=== PATIENT | female | born 1935 | race Caucasian/White ===

== ENCOUNTER 2019-05-03 01:02 | Emergency (ER) | payer OTHER ==
--- OUTSIDE RECORDS SUMMARY | 2019-05-03 01:10 | XMS REPORT | Continuity of Care Document ---
:1935 Author Organization Interface Problems Problem Status Onset Classification Date Comments Source Date Reported ACUTE UTI, Active 09/13/20 [place] CLINICAL SEPSIS [address] RESPIRATORY Active 06/19/20 [place] FAILURE, SEIZURE [address] [place] [address] [place] Active 06/19/20 [facility] BILLING [address] [place] [address] CVA Active 06/19/[address] Diabetes Resolved Problem 09/20/2017 [place] mellitus [facility] [facility] Hyperlipemia Resolved Problem 09/20/2017 [place] [facility] HTN (<span Resolved Problem 09/20/2017 [place] ID="[id number] [facility] ">Confirmed</spa [place] n>) [facility] Uterine cancer Resolved Problem 09/20/2017 [place] Ovarian cancer Resolved Problem 09/20/2017 [place] in remission [facility] [facility] Obesity Resolved Problem 09/20/2017 [place] [facility] RESPIRATORY Active [place] FAILURE, UNSP, Medical UNSP W HYPOXI Center UNSPECIFIED Active [facility] CONVULSIONS [facility] Medications Medication Details Route Status Patient Ordering Order Source Instructions Provider Date Famotidine 20 MG 20 mg, 1 tab, Inactive [place] Oral Tablet Route: PO, 2016 [facility] [Pepcid] Drug form: TAB, BID, Dosing Weight 140, kg, Start date: 09/17/17 17:00:00 CDT, Duration: 30 day, Stop date: 10/17/17 9:00:00 CSTNotes: (Same as: Pepcid) Hydralazine 10 mg, Route: Inactive 09/16[facility] [place] IVP, ONCE, 2016 [facility] Dosing Weight 140, kg, Priority: NOW, Start date: 09/16/17 13:07:00 CDT, Stop date: 09/16/17 13:07:00 CDT Ceftriaxone 2 gm, Route: No Longer 09/16[facility] [place] IVPB, [id number], Active 2016 [facility] Dosing Weight 140, kg, Start date: 09/16/17 12:00:00 CDT, Duration: 14 day, Stop date: 09/29/17 12:00:00 CDT, ABX Indication: BacteremiaNote s: (Same As: Rocephin). Use with 100 mL NS and infuse over 30 min MEDICATION WASTE Product Size: 2000 mg Product Wasted: ___ mg Pravastatin 20 mg, 1 tab, No Longer [place] Route: PO, Active 2016 [facility] Drug form: TAB, Bedtime, Dosing Weight 113.636, kg, Start date: 09/14/17 21:00:00 CDT, Duration: 30 day, Stop date: 10/13/17 21:00:00 CSTNotes: (Same as: Pravachol) cefepime 1 gm, Route: No Longer [place] IVPB, [id number], Active 2016 Dosing Weight 140, kg, (CrCl 30 - 49 ml/min), Start date: 09/14/17 13:00:00 CDT, Duration: 7 day, Stop date: 09/21/17 1:00:00 CDT, ABX Indication: ED - Suspected SepsisNotes: (Same As: Maxipime) MEDICATION WASTE Product Size: 1000 mg Product Wasted: ___ mg 24 HR Metoprolol 50 mg, 1 tab, No Longer [place] Tartrate 50 MG Route: PO, Active 2016 [facility] Extended Release Drug form: Tablet [Toprol] ERTAB, Q12H, Start date: 09/14/17 9:00:00 CDT, Duration: 30 day, Stop date: 10/13/17 21:00:00 CSTNotes: (Same as: Toprol XL) May split tab, but do not crush. Lisinopril 40 mg, 2 tab, No Longer [place] Route: PO, Active 2016 [facility] Drug form: TAB, Daily, Dosing Weight 113.636, kg, Start date: 09/14/17 9:00:00 CDT, Duration: 30 day, Stop date: 10/13/17 9:00:00 CSTNotes: (Same as: Prinivil, Zestril) lacosamide 100 mg, 2 tab, No Longer [place] Route: PO, Active 2016 [facility] Drug form: TAB, BID, Dosing Weight 113.636, kg, Start date: 09/14/17 9:00:00 CDT, Duration: 30 day, Stop date: 10/13/17 17:00:00 CSTNotes: Same as: Vimpat Aspirin 81 mg, 1 tab, No Longer [place] Route: PO, Active 2016 [facility] Drug form: CHEWTAB, Daily, Dosing Weight 113.636, kg, Start date: 09/14/17 9:00:00 CDT, Duration: 30 day, Stop date: 10/13/17 9:00:00 CSTNotes: Take with food. Humalog Mix 75/25 20 unit, 0.2 No Longer [place] mL, Route: Active 2016 [facility] SUB-Q, Drug form: INJ, QAM & PM (Insulin), Start date: 09/14/17 7:30:00 CDT, Duration: 30 day, Stop date: 10/13/17 16:30:00 CSTNotes: (Same as: Humalog Mix 75/25) "single patient use only" WASTE: F/P - Black; E - [employer]stru[employer] Trash Bin Roll in palms of hand gently; Do not shake. influenza virus 0.5 mL, Route: Inactive [place] vaccine, IM, ONCALL, 2016 [facility] inactivated Start date: 09/13/17 23:46:43 CDT, Stop date: 10/13/17 23:41:43 [employer] Ciprofloxacin 500 mg, 2 tab, No Longer [place] Route: PO, Active 2016 [facility] Drug form: TAB, [id number], Dosing Weight 113.636, kg, (For CrCl > /=30 ml/min), Start date: 09/13/17 23:00:00 CDT, Duration: 7 day, Stop date: 09/20/17 11:00:00 CDT, ABX Indication: Urinary Tract InfectionNotes : May interfere w/enteral feedings - Take 1 hr before or 2 hrs after antacids, dairy pdt & minerals. On empty stomach. NovoLIN 70/30 25 unit, Inactive [place] Route: SUB-Q, 2016 [facility] [id number], Dosing Weight 113.636, kg, Start date: 09/13/17 23:00:00 CDT, Duration: 30 day, Stop date: 10/13/17 11:00:00 [employer] Famotidine 20 mg, 2 mL, No Longer [place] Route: IVP, Active 2016 [facility] Drug form: INJ, BID, Dosing Weight 113.636, kg, Priority: STAT, Start date: 09/13/17 22:26:00 CDT, Duration: 30 day, Stop date: 10/13/17 17:00:00 CSTNotes: (Same as: Pepcid) Can be dilute in 5-10cc NS IVP: Slow IV push over at least 2 minutes. Insulin Lispro 10 unit, 0.1 No Longer [place] mL, Route: Active 2016 [facility] SUB-Q, Drug form: SOLN, TID-Before Meals, Dosing Weight 113.636, kg, PRN Blood Glucose Results, Start date: 09/13/17 22:15:00 CDT, Duration: 30 day, Stop date: 10/13/17 22:14:00 CSTNotes: Roll in palms of hands gently; Do not shake `vigorously. (Same as: Humalog ) "Single Patient Use Only " WASTE: F/P - Black; E - Municipal Trash Bin Stable for 28 days at room temperature. Expires in days from Date Dextrose 50% 12.5 gm, 25 No Longer [place] Syringe mL, Route: Active 2016 [facility] IVP, Drug Form: INJ, Dosing Weight 113.636, kg, PRN, PRN Blood Glucose Results, Start date: 09/13/17 22:15:00 CDT, Duration: 30 day, Stop date: 10/13/17 21:14:00 [employer] Glucagon 1 mg, Route: No Longer [place] IM, Drug form: Active [address] [place] PDR/INJ, PRN, Dosing Weight 113.636, kg, PRN Blood Glucose Results, Start date: 09/13/17 22:15:00 CDT, Duration: 30 day, Stop date: 10/13/17 21:14:00 [employer] Saline Flush 0.9% 10 ml, Route: No Longer [place] IVP, Drug Active [place] Form: INJ, Dosing Weight 113.636, kg, PRN, PRN Line Flush, Start date: 09/13/17 22:14:00 CDT, Duration: 30 day, Stop date: 10/13/17 21:13:00 CSTNotes: (Same as: BD Posiflush) sodium chloride 1,000 mL, No Longer 09/14/ [place] 0.9% 1000 ml INJ Rate: 75 Active [place] 1,000 mL ml/hr, Infuse over: 13.3 hr, Route: IV, Dosing Weight 113.636 kg, Total Volume: 1,000, Start date: 09/13/17 22:14:00 CDT, Duration: 30 day, Stop date: 10/13/17 22:13:00 [employer] Levaquin 750 mg, 150 Inactive 09/14/ [place] mL, Route: [place] IVPB, Drug form: SOLN, ONCE, Dosing Weight 113.636, kg, Start date: 09/13/17 19:39:00 CDT, Duration: 1 doses or times, Stop date: 09/13/17 19:39:00 CDT, ABX Indication: ED - Suspected SepsisNotes: (Same as:Levaquin) Sodium Chloride 1,000 mL, Inactive [place] 0.9% IV (NS 1,000 ml/hr, [address] [place] (Bolus) IV) Infuse Over: 1 hr, Route: IV, 1,000, Drug form: INJ, ONCE, Priority: STAT, Dosing Weight 148.8 kg, Start date: 09/13/17 19:23:00 CDT, Duration: 1 doses or times, Stop date: 09/13/17 19:23:00 CDT Saline Flush 0.9% 10 mL, Route: No Longer 09/14/ [place] IVP, Drug Active [address] [place] Form: INJ, Dosing Weight 148.8, kg, PRN, PRN Line Flush, Start date: 09/13/17 19:23:00 CDT, Duration: 30 day, Stop date: 10/13/17 18:22:00 CSTNotes: (Same as: BD Posiflush) metoprolol 50 mg, 1 tab, Inactive [place] tartrate Route: PO, 2017 Medical Drug form: Center TAB, Q12H, Dosing Weight 148.8, kg, Start date: 06/24/17 21:00:00 CDT, Duration: 30 day, Stop date: 07/24/17 9:00:00 CDT lacosamide 100 mg 100 mg=1 tab, Active [place] oral tablet PO, BID, # 60 2017 Medical tab, 3 Center Refill(s) metoprolol 50 mg=1 tab, Active [facility] tartrate 50 mg PO, Q12H, 0 2017 Medical oral tablet Refill(s) Center lisinopril 40 mg 40 mg=1 tab, Active [facility] oral tablet PO, Daily, # 2017 Medical 30 tab, 3 Center Refill(s) lacosamide 100 mg 100 mg=1 tab, Inactive [facility] oral tablet PO, BID, 0 2017 Medical Refill(s) Center metoprolol 25 mg, 1 tab, Inactive [facility] tartrate Route: PO, 2016 Medical Drug form: [place] TAB, Q12H, Dosing Weight 148.8, kg, Start date: 06/24/17 9:00:00 CDT, Duration: 30 day, Stop date: 07/23/17 21:00:00 CDTNotes: (Same as: Lopressor) Magnesium Sulfate 1 gm, 100 mL, Inactive 06/24[facility] Route: IVPB, 2016 Medical Drug form: [place] INJ, ONCE, Dosing Weight 148.8, kg, Start date: 06/24/17 8:18:00 CDT, Stop date: 06/24/17 8:18:00 CDTNotes: WASTE: F/P - Sink; E - Municipal Trash Bin Motrin 600 mg, 1 tab, Inactive 06/24[facility] Route: PO, 2016 Medical Drug form: [place] TAB, ONCE, Dosing Weight 148.8, kg, Start date: 06/24/17 4:26:00 CDT, Stop date: 06/24/17 4:26:00 CDTNotes: (Same as: Motrin) "Do Not Crush" Take with food. metoprolol 12.5 mg, 0.5 Inactive [facility] tartrate tab, Route: 2017 Medical PO, Drug form: [place] TAB, ONCE, Dosing Weight 148.8, kg, Start date: 06/24/17 4:25:00 CDT, Stop date: 06/24/17 4:25:00 CDTNotes: (Same as: Lopressor) 12.5 mg=1/2 X 25 mg TAB Tylenol 650 mg, 2 tab, Inactive [facility] Route: PO, 2016 Medical Drug form: [place] TAB, ONCE, Dosing Weight 148.8, kg, PRN Pain Score 1-3, Start date: 06/24/17 2:14:00 CDTNotes: Do not exceed 4 gm/day. (Same as: Tylenol) Tylenol 650 mg, 2 tab, Inactive [facility] Route: PO, 2016 Medical Drug form: [place] TAB, Q6H, Dosing Weight 148.8, kg, PRN Pain Score 1-3, Start date: 06/24/17 2:09:00 CDT, Duration: 30 day, Stop date: 07/24/17 2:08:00 CDTNotes: Do not exceed 4 gm/day. (Same as: Tylenol) Labetalol 10 mg, 2 mL, Inactive [facility] Route: IVP, 2016 Medical Drug form: [place] INJ, ONCE, Dosing Weight 148.8, kg, Start date: 06/23/17 23:08:00 CDT, Stop date: 06/23/17 23:08:00 CDT divalproex sodium 250 mg, 1 tab, No Longer [facility] 250 mg oral Route: PO, Active 2016 Medical enteric coated Drug form: [place] tablet (Depakote) ECTAB, BID, Dosing Weight 148.8, kg, Start date: 06/23/17 17:00:00 CDT, Duration: 30 day, Stop date: 07/23/17 9:00:00 CDT, Delayed Release tablet multivitamin with 5 ml, Route: No Longer [facility] minerals PO, Drug Form: Active 2016 Medical LIQ, Dosing Center Weight 148.8, kg, Daily, Start date: 06/23/17 9:00:00 CDT, Duration: 30 day, Stop date: 07/22/17 9:00:00 CDT lisinopril 30 mg 30 mg=1 tab, No Longer [facility] oral tablet PO, Daily, # Active 2017 Medical 30 tab, 0 Center Refill(s) Aspirin 81 mg, PO, Active [facility] Daily, adult 2017 Medical low dose Center aspirin 81 mg, 0 Refill(s) NovoLIN 70/30 See Active [facility] Instructions, 2017 Medical one shot in Center the morning and one shot in the evening which varies in dose depending upon blood sugar reading. usually 40-70 of 1 ml., 0 Refill(s) metoprolol See No Longer [facility] tartrate 100 mg Instructions, Active 2017 Medical oral tablet 1 tab each Center morning and half tablet each evening., 0 Refill(s) Omeprazole 20 mg, PO, Active [facility] Daily, [address] Center 20 mg, 0 Refill(s) metoprolol 12.5 mg, 0.5 No Longer [facility] tartrate tab, Route: Active 2017 Medical PO, Drug form: Center TAB, Q12H, Dosing Weight 148.8, kg, Start date: 06/22/17 21:00:00 CDT, Duration: 30 day, Stop date: 07/22/17 9:00:00 CDTNotes: (Same as: Lopressor) 12.5 mg=1/2 X 25 mg TAB 24 HR Divalproex 500 mg, 1 tab, No Longer [facility] Sodium 500 MG Route: PO, Active 2017 Medical Extended Release Drug form: [place] Tablet [Depakote] ECTAB, BID, Dosing Weight 148.8, kg, Start date: 06/22/17 17:00:00 CDT, Duration: 30 day, Stop date: 07/22/17 9:00:00 CDTNotes: (Same as: Depakote Delayed Release) Do not confuse with the extended-relea se tablet. Delayed absorption enteric coated tablet. Do not crush sodium chloride 1,000 mL, No Longer [place] 0.9% 1000 ml INJ Rate: 50 Active 2017 Medical 1,000 mL ml/hr, Infuse [place] over: 20 hr, Route: IV, Dosing Weight 148.8 kg, Total Volume: 1,000, Start date: 06/22/17 14:24:00 CDT, Duration: 30 day, Stop date: 07/22/17 14:23:00 CDT multivitamin with 1 tab, Route: No Longer [place] minerals PO, Drug Form: Active 2017 Medical TAB, Daily, Center Start date: 06/22/17 12:00:00 CDT, Duration: 30 day, Stop date: 07/22/17 9:00:00 CDTNotes: (Same as:Thera-M, Theragran-M) WASTE: F/P - Black; E - Municipal Trash Bin Give with food. Vimpat 100 mg, 1 tab, No Longer [place] Route: PO, Active 2016 Medical Drug form: [place] TAB, BID, Dosing Weight 148.8, kg, Start date: 06/22/17 10:25:00 CDT, Duration: 30 day, Stop date: 07/22/17 9:00:00 CDTNotes: Same as: Vimpat Aspirin 81 mg, 1 tab, No Longer [place] Route: PO, Active 2016 Medical Drug form: [place] ECTAB, Daily, Dosing Weight 148.8, kg, Start date: 06/22/17 9:00:00 CDT, Duration: 30 day, Stop date: 07/21/17 9:00:00 CDTNotes: Do not crush or chew. (Same As: Ecotrin) Potassium 20 mEq, 100 Inactive [place] Chloride mL, Route: 2017 Medical IVPB, Drug Center form: INJ, PRN, Dosing Weight 148.8, kg, PRN Abnormal Lab Result, Via central line, Start date: 06/22/17 2:06:00 CDT, Duration: 30 day, Stop date: 07/22/17 2:05:00 CDT, FOR ICU USE ONLYNotes: (Same as: KCL) Infuse no faster than 10 mEq/hr if given peripherally. Calcium Carbonate 500 mg, 1 tab, Inactive [place] 500 MG Chewable Route: PO, 2016 Medical Tablet Drug form: [place] CHEWTAB, PRN, Dosing Weight 148.8, kg, PRN Abnormal Lab Result, FOR ICU USE ONLY, Start date: 06/22/17 2:06:00 CDT, Duration: 30 day, Stop date: 07/22/17 2:05:00 CDTNotes: (Same As: Tums) Calcium Carbonate 500 vb=109 mg elemental calcium Dose= mg calcium carbonate ( mg elemental calcium) potassium 2 pkt, Route: Inactive [place] phosphate-sodium PO, Drug Form: 2017 Medical phosphate 250 PDR/REC, Center mg-280 mg-160 mg Dosing Weight oral powder for 148.8, kg, reconstitution PRN, PRN Abnormal Lab Result, FOR ICU USE ONLY, Start date: 06/22/17 2:06:00 CDT, Duration: 30 day, Stop date: 07/22/17 2:05:00 CDTNotes: (Same as: Phos-NaK) Each 1.5 gm pkt has 250mg phosphorous. Mix w/2.5oz water and stir. potassium 45 mmol, 15 Inactive [place] phosphate mL, Route: 2016 Medical IVPB, PRN, Center Dosing Weight 148.8, kg, PRN Abnormal Lab Result, Start date: 06/22/17 2:06:00 CDT, Duration: 30 day, Stop date: 07/22/17 2:05:00 CDT, FOR ICU USE ONLYNotes: (Same as: K Phosphate.) 1 mMol phoshate has 1.47 mEq potassium Infuse over 4 hours Calcium Gluconate 1 gm, 10 mL, Inactive [place] Route: IVPB, 2016 Medical PRN, Dosing Center Weight 148.8, kg, PRN Abnormal Lab Result, Start date: 06/22/17 2:06:00 CDT, Duration: 30 day, Stop date: 07/22/17 2:05:00 CDT, FOR ICU USE ONLYNotes: WASTE: F/P - Sink; E - Municipal Trash Bin Magnesium Oxide 800 mg, 2 tab, Inactive [place] Route: PO, 2016 Medical Drug form: Center TAB, PRN, Dosing Weight 148.8, kg, PRN Abnormal Lab Result, FOR ICU USE ONLY, Start date: 06/22/17 2:06:00 CDT, Duration: 30 day, Stop date: 07/22/17 2:05:00 CDTNotes: (Same as: Mag-Ox 400) Magnesium oxide 400op=544ye elemental magnesium Dose=____mg magnesium oxide (___mg elemental magnesium) Magnesium Sulfate 2 gm, 50 mL, Inactive [facility] Route: IVPB, 2016 Medical Drug form: [place] INJ, PRN, Dosing Weight 148.8, kg, PRN Abnormal Lab Result, Start date: 06/22/17 2:06:00 CDT, Duration: 30 day, Stop date: 07/22/17 2:05:00 CDT, FOR ICU USE ONLYNotes: WASTE: F/P - Sink; E - Municipal Trash Bin sodium phosphate 30 mmol, 10 Inactive [place] mL, Route: 2017 Medical IVPB, PRN, [place] Dosing Weight 148.8, kg, PRN Abnormal Lab Result, Start date: 06/22/17 2:06:00 CDT, Duration: 30 day, Stop date: 07/22/17 2:05:00 CDT, FOR ICU USE ONLY Seroquel 50 mg, 2 tab, No Longer [place] Route: PO, Active 2016 Medical Drug form: [place] TAB, Bedtime, Dosing Weight 148.8, kg, PRN Agitation, Start date: 06/21/17 9:36:00 CDT, Stop date: 07/21/17 9:35:00 CDTNotes: (Same as: SEROquel) Valproic Acid 50 750 mg, 15 mL, No Longer [place] MG/ML Oral Route: PO, Active 2016 Medical Solution Drug form: [place] SYRP, Q8H, Dosing Weight 148.8, kg, Start date: 06/21/17 9:00:00 CDT, Duration: 30 day, Stop date: 07/21/17 8:00:00 CDTNotes: (Same As: Depakene) Lisinopril 40 mg, 2 tab, No Longer [place] Route: PO, Active 2016 Medical Drug form: [place] TAB, Daily, Dosing Weight 148.8, kg, Start date: 06/21/17 9:00:00 CDT, Stop date: 07/20/17 9:00:00 CDTNotes: (Same as: Prinivil, Zestril) Seroquel 75 mg, Route: Inactive [place] PO, ONCE, 2016 Medical Dosing Weight [place] 148.8, kg, Start date: 06/21/17 3:57:00 CDT, Stop date: 06/21/17 3:57:00 CDT Labetalol 20 mg, 4 mL, Inactive [place] Route: IVP, 2016 Medical Drug form: [place] INJ, Q15Min, Dosing Weight 148.8, kg, PRN Hypertension, Start date: 06/21/17 3:05:00 CDT, Duration: 3 doses or times, Stop date: Limited # of times Hydralazine 10 mg, 0.5 mL, No Longer [place] Route: IV, Active 2016 Medical Drug form: [place] INJ, Q4H, Dosing Weight 148.8, kg, PRN Hypertension, Start date: 06/21/17 3:05:00 CDT, Duration: 30 day, Stop date: 07/21/17 3:04:00 CDTNotes: (Same as: Apresoline) Push over 5 minutes Keppra 1,500 mg, No Longer [place] Route: PO, Active 2016 Medical Drug form: [place] TAB, Q12H, Dosing Weight 148.8, kg, Start date: 06/21/17 2:00:00 CDT, Duration: 30 day, Stop date: 07/20/17 21:00:00 CDT Seroquel 75 mg, 3 tab, No Longer [place] Route: GT, Active 2016 Medical Drug form: Center TAB, Bedtime, Dosing Weight 148.8, kg, Start date: 06/20/17 21:00:00 CDT, Duration: 30 day, Stop date: 07/19/17 21:00:00 CDTNotes: (Same as: SEROquel) Pravastatin 20 mg, 1 tab, No Longer [place] Route: PO, Active 2016 Medical Drug form: Center TAB, Bedtime, Dosing Weight 148.8, kg, Start date: 06/20/17 21:00:00 CDT, Duration: 30 day, Stop date: 07/19/17 21:00:00 CDTNotes: (Same as: Pravachol) Valproic Acid 100 2,000 mg, 20 No Longer [place] MG/ML Injectable mL, Route: Active 2016 Medical Solution IVPB, ONCE, Center Dosing Weight 148.8, kg, Start date: 06/20/17 20:20:00 CDT, Stop date: 06/20/17 20:20:00 CDTNotes: Dilute in at least 50ml D5W or NS. Infusion rate=20 mg/min (Same As: Depacon) NS (Bolus) IV 500 mL, 500 Inactive [facility] ml/hr, Infuse 2017 Medical Over: 1 hr, [place] Route: IV, ONCE, Priority: STAT, Dosing Weight 148.8 kg, Start date: 06/20/17 20:15:00 CDT, Duration: 1 doses or times, Stop date: 06/20/17 20:15:00 CDT Hydralazine 10 mg, 0.5 mL, Inactive 06/20[facility] Route: IVP, 2016 Medical Drug form: [place] INJ, ONCE, Dosing Weight 148.8, kg, Priority: STAT, Start date: 06/20/17 18:37:00 CDT, Stop date: 06/20/17 18:37:00 CDTNotes: (Same as: Apresoline) Push over 5 minutes Labetalol 10 mg, 2 mL, Inactive [facility] Route: IVP, 2016 Medical Drug form: [place] INJ, ONCE, Dosing Weight 148.8, kg, Priority: STAT, Start date: 06/20/17 18:37:00 CDT, Stop date: 06/20/17 18:37:00 CDT Fentanyl 25 microgram, Inactive [facility] 0.5 mL, Route: 2017 Medical IV, Drug form: [place] INJ, ONCE, Dosing Weight 148.8, kg, Start date: 06/20/17 17:52:00 CDT, Stop date: 06/20/17 17:52:00 CDT, Pediatric Dosing; For procedure; > 50 kgNotes: (Same as: Sublimaze) Preservative free. Dexmedetomidine 400 microgram, No Longer [facility] 4 mL, Rate: Active 2016 Medical Titrate, Start [place] Dose: 0.2 microgram/kg/h r, Titration: 0.1 microgram/kg/h r every 30 min, Goal(s): 0 to -1 RASS, Max Dose: 1.5 microgram/kg/h r, Route: IV, Dosing Weight 148.8 kg, Total Volume: 100, Start date: 06/20/17 17:22:00...Not es: Not for use > 24 hours Haldol 5 mg, 1 mL, Inactive [place] Route: IM, 2017 Medical Drug form: Center INJ, ONCE, Dosing Weight 148.8, kg, PRN Agitation, Start date: 06/20/17 16:14:00 CDTNotes: (Same as: Haldol) Albuterol 0.833 3 ml, Route: No Longer [place] MG/ML / NEB, Drug Active 2016 Medical Ipratropium Form: SOLN, Center [place] 0.167 Dosing Weight MG/ML Inhalant 148.8, kg, Solution [DuoNeb] RQ6H, PRN as needed for shortness of breath or wheezing, Start date: 06/20/17 14:00:00 CDT, Stop date: 06/27/17 8:00:00 CDTNotes: (Same as: Duoneb) Dextrose 50% 12.5 gm, 25 No Longer [place] Syringe mL, Route: Active 2016 Medical IVP, Drug Center Form: INJ, Dosing Weight 148.8, kg, PRN, PRN Abnormal Lab Result, Start date: 06/20/17 12:54:00 CDT, Duration: 30 day, Stop date: 07/20/17 12:53:00 CDT Regular Insulin, 3 unit, 0.03 No Longer [place] Human 100 UNT/ML mL, Route: Active 2016 Medical Injectable SUB-Q, Drug Center Solution form: SOLN, PRN, Dosing Weight 148.8, kg, PRN Abnormal Lab Result, Start date: 06/20/17 12:54:00 CDT, Duration: 30 day, Stop date: 07/20/17 12:53:00 CDTNotes: (Same as: Humulin R) Roll in palms of hands gently; Do not shake vigorously. "single patient use only" (Restricted to patients requiring a dose > 60 units) WASTE: F/P - Black; E - Municipal Trash Bin Stable for 28 days at room temperature Expires in days from Date Keppra 1,500 mg, Inactive [place] Route: IVPB, 2017 Medical Q12H, Dosing Center Weight 148.8, kg, Priority: NOW, Start date: 06/20/17 12:41:00 CDT, Duration: 7 day, Stop date: 06/27/17 9:00:00 CDTNotes: Same as Keppra Mix with 100 mL NS, LR or D5W MEDICATION WASTE Product Size: 500 mg Product Wasted: ___ mg sennosides, SHELTER 8.6 mg, 1 tab, No Longer [place] Route: PO, Active 2016 Medical Drug Form: Center TAB, Dosing Weight 148.8, kg, BID, Start date: 06/20/17 9:00:00 CDT, Duration: 30 day, Stop date: 07/19/17 17:00:00 CDTNotes: (Same as: Senokot) Saline Flush 0.9% 10 ml, Route: No Longer [facility] IVP, Drug Active 2016 Medical Form: INJ, Center Dosing Weight 136.364, kg, Q12H, Start date: 06/20/17 9:00:00 CDT, Duration: 30 day, Stop date: 07/19/17 21:00:00 CDTNotes: (Same as: BD Posiflush) pantoprazole 40 mg, Route: Inactive [facility] IVP, Drug 2016 Medical form: INJ, Center Daily, Dosing Weight 136.364, kg, Start date: 06/20/17 9:00:00 CDT, Duration: 30 day, Stop date: 07/19/17 9:00:00 CDTNotes: For IV push reconstitute with 10 ml 0.9% sodium chloride and push over 2 minutes. (Same as: Protonix) Streptococcus 0.5 mL, Route: Inactive [facility] pneumoniae IM, Drug Form: 2017 Medical serotype 1 INJ, Daily, Center capsular antigen Start date: diphtheria [id number] 06/20/17 protein conjugate 9:00:00 CDT, vaccine / Duration: 1 Streptococcus doses or pneumoniae times, Stop serotype 14 date: 06/20/17 capsular antigen 9:00:00 diphtheria [id number] CDTNotes: protein conjugate Shake well vaccine / prior to use Streptococcus (Same as: pneumoniae Prevnar 13) serotype 18C capsular antigen d chlorhexidine 15 mL, Route: Inactive [facility] gluconate 1.2 Swab Mouth, 2017 Medical MG/ML Mouthwash Q12H, Drug Center form: LIQ, Start date: 06/20/17 9:00:00 CDT, Duration: 30 day, Stop date: 07/19/17 21:00:00 CDTNotes: (Same As: Peridex) lansoprazole 30 mg, 10 mL, No Longer [facility] Route: NG, Active 2016 Medical Drug form: [place] SUSP, Daily, Dosing Weight 136.364, kg, Start date: 06/20/17 9:00:00 CDT, Duration: 30 day, Stop date: 07/19/17 9:00:00 CDTNotes: Take 1 hour before or 2 hours after meal; Expires in 14 days. Shake well before use. (Same as:Prevacid) Compounded Product - formulation not commercially available Docusate 100 mg, 10 mL, No Longer [facility] Route: PO, Active 2016 Medical Drug form: [place] LIQ, Daily, Dosing Weight 148.8, kg, Start date: 06/20/17 9:00:00 CDT, Duration: 30 day, Stop date: 07/19/17 9:00:00 CDTNotes: (Same as: Colace) ocular lubricant 1 appl, Route: No Longer [facility] BOTH EYES, Active 2016 Medical Q6H, Drug Center form: OINT, Start date: 06/20/17 6:00:00 CDT, Duration: 30 day, Stop date: 07/20/17 0:00:00 CDTNotes: (Same as: Lacri-Lube, Duratears Naturale, Artificial Tears, and Tears Again ) Aspirin 300 MG 300 mg, 1 Inactive [place] Rectal supp, Route: 2017 Medical Suppository CO, Drug form: [place] SUPP, Daily, Dosing Weight 148.8, kg, Start date: 06/20/17 3:29:00 CDT, Duration: 30 day, Stop date: 07/19/17 9:00:00 CDTNotes: Refrigerate. 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 Infection/Epid ural AbcessNotes: TIME CRITICAL MEDICATION (Same As: Vancocin) Infusion rate 2001 mg: infuse over 2.5 hours MEDICATION WASTE Product Size: 1000 mg Product Wasted: 0 mg cefepime 2 gm, Route: Inactive [place] IVPB, [id number], 2017 Medical Dosing Weight Center 148.8, kg, (CrCl >/=50 ml/min, SPORTS REPORTER infection or neutropenic fever), Start date: 06/20/17 3:14:00 CDT, Duration: 10 day, Stop date: 06/29/17 16:00:00 CDT, ABX Indication: SPORTS REPORTER Infection/Epid ural AbcessNotes: (Same as: Maxipime) MEDICATION WASTE Product Size: 2000 mg Product Wasted: 0 mg sodium phosphate 15 mmol, 5 mL, No Longer [place] Route: IVPB, Active 2016 Medical PRN, Dosing Center Weight 148.8, kg, PRN Abnormal Lab Result, Start date: 06/20/17 3:13:00 CDT, Duration: 30 day, Stop date: 07/20/17 3:12:00 CDT, FOR ICU USE ONLY Calcium Carbonate 500 mg, 1 tab, No Longer [place] 500 MG Chewable Route: PO, Active 2016 Medical Tablet Drug form: Center CHEWTAB, PRN, Dosing Weight 148.8, kg, PRN Abnormal Lab Result, FOR ICU USE ONLY, Start date: 06/20/17 3:13:00 CDT, Duration: 30 day, Stop date: 07/20/17 3:12:00 CDTNotes: (Same As: Tums) Calcium Carbonate 500 jx=077 mg elemental calcium Dose= mg calcium carbonate ( mg elemental calcium) potassium 2 pkt, Route: No Longer [place] phosphate-sodium PO, Drug Form: Active 2016 Medical phosphate 250 PDR/REC, Center mg-280 mg-160 mg Dosing Weight oral powder for 148.8, kg, reconstitution PRN, PRN Abnormal Lab Result, FOR ICU USE ONLY, Start date: 06/20/17 3:13:00 CDT, Duration: 30 day, Stop date: 07/20/17 3:12:00 CDTNotes: (Same as: Phos-NaK) Each 1.5 gm pkt has 250mg phosphorous. Mix w/2.5oz water and stir. Magnesium Sulfate 2 gm, 50 mL, No Longer [place] Route: IVPB, Active 2016 Medical Drug form: Center INJ, PRN, Dosing Weight 148.8, kg, PRN Abnormal Lab Result, Start date: 06/20/17 3:13:00 CDT, Duration: 30 day, Stop date: 07/20/17 3:12:00 CDT, FOR ICU USE ONLYNotes: WASTE: F/P - Sink; E - Municipal Trash Bin Magnesium Oxide 800 mg, 2 tab, No Longer [place] Route: PO, Active 2016 Medical Drug form: Center TAB, PRN, Dosing Weight 148.8, kg, PRN Abnormal Lab Result, FOR ICU USE ONLY, Start date: 06/20/17 3:13:00 CDT, Duration: 30 day, Stop date: 07/20/17 3:12:00 CDTNotes: (Same as: Mag-Ox 400) Magnesium oxide 821mg=440ay elemental magnesium Dose=____mg magnesium oxide (___mg elemental magnesium) Calcium Gluconate 1 gm, 10 mL, No Longer [place] Route: IVPB, Active 2016 Medical PRN, Dosing Center Weight 148.8, kg, PRN Abnormal Lab Result, Start date: 06/20/17 3:13:00 CDT, Duration: 30 day, Stop date: 07/20/17 3:12:00 CDT, FOR ICU USE ONLYNotes: WASTE: F/P - Sink; E - Municipal Trash Bin Potassium 20 mEq, 15 mL, No Longer [place] Chloride Route: [place], Active 2016 Medical Drug form: Center LIQ, PRN, Dosing Weight 148.8, kg, PRN Abnormal Lab Result, Start date: 06/20/17 3:13:00 CDT, Duration: 30 day, Stop date: 07/20/17 3:12:00 CDT, FOR ICU USE ONLYNotes: (Same as: Potassium Chloride) Keppra 2,000 mg, Inactive [facility] Route: IV, 2017 Medical ONCE, Dosing Center Weight 136.364, kg, Priority: STAT, Start date: 06/20/17 1:13:00 CDT, Stop date: 06/20/17 1:13:00 CDTNotes: Same as Keppra Mix with 100 mL NS, LR or D5W MEDICATION WASTE Product Size: 500 mg Product Wasted: 0 mg Insulin regular 1 unit, 0.01 No Longer [facility] mL, Route: Active 2016 Medical SUB-Q, Drug Center form: SOLN, Sliding Scale, Dosing Weight 136.364, kg, PRN Blood Glucose Results, Start date: 06/20/17 1:01:00 CDT, Duration: 30 day, Stop date: 07/20/17 1:00:00 CDTNotes: (Same as: Humulin R) Roll in palms of hands gently; Do not shake vigorously. "single patient use only" (Restricted to patients requiring a dose > 60 units) WASTE: F/P - Black; E - Municipal Trash Bin Stable for 28 days at room temperature Expires in days from Date Dextrose 50% 12.5 gm, 25 No Longer [facility] Syringe mL, Route: Active 2016 Medical IVP, Drug Center Form: INJ, Dosing Weight 136.364, kg, PRN, PRN Blood Glucose Results, Start date: 06/20/17 1:01:00 CDT, Duration: 30 day, Stop date: 07/20/17 1:00:00 CDT Glucagon 1 mg, Route: No Longer [facility] IM, Drug form: Active 2017 Medical PDR/INJ, PRN, Center Dosing Weight 136.364, kg, PRN Blood Glucose Results, Start date: 06/20/17 1:01:00 CDT, Duration: 30 day, Stop date: 07/20/17 1:00:00 CDT chlorhexidine 15 mL, Route: No Longer [place] gluconate 1.2 Swab Mouth, Active 2017 Medical MG/ML Mouthwash PRN, Drug Center form: LIQ, PRN Other -See Comment, Start date: 06/20/17 0:54:00 CDT, Duration: 30 day, Stop date: 07/20/17 0:53:00 CDTNotes: (Same As: Peridex) sodium chloride 1,000 mL, No Longer [place] 0.9% 1000 ml INJ Rate: 75 Active 2017 [facility] 1,000 mL ml/hr, Infuse Center over: 13.3 hr, Route: IV, Dosing Weight 136.364 kg, Total Volume: 1,000, Start date: 06/20/17 0:52:00 CDT, Duration: 30 day, Stop date: 07/20/17 0:51:00 CDT NS (Bolus) IV 1,000 mL, Inactive [place] 1,000 ml/hr, 2017 Medical Infuse Over: 1 Center hr, Route: IV, 1,000, Drug form: INJ, ONCE, Priority: STAT, Dosing Weight 136.364 kg, Start date: 06/20/17 0:52:00 CDT, Duration: 1 doses or times, Stop date: 06/20/17 0:52:00 CDT pravastatin 20 mg 20 mg=1 tab, Active [place] oral tablet PO, Bedtime, # 2017 Medical 30 tab, 0 Center Refill(s) Aspirin Enteric 81 mg=1 tab, Inactive [place] Coated 81 mg oral PO, Daily, 0 2016 [facility] delayed release Refill(s) [place] tablet metoprolol BID, 0 No Longer [place] tartrate Refill(s) Active 2017 [facility] Lisinopril 30, PO, Daily, No Longer [place] 0 Refill(s) Active 2017 [facility] heparin 5,000 unit, 1 No Longer [place] mL, Route: Active 2017 Medical SUB-Q, Drug Center form: INJ, Q8H, Dosing Weight 136.364, kg, (For patients weighing Notes: porcine heparin atorvastatin 80 mg, 2 tab, No Longer [place] Route: PO, Active 2016 Medical Drug form: [place] TAB, Bedtime, Dosing Weight 136.364, kg, Start date: 06/19/17 23:04:00 CDT, Duration: 30 day, Stop date: 07/19/17 21:00:00 CDTNotes: (Same as: Lipitor) Aspirin 325 MG 325 mg, 1 tab, No Longer [place] Enteric Coated Route: PO, Active 2016 Medical Tablet Drug form: [place] TAB, Daily, Dosing Weight 136.364, kg, Start date: 06/19/17 23:04:00 CDT, Duration: 30 day, Stop date: 07/19/17 9:00:00 CDTNotes: Take with food. Saline Flush 0.9% 10 ml, Route: No Longer [place] IVP, Drug Active 2016 Medical Form: INJ, Center Dosing Weight 136.364, kg, PRN, PRN Line Flush, Start date: 06/19/17 22:54:00 CDT, Duration: 30 day, Stop date: 07/19/17 22:53:00 CDTNotes: (Same as: BD Posiflush) iodixanol 100 mL, Route: Inactive [place] IVP, Drug 2016 Medical Form: SOLN, [place] Dosing Weight 136.364, kg, ONCALL, STAT, Start date: 06/19/17 21:24:00 CDT, Duration: 1 doses or times, Dose=2.2ml/kg, Max [id number] -- "To be infused by Radiology Staff ONLY" iodixanol 100 mL, Route: No Longer [facility] IVP, Drug Active 2017 Medical Form: SOLN, Center Dosing Weight 136.364, kg, ONCALL, STAT, Start date: 06/19/17 21:18:00 CDT, Duration: 1 doses or times, Dose=2.2ml/kg, Max ueud=[id number] -- "To be infused by Radiology Staff ONLY"Notes: (Same as: Visipaque). WASTE: F/P - Black; E - Municipal Trash Bin propofol INJ 1,000 mg, 100 No Longer 06/20[facility] 1,000 mg mL, Rate: Active 2017 Medical Titrate, Start Center Dose: 5 microgram/kg/m in, Titration: 5 microgram/kg/m in every 15 min, Goal(s): RASS 0, Max Dose: 50 microgram/kg/m in, Route: IV, Dosing Weight 148.8 kg, Total Volume: 100, Start date: 06/19/17 21:15:00 CDT, Stop...Notes: If Diprivan - change bottle & tubing every 12 hr Per state nursing law propofol can only be given by a nurse if patient is intubated or being intubated (unless the nurse is a [employer]ER). Same as: Diprivan Saline Flush 0.9% 10 mL, Route: No Longer 06/20[facility] IVP, Drug Active 2016 Medical Form: INJ, kg, Center PRN, PRN Line Flush, Start date: 06/19/17 21:08:00 CDT, Duration: 30 day, Stop date: 07/19/17 21:07:00 CDTNotes: (Same as: BD Posiflush) Allergies, Adverse Reactions, Alerts Substance Category Reaction Severity Reaction Status Date Comments Source type Reported penicillins Assertion Drug Active allergy [place] Immunizations Immunization Date Site Status Last Updated Comments Source Given influenza virus Left completed Jarett [place] vaccine, 7 [place] inactivated pneumococcal Left completed Jaison [place] 13-valent vaccine 7 deltoid [place],[facility] Results Order Name Results Value Reference Date Interpretation Comments Source Range PICC insert PICC insert PICC line insertion under ultrasound and fluoroscopy guidance: 09/16 - [place] with or with or - [place] without without port port VR VR CLINICAL INFORMATION: Vascular access for long-term antibiotics. Read by: Ilan Carr MD Dictated Date/time: 09/17/17 09:48 Electronically Signed by: Ilan Carr MD 09/17/17 09:48 FINAL REPORT CONSENT: The procedure, risks, benefits, and alternatives were discussed and written, informed consent was obtained. DAP: 4712 mgy-cm time: 0.8min PROCEDURE: Sterile barrier technique was followed including: Cap and mask, sterile gown, sterile gloves, and large sterile sheet. Hand hygiene, and 2% chlorhexidine for cutaneous antisepsis (or acceptable alternative antiseptics, per current guideline). The patient was placed supine on the fluoroscopy table and the right arm was prepped and draped in the usual sterile fashion. An ultrasound was performed to localize a suitable vein in the right upper extremity and images of ultrasound were archived. After administering local anesthesia, a micropuncture needle was used to access the basilic vein in the right upper extremity.The right basilic is patent and compressible. Images were sent to PACS for archiving. A guidewire was advanced centrally. A peel-away sheath was placed over the guidewire and guidewire was removed. A 5 [place] double lumen PICC line was placed through a peel-away sheath with the tip pos itioned at the level of the caval atrial junction. The peel-away sheath was removed and the PICC line was secured to the skin with two simple interrupted sutures. The catheter tip is located at the superior caval-atrial junction. The patient tolerated the procedure well and there were no immediate complications. IMPRESSION: Placement of right upper extremity PICC line under ultrasound and fluoroscopy guidance. ED ED ED Abdomen/Pelvis IV contrast only CT 09/16/2017 11:18 AM CDT 09/16 - [facility] Abdomen/Pel Abdomen/Pel /2016 - [facility] vis IV s IV contrast contrast only CT only CT Comparison: 06/20/2017 radiograph Read by: Mike Knight MD Dictated Date/time: 09/16/17 12:52 Electronically Signed by: Mike Knight MD 09/16/17 13:05 FINAL REPORT Dose: DLP 2810 mGy-cm TECHNIQUE: Helical acquisition of the abdomen and pelvis was obtained from the lung bases to the pubic symphysis with intravenous contrast. Axial, sagittal and coronal images MPR were interpreted. This exam was performed according to our department dose optimization protocol , which includes automated exposure control, adjustment of the mA and/or kV according to patient size and/or use of iterative reconstruction technique. FINDINGS: Lung bases: Clear. No pneumoperitoneum. Liver: Within normal limits. Spleen: Borderline increase gland volume measuring 13 cm AP dimension. Adrenal glands: Left adrenal gland nodule measures 2.5 x 1.8 cm. Unremarkable right adrenal gland. Gallbladder/biliary: Cholecystectomy. No evidence of intrahepatic biliary dilatation. Pancreas: Pancreatic neck partly calcified hypodense mass is present measuring 3.5 x 2.5 cm axial dimensions, 3.1 cm craniocaudal. Adjacent superior peripancreatic adenopathy is present measuring up to 1.9 cm. Portal caval adenopathy is also present measuring 3.2 x 1.3 cm. The remainder of the pancreas is mildly atrophic. No pancreatic duct dilatation. Kidneys: Within normal limits. Vascular: Normal enhancement of the portal vein and splenic vein. 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 Mild celiac artery ostial stenosis also present. Moderate abdominal aortic atherosclerotic calcifications without aneurysm. GI tract:The stomach appears unremarkable. No small bowel dilatation is present. Left periumbilical anterior abdominal wall hernia is seen containing mesenteric fat and a small bowel loop without eviden ce of incarceration or strangulation. The hernia sac measures 8.4 cm transverse. Colon appears normal. The appendix appears normal. Lymph nodes: Peripancreatic and portal caval adenopathy as above. Mild aortocaval adenopathy immediately below the left renal vein is also present measuring 1.2 cm. Urinary bladder: Appears normal. Reproductive structures: Within normal limits. Regional skeleton: Osteoporosis. Mid to lower lumbar spine fusion changes are present. Peritoneal: No abdominal free fluid identified. Miscellaneous: None. IMPRESSION: 1. Pancreatic neck hypodense mass suspicious for neoplasm with adenopathy in the peripancreatic, portacaval, and aortocaval regions. No hepatic neoplasm identified. 2. Left periumbilical abdominal wall hernia containing small bowel. No small bowel obstruction. 3. 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 Follow-up to show stability is recommended. 4. Atherosclerosis. CHEM PANEL Glucose Lvl 229 mg/dL 70 - 99 09/14 [facility] [place] CHEM PANEL Sodium Lvl 133 meq/L 135 - 145 09/14 [place] CHEM PANEL BUN 16 mg/dL 7 - 22 09/14 [place] CHEM PANEL Creatinine 1.19 mg/dL 0.50 - 09/14 [facility] [place] Lvl 1.40 /2016 [place] CHEM PANEL AGAP 11.9 meq/L 10.0 - 09/14 [facility] [place] 20.0 /2017 [place] CHEM PANEL Chloride Lvl 96 meq/L 95 - 109 09/14 [place] CHEM PANEL CO2 30 meq/L 24 - 32 09/14 [place] CHEM PANEL Calcium Lvl 8.2 mg/dL 8.5 - 10.5 09/14 [facility] CHEM PANEL Potassium Lvl 4.9 meq/L 3.5 - 5.1 09/14 [facility] CHEM PANEL eGFR 43 09/14 Result Comment: The eGFR is calculated using the CKD-EPI formula. In most young, healthy individuals the eGFR will be >90 mL/ min/1.73m2. The eGFR declines with age. An eGFR of 60-89 may be normal in mL/min/1.7 /2016 some populations, particularly the elderly, for whom the CKD-EPI formula has not been extensively validated. Use of the eGFR is not recommended in the following populations: [facility] 3m2 Individuals with unstable creatinine concentrations, including patients and those with serious co-morbid conditions. Patients with extremes in muscle mass or diet. The data above are obtained from the National Kidney Disease Education Program (NKDEP) which additionally recommends that when the eGFR is used in patients with extremes of body mass index for purposes of drug dosing, the eGFR should be multiplied by the estimated BMI. CHEM PANEL Lactic Acid 2.0 mMol/L 0.5 - 2.2 09/14 [place] [facility] CHEM PANEL Lactic Acid 2.8 mMol/L 0.5 - 2.2 09/14 [place] URINE AND UA <=1.0 0.1 - 1.0 09/14 [place] STOOL Urobilinogen mg/dL [place] URINE AND UA Mucus Few /LPF None Seen 09/14 [place] STOOL /LPF [place] URINE AND UA Bacteria Occasional None Seen 09/14 [place] STOOL /HPF /HPF /2016 [place] URINE AND UA RBC 46 /HPF 0 - 2 09/14 [place] URINE AND UA Blood Large Negative 09/14 [place] *ABN* (09/13/17 7:52 PM) URINE AND UA Bili Negative Negative 09/14 [place] ST[place] *NA* (09/13/17 7:52 PM) URINE AND UA WBC 21 /HPF 0 - 5 09/14 [place] URINE AND UA Sq Epi Occasional Few /LPF 09/14 [place] STOOL /LPF /2016 [place] URINE AND UA Leuk Est Negative Negative 09/14 [place] STOOL [place] (09/13/17 7:52 PM) URINE AND UA Nitrite Negative Negative 09/14 [place] STOOL [facility] (09/13/17 7:52 PM) URINE AND UA Ketones Negative Negative 09/14 [place] STO[place] mg/dL mg/dL [facility] URINE AND UA Glucose 50 mg/dL Negative 09/14 [place] mg/dL [facility] URINE AND UA Protein 30 mg/dL Negative 09/14 [place] mg/dL [facility] URINE AND UA pH 5.0 5.0 - 8.0 09/14 [place] STOOL [facility] URINE AND UA Spec Grav 1.016 <=1.030 09/14 [place] STOOL [place] URINE AND UA Color Light Yellow Yellow 09/14 [place] STOOL [place] *NA* (09/13/17 7:52 PM) URINE AND UA Turbidity Slight Clear 09/14 [place] STOOL [facility] *ABN* (09/13/17 7:52 PM) CARDIAC CK MB Index null 0.0 - 2.5 09/14 [place] ENZYMES [facility] CARDIAC Total CK 75 unit/L 12 - 191 09/14 [place] ENZYMES [facility] CARDIAC CK MB null 0.5 - 3.6 09/14 [place] ENZYMES [facility] CARDIAC Troponin-I 0.03 ng/mL 0.00 - 09/14 [place] ENZYMES 0.40 [facility] CHEM PANEL eGFR 48 09/14 Result Comment: The eGFR is calculated using the CKD-EPI formula. In most young, healthy individuals the eGFR will be >90 mL/ min/1.73m2. The eGFR declines with age. An eGFR of 60-89 may be normal in mL/min/1.7 /2016 some populations, particularly the elderly, for whom the CKD-EPI formula has not been extensively validated. Use of the eGFR is not recommended in the following populations: [facility] 3m2 Individuals with unstable creatinine concentrations, including patients and those with serious co-morbid conditions. Patients with extremes in muscle mass or diet. The data above are obtained from the National Kidney Disease Education Program (NKDEP) which additionally recommends that when the eGFR is used in patients with extremes of body mass index for purposes of drug dosing, the eGFR should be multiplied by the estimated BMI. CHEM PANEL Bili Total 0.4 mg/dL 0.2 - 1.3 09/14 [place] CHEM PANEL CO2 27 meq/L 24 - 32 09/14 [place] CHEM PANEL Chloride Lvl 94 meq/L 95 - 109 09/14 [place] CHEM PANEL Total Protein 7.4 g/dL 6.4 - 8.4 09/14 [place] CHEM PANEL ALT 19 unit/L 0 - 65 09/14 [place] CHEM PANEL Albumin Lvl 3.0 g/dL 3.5 - 5.0 09/14 [place] CHEM PANEL Alk Phos 107 unit/L 39 - 136 09/14 [place] CHEM PANEL AST 31 unit/L 0 - 37 09/14 [place] CHEM PANEL Creatinine 1.07 mg/dL 0.50 - 09/14 [place] Lvl 1.40 [place] CHEM PANEL Potassium Lvl 4.9 meq/L 3.5 - 5.1 09/14 [place] CHEM PANEL Sodium Lvl 130 meq/L 135 - 145 09/14 [place] CHEM PANEL Calcium Lvl 8.5 mg/dL 8.5 - 10.5 09/14 [place] CHEM PANEL BUN 13 mg/dL 7 - 22 09/14 [place] CHEM PANEL Glucose Lvl 255 mg/dL 70 - 99 09/14 [place] CHEM PANEL A/G Ratio 0.7 0.7 - 1.6 09/14 [place] CHEM PANEL AGAP 13.9 meq/L 10.0 - 09/14 [place] 20.0 [place] CHEM PANEL Globulin 4.4 g/dL 2.7 - 4.2 09/14 [place] CHEM PANEL B/C Ratio 12 6 - 25 09/14 [place] CHEM PANEL Lactic Acid 3.2 mMol/L 0.5 - 2.2 09/14 [place] L[place] CHEM PANEL Procalcitonin 0.41 ng/mL 0.00 - 09/14 [place] Lvl 0. [place] HEMATOLOGY Lymphocytes # 1.0 K/CMM 1.0 - 5.5 09/14 [place] HEMATOLOGY Monocytes # 0.1 K/CMM 0.0 - 0.8 09/14 [place] HEMATOLOGY Basophils # 0.0 K/CMM 0.0 - 0.2 09/14 [place] HEMATOLOGY Eosinophils # 0.0 K/CMM 0.0 - 0.5 09/14 [place] HEMATOLOGY Eosinophils 0.1 % 0.0 - 4.0 09/14 [place] HEMATOLOGY Segs-Bands # 9.3 K/CMM 1.5 - 8.1 09/14 [place] HEMATOLOGY Basophils 0.0 % 0.0 - 1.0 09/14 [place] HEMATOLOGY Lymphocytes 9.5 % 20.0 - 09/14 [facility] [place] 40.0 /2016 [place] HEMATOLOGY Segs 89.9 % 45.0 - 09/14 [facility] [place] 75.0 /2016 [place] HEMATOLOGY Monocytes 0.5 % 2.0 - 12.0 09/14 [place] HEMATOLOGY MCHC 32.9 g/dL 32.0 - 09/14 [place] 36.0 [place] HEMATOLOGY RDW 14.1 % 11.5 - 09/14 [place] 14.5 [place] HEMATOLOGY MCH 28.2 pg 27.0 - 09/14 [place] 31.0 [place] HEMATOLOGY Platelet 221 K/CMM 133 - 450 09/14 [place] HEMATOLOGY MCV 85.7 fL 80.0 - 09/14 [place] 98.0 /2016 [place] HEMATOLOGY Hgb 13.8 g/dL 12.0 - 09/14 [place] 16.0 [place] HEMATOLOGY Hct 41.9 % 36.0 - 09/14 [place] 48.0 /2016 [place] HEMATOLOGY WBC 10.4 K/CMM 3.7 - 10.4 09/14 [place] HEMATOLOGY RBC 4.88 M/CMM 4.20 - 09/14 [place] 5.40 /2016 [place] HEMATOLOGY MPV 8.4 fL 7.4 - 10.4 09/14 [place] HEMATOLOGY PT 13.3 s 12.0 - 09/14 [facility] [place] 14.7 [place] HEMATOLOGY INR 0.99 0.85 - 09/14 [facility] [place] 1.17 [place] HEMATOLOGY PTT 21.3 s 22.9 - 09/14 [facility] [place] 35.8 /2016 [place] MOLECULAR OXA Not Detected Not 09/14 [facility] [place] DIAGNOSTIC (carbapenemas Detected /2016 [place] e) (09/13/17 7:47 PM) MOLECULAR VIM Not Detected Not 09/14 [facility] [place] DIAGNOSTIC (carbapenemas Detected /2016 [place] e) (09/13/17 7:47 PM) MOLECULAR KPC Not Detected Not 09/14 [facility] [place] DIAGNOSTIC (carbapenemas Detected /2016 [place] e) (09/13/17 7:47 PM) MOLECULAR NDM Not Detected Not 09/14 [facility] [place] DIAGNOSTIC (carbapenemas Detected /2016 [place] e) (09/13/17 7:47 PM) MOLECULAR K. pneumoniae Not Detected Not 09/14 [facility] [place] DIAGNOSTIC Detected [place] (09/13/17 7:47 PM) MOLECULAR Enterobacter Not Detected Not 09/14 [facility] [place] DIAGNOSTIC spp. Detected /2016 [place] (09/13/17 7:47 PM) MOLECULAR P. aeruginosa Not Detected Not 09/14 [facility] [place] DIAGNOSTIC Detected [place] (09/13/17 7:47 PM) MOLECULAR IMP Not Detected Not 09/14 [facility] [place] DIAGNOSTIC (carbapenemas Detected /2016 [place] e) (09/13/17 7:47 PM) MOLECULAR Proteus spp. Not Detected Not 09/14 [facility] [place] DIAGNOSTIC Detected [place] (09/13/17 7:47 PM) MOLECULAR CTX-M (ESBL) Not Detected Not 09/14 [facility] [place] DIAGNOSTIC Detected [place] (09/13/17 7:47 PM) MOLECULAR Citrobacter Not Detected Not 09/14 [facility] [place] DIAGNOSTIC spp. Detected [place] (09/13/17 7:47 PM) MOLECULAR Acinetobacter Not Detected Not 09/14 [facility] [place] DIAGNOSTIC spp. Detected /2016 [place] (09/13/17 7:47 PM) MOLECULAR E. coli Detected Not 09/14 [facility] [place] DIAGNOSTIC Detected [place] *ABN* (09/13/17 7:47 PM) MOLECULAR K. oxytoca Not Detected Not 09/14 [facility] [place] DIAGNOSTIC Detected [place] (09/13/17 7:47 PM) Chest 1view Chest 1view Clinical History : , - Undifferentiated Sepsis 09/13 - [facility] [place] DX DX - [place] Exam : Portable AP view of the chest 09/13/2017 7:23 PM CDT Read by: Tc Caldera MD Dictated Date/time: 09/13/17 20:17 Electronically Signed by: Tc Caldera MD 09/13/17 20:18 FINAL REPORT Comparisons : Portable AP view of the chest 06/22/2017 Findings : The patient is in lordotic position which accentuates the lung apices and slightly limits evaluation of the lung bases. The lungs are clear without focal consolidation or pleural effusion. The heart is normal in size. The mediastinal contours are normal in appearance. There are vascular calcifications along the aortic arch. The thoracic spine is age appropriate. The shoulders are unremarkable. Limited evaluation of the upper abdomen demonstrates no gross abnormalities. Impression: No acute cardiopulmonary disease (stable appearing chest). CHEM PANEL Magnesium Lvl 1.9 mg/dL 1.8 - 2.4 06/[address] CHEM PANEL Phosphorus 2.7 mg/dL 2.5 - 4.5 06/[address] ELECTROLYTE AGAP 13.1 meq/L 10.0 - 06/24 [facility] 20.0 [facility] ELECTROLYTE eGFR 61 06/24 Result Comment: The eGFR is calculated using the CKD-EPI formula. In most young, healthy individuals the eGFR will be >90 mL/ min/1.73m2. The eGFR declines with age. An eGFR of 60-89 may be normal in [facility] mL/min/1.7 some populations, particularly the elderly, for whom the CKD-EPI formula has not been extensively validated. Use of the eGFR is not recommended in the following populations: [address] Individuals with unstable creatinine concentrations, including patients and those with serious co-morbid conditions. Patients with extremes in muscle mass or diet. The data above are obtained from the National Kidney Disease Education Program (NKDEP) which additionally recommends that when the eGFR is used in patients with extremes of body mass index for purposes of drug dosing, the eGFR should be multiplied by the estimated BMI. ELECTROLYTE Chloride Lvl 96 meq/L 95 - 109 06/24 [facility] [address] ELECTROLYTE CO2 27 meq/L 24 - 32 06/[address] ELECTROLYTE Calcium Lvl 9.1 mg/dL 8.5 - 10.5 06/[address] ELECTROLYTE Potassium Lvl 4.1 meq/L 3.5 - 5.1 06/[address] ELECTROLYTE Glucose Lvl 169 mg/dL 70 - 99 06/[address] ELECTROLYTE Creatinine 0.89 mg/dL 0.50 - 06/24 [facility] Lvl 1.40 [facility] ELECTROLYTE BUN 13 mg/dL 7 - 06/[address] ELECTROLYTE Sodium Lvl 132 meq/L 135 - 145 06/24 [facility]2017 [facility] HEMATOLOGY Segs-Bands # 2.9 K/CMM 1.5 - 8.1 06/24 [facility] HEMATOLOGY Basophils 0.9 % 0.0 - 1.0 06/24 [facility] HEMATOLOGY Eosinophils 2.4 % 0.0 - 4.0 06/24 [facility] HEMATOLOGY Basophils # 0.1 K/CMM 0.0 - 0.2 06/24 [facility] HEMATOLOGY Lymphocytes # 2.9 K/CMM 1.0 - 5.5 06/24 [facility] HEMATOLOGY Monocytes # 0.5 K/CMM 0.0 - 0.8 06/24 [facility] HEMATOLOGY Lymphocytes 44.1 % 20.0 - 06/24 40.0 [facility] HEMATOLOGY Monocytes 7.9 % 2.0 - 12.0 06/24 [facility] HEMATOLOGY Eosinophils # 0.2 K/CMM 0.0 - 0.5 06/24 [facility] HEMATOLOGY Segs 44.7 % 45.0 - 06/24 [facility] 75.0 [facility] HEMATOLOGY MCHC 33.4 g/dL 32.0 - 06/24 [facility] 36.0 [facility] HEMATOLOGY MCV 87.1 fL 80.0 - 06/24 [facility] 98.0 [facility] HEMATOLOGY Hgb 12.9 g/dL 12.0 - 06/24 16.0 [facility] HEMATOLOGY MCH 29.1 pg 27.0 - 06/24 31.0 [facility] HEMATOLOGY RBC 4.43 M/CMM 4.20 - 06/24 [place] 5.40 [facility] HEMATOLOGY WBC 6.6 K/CMM 3.7 - 10.4 06/24 [facility] HEMATOLOGY Platelet 173 K/CMM 133 - 450 06/24 [facility] HEMATOLOGY RDW 13.8 % 11.5 - 06/24 [facility] 14.5 [facility] HEMATOLOGY Hct 38.6 % 36.0 - 06/24 [facility] 48.0 [facility] HEMATOLOGY MPV 8.4 fL 7.4 - 10.4 06/24 [facility] PARATHYROID Ca Norm WB 1.14 1.05 - 06/24 [facility] PROFILE mMol/L 1. [facility] PARATHYROID Ca Ion WB 1.15 1.05 - 06/24 [facility] PROFILE mMol/L 1. [facility] CHEM PANEL Phosphorus 3.4 mg/dL 2.5 - 4.5 06/[address] CHEM PANEL Magnesium Lvl 2.0 mg/dL 1.8 - 2.4 06/[address] ELECTROLYTE AGAP 11.6 meq/L 10.0 - 06/23 [facility] 20.0 [facility] ELECTROLYTE Potassium Lvl 3.6 meq/L 3.5 - 5.1 06/[address] ELECTROLYTE Sodium Lvl 139 meq/L 135 - 145 06/[address] ELECTROLYTE CO2 31 meq/L 24 - 32 06/[address] ELECTROLYTE Chloride Lvl 100 meq/L 95 - 109 06/[address] ELECTROLYTE Calcium Lvl 8.9 mg/dL 8.5 - 10.5 06/[address] ELECTROLYTE BUN 11 mg/dL 7 - 22 06/[address] ELECTROLYTE Glucose Lvl 136 mg/dL 70 - 99 06/[address] ELECTROLYTE eGFR 70 06/23 Result Comment: The eGFR is calculated using the CKD-EPI formula. In most young, healthy individuals the eGFR will be >90 mL/ min/1.73m2. The eGFR declines with age. An eGFR of 60-89 may be normal in [facility] mL/min/1. some populations, particularly the elderly, for whom the CKD-EPI formula has not been extensively validated. Use of the eGFR is not recommended in the following populations: [address] Individuals with unstable creatinine concentrations, including patients and those with serious co-morbid conditions. Patients with extremes in muscle mass or diet. The data above are obtained from the National Kidney Disease Education Program (NKDEP) which additionally recommends that when the eGFR is used in patients with extremes of body mass index for purposes of drug dosing, the eGFR should be multiplied by the estimated BMI. ELECTROLYTE Creatinine 0.79 mg/dL 0.50 - 06/23 [facility] S Lvl 1. [facility] HEMATOLOGY Eosinophils # 0.2 K/CMM 0.0 - 0.5 06/[address] HEMATOLOGY Basophils # 0.1 K/CMM 0.0 - 0.2 06/23 [facility] HEMATOLOGY Segs 45.3 % 45.0 - 06/23 75.0 [facility] HEMATOLOGY Eosinophils 2.8 % 0.0 - 4.0 06/23 [facility] HEMATOLOGY Lymphocytes 44.1 % 20.0 - 06/23 40.0 [facility] HEMATOLOGY Monocytes 6.9 % 2.0 - 12.0 06/23 [facility] HEMATOLOGY Segs-Bands # 2.9 K/CMM 1.5 - 8.1 06/23 [facility] HEMATOLOGY Basophils 0.9 % 0.0 - 1.0 06/23 [facility] HEMATOLOGY Lymphocytes # 2.9 K/CMM 1.0 - 5.5 06/23 [facility] HEMATOLOGY Monocytes # 0.4 K/CMM 0.0 - 0.8 06/23 [facility] HEMATOLOGY RDW 14.2 % 11.5 - 06/23 14.5 [facility] HEMATOLOGY Platelet 159 K/CMM 133 - 450 06/23 [facility] HEMATOLOGY MPV 7.9 fL 7.4 - 10.4 06/23 [facility] HEMATOLOGY MCHC 33.9 g/dL 32.0 - 06/23 36.0 [facility] HEMATOLOGY MCH 29.1 pg 27.0 - 06/23 31.0 [facility] HEMATOLOGY MCV 85.6 fL 80.0 - 06/23 [place] 98.0 [facility] HEMATOLOGY RBC 4.06 M/CMM 4.20 - 06/23 [place] 5.40 [facility] HEMATOLOGY Hgb 11.8 g/dL 12.0 - 06/23 16.0 [facility] HEMATOLOGY Hct 34.7 % 36.0 - 06/23 48.0 [facility] HEMATOLOGY WBC 6.5 K/CMM 3.7 - 10.4 06/23 [facility] PARATHYROID Ca Norm WB 1.16 1. - 06/23 [facility] PROFILE mMol/L . [facility] PARATHYROID Ca Ion WB 1.17 1.05 - 06/23 [facility] PROFILE mMol/L 1. [facility] IMMUNOLOGY HIV. Negative Negative 06/22 [facility] *NA* Center (06/22/17 5:09 PM) TOXICOLOGY Valproic Acid 88 ug/ml 50 - 100 06/22 [facility] Lvl [facility] ANEMIA Vitamin B12 422 pg/mL 254 - 1320 06/22 [facility] STUDY Lvl [facility] ANEMIA Folate Lvl 18.2 ng/mL >=3.0 06/22 [facility] STUDY ng/mL [facility] CHEM PANEL VITAMIN B1 116.1 66.5 - 06/22 Result Comment: Performed At: [facility] (THIAMINE) nMol/L 200.0 [address] [place], [place] [id number] [facility] WHOLE BLOOD Addi Watts MD Ph:[phone] [place] CHEM PANEL Ammonia 32.0 <=45.0 06/22 [facility] umol/L uMol/L [facility] IMMUNOLOGY RPR Non Reactive Non 06/22 [facility] Reactive [facility] (06/22/17 10:21 AM) [facility] Chest 1view Chest 1view EXAM: XR CHEST 1 VIEW 06/22 - [facility] DX DX - [facility] DATE: 06/22/2017 10:08 AM CDT Read by: Lara Willoughby MD Dictated Date/time: 06/22/17 10:41 Electronically Signed by: Lara Willoughby MD 06/22/17 10:42 FINAL REPORT INDICATION: - tachycardia, oxygen requirements. FINDINGS: Comparison is made to yesterday. The cardiomediastinal silhouette is stable. There is platelike atelectasis in the lower lobes. No pleural effusions are identified. A right jugular central venous catheter remains in place. The Dobbhoff feeding tube has been removed. IMPRESSION: Bilateral lower lobe platelike atelectasis. CHEM PANEL Phosphorus 2.4 mg/dL 2.5 - 4.5 06/22 [facility] CHEM PANEL Magnesium Lvl 1.8 mg/dL 1.8 - 2.4 06/[address] ELECTROLYTE AGAP 14.9 meq/L 10.0 - 06/22 [facility] S 20.0 [facility] ELECTROLYTE eGFR 50 06/22 Result Comment: The eGFR is calculated using the CKD-EPI formula. In most young, healthy individuals the eGFR will be >90 mL/ min/1.73m2. The eGFR declines with age. An eGFR of 60-89 may be normal in [facility] mL/min/1. some populations, particularly the elderly, for whom the CKD-EPI formula has not been extensively validated. Use of the eGFR is not recommended in the following populations: Medical [address] [place] [address] Individuals with unstable creatinine concentrations, including patients and those with serious co-morbid conditions. Patients with extremes in muscle mass or diet. The data above are obtained from the National Kidney Disease Education Program (NKDEP) which additionally recommends that when the eGFR is used in patients with extremes of body mass index for purposes of drug dosing, the eGFR should be multiplied by the estimated BMI. ELECTROLYTE Chloride Lvl 102 meq/L 95 - 109 06/22 [facility] [address] [place] [address] ELECTROLYTE Sodium Lvl 140 meq/L 135 - 145 06/[address] ELECTROLYTE CO2 27 meq/L 24 - 32 06/[address] ELECTROLYTE Potassium Lvl 3.9 meq/L 3.5 - 5.1 06/[address] ELECTROLYTE Calcium Lvl 9.0 mg/dL 8.5 - 10.5 06/[address] ELECTROLYTE BUN 9 mg/dL 7 - 22 06/[address] ELECTROLYTE Creatinine 1.05 mg/dL 0.50 - 06/22 [facility] Lvl 1.40 /2016 [facility] ELECTROLYTE Glucose Lvl 193 mg/dL 70 - 99 06/22 [facility] [address] HEMATOLOGY MPV 8.1 fL 7.4 - 10.4 06/[address] HEMATOLOGY Platelet 168 K/CMM 133 - 450 06/[address] HEMATOLOGY RDW 14.3 % 11.5 - 06/22 [facility] 14. [facility] HEMATOLOGY MCHC 34.0 g/dL 32.0 - 06/22 [facility] 36.0 [facility] HEMATOLOGY MCH 29.2 pg 27.0 - 06/22 [facility] 31.0 [facility] HEMATOLOGY WBC 8.0 K/CMM 3.7 - 10.4 06/[address] HEMATOLOGY Hct 35.6 % 36.0 - 06/22 [facility] 48.0 [facility] HEMATOLOGY MCV 85.9 fL 80.0 - 06/22 [facility] 98.0 /2016 [facility] HEMATOLOGY Hgb 12.1 g/dL 12.0 - 06/22 16.0 [facility] HEMATOLOGY RBC 4.14 M/CMM 4.20 - 06/22 [facility] 5.40 /2016 [facility] HEMATOLOGY Basophils # 0.1 K/CMM 0.0 - 0.2 06/[address] HEMATOLOGY Lymphocytes # 2.1 K/CMM 1.0 - 5.5 06/[address] HEMATOLOGY Segs-Bands # 5.3 K/CMM 1.5 - 8.1 06/[address] HEMATOLOGY Eosinophils # 0.1 K/CMM 0.0 - 0.5 06/[address] HEMATOLOGY Monocytes # 0.5 K/CMM 0.0 - 0.8 06/[address] HEMATOLOGY Basophils 0.8 % 0.0 - 1.0 06/22 [facility] HEMATOLOGY Eosinophils 0.9 % 0.0 - 4.0 06/[address] [place] [address] HEMATOLOGY Segs 65.6 % 45.0 - 06/22 [facility] 75.0 [facility] HEMATOLOGY Monocytes 6.2 % 2.0 - 12.0 06/22 [facility] HEMATOLOGY Lymphocytes 26.5 % 20.0 - 06/22 [facility] 40.0 [facility] PARATHYROID Ca Ion WB 1.13 1. - 06/22 [facility] PROFILE mMol/L . [facility] PARATHYROID Ca Norm WB 1.15 1.05 - 06/22 [facility] PROFILE mMol/L . [facility] CHEM PANEL Globulin 3.2 g/dL 2.7 - 4.2 06/21 2016 [facility] CHEM PANEL A/G Ratio 0.7 0.7 - 1.6 06/21 2016 [facility] CHEM PANEL Bili Indirect 0.3 mg/dL 0.0 - 1.0 06/[address] CHEM PANEL ALT 17 unit/L 0 - 65 06/[address] CHEM PANEL Total Protein 5.5 g/dL 6.4 - 8.4 06/21 [facility] CHEM PANEL AST 29 unit/L 0 - 37 06/[address] CHEM PANEL Albumin Lvl 2.3 g/dL 3.5 - 5.0 06/[address] CHEM PANEL Alk Phos 61 unit/L 39 - 136 06/[address] CHEM PANEL Bili Total 0.4 mg/dL 0.2 - 1.3 06/[address] CHEM PANEL Bili Direct 0.1 mg/dL 0.0 - 0.3 06/[address] CHEM PANEL AST 31 unit/L 0 - 37 06/[address] CHEM PANEL ALT 19 unit/L 0 - 65 06/[address] CHEM PANEL Bili Total 0.5 mg/dL 0.2 - 1.3 06/[address] CHEM PANEL Alk Phos 64 unit/L 39 - 136 06/[address] CHEM PANEL Albumin Lvl 2.7 g/dL 3.5 - 5.0 06/[address] CHEM PANEL Bili Direct 0.1 mg/dL 0.0 - 0.3 06/[address] CHEM PANEL Total Protein 6.2 g/dL 6.4 - 8.4 06/[address] CHEM PANEL A/G Ratio 0.8 0.7 - 1.6 06/[address] CHEM PANEL Globulin 3.5 g/dL 2.7 - 4.2 06/[address] CHEM PANEL Bili Indirect 0.4 mg/dL 0.0 - 1.0 06/[address] CHEM PANEL Procalcitonin null 0.00 - 06/21 [facility] Lvl 0.10 [facility] HEMATOLOGY INR 1.09 0.85 - 06/21 [facility] 1.17 [facility] HEMATOLOGY PTT 26.3 s 22.9 - 06/21 [facility] 35.8 [facility] HEMATOLOGY PT 14.3 s 12.0 - 06/21 [facility] 14.7 [facility] Chest 1view Chest 1view EXAM: XR CHEST 1 VIEW 06/21 - [facility] DX DX /2016 - [facility] DATE: 06/21/2017 3:00 AM CDT Read by: Papi Yeung MD Dictated Date/time: 06/21/17 06:16 Electronically Signed by: Papi Yeung MD 06/21/17 06:16 FINAL REPORT INDICATION: rule out infiltrate - rule out infiltrate TECHNIQUE: AP chest IMPRESSION: Life-support lines stable. Lungs clear. No pleural effusion or pneumothorax. LIPIDS CHD Risk 2.65 3.90 - 06/20 [facility] 5.80 [facility] LIPIDS VLDL 20 06/20 [facility] LIPIDS LDL 41 mg/dL <=99 mg/dL 06/20 [facility] (Calculated) [facility] LIPIDS HDL 37 mg/dL >=61 mg/dL 06/20 [facility] LIPIDS Trig 98 mg/dL <=149 06/20 [facility] mg/dL [facility] LIPIDS Chol 98 mg/dL <=199 06/20 [facility] mg/dL [facility] Brain w/wo Brain w/wo EXAM: MRI BRAIN WITH AND WITHOUT CONTRAST 06/20 [facility] contrast contrast MRI /2016 - [facility] DATE: 06/20/2017 Read by: Laura Sharma MD Dictated Date/time: 06/20/17 19:37 Electronically Signed by: Laura Sharma MD 06/20/17 19:45 FINAL REPORT INDICATION: - s/p new onset seizure, L sided weakness COMPARISON: CT brain 09/19/2017 TECHNIQUE: Multiplanar, multisequence non-contrast MRI images of the brain. Multiplanar imaging is subsequently obtained following intravenous gadolinium contrast. IV contrast: 20 cc MultiHance FINDINGS: Hyperintensity lesions in the supratentorial white matter consistent with small vessel disease. Prominence of the cerebral sulci due to volume loss. No mesial temporal sclerosis. No hydrocephalus, midli ne shift or mass effect. No acute hemorrhage or restricted diffusion. Calcified enhancing mass along the right side of the falx cerebellar measuring 14 x 16 mm, presumably a meningioma. No other enhanci ng brain lesions. Pineal region, pituitary gland, cranial cervical junction , orbits and internal auditory canals are unremarkable. No bony lesions. Paranasal sinuses are clear. Major intracranial flow voids are well-maintained. IMPRESSION: No acute intracranial abnormality. No mesial temporal sclerosis. Small vessel disease and volume loss. 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 CHEM PANEL Osmolality 286 280 - 300 06/20 [facility] mOsm/ [facility] SPECIAL Hgb A1C 7.9 % <=5.6 % 06/20 [facility] CHEMISTRY [facility] BACTERIAL - MRSA by PCR Negative 06/20 [facility] (06/20/17 2:17 AM) [facility] CHEM PANEL Bili Indirect 0.4 mg/dL 0.0 - 1.0 06/[address] CHEM PANEL Bili Total 0.5 mg/dL 0.2 - 1.3 06/[address] CHEM PANEL Bili Direct 0.1 mg/dL 0.0 - 0.3 06/[address] CHEM PANEL Albumin Lvl 2.9 g/dL 3.5 - 5.0 06/[address] CHEM PANEL A/G Ratio 0.8 0.7 - 1.6 06/[address] CHEM PANEL ALT 24 unit/L 0 - 65 06/[address] CHEM PANEL Alk Phos 78 unit/L 39 - 136 06/[address] CHEM PANEL AST 24 unit/L 0 - 37 06/[address] CHEM PANEL Globulin 3.8 g/dL 2.7 - 4.2 06/[address] CHEM PANEL Total Protein 6.7 g/dL 6.4 - 8.4 06/[address] DRUG SCREEN U Phencyc Scr Negative Negative 06/20 [facility] *NA* [facility] (06/20/17 2:17 AM) DRUG SCREEN U Opiate Scr Negative Negative 06/20 [facility] *NA* [place] (06/20/17 2:17 AM) DRUG SCREEN U Cannab Scr Negative Negative 06/20 [facility] *NA* [place] (06/20/17 2:17 AM) DRUG SCREEN UDS Note See Note 06/20 [facility] (06/20/17 2:17 AM) [facility]CRE[facility] [place] [facility]06/20/17 2:17 AM) DRUG SCREEN U Nancy [facility]r Negative Negative [facility] [place] (06/20/17 2:17 AM) DRUG SCREEN U Cocaine [facility]r Negative Negative [facility] [place] (06/20/17 2:17 AM) DRUG SCREEN U Benzodia Positive Negative 06/20 [facility] Scr [facility] *ABN* Center (06/20/17 2:17 AM) URINE AND UA <=1.0 0.1 - 1.0 06/20 [facility] Urobilinogen mg/dL /2016 [facility] URINE AND UA Sq Epi None Seen 06/[address] URINE AND UA Mucus Few /LPF None Seen 06/20 [facility] STOOL /LPF /2016 [facility] URINE AND UA RBC 22 /HPF 0 - 2 06/20 [facility]2016 [facility] URINE AND UA Spec Grav >=1.050 <=1.030 06/20 [facility] *ABN* [place] (06/20/17 2:17 AM) URINE AND UA WBC 1 /HPF 0 - 5 06/20 [facility]2016 [facility] URINE AND UA Color Yellow Yellow 06/20 [facility] *NA* [place] (06/20/17 2:17 AM) URINE AND UA Turbidity Clear Clear 06/20 [facility] (06/20/17 2:17 AM) [place] URINE AND UA pH 6.5 5.0 - 8.0 06/[address] URINE AND UA Protein 100 mg/dL Negative 06/20 [facility] mg/dL [facility] URINE AND UA Blood Small Negative 06/20 [facility] *ABN* [place] (06/20/17 2:17 AM) URINE AND UA Bili Negative Negative 06/20 [facility] *NA* [place] (06/20/17 2:17 AM) URINE AND UA Nitrite Negative Negative 06/20 [facility] (06/20/17 2:17 AM) [place] URINE AND UA Ketones Negative Negative 06/20 [facility] mg/dL mg/dL /2016 [facility] URINE AND UA Glucose Negative Negative 06/20 [facility] mg/dL mg/dL [facility] URINE AND UA Leuk Est Negative Negative 06/20 [facility] (06/20/17 2:17 AM) [place] URINE CHEM U Sodium 72 meq/L 06/[address] Chest 1view Chest 1view EXAM: XR CHEST 1 VIEW 06/20 - [facility] DX DX /2016 - [facility] DATE: 06/20/2017 5:49 AM CDT Read by: Papi Yeung MD Dictated Date/time: 06/20/17 10:40 Electronically Signed by: Papi Yeung MD 06/20/17 10:40 FINAL REPORT INDICATION: central line placement - central line placement TECHNIQUE: AP chest IMPRESSION: New right IJ approach central venous catheter in place projecting near the brachiocephalic confluence. A feeding tube extends below the inferior border of the exam. Other lines are stable. Lungs and pleura remain clear. Abdomen AP Abdomen AP DX EXAM: XR ABDOMEN 1 VIEW 06/20 - [facility] DX /2016 [facility] DATE: 06/20/2017 4:09 AM CDT Read by: Tacos Padron MD Dictated Date/time: 06/20/17 09:15 Electronically Signed by: Tacos Padron MD 06/20/17 09:16 FINAL REPORT INDICATION: tube placement - tube placement TECHNIQUE: AP view of the abdomen. FINDINGS: A feeding tube is present. The tube tip is in the right upper quadrant near the pylorus but not postpyloric. The gastric air bubble is minimally prominent. The visualized large and small bowel loops are unremarkable. Fusion hardware is present in the spine from the L3-S1 levels with spaces at L3-L4 and L4-L5. Right quadrant surgical clips suggest prior cholecystectomy. IMPRESSION: 1. The feeding tube tip is near the pylorus but not clearly postpyloric; recommend advancing it into the duodenum. CARDIAC Total CK 100 unit/L 12 - 191 06/20 [place] ENZYMES /2016 [facility] CARDIAC CK MB 0.7 ng/mL 0.5 - 3.6 06/20 [facility] ENZYMES /2016 [facility] CARDIAC Troponin-I null 0.00 - 06/20 [facility] ENZYMES 0.40 /2017 [facility] CARDIAC CK MB Index 0.7 0.0 - 2.5 06/20 [place] ENZYMES /2016 [facility] HEMATOLOGY PT 12.8 s 12.0 - 06/20 [place] 14.7 /2016 [facility] HEMATOLOGY INR 0.94 0.85 - 06/20 [place] 1.17 /2016 [facility] HEMATOLOGY PTT 24.3 s 22.9 - 06/20 [place] 35.8 /2016 [facility] Brain/Neck Brain/Neck EXAM: CT ANGIOGRAM OF THE BRAIN 06/19 - [facility] Stroke Stroke /2016 - Medical perfusion perfusion CTA EXAM: CT ANGIOGRAM OF THE NECK This report was dictated by a [employer] M[employer]/Fellow. I have personally reviewed the images as Center CTA well as the Resident's interpretation and agree with the findings. EXAM: CT PERFUSION Read by: Tacos Frias MD Resident: Tacos Frias MD Dictated Date/time: 06/19/17 21:59 Electronically Signed by: Nilo Calvert MD 06/19/17 23:06 FINAL REPORT DATE: 06/19/2017 9:09 PM CDT INDICATION: Left-sided weakness, seizures COMPARISON: CT brain from the same time TECHNIQUE: -Rapid acquisition spiral images of the brain and neck were obtained between the aortic arch and the cranial vertex during intravenous infusion of iodinated contrast for the purposes of CT angiography. 3-D CT angiographic images are created using maximum intensity projection technique at the acquisition workstation. The source images are also presented for interpretation. CT perfusion performed following contrast administration. IV contrast: 100 mL of Visipaque 320 DLP: 3534mGy-cm FINDINGS: NECK CTA: Technical degradation limits evaluation of luminal contour in portions of the vertebral arteries, however there is no hemodynamically significant stenosis to the vertebrobasilar junction. Calcifications in the aortic arch and at the origin of the right vertebral and supraaortic arteries. No hemodynamically significant stenosis in the common or internal carotid arteries bilaterally. Atherosclerotic calcifications at the carotid bifurcations bilaterally without hemodynamically significant stenosis. Diffuse degenerative changes in the spine. BRAIN CTA: Atherosclerotic calcifications in the internal carotid arteries without hemodynamically significant stenosis. No stenosis in the basilar artery. No proximal branch occlusion or hemodynamically significa nt stenosis. Focal stenosis in the distal left A2 segment. Attenuated signal distally and a left frontal anterior MCA division branch. Stenoses in the P2 segments of the posterior cerebral arteries bila terally. Distal branch atherosclerotic changes. No aneurysm or AV malformation is evident. Major dural venous sinuses are patent. Calcified mass along the right side of the falx cerebelli, most likely a meningioma. CT PERFUSION: Small area of questionable matched cerebral blood flow and volume defect are noted in the left frontal lobe. RAPID analysis: CBF (less than 30 % volume): 0 mL. Perfusion (Tmax greater than 6 seconds) volume: 6 mL. Mismatch volume: 6 mL. Mismatch ratio: Infinite. IMPRESSION: No hemodynamically significant stenosis in the neck. No proximal branch intracranial occlusion or flow-limiting stenosis. Attenuation of signal distally in a left frontal anterior division MCA branch. Focal distal left A2 segment stenosis and bilateral P2 segment stenoses. (All qualitative and quantitative assessments of carotid bifurcation and proximal internal carotid artery stenosis are made referencing the distal internal carotid artery {NASCET criteria}.) THIS IS A PRELIMINARY REPORT BY THE ON-CALL RESIDENT. CHANGES TO THIS PRELIMINARY REPORT MAY OCCUR IN AN ADDITIONAL PRELIMINARY OR FINALIZED VERSION.* * Preliminary report: No major branch occlusion, dissection, or vascular injury. No major perfusion defect identified. Scattered mild intracranial atherosclerotic disease. Atherosclerotic calcifications at the carotid bifurcations and carotid siphons. At this callus occasions of the aortic arch and at the origins of the great vessels. 1. A 1.6 cm calcification is seen at the posterior aspect of the right cerebellum, and may represent a calcified meningioma. [place] SECTION: Neuro Brain Brain Stroke EXAM: CT BRAIN WITHOUT CONTRAST 06/19 [facility] Stroke wo wo contrast /2016 - Medical contrast [facility] Center DATE: 06/19/2017 9:09 PM CDT Read by: Erick Sherman MD Dictated Date/time: 06/19/17 21:50 Electronically Signed by: Nilo Calvert MD 06/19/17 22:31 FINAL REPORT INDICATION: Left-sided weakness, seizures COMPARISON: None TECHNIQUE: Routine axial images of the brain were obtained. Coronal and sagittal reformatted images were generated. DLP: 1108 mGy-cm FINDINGS: No acute intracranial hemorrhage or extra-axial collection. Shah-white matter interface is maintained. Mild microangiopathic changes. Prominence of the extra-axial spaces along the cerebral convexities. No hydrocephalus, midline shift, or herniation. Calcified 1.6 x 1.1 x 1.4 cm mass along the right side of the falx cerebelli. Minimal paranasal sinus mucosal thickening. The tympanomastoid cavities are clear. Calvarium and skull base are intact. ASPECTS: 10 Laterality: none Caudate: normal Internal capsule: normal Lenticular: normal Insula: normal M1: normal M2: normal M3: normal M4: normal M5: normal M6: normal IMPRESSION: No hemorrhage or acute ischemic changes. Mild microangiopathic changes. Calcified mass along the right side of falx cerebelli, likely a meningioma. Volume loss and prominence of the extra-axial spaces. Chest 1view Chest 1view EXAM: XR CHEST 1 VIEW 06/19 - [facility] DX DX /2016 - Medical This report was dictated by a Smoking Pipe Mounter/Fellow. I have personally reviewed the images as Center well as the Resident's interpretation and agree with the findings. DATE: 06/19/2017 9:09 PM CDT Read by: Erick Sherman MD Resident: Erick Sherman MD Dictated Date/time: 06/19/17 22:43 Electronically Signed by: Flaquito Lynn MD 06/19/17 23:22 FINAL REPORT INDICATION: - CVA COMPARISON: None. TECHNIQUE: AP chest FINDINGS: Lines, tubes and hardware: Endotracheal tube tip terminates 5 cm superior to sameera. Lungs and pleura: No pulmonary or pleural based abnormality is identified. Pulmonary vascularity is normal. Heart and mediastinum: The heart size is normal for technique. The aorta is tortuous Bones: No acute bony abnormality is identified. IMPRESSION: 1. No acute cardiopulmonary abnormality. 2. Endotracheal tube tip terminates 5 cm superior to sameera. [place] SECTION: ER Vital Signs Vital Sign Value Date Comments Source Respitory Rate 18 09/17/2017 [place] Heart Rate 69 09/17/2017 [place] Temperature Oral (F) 97.9 F 09/17/2017 [place] Systolic (mm Hg) 136 09/17/2017 [place] Diastolic (mm Hg) 64 09/17/2017 [place] Temperature Oral (F) 97.5 F 09/17/2017 [place] Systolic (mm Hg) 149 09/17/2017 [place] Diastolic (mm Hg) 82 09/17/2017 [place] Heart Rate 66 09/17/2017 [place] Respitory Rate 20 09/17/2017 [place] Heart Rate 65 09/17/2017 [place] Temperature Oral (F) 97.9 F 09/17/2017 [place] Systolic (mm Hg) 156 09/17/2017 [place] Diastolic (mm Hg) 81 09/17/2017 [place] Respitory Rate 20 09/17/2017 [place] Height 165.1 cm 09/14/2017 [place] Weight 140 09/14/2017 [place] BMI Calculated 51.36 09/14/2017 [place] Weight 113.636 09/14/2017 [place] Respitory Rate 18 06/25/2017 [facility] Temperature Oral (F) 97 F 06/24/2017 [facility] Respitory Rate 18 06/24/2017 [facility] Heart Rate 78 06/24/2017 [facility] Systolic (mm Hg) 173 06/24/2017 [facility] Diastolic (mm Hg) 73 06/24/2017 [facility] Respitory Rate 18 06/24/2017 [facility] Heart Rate 76 06/24/2017 [facility] Temperature Oral (F) 97.5 F 06/24/2017 [facility] Systolic (mm Hg) 150 06/24/2017 [facility] Diastolic (mm Hg) 74 06/24/2017 [facility] Systolic (mm Hg) 141 06/24/2017 [facility] Diastolic (mm Hg) 70 06/24/2017 [facility] Temperature Oral (F) 99.2 F 06/24/2017 [facility] Heart Rate 81 06/24/2017 [facility] Height 172.72 cm 06/20/2017 [facility] Height 172.72 cm 06/20/2017 [facility] Height 172.72 cm 06/20/2017 [facility] BMI Calculated 49.88 06/20/2017 [facility] Weight 148.8 06/20/2017 [facility] BMI Calculated 58.71 06/20/2017 [facility] Weight 136.364 06/20/2017 [facility] Encounters Location Location Encounter Encounter Reason Attending ADM DC Status Source Details Type Number For Provider Date Date Visit [facility] [id number] Aki 06/20 06/25 [facility] Maribel /2016 [facility] [id number] Felipe 09/14 09/17 [facility] Jimi /2016 [facility] [place] Procedures Procedure Code Date Perfomer Comments Source Abdominal [id number] [place] hysterectomy Lumbar spinal [id number] [place] fusion Abdominal [id number] [facility] Lumbar spinal [id number] [facility]
--- OUTSIDE RECORDS SUMMARY | 2019-05-03 01:13 | XMS REPORT ---
:1935 [facility] Address [address] [place] [address] Care Team Providers Name Role Phone UNKNOWN, REFFERING Primary Care Provider Unavailable RASHARD CARBAJAL Unavailable Unavailable Problems This patient has no known problems. Allergies, Adverse Reactions, Alerts This patient has no known allergies or adverse reactions. Medications This patient has no known medications. Encounters Start End Encounter Admission Attending Care Care Encounter Date/Time Date/Time Type Type Clinicians Facility Department ID 2017-12-15 2017-12-15 Outpatient [facility] [id number] 07:51:00 07:51:00 RASHARD Results Test Description Test Time Test Comments Text Results Atomic Results Result Comments CT GUIDED NEEDLE 2017-12-15 13:29:33 CT GUIDED CORE NEEDLE BIOPSY OF A A PLACEMENT SI PANCREATIC NECK MASSCLINICAL INDICATION: D37.8: NEOPLASM OF UNCERTAIN BEHAVIOR OF OTHDIGESTIVE ORGANSOPERATORS: Rodriguez Eduardo MDSEDATION: Under physician supervision, intravenous Versed and fentanylwere administered for moderate sedation. Pulse oximetry, heart rate, andblood pressure were continuously monitored by a dedicated IR trainednurse. The physician spent 60 minutes of continuous rpks-gu-dfibfvecvjae time with the patient.TECHNIQUE: The risks, benefits, and alternatives to the procedure and sedation wereexplained. Informed written consent was obtained. The patient wasplaced in the supine position on the CT scanner, and the area was markedappropriately over the anterior abdominal wall. The patient was preppedand draped using usual sterile technique. Local anesthesia was achievedwith approximately 10 cc 1% lidocaine. A 19-gauge guide needle was carefully advanced under CT guidance intothe mass within the pancreatic neck. Then fine-needle aspiration andmultiple 20 gauge core needle biopsies were made. All samples weregiven to the production control scheduler/pathologist who were present for theprocedure. The needle was removed and pressure held over the puncturesite. A sterile dressing was applied.The patient tolerated the procedure well. The patient was transferred tothe holding area in stable condition with appropriate orders on thechart.COMPLICATIONS: None immediateIMPRESSION: Technically successful CT-guided core needle biopsy of a pancreaticmass.Location: R16 Basic Metabolic Panel 2017-12-15 09:15:00 Test Item Value Reference Range Comments Sodium (test code=NA) 132 mmol/L 135-145 Potassium (test code=K) 4.7 mmol/L 3.5-5.1 Chloride (test code=CL) 92 mmol/L 98-105 Carbon Dioxide (test 31 mmol/L 22-29 code=CO2) Glucose (test code=GLU) 171 mg/dL 70-115 Blood Urea Nitrogen (test 10 mg/dL 8-23 code=BUN) Creatinine (test code=CREAT) 0.9 mg/dL 0.5-0.9 Calcium (test code=CA) 9.5 mg/dL 8.3-10.5 BUN/Creatinine Ratio (test 11.1 code=BCRATIO) Anion Gap (test code=AGAP) 9 mmol/L 7-16 Estimated GFR (test >60 mL/min/1.73m2 eGFR (estimated Glomerular code=GFR) Filtration Rate) is an estimated value,calculated from the patient's serum creatinine using the MDRD equation.It is NOT the patient's actual GFR. The eGFR provides a more clinicallyuseful measure of kidney disease than serum creatinine alone.This calculation takes sex and race into account, if the informationis provided. If the race is not provided, and the patient isAfrican-Slovak, multiply by 1.212. If sex is not provided, and thepatient is female, multiply by 0.742. Results for patients <18 years ofage have not been validated by the MDRD study and should be interpretedwith caution.eGFR Result Interpretation:eGFR > or=60 is in the Normal RangeeGFR < 60 may mean kidney diseaseeGFR < 15 may mean kidney failureRanges recommended by the National Kidney Foundation,http://nkdep.nih.go v Prothrombin [id number] 09:09:00 Test Item Value Reference Range Comments PT (test code=PT) 11.80 seconds 9.78-13.35 INR (test code=INR) 1.04 Ratio 0.6-1.2 CBC with [id number] 09:09:00 Test Item Value Reference Range Comments WBC (test code=WBC) 8.5 K/cumm 4.4-10.5 RBC (test code=RBC) 5.08 M/cumm 3.75-5.20 Hemoglobin (test code=HGB) 14.2 gm/dL 12.2-14.8 Hematocrit (test code=HCT) 40.9 % 36.5-44.4 MCV (test code=MCV) 80.6 fL 80-100 MCH (test code=MCH) 28.0 pg 27.0-32.5 MCHC (test code=MCHC) 34.8 g/dL 32.0-37.5 RDW (test code=RDW) 13.8 % 11.5-14.5 Platelet Count (test code=PLTCT) 255 K/cumm 140-440 MPV (test code=MPV) 9.2 fL Diff Method (test code=DIFFM) Auto Neutrophil (test code=NEUT) 56.8 % 36-70 Lymphocyte (test code=LYMPH) 36.9 % 12-44 Monocyte (test code=MONO) 4.2 % 0-11 Eosinophil (test code=EOS) 1.6 % 0-7 Basophil (test code=BASO) 0.4 % 0-2 Neutro Abs (test code=ANEUT) 4.8 K/cumm 1.6-7.4 Lymph Abs (test code=ALYMPH) 3.1 K/cumm 0.5-4.6 Fergus Abs (test code=AMONO) 0.4 K/cumm 0.0-1.2 Eos Abs (test code=AEOS) 0.14 K/cumm 0.00-0.74 Baso Abs (test code=ABASO) 0.0 K/cumm 0.00-0.21
[2019-05-03] MEDS ORDERED: HYDROCODONE/APAP 7.5/325 MG TAB ONE (02:11)
[2019-05-03] MEDS ORDERED: MEPERIDINE HCL 50 MG/ML AMP ONE (03:15)
[2019-05-03] MEDS ORDERED: MEPERIDINE HCL 25 MG/0.5 ML ONE (03:15)
[2019-05-03] MEDS ORDERED: ONDANSETRON 4 MG (ODT) TAB ONE (03:16)
--- NOTE | 2019-05-03 03:26 | ER ---
Nurse's Notes [facility] Name: Renetta Parmar Age: 83 yrs Sex: Female : 1935 Arrival Date: 05/03/2019 Time: 01:06 Bed 20 Private MD: Diagnosis: Multiple left rib fractures ( 6 through 11 ) Presentation: 05/03 01:00 Presenting complaint: EMS states: Pt fell while at home and hit her left ribs on the jb4 corner of a dresser, reports pain with movement and inspiration. Care prior to arrival: IV initiated. 20 GA, in the right forearm, Glucose check: 201. Mechanism of Injury: Fall from standing into a dresser. Trauma event details: Injury occurred: at home. 01:00 Acuity: MEMO 2 jb4 01:00 Method Of Arrival: EMS: [facility] jb4 01:00 Transition of care: patient was not received from another setting of care. Onset of jb4 symptoms was May 03, 2019. Risk Assessment: Do you want to hurt yourself or someone else? Patient reports no desire to harm self or others. Initial Sepsis Screen: Does the patient meet any 2 criteria? No. Patient's initial sepsis screen is negative. Does the patient have a suspected source of infection? No. Patient's initial sepsis screen is negative. Trauma Activation: Alert Physician: ED Physician; Name: Ervin; Notified At: 00:59; Arrived At: 01:00 Physician: General Surgeon; Name: ; Notified At: 00:59; Arrived At: Physician: Radiology; Name: Janina; Notified At: 00:59; Arrived At: 01:00 Physician: Respiratory; Name: ; Notified At: 00:59; Arrived At: Physician: Lab; Name: ; Notified At: 00:59; Arrived At: Historical: - Allergies: : PENICILLINS; jb4 - Home Meds: : insulin [Active]; omeprazole 20 mg Oral TbEC [Active]; pravastatin 10 mg oral tab 1 tab jb4 once daily [Active]; metoprolol tartrate 50 mg Oral tab 1 tab 2 times per day [Active]; lisinopril 40 mg Oral tab 1 tab once daily [Active]; - PMHx: 01:26 Diabetes - IDDM; Arthritis; Hypertension; TIA; ovarian cancer; jb4 - PSHx: 01:26 Knee surgery; back; jb4 - Immunization history:: Adult Immunizations up to date, Last tetanus immunization: unknown. - Social history:: Smoking status: Patient/guardian denies using tobacco, Patient/guardian denies using alcohol. - Ebola Screening: : No symptoms or risks identified at this time. Screenin:00 Abuse screen: Denies threats or abuse. Nutritional screening: No deficits noted. jb4 Tuberculosis screening: No symptoms or risk factors identified. Fall risk At risk due to prior history of falls, IV access. 01:00 Fall Risk Fall in past 12 months (25 points). IV access (20 points). Total Puentes Fall jb4 Scale indicates High Risk Score (45 or more points). Fall prevention measures have been instituted. Side Rails Up X 2 Placed Close to Nursing Station Frequent Obs/Assessments Occuring Family Present and informed to notify staff if the need to leave the bedside As available patient and family educated on Fall Prevention Program and Strategies. Primary Survey: 01:05 NO uncontrolled hemorrhage observed. A: The patient is alert. Airway: patent. cc3 Breathing/Chest: Respiratory pattern: regular, Respiratory effort: spontaneous, unlabored, Chest inspection: symmetrical rise and fall of the chest. Circulation: Heart tones present. Skin color: pink, Skin temperature: warm, dry. Disability Alert. Exposure/Environment: All clothing and personal items were removed. Forensic evidence collection is not deemed to be indicated at this time. Items placed in patient belonging bag. There is no evidence of uncontrolled external bleeding. Obvious injury(ies) are noted at this time: abrasion and bruise on the left lateral side of her back and midaxillary line area A warming method has been applied: A warm blanket has been provided to the patient. 02:00 Reassessment Breathing/Chest Respiratory pattern Regular Respiratory effort Spontaneous jb4 Unlabored Breath sounds Clear Chest inspection Symmetrical. Secondary Survey: 01:05 HEENT: Head No injury/deformity Face No injury/deformity Eyes: No injury or deformity cc3 noted. to bilateral eyes. Ears: clear bilaterally. Nose: clear to bilateral nares. Throat: No injury or deformity noted. is clear with gag reflex present. Gastrointestinal: Abdomen is soft, obese, Bowel sounds present in all quadrants. : No signs and/or symptoms were reported regarding the genitourinary system. Musculoskeletal: Range of motion: intact in all extremities. Injury Description: Abrasion sustained to left lateral side of her back and left midaxillary line area is red Bruise sustained to left lateral side of her back and left midaxillary line area. Assessment: 01:00 General: Appears in no apparent distress. uncomfortable, Behavior is calm, cooperative, jb4 appropriate for age, PT reportedly fell and hit her left side on the corner of a dresser, denies LOC or taking blood thinners. Bruising and a small dime sized abrasion is noted to the left side, reports increased pain with inhalation, and movement. A\T\o x4, denies shortness or breath or difficulty breathing.. Pain: Complains of pain in anterior aspect of left lateral abdomen Pain does not radiate. Pain currently is 8 out of 10 on a pain scale. Quality of pain is described as aching, Pain began 1 hour ago. Is intermittent, Alleviated by rest, Aggravated by movement, Inhalation. Neuro: Level of Consciousness is awake, alert, obeys commands, Oriented to person, place, time, situation. Cardiovascular: Patient's skin is warm and dry. Respiratory: Airway is patent Respiratory effort is even, unlabored, Respiratory pattern is regular, symmetrical, Breath sounds are clear bilaterally. GI: No signs and/or symptoms were reported involving the gastrointestinal system. : No signs and/or symptoms were reported regarding the genitourinary system. EENT: No signs and/or symptoms were reported regarding the EENT system. Derm: Skin is intact, Skin is pink, warm \T\ dry. Musculoskeletal: Circulation, motion, and sensation intact. Range of motion: intact in all extremities. Injury Description: Abrasion sustained to anterior aspect of left lateral abdomen Bruise sustained to anterior aspect of left lateral abdomen. 02:00 Reassessment: Patient appears in no apparent distress at this time. Patient and/or jb4 family updated on plan of care and expected duration. Pain level reassessed. Patient is alert, oriented x 3, equal unlabored respirations, skin warm/dry/pink. 02:54 Reassessment: Pt back from CT, pt reports that the [place] did not help her pain, jb4 provider notified, see [facility] for orders. 03:00 Reassessment: Patient appears in no apparent distress at this time. Patient and/or jb4 family updated on plan of care and expected duration. Pain level reassessed. Patient is alert, oriented x 3, equal unlabored respirations, skin warm/dry/pink. 03:12 Reassessment: Provider notified of b/p of 198/73. no new orders at this time. jb4 03:41 Reassessment: Patient appears in no apparent distress at this time. Patient and/or jb4 family updated on plan of care and expected duration. Pain level reassessed. Patient is alert, oriented x 3, equal unlabored respirations, skin warm/dry/pink. PT is up for discharge, holding to continue monitory blood pressure prior to discharge. 03:45 Reassessment: Patient appears in no apparent distress at this time. Patient and/or jb4 family updated on plan of care and expected duration. Pain level reassessed. Patient is alert, oriented x 3, equal unlabored respirations, skin warm/dry/pink. B/p and pain decreased, son notified of pt's discharge status. Waiting for son to arrive prior to discharge. Patient states feeling better. Vital Signs: 01:00 BP 183 / 45; Pulse 60; Resp 16; Temp 98.7(O); Pulse Ox 97% on R/A; Weight 119.29 kg jb4 (R); Height 5 ft. 11 in. (180.34 cm) (R); Pain 8/10; 02:00 BP 171 / 60; Pulse 60; Resp 16; Pulse Ox 97% on R/A; jb4 03:00 BP 198 / 73; Pulse 62; Resp 17; Pulse Ox 97% on R/A; jb4 03:45 BP 168 / 78; Pulse 59; Resp 15; Pulse Ox 96% on R/A; jb4 01:00 Body Mass Index 36.68 (119.29 kg, 180.34 cm) jb4 [place] Coma Score: 01:00 Eye Response: spontaneous(4). Verbal Response: oriented(5). Motor Response: obeys jb4 commands(6). Total: 15. 02:00 Eye Response: spontaneous(4). Verbal Response: oriented(5). Motor Response: obeys jb4 commands(6). Total: 15. 03:00 Eye Response: spontaneous(4). Verbal Response: oriented(5). Motor Response: obeys jb4 commands(6). Total: 15. 03:45 Eye Response: spontaneous(4). Verbal Response: oriented(5). Motor Response: obeys jb4 commands(6). Total: 15. Trauma Score (Adult): 01:00 Eye Response: spontaneous(1); Verbal Response: oriented(1); Motor Response: obeys jb4 commands(2); Systolic BP: > 89 mm Hg(4); Respiratory Rate: 10 to 29 per min(4); Pedro Score: 15; Trauma Score: 12 02:00 Eye Response: spontaneous(1); Verbal Response: oriented(1); Motor Response: obeys jb4 commands(2); Systolic BP: > 89 mm Hg(4); Respiratory Rate: 10 to 29 per min(4); Pedro Score: 15; Trauma Score: 12 03:00 Eye Response: spontaneous(1); Verbal Response: oriented(1); Motor Response: obeys jb4 commands(2); Systolic BP: > 89 mm Hg(4); Respiratory Rate: 10 to 29 per min(4); Pedro Score: 15; Trauma Score: 12 03:45 Eye Response: spontaneous(1); Verbal Response: oriented(1); Motor Response: obeys jb4 commands(2); Systolic BP: > 89 mm Hg(4); Respiratory Rate: 10 to 29 per min(4); Pedro Score: 15; Trauma Score: 12 ED Course: 01:00 Patient has correct armband on for positive identification. Placed in gown. Bed in low jb4 position. Call light in reach. Side rails up X2. Patient maintains SpO2 saturation greater than 95% on room air. awake overnight monitor on. Pulse ox on. NIBP on. 01:00 Arm band placed on right wrist. jb4 01:00 Patient maintains SpO2 saturation greater than 95% on room air. jb4 01:00 Thermoregulation: warm blanket given to patient. jb4 01:06 Patient arrived in ED. am2 01:11 Kar Marie, RN is Primary Nurse. jb4 01:15 Triage completed. jb4 01:33 Jesse Mueller MD is Attending Physician. pkl 04:08 No provider procedures requiring assistance completed. IV discontinued, intact, jb4 bleeding controlled, No redness/swelling at site. Administered Medications: 01:55 Drug: [place] (7.5 mg-325 mg) 1 tabs Route: PO; cc3 02:55 Follow up: Response: No adverse reaction; Pain is unchanged, physician notified ea 03:10 Drug: Demerol 75 mg Route: IM; Site: left gluteus; jb4 03:40 Follow up: Response: No adverse reaction; Pain is decreased jb4 03:10 Drug: Zofran 4 mg Route: PO; jb4 03:40 Follow up: Response: No adverse reaction jb4 Intake: 04:10 PO: 0ml; Total: 0ml. jb4 Output: 04:10 Urine: 0ml; Total: 0ml. jb4 Outcome: 03:26 Discharge ordered by MD. pkl 03:28 Discharge ordered by MD. pkl 04:08 Discharged to home via wheelchair, with family. jb4 04:08 Condition: stable 04:08 Discharge instructions given to patient, family, Instructed on discharge instructions, follow up and referral plans. medication usage, How to use the incitive sperometer Demonstrated understanding of instructions, follow-up care, medications, incitive spirometer use Prescriptions given X 1. 04:10 Patient's length of stay in the Emergency Department was greater than 2 hours. Pt jb4 d/c'ed held for further monitoring.Patient's length of stay extended due to 04:12 Patient left the ED. jb4 Signatures: Jesse Mueller MD MD pkl Bryson, James RN RN jb4 Marycruz Cabrera Elena, RN RN Dara Hylton cc3 Corrections: (The following items were deleted from the chart) 01:20 01:00 Care prior to arrival: None. jb4 jb4 01:43 01:05 Exposure/Environment: All clothing and personal items were removed. Forensic cc3 evidence collection is not deemed to be indicated at this time. Items placed in patient belonging bag. There is no evidence of uncontrolled external bleeding. Obvious injury(ies) are noted at this time: abrasion and bruise on the left lateral side of her back A warming method has been applied: A warm blanket has been provided to the patient. cc3 03:13 02:54 Reassessment: Pt back from CT ea jb4
--- NOTE | 2019-05-03 03:27 | EDPHYS ---
Physician Documentation [facility] Name: Renetta Parmar Age: 83 yrs Sex: Female : 1935 Arrival Date: 05/03/2019 Time: 01:06 Bed 20 Private MD: ED Physician Jesse Mueller HPI: 05/03 01:46 This 83 yrs old Female presents to ER via EMS with complaints of Fall Injury. pkl 01:46 Details of fall: The patient fell from an upright position, while standing. Onset: The pkl symptoms/episode began/occurred just prior to arrival. Associated injuries: The patient sustained left rib-cage. Historical: - Allergies: 01:26 PENICILLINS; jb4 - Home Meds: 01:26 insulin [Active]; omeprazole 20 mg Oral TbEC [Active]; pravastatin 10 mg oral tab 1 tab jb4 once daily [Active]; metoprolol tartrate 50 mg Oral tab 1 tab 2 times per day [Active]; lisinopril 40 mg Oral tab 1 tab once daily [Active]; - PMHx: 01:26 Diabetes - IDDM; Arthritis; Hypertension; TIA; ovarian cancer; jb4 - PSHx: 01:26 Knee surgery; back; jb4 - Immunization history:: Adult Immunizations up to date, Last tetanus immunization: unknown. - Social history:: Smoking status: Patient/guardian denies using tobacco, Patient/guardian denies using alcohol. - Ebola Screening: : No symptoms or risks identified at this time. ROS: 01:46 Eyes: Negative for injury, pain, redness, and discharge, ENT: Negative for injury, pkl pain, and discharge, Neck: Negative for injury, pain, and swelling, Cardiovascular: Negative for chest pain, palpitations, and edema. 01:46 Respiratory: Negative for cough, shortness of breath. 01:46 Abdomen/GI: Negative for abdominal pain, nausea, vomiting, and diarrhea. 01:46 Back: Negative for acute changes. 01:46 : Negative for urinary symptoms. 01:46 MS/extremity: Negative for acute changes. 01:46 Skin: Negative for rash. 01:46 Neuro: Negative for altered mental status. Exam: 01:46 Head/Face: Normocephalic, atraumatic. Eyes: Pupils equal round and reactive to light, pkl extra-ocular motions intact. Lids and lashes normal. Conjunctiva and sclera are non-icteric and not injected. Cornea within normal limits. Periorbital areas with no swelling, redness, or edema. ENT: Nares patent. No nasal discharge, no septal abnormalities noted. Tympanic membranes are normal and external auditory canals are clear. Oropharynx with no redness, swelling, or masses, exudates, or evidence of obstruction, uvula midline. Mucous membranes moist. Neck: Trachea midline, no thyromegaly or masses palpated, and no cervical lymphadenopathy. Supple, full range of motion without nuchal rigidity, or vertebral point tenderness. No Meningismus. 01:46 Chest/axilla: Palpation: tenderness, that is moderate, of the left rib-cage. 01:46 Cardiovascular: Rate: normal, Rhythm: regular. 01:46 Respiratory: the patient does not display signs of respiratory distress, Respirations: normal, Breath sounds: are clear throughout. 01:46 Abdomen/GI: Bowel sounds: normal, Palpation: abdomen is soft and non-tender, in all quadrants. 01:46 Back: Exam negative for acute changes. 01:46 : Exam negative for acute changes. 01:46 Musculoskeletal/extremity: Exam is negative for acute changes. 01:46 Skin: Exam negative for rash. 01:46 Neuro: Orientation: is normal, Mentation: is normal, Cranial nerves: grossly normal, Motor: is normal. Vital Signs: 01:00 BP 183 / 45; Pulse 60; Resp 16; Temp 98.7(O); Pulse Ox 97% on R/A; Weight 119.29 kg jb4 (R); Height 5 ft. 11 in. (180.34 cm) (R); Pain 8/10; 02:00 BP 171 / 60; Pulse 60; Resp 16; Pulse Ox 97% on R/A; jb4 03:00 BP 198 / 73; Pulse 62; Resp 17; Pulse Ox 97% on R/A; jb4 03:45 BP 168 / 78; Pulse 59; Resp 15; Pulse Ox 96% on R/A; jb4 01:00 Body Mass Index 36.68 (119.29 kg, 180.34 cm) jb4 Bethany Coma Score: 01:00 Eye Response: spontaneous(4). Verbal Response: oriented(5). Motor Response: obeys jb4 commands(6). Total: 15. 02:00 Eye Response: spontaneous(4). Verbal Response: oriented(5). Motor Response: obeys jb4 commands(6). Total: 15. 03:00 Eye Response: spontaneous(4). Verbal Response: oriented(5). Motor Response: obeys jb4 commands(6). Total: 15. 03:45 Eye Response: spontaneous(4). Verbal Response: oriented(5). Motor Response: obeys jb4 commands(6). Total: 15. Trauma Score (Adult): 01:00 Eye Response: spontaneous(1); Verbal Response: oriented(1); Motor Response: obeys jb4 commands(2); Systolic BP: > 89 mm Hg(4); Respiratory Rate: 10 to 29 per min(4); Pedro Score: 15; Trauma Score: 12 02:00 Eye Response: spontaneous(1); Verbal Response: oriented(1); Motor Response: obeys jb4 commands(2); Systolic BP: > 89 mm Hg(4); Respiratory Rate: 10 to 29 per min(4); Pedro Score: 15; Trauma Score: 12 03:00 Eye Response: spontaneous(1); Verbal Response: oriented(1); Motor Response: obeys jb4 commands(2); Systolic BP: > 89 mm Hg(4); Respiratory Rate: 10 to 29 per min(4); Pedro Score: 15; Trauma Score: 12 03:45 Eye Response: spontaneous(1); Verbal Response: oriented(1); Motor Response: obeys jb4 commands(2); Systolic BP: > 89 mm Hg(4); Respiratory Rate: 10 to 29 per min(4); Pedro Score: 15; Trauma Score: 12 MDM: 01:33 Patient medically screened. pkl 03:23 Data reviewed: vital signs, nurses notes, radiologic studies, CT scan. pkl 03:31 ED course: Discussed CT Scan result patient. To follow up with PCP this week. Return if pkl pain is worse or difficulty respiration. Patient understood instructions. Administered Medications: 01:55 Drug: [place] (7.5 mg-325 mg) 1 tabs Route: PO; cc3 02:55 Follow up: Response: No adverse reaction; Pain is unchanged, physician notified ea 03:10 Drug: Demerol 75 mg Route: IM; Site: left gluteus; jb4 03:40 Follow up: Response: No adverse reaction; Pain is decreased jb4 03:10 Drug: Zofran 4 mg Route: PO; jb4 03:40 Follow up: Response: No adverse reaction jb4 Disposition: 05/03/19 03:28 Discharged to Home. Impression: Multiple left rib fractures ( 6 through 11 ). - Condition is Stable. - Prescriptions for Tylenol- Codeine #3 300-30 mg Oral Tablet - take 1 tablet by ORAL route every 8 hours As needed; 30 tablet. - Medication Reconciliation Form, Thank You Letter, Antibiotic Education, Prescription Opioid Use form. - Follow up: Private Physician; When: 2 - 3 days; Reason: Re-evaluation by your physician. - Problem is new. - Symptoms are unchanged. Signatures: Dispatcher [employer] EDMS Jesse Mueller MD MD pkl Kar Marie RN RN jb4 Jessy Tsang RN RN ea Cordel, Charlene cc3 Corrections: (The following items were deleted from the chart) 03:27 03:26 05/03/2019 03:26 Discharged to Home. Impression: Multipleleft rib fractures ( 6 pkl through 11 ). Condition is Stable. Forms are Medication Reconciliation Form, Thank You Letter, Antibiotic Education, Prescription Opioid Use. Follow up: Private Physician; When: 2 - 3 days; Reason: Re-evaluation by your physician. Problem is new. Symptoms are unchanged. pkl 04:12 03:28 05/03/2019 03:28 Discharged to Home. Impression: Multiple left rib fractures ( 6 jb4 through 11 ). Condition is Stable. Forms are Medication Reconciliation Form, Thank You Letter, Antibiotic Education, Prescription Opioid Use. Follow up: Private Physician; When: 2 - 3 days; Reason: Re-evaluation by your physician. Problem is new. Symptoms are unchanged. pkl
[2019-05-03 04:50] VITALS: BP 168/78; O2SAT 96
--- NOTE | 2019-05-03 11:37 | EKG ---
Test Date: 2019-05-03 Test Time: 01:16:59 Administrative Accountant: RASHAUN MEASUREMENT RESULTS: Intervals: Rate: 59 NJ: 166 QRSD: 80 QT: 424 QTc: 419 Byron: P: 44 NJ: 166 QRS: 6 T: 104 INTERPRETIVE STATEMENTS: Sinus bradycardia Anterior infarct, age undetermined Abnormal ECG Compared to ECG 11/13/2015 06:52:26 Sinus rhythm no longer present Myocardial infarct finding still present Electronically Signed On 05-03-19 11:35:48 CDT by Estuardo Morgan
--- NOTE | 2019-05-04 12:33 | RAD REPORT ---
EXAM DESCRIPTION: CT - Thorax López Ortega - 05/03/2019 4:09 am CLINICAL HISTORY: The patient is 83 years old and is Female; fall TECHNIQUE: Axial computed tomography images of the chest without intravenous contrast. Sagittal an d coronal reformatted images were created and reviewed. This CT exam was performed using one or mor e of the following dose reduction techniques: automated exposure control, adjustment of the mA and/ or kV according to patient size, and/or use of iterative reconstruction technique. COMPARISON: No relevant prior studies available. FINDINGS: LUNGS: A 3 mm left upper lobe pulmonary nodule is present. The lungs are otherwise clear . The tracheobronchial tree is widely patent. PLEURAL SPACE: A trace left pleural effusion is noted. No pneumothorax. HEART: No cardiomegaly. No pericardial effusion. BONES/JOINTS: Fractures of the left sixth through 11th rib fractures are present. Multilevel deg enerative change of the spine is present. Anterior osteophyte formation with intervertebral disc spac e narrowing is noted throughout. No other fracture is seen of the visualized axial and appendicular skeleton. SOFT TISSUES: The soft tissues are normal. VASCULATURE: Unremarkable. No thoracic aortic aneurysm. LYMPH NODES: Unremarkable. No enlarged lymph nodes. ADRENALS: A 1.6 cm left adrenal gland, 9 Hounsfield units, fat-containing lipid rich adenoma is present. No follow-up imaging is recommended. IMPRESSION: 1. Multiple left-sided rib fractures, 6 through 11. No evidence of pneumothorax. Trace left pleural effusion. 2. Left upper lobe pulmonary nodule. If patient is low risk for malignancy, no routine follow-up im aging is recommended; if patient is high risk for malignancy, a non-contrast Chest CT at 12 months is optional. If performed and the nodule is stable at 12 months, no further follow-up is recommended. These guidelines do not apply to patients younger than 35 years, immunocompromised patients, and tonya ents with cancer. Follow up in patients with significant comorbidities as clinically warranted. For l jerome cancer screening, adhere to Lung-RADS guidelines. Reference: Radiology. 2017; 284(1):228-43. Electronically signed by: Machelle Draper MD 05/03/2019 3:11 AM CDT Due to temporary technical issues with the PACS/Fluency reporting system, reports are being signed by the in house radiologist as a courtesy to ensure prompt reporting. The interpreting radiologist is f ully responsible for the content of the report.
== END 2019-05-03 04:12 | disposition home or self-care (01) ==
LOC: ER 01:02
DX: S22.42XA Multiple fractures of ribs, left side, initial encounter for closed fracture (principal); W19.XXXA Unspecified fall, initial encounter; Y93.9 Activity, unspecified; Y92.9 Unspecified place or not applicable; Z79.4 Long term (current) use of insulin; Z88.0 Allergy status to penicillin; Z85.43 Personal history of malignant neoplasm of ovary; I10 Essential (primary) hypertension; E11.9 Type 2 diabetes mellitus without complications
CPT/HCPCS: 93005; 71250; 96372; 99285; J2175 ×2

== ENCOUNTER 2020-10-17 12:00 | Inpatient (IN) | payer OTHER ==
--- OUTSIDE RECORDS SUMMARY | 2020-10-17 12:18 | XMS REPORT | Continuity of Care Document ---
:1935 Author Organization [employer] Care Team Providers Name Role Phone [employer] Unavailable Un available Problems Problem Status Onset Classification Date Comments Sourc e Date Reported ACUTE UTI, Active 09/13/20 [place] CLINICAL SEPSIS 17 [place] CVA Active 06/19/[address] RESPIRATORY Active 06/19/20 [facility] FAILURE, SEIZURE 17 Med ical Center [place] BILL[place] Active 06/19/[address] Diabetes mellitus Resolved Problem 09/20/2017 [facility] (disorder) [facility], [place] Hyperlipidemia Resolved Problem 09/20/[place] (disorder) [facility], [place] Hypertensive Resolved Problem 09/20/2017 [place] disorder, Medical systemic arterial Ce nter, (disorder) [place] 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[place] neoplasm of [place]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 (disorder) 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 Medical (disorder) Center, [place] Obesity Resolved Problem 09/20/2017 [facility] (disorder) [facility], [place] RESPIRATORY Active [facility] FAILURE, UNSP, Medic al UNSP W HYPOXI Center UNSPECIFIED Active [facility] CONVULSIONS [facility] Medications Medication Details Route Status Patient Ordering Order Source Instructions Provider Date Famotidine 20 MG Notes: (Same Inactive M [facility] [place] Oral Tablet as: Pepcid) 2016 [facility] [Pepcid] Hydralazine 10 mg, Route: Inactive 09/16/ [place] IVP, ONCE, 2017 [place] Dosing Weight 140, kg, Priority: NOW, Start date: 09/16/17 13:07:00 CDT, Stop date: 09/16/17 13:07:00 CDT Ceftriaxone Notes: (Same No Longer [place] As: Rocephin). Active 2016 [place] Use with 100 mL NS and infuse over 30 min MEDICATION WASTE Product Size: 2000 mg Product Wasted: ___ mg Pravastatin Notes: (Same No Longer 09/15/ [place] as: Pravachol) Active 2016 [place] cefepime Notes: (Same No Longer [place] As: Maxipime) Active 2016 [place] MEDICATION WASTE Product Size: 1000 mg Product Wasted: ___ mg 24 HR Metoprolol Notes: (Same No Longer [place] Tartrate 50 MG as: Toprol XL) Active [address] [place] [address] Extended Release May split Tablet [Toprol] tab, but do not crush. Lisinopril Notes: (Same No Longer [place] as: Prinivil, Active 2016 [place] Zestril) lacosamide Notes: Same No Longer [place] as: Vimpat Active 2016 [place] Aspirin Notes: Take No Longer [place] with food. Active 2016 [place] Humalog Mix 75/25 Notes: (Same No Longer [place] as: Humalog Active 2016 [place] Mix 75/25) "single patient use only" WASTE: F/P - Black; E - Municipal Trash Bin Roll in palms of hand gently; Do not shake. 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 On empty stomach. 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 Insulin Lispro Notes: Roll in No Longer [place] palms of hands Active 2016 [place] gently; Do not shake `vigorously. (Same as: Humalog ) "Single Patient Use Only " WASTE: F/P - Black; E - [place] Trash Bin Stable for 28 days at room temperature. 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 Saline Flush 0.9% Notes: (Same No Longer [place] as: BD Active 2016 [place] Posiflush) sodium chloride 1,000 mL, No Longer [place] 0.9% 1000 ml INJ Rate: 75 Active 2016 [place] 1,000 mL ml/hr, Infuse over: 13.3 hr, Route: IV, Dosing Weight 113.636 kg, Total Volume: 1,000, Start date: 09/13/17 22:14:00 CDT, Duration: 30 day, Stop date: 10/13/17 22:13:00 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 Levaquin Notes: (Same Inactive [place] as:Levaquin) 2016 [facility] Sodium Chloride 1,000 mL, Inactive [place] 0.9% IV (NS 1,000 ml/hr, 2016 [place] (Bolus) IV) Infuse Over: 1 hr, Route: IV, 1,000, Drug form: INJ, ONCE, Priority: STAT, Dosing Weight 148.8 kg, Start date: 09/13/17 19:23:00 CDT, Duration: 1 doses or times, Stop date: 09/13/17 19:23:00 CDT Saline Flush 0.9% Notes: (Same No Longer [place] as: BD Active 2016 [place] Posiflush) metoprolol 50 mg, 1 tab, Inactive [place] tartrate Route: PO, 2017 Medical Drug form: Center TAB, Q12H, Dosing Weight 148.8, kg, Start date: 06/24/17 21:00:00 CDT, Duration: 30 day, Stop date: 07/24/17 9:00:00 CDT lacosamide 100 mg 100 mg = 1 Active 06/25[facility] oral tablet tab, PO, BID, 2016 Medica l # 60 tab, 3 Center Refill(s) metoprolol 50 mg = 1 tab, Active 06/24[facility] Jim as tartrate 50 mg PO, Q12H, 0 2016 Medic al oral tablet Refill(s) Center lisinopril 40 mg 40 mg = 1 tab, Active 06/24[facility] oral tablet PO, Daily, # 2017 Medical 30 tab, 3 Center Refill(s) lacosamide 100 mg 100 mg = 1 Inactive 06/24[facility] oral tablet tab, PO, BID, 2017 Medica l 0 Refill(s) Center metoprolol Notes: ([facility] 2017 [facility] Magnesium Sulfate Notes: WASTE: Inactive 06/24[facility] F/P - Sink; E 2017 Medical - [facility] Center Traabdirahman Jean-Baptisterin Notes: (Same Inactive 06/24[facility] as: Motrin) 2017 Medical "Do Not Crush" Center Take with food. metoprolol Notes: (Same [facility] tartrate as: Lopressor) 2017 [facility] 12.5 mg=1/2 X Center 25 mg TAB Tylenol Notes: Do not Inactive 06/24[facility] exceed 4 2017 Medical gm/day. (Same Center as: Tylenol) Tylenol Notes: Do not Inactive [facility] exceed 4 2017 Medical gm/day. (Same Center as: Tylenol) Labetalol 10 mg, 2 mL, Inactive 06/24[facility] Route: IVP, 2016 Medical Drug form: Center INJ, ONCE, Dosing Weight 148.8, kg, Start date: 06/23/17 23:08:00 CDT, Stop date: 06/23/17 23:08:00 CDT divalproex sodium 250 mg, 1 tab, No Longer 06/23 [place] 250 mg oral Route: PO, Active 2017 Medical enteric coated Drug form: Center tablet (Depakote) ECTAB, BID, Dosing Weight 148.8, kg, Start date: 06/23/17 17:00:00 CDT, Duration: 30 day, Stop date: 07/23/17 9:00:00 CDT, Delayed Release tablet multivitamin with 5 ml, Route: No Longer [place] minerals PO, Drug Form: Active 2016 Medical LIQ, Dosing Center Weight 148.8, kg, Daily, Start date: 06/23/17 9:00:00 CDT, Duration: 30 day, Stop date: 07/22/17 9:00:00 CDT lisinopril 30 mg 30 mg = 1 tab, No Longer [facility] oral tablet PO, Daily, # Active 2016 Medical 30 tab, 0 Center Refill(s) Aspirin 81 mg, PO, Active [place] Daily, adult 2017 Medical low dose Center aspirin 81 mg, 0 Refill(s) NovoLIN 70/30 See Active [facility] Instructions, 2017 Medical one shot in Center the morning and one shot in the evening which varies in dose depending upon blood sugar reading. usually 40-70 of 1 ml., 0 Refill(s) metoprolol See No Longer [facility] tartrate 100 mg Instructions, Active [place] dical oral tablet 1 tab each Center morning and half tablet each evening., 0 Refill(s) Omeprazole 20 mg, PO, Active [facility] Daily, [address] Center 20 mg, 0 Refill(s) metoprolol Notes: (Same No Longer [facility] as tartrate as: Lopressor) Active 2016 Medical 12.5 mg=1/2 X Center 25 mg TAB 24 HR Divalproex Notes: (Same No Longer [place] Sodium 500 MG as: Depakote Active 2016 Medic al Extended Release Delayed Center Tablet [Depakote] Release) Do not confuse with the extended-relea se tablet. Delayed absorption enteric coated tablet. Do not crush sodium chloride 1,000 mL, No Longer [place] 0.9% 1000 ml INJ Rate: 50 Active 2016 Medica l 1,000 mL ml/hr, Infuse Center over: 20 hr, Route: IV, Dosing Weight 148.8 kg, Total Volume: 1,000, Start date: 06/22/17 14:24:00 CDT, Duration: 30 day, Stop date: 07/22/17 14:23:00 CDT multivitamin with Notes: (Same No Longer [facility] minerals as:Thera-M, Active 2017 [facility] Theragran-M) Center WASTE: F/P - Black; E - Municipal Trash Bin Give with food. Vimpat Notes: Same No Longer [facility] as: Vimpat Active 2017 Medical [place] Aspirin Notes: Do not No Longer [facility] crush or chew. Active 2017 Medical (Same As: [place] Ecotrin) Potassium Notes: (Same Inactive [facility] Chloride as: KCL) 2017 Medical Infuse no Center faster than 10 mEq/hr if given peripherally. Calcium Carbonate Notes: (Same Inactive 06/22[facility] 500 MG Chewable As: Tums) 2017 Medica l Tablet Calcium Center Carbonate 500 mg = 200 mg elemental calcium Dose = mg calcium carbonate ( mg elemental calcium) potassium Notes: (Same Inactive [facility] phosphate-sodium as: Phos-NaK) 2017 M edical phosphate 250 Each 1.5 gm Center mg-280 mg-160 mg pkt has 250mg oral powder for phosphorous. reconstitution Mix w/2.5oz water and stir. potassium Notes: (Same Inactive 06/22[facility] phosphate as: K 2017 Medical Phosphate.) 1 Center mMol phoshate has 1.47 mEq potassium Infuse over 4 hours Calcium Gluconate Notes: WASTE: Inactive [facility] F/P - Sink; E 2017 [facility] Trash Bin Magnesium Oxide Notes: (Same Inactive 06/22[facility] as: Mag-Ox 2017 Medical 400) Magnesium Center oxide [id number] elemental magnesium Dose=____mg magnesium oxide (___mg elemental magnesium) Magnesium Sulfate Notes: WASTE: Inactive [facility] F/P - Sink; E 2017 [facility] Trash Bin sodium phosphate 30 mmol, 10 Inactive 06/22[facility] mL, Route: 2017 Medical IVPB, PRN, Center Dosing Weight 148.8, kg, PRN Abnormal Lab Result, Start date: 06/22/17 2:06:00 CDT, Duration: 30 day, Stop date: 07/22/17 2:05:00 CDT, FOR ICU USE ONLY Seroquel Notes: (Same No Longer [place] as: SEROquel) Active 2017 Medical Center Valproic Acid 50 Notes: (Same No Longer [place] MG/ML Oral As: Depakene) Active 2016 Medical Solution Center Lisinopril Notes: (Same No Longer [place] as as: Prinivil, Active 2016 Medical Zestril) [place] Seroquel 75 mg, Route: Inactive [place] PO, ONCE, 2017 Medical Dosing Weight Center 148.8, kg, Start date: 06/21/17 3:57:00 CDT, Stop date: 06/21/17 3:57:00 CDT Labetalol 20 mg, 4 mL, Inactive [place] Route: IVP, 2016 Medical Drug form: [place] INJ, Q15Min, Dosing Weight 148.8, kg, PRN Hypertension, Start date: 06/21/17 3:05:00 CDT, Duration: 3 doses or times, Stop date: Limited # of times Hydralazine Notes: (Same No Longer [place] as: Active 2016 Medical Apresoline) [place] Push over 5 minutes Keppra 1,500 mg, No Longer [place] Route: PO, Active 2016 Medical Drug form: [place] TAB, Q12H, Dosing Weight 148.8, kg, Start date: 06/21/17 2:00:00 CDT, Duration: 30 day, Stop date: 07/20/17 21:00:00 CDT Seroquel Notes: (Same No Longer [place] as: SEROquel) Active 2017 Medical Center Pravastatin Notes: (Same [place] Longer [place] as: Pravachol) Active 2017 Medical Center Valproic Acid 100 Notes: Dilute No Longer [place] MG/ML Injectable in at least Active 2016 Med ical Solution 50ml D5W or Center NS. Infusion rate = 20 mg/min (Same As: Depacon) NS (Bolus) IV 500 mL, 500 Inactive [place] ml/hr, Infuse 2017 Medical Over: 1 hr, Center Route: IV, ONCE, Priority: STAT, Dosing Weight 148.8 kg, Start date: 06/20/17 20:15:00 CDT, Duration: 1 doses or times, Stop date: 06/20/17 20:15:00 CDT Hydralazine Notes: (Same Inactive [place] as: 2017 Medical Apresoline) Center Push over 5 minutes Labetalol 10 mg, 2 mL, Inactive [facility] Route: IVP, 2017 Medical Drug form: Center INJ, ONCE, Dosing Weight 148.8, kg, Priority: STAT, Start date: 06/20/17 18:37:00 CDT, Stop date: 06/20/17 18:37:00 CDT Fentanyl Notes: (Same Inactive [facility] as: Sublimaze) 2017 Medical Preservative Center free. Dexmedetomidine 24 hours No Longer [place] Active 2017 [facility] Center Haldol Notes: (Same Inactive [facility] as: Haldol) 2017 [facility] Center Albuterol 0.833 Notes: (Same No Longer [place] MG/ML / as: Duoneb) Active 2017 [facility] Ipratropium Center [place] 0.167 MG/ML Inhalant Solution [DuoNeb] Dextrose 50% 12.5 gm, 25 [place] Longer [place] Syringe mL, Route: Active 2017 Medical IVP, Drug Center Form: INJ, Dosing Weight 148.8, kg, PRN, PRN Abnormal Lab Result, Start date: 06/20/17 12:54:00 CDT, Duration: 30 day, Stop date: 07/20/17 12:53:00 CDT Regular Insulin, 60 units) No Longer 06/20/ [facility] Human 100 UNT/ML WASTE: F/P - Active 2017 Me dical Injectable Black; E - Center Solution Municipal Trash Bin Stable for 28 days at room temperature Expires in days from Date Alexandr Notes: Same as Inactive [place] Keppra Mix 2017 Medical with 100 mL Center NS, LR or D5W MEDICATION WASTE Product Size: 500 mg Product Wasted: ___ mg sennosides, SENIOR CARE Notes: (Same No Longer H [place] as: Senokot) Active 2017 Medical Center Saline Flush 0.9% Notes: (Same No Longer [place] as: BD Active 2016 Medical Posiflush) Center pantoprazole Notes: For IV Inactive [place] push 2017 [facility] reconstitute Center with 10 ml 0.9% sodium chloride and push over 2 minutes. (Same as: Protonix) Streptococcus Notes: Shake Inactive [place] pneumoniae well prior to 2017 Medical serotype 1 use (Same as: Center capsular antigen Prevnar 13) diphtheria [id number] protein conjugate vaccine / Streptococcus pneumoniae serotype 14 capsular antigen diphtheria [id number] protein conjugate vaccine / Streptococcus pneumoniae serotype 18C capsular antigen d chlorhexidine Notes: (Same Inactive [place] gluconate 1.2 As: Peridex) 2017 Medic al MG/ML Mouthwash Center lansoprazole Notes: Take 1 No Longer [place] hour before or Active 2016 Medical 2 hours after Center meal; Expires in 14 days. Shake well before use. (Same as:Prevacid) Compounded Product - formulation not commercially available Docusate Notes: (Same No Longer [place] as: Colace) Active 2017 [facility] ocular lubricant Notes: (Same No Longer [place] as: Active 2017 Medical Lacri-Lube, Center Duratears Naturale, Artificial Tears, and Tears Again ) Aspirin 300 MG Notes: Inactive [place] Rectal Refrigerate. 2017 Medical Suppository Center Acyclovir Notes: Same Inactive [place] as: Zovirax 2017 Medical MEDICATION Center WASTE Product Size: 500 mg Product Wasted: 0 mg Vancomycin 2001 mg: Inactive [place] infuse over 2017 Medical 2.5 hours Center MEDICATION WASTE Product Size: 1000 mg Product Wasted: 0 mg cefepime Notes: (Same Inactive [place] as: Maxipime) 2017 Medical Center MEDICATION WASTE Product Size: 2000 mg Product Wasted: 0 mg sodium phosphate 15 mmol, 5 mL, No Longer [place] Route: IVPB, Active 2017 Medical PRN, Dosing Center Weight 148.8, kg, PRN Abnormal Lab Result, Start date: 06/20/17 3:13:00 CDT, Duration: 30 day, Stop date: 07/20/17 3:12:00 CDT, FOR ICU USE ONLY Calcium Carbonate Notes: (Same No Longer [place] 500 MG Chewable As: Tums) Active 2016 Medica l Tablet Calcium Center Carbonate 500 mg = 200 mg elemental calcium Dose = mg calcium carbonate ( mg elemental calcium) potassium Notes: (Same No Longer [facility] phosphate-sodium as: Phos-NaK) Active 2016 edical phosphate 250 Each 1.5 gm Center mg-280 mg-160 mg pkt has 250mg oral powder for phosphorous. reconstitution Mix w/2.5oz water and stir. Magnesium Sulfate Notes: WASTE: No Longer [place] F/P - Sink; E Active 2016 [facility] Trash Bin Magnesium Oxide Notes: (Same No Longer [facility] as: Mag-Ox Active 2016 [facility] 400) Magnesium Center oxide [id number] elemental magnesium Dose=____mg magnesium oxide (___mg elemental magnesium) Calcium Gluconate Notes: WASTE: No Longer [place] F/P - Sink; E Active 2016 [facility] Center Trash Bin Potassium Notes: (Same No Longer [facility] Chloride as: Potassium Active 2016 [facility] Chloride) Center Keppra Notes: Same as Inactive [place] Keppra Mix 2017 Medical with 100 mL Center NS, LR or D5W MEDICATION WASTE Product Size: 500 mg Product Wasted: 0 mg Insulin regular 60 units) No Longer [facility] WASTE: F/P - Active 2017 [facility] Black; E - Center Municipal Trash Bin Stable for 28 days at room temperature Expires in days from Date Dextrose 50% 12.5 gm, 25 [place] Longer [place] Syringe mL, Route: Active 2017 Medical IVP, Drug Center Form: INJ, Dosing [...] day, Stop date: 07/20/17 1:00:00 CDT chlorhexidine Notes: (Same No Longer [place] gluconate 1.2 As: Peridex) Active 2017 Medic al MG/ML Mouthwash Center sodium chloride 1,000 mL, No Longer [place] 0.9% 1000 ml INJ Rate: 75 Active 2016 Medica l 1,000 mL ml/hr, Infuse Center over: 13.3 hr, Route: IV, Dosing Weight 136.364 kg, Total Volume: 1,000, Start date: 06/20/17 0:52:00 CDT, Duration: 30 day, Stop date: 07/20/17 0:51:00 CDT NS (Bolus) IV 1,000 mL, Inactive [place] 1,000 ml/hr, 2017 Medical Infuse Over: 1 Center hr, Route: IV, 1,000, Drug form: INJ, ONCE, Priority: STAT, Dosing Weight 136.364 kg, Start date: 06/20/17 0:52:00 CDT, Duration: 1 doses or times, Stop date: 06/20/17 0:52:00 CDT pravastatin 20 mg 20 mg = 1 tab, Active [place]air oral tablet PO, Bedtime, # 2017 Medic al 30 tab, 0 Center Refill(s) Aspirin Enteric 81 mg = 1 tab, Inactive [place] Coated 81 mg oral PO, Daily, 0 2016 M edical delayed release Refill(s) [place] tablet metoprolol BID, 0 No Longer [facility] tartrate Refill(s) Active [address] [place] [address] Lisinopril 30, PO, Daily, No Longer [place] 0 Refill(s) Active 2017 [facility] heparin Notes: porcine No Longer [place] heparin Active [address] [place] [address] atorvastatin Notes: (Same No Longer [place] as: Lipitor) Active 2017 Medical Center Aspirin 325 MG Notes: Take No Longer [place] Enteric Coated with food. Active 2016 Medica l Tablet Center Saline Flush 0.9% Notes: (Same No Longer [place] as: BD Active 2016 Medical Posiflush) Center iodixanol 100 mL, Route: Inactive [place] as IVP, Drug 2016 Medical Form: SOLN, [place] Dosing Weight 136.364, kg, ONCALL, STAT, Start date: 06/19/17 21:24:00 CDT, Duration: 1 doses or times, Dose = 2.2ml/kg, Max dose = 100ml -- "To be infused by Radiology Staff ONLY" iodixanol Notes: (Same No Longer [place] as: Active 2016 Medical Visipaque). Center WASTE: F/P - Black; E - Municipal Trash Bin propofol INJ Notes: If No Longer [facility] s 1,000 mg Diprivan - Active 2016 Medical change bottle Center & tubing every 12 hr Per state nursing law propofol can only be given by a nurse if patient is intubated or being intubated (unless the nurse is a SENIOR LEAD PROJECT MANAGER). Same as: Diprivan Saline Flush 0.9% Notes: (Same No Longer [place] as: BD Active 2016 Medical Posiflush) Center Allergies, Adverse Reactions, Alerts Substance Category Reaction Severity Reaction Status Date Comments S ource type Reported penicillins Assertion Drug Active allergy [place] Immunizations Immunization Date Site Status Last Updated Comments Sour ce Given influenza virus Left completed Jarett S ugar vaccine, 7 Deltoid [place] inactivated pneumococcal Left completed [facility] s 13-valent vaccine 7 deltoid Tx dical [facility] [place] Results Order Name Results Value Reference Date Interpretation Comments Millie rce Range CHEM PANEL Glucose Lvl 229 70 - 99 09/14 [place] CHEM PANEL Sodium Lvl 133 135 - 145 09/14 [place] CHEM PANEL BUN 16 7 - 22 09/14 [place] CHEM PANEL Creatinine 1.19 0.50 - 09/14 [place] Lvl 1.40 /2016 Land CHEM PANEL AGAP 11.9 10.0 - 09/14 [place] 20.0 [place] CHEM PANEL Chloride Lvl 96 95 - 109 09/14 [place] CHEM PANEL CO2 30 24 - 32 09/14 [place] CHEM PANEL Calcium Lvl 8.2 8.5 - 10.5 09/14 [place] CHEM PANEL Potassium Lvl 4.9 3.5 - 5.1 09/14 [place] CHEM PANEL eGFR 43 09/14 [facility] [place] Comment: The Land eGFR is calculated using the CKD-EPI formula. In most young, healthy individuals the eGFR will be >90 mL/min/1.73m2 . The eGFR declines with age. An eGFR of 60-89 may be normal in some populations, particularly the elderly, for whom the CKD-EPI formula has not been extensively validated. Use of the eGFR is not recommended in the following populations:< br/>
Toma viduals with unstable creatinine concentration s, including patients and those with serious co-morbid conditions.<b r/>
Patie nts with extremes in muscle mass or diet.

The data above are obtained from the National Kidney Disease Education Program (NKDEP) which additionally recommends that when the eGFR is used in patients with extremes of body mass index for purposes of drug dosing, the eGFR should be multiplied by the estimated BMI. CHEM PANEL Lactic Acid 2.0 0.5 - 2.2 09/14 [place] Lv [place] CHEM PANEL Lactic Acid 2.8 0.5 - 2.2 09/14 [place] Lvl [place] URINE AND UA <=1.0 0.1 - 1.0 09/14 [place] STOOL Urobilinogen mg/dL /2016 [place] URINE AND UA Mucus Few /LPF None Seen 09/14 [place] STOOL /LPF /2016 [place] URINE AND UA Bacteria Occasional None Seen 09/14 [place] STOOL /HPF /HPF /2016 [place] URINE AND UA RBC 46 0 - 2 09/14 [place] STOOL [place] URINE AND UA Blood Large Negative 09/14 [place] STOOL *ABN* /2016 [place] (09/13/17 7:52 PM) URINE AND UA Bili Negative Negative 09/14 [place] STOOL *NA* /2016 [place] (09/13/17 7:52 PM) URINE AND UA WBC 21 0 - 5 09/14 [place] STOOL Land URINE AND UA Sq Epi Occasional Few /LPF 09/14 [place] STOOL /LPF /2016 [place] URINE AND UA Leuk Est Negative Negative 09/14 [place] STOOL (09/13/17 7:52 PM) Land URINE AND UA Nitrite Negative Negative 09/14 [place] STOOL (09/13/17 7:52 PM) Land URINE AND UA Ketones Negative Negative 09/14 [place] STOOL mg/dL mg/dL Land URINE AND UA Glucose 50 mg/dL Negative 09/14 [place] STOOL mg/dL Land URINE AND UA Protein 30 mg/dL Negative 09/14 [place] STOOL mg/dL [place] URINE AND UA pH 5.0 5.0 - 8.0 09/14 [place] STOOL [place] URINE AND UA Spec Grav 1.016 <=1.030 09/14 [place] STOOL [place] URINE AND UA Color Light Yellow Yellow 09/14 [place] STOOL *NA* /2016 [facility] (09/13/17 7:52 PM) URINE AND UA Turbidity Slight Clear 09/14 [place] STOOL *ABN* /2016 [place] (09/13/17 7:52 PM) CARDIAC CK MB Index <0.7 0.0 - 2.5 09/14 [place] ENZYMES [facility] CARDIAC Total CK 75 12 - 191 09/14 [place] ENZYMES [facility] CARDIAC CK MB <0.5 0.5 - 3.6 09/14 [place] ENZYMES [facility] CARDIAC Troponin-I 0.03 0.00 - 09/14 [place] ENZYMES 0.40 [facility] CHEM PANEL eGFR 48 09/14 Comment: The [facility] eGFR is calculated using the CKD-EPI formula. In most young, healthy individuals the eGFR will be >90 mL/min/1.73m2 . The eGFR declines with age. An eGFR of 60-89 may be normal in some populations, particularly the elderly, for whom the CKD-EPI formula has not been extensively validated. Use of the eGFR is not recommended in the following populations:< br/>
Toma viduals with unstable creatinine concentration s, including patients and those with serious co-morbid conditions.<b r/>
Patie nts with extremes in muscle mass or diet.

The data above are obtained from the National Kidney Disease Education Program (NKDEP) which additionally recommends that when the eGFR is used in patients with extremes of body mass index for purposes of drug dosing, the eGFR should be multiplied by the estimated BMI. CHEM PANEL Bili Total 0.4 0.2 - 1.3 09/14 [place] CHEM PANEL CO2 27 24 - 32 09/14 [place] CHEM PANEL Chloride Lvl 94 95 - 109 09/14 [place] CHEM PANEL Total Protein 7.4 6.4 - 8.4 09/14 [place] CHEM PANEL ALT 19 0 - 65 09/14 [place] CHEM PANEL Albumin Lvl 3.0 3.5 - 5.0 09/14 [place] CHEM PANEL Alk Phos 107 39 - 136 09/14 [place] CHEM PANEL AST 31 0 - 37 09/14 [place] CHEM PANEL Creatinine 1.07 0.50 - 09/14 [place] 1.40 [place] CHEM PANEL Potassium Lvl 4.9 3.5 - 5.1 09/14 [place] CHEM PANEL Sodium Lvl 130 135 - 145 09/14 [place] CHEM PANEL Calcium Lvl 8.5 8.5 - 10.5 09/14 [place] CHEM PANEL BUN 13 7 - 22 09/14 [place] CHEM PANEL Glucose Lvl 255 70 - 99 09/14 [place] CHEM PANEL A/G Ratio 0.7 0.7 - 1.6 09/14 [place] CHEM PANEL AGAP 13.9 10.0 - 09/14 [facility] [place] 20.0 [place] CHEM PANEL Globulin 4.4 2.7 - 4.2 09/14 [place] CHEM PANEL B/C Ratio 12 6 - 25 09/14 [place] CHEM PANEL Lactic Acid 3.2 0.5 - 2.2 09/14 [place] CHEM PANEL Procalcitonin 0.41 0.00 - 09/14 [facility] [place] HEMATOLOGY Lymphocytes # 1.0 1.0 - 5.5 09/14 [place] HEMATOLOGY Monocytes # 0.1 0.0 - 0.8 10/16 [place] HEMATOLOGY Basophils # 0.0 0.0 - 0.2 10 [place] HEMATOLOGY Eosinophils # 0.0 0.0 - 0.5 10 [place] HEMATOLOGY Eosinophils 0.1 0.0 - 4.0 09/14 [place] HEMATOLOGY Segs-Bands # 9.3 1.5 - 8.1 09/14 [place] HEMATOLOGY Basophils 0.0 0.0 - 1.0 09/14 [place] /2016 [place] HEMATOLOGY Lymphocytes 9.5 20.0 - 09/14 [place] 40.0 [place] HEMATOLOGY Segs 89.9 45.0 - 09/14 [facility] [place] 75.0 /2016 [place] HEMATOLOGY Monocytes 0.5 2.0 - 12.0 09/14 [place] HEMATOLOGY MCHC 32.9 32.0 - 09/14 [facility] [place] 36.0 [place] HEMATOLOGY RDW 14.1 11.5 - 09/14 [facility] [place] 14.5 [place] HEMATOLOGY MCH 28.2 27.0 - 09/14 [facility] [place] 31.0 [place] HEMATOLOGY Platelet 221 133 - 450 09/14 [place] /2016 [place] HEMATOLOGY MCV 85.7 80.0 - 09/14 [facility] [place] 98.0 /2016 [place] HEMATOLOGY Hgb 13.8 12.0 - 09/14 [facility] [place] 16.0 [place] HEMATOLOGY Hct 41.9 36.0 - 09/14 [facility] [place] 48.0 /2016 [place] HEMATOLOGY WBC 10.4 3.7 - 10.4 09/14 [place] /2016 [place] HEMATOLOGY RBC 4.88 4.20 - 09/14 [facility] [place] 5.40 /2016 [place] HEMATOLOGY MPV 8.4 7.4 - 10.4 09/14 [facility] [place] /2016 [place] HEMATOLOGY PT 13.3 12.0 - 09/14 [facility] [place] 14.7 /2016 [place] HEMATOLOGY INR 0.99 0.85 - 09/14 [facility] [place] 1.17 /2016 [place] HEMATOLOGY PTT 21.3 22.9 - 09/14 [facility] [place] 35.8 /2016 [place] MOLECULAR OXA Not Detected Not 09/14 [facility] [place] DIAGNOSTIC (carbapenemas (09/13/17 7:47 PM) Detected /2016 [place] e) MOLECULAR VIM Not Detected Not 09/14 [facility] [place] DIAGNOSTIC (carbapenemas (09/13/17 7:47 PM) Detected /2016 [place] e) MOLECULAR KPC Not Detected Not 09/14 [place] DIAGNOSTIC (carbapenemas (09/13/17 7:47 PM) Detected [place] e) MOLECULAR NDM Not Detected Not 09/14 [place] DIAGNOSTIC (carbapenemas (09/13/17 7:47 PM) Detected [place] e) MOLECULAR K. pneumoniae Not Detected Not 09/14 [place] DIAGNOSTIC (09/13/17 7:47 PM) Detected L and MOLECULAR Enterobacter Not Detected Not 09/14 [place] DIAGNOSTIC spp. (09/13/17 7:47 PM) Detected L and MOLECULAR P. aeruginosa Not Detected Not 09/14 [place] DIAGNOSTIC (09/13/17 7:47 PM) Detected L and MOLECULAR IMP Not Detected Not 09/14 [place] DIAGNOSTIC (carbapenemas (09/13/17 7:47 PM) Detected [place] e) MOLECULAR Proteus spp. Not Detected Not 09/14 [place] DIAGNOSTIC (09/13/17 7:47 PM) Detected L and MOLECULAR CTX-M (ESBL) Not Detected Not 09/14 [place] DIAGNO[place] (09/13/17 7:47 PM) Detected L and MOLECULAR Citrobacter Not Detected Not 09/14 [place] DIAGNOSTIC spp. (09/13/17 7:47 PM) Detected L and MOLECULAR Acinetobacter Not Detected Not 09/14 [place] DIAGNOSTIC spp. (09/13/17 7:47 PM) Detected L and MOLECULAR E. coli Detected Not 09/14 [place] DIAGNOSTIC *ABN* Detected [place] (09/13/17 7:47 PM) MOLECULAR K. oxytoca Not Detected Not 09/14 [place] DIAGNOSTIC (09/13/17 7:47 PM) L and CHEM PANEL Magnesium Lvl 1.9 1.8 - 2.4 06/24 [place] [facility] CHEM PANEL Phosphorus 2.7 2.5 - 4.5 06/24 [facility] ELECTROLYTE AGAP 13.1 10.0 - 06/24 [place] S 20.0 [facility] ELECTROLYTE eGFR 61 06/24 Result S Comment: The Medical eGFR is Center calculated using the CKD-EPI formula. In most young, healthy individuals the eGFR will be >90 mL/min/1.73m2 . The eGFR declines with age. An eGFR of 60-89 may be normal in some populations, particularly the elderly, for whom the CKD-EPI formula has not been extensively validated. Use of the eGFR is not recommended in the following populations:< br/>
Toma viduals with unstable creatinine concentration s, including patients and those with serious co-morbid conditions.<b r/>
Patie nts with extremes in muscle mass or diet.

The data above are obtained from the National Kidney Disease Education Program (NKDEP) which additionally recommends that when the eGFR is used in patients with extremes of body mass index for purposes of drug dosing, the eGFR should be multiplied by the estimated BMI. ELECTROLYTE Chloride Lvl 96 95 - 109 06/24 [facility] ELECTROLYTE CO2 27 24 - 32 06/[address] ELECTROLYTE Calcium Lvl 9.1 8.5 - 10.5 06/24 [facility]2016 [facility] ELECTROLYTE Potassium Lvl 4.1 3.5 - 5.1 06/24 [place] 2016 [facility] ELECTROLYTE Glucose Lvl 169 70 - 99 06/[address] ELECTROLYTE Creatinine 0.89 0.50 - 06/24 [facility] Lvl 1.40 [facility] ELECTROLYTE BUN 13 7 - 22 06/[address] ELECTROLYTE Sodium Lvl 132 135 - 145 06/24 [facility] [place] [facility] HEMATOLOGY Segs-Bands # 2.9 1.5 - 8.1 06/24 [facility]2016 [facility] HEMATOLOGY Basophils 0.9 0.0 - 1.0 06/[address] HEMATOLOGY Eosinophils 2.4 0.0 - 4.0 06/[address] HEMATOLOGY Basophils # 0.1 0.0 - 0.2 06/[address] HEMATOLOGY Lymphocytes # 2.9 1.0 - 5.5 06/[address] HEMATOLOGY Monocytes # 0.5 0.0 - 0.8 06/[address] HEMATOLOGY Lymphocytes 44.1 20.0 - 06/24 [facility] 40.0 [facility] HEMATOLOGY Monocytes 7.9 2.0 - 12.0 06/[address] HEMATOLOGY Eosinophils # 0.2 0.0 - 0.5 06/24 [facility] HEMATOLOGY Segs 44.7 45.0 - 06/24 [place] 75.0 [facility] HEMATOLOGY MCHC 33.4 32.0 - 06/24 36.0 [facility] HEMATOLOGY MCV 87.1 80.0 - 06/24 [facility] 98.0 [facility] HEMATOLOGY Hgb 12.9 12.0 - 06/24 16.0 [facility] HEMATOLOGY MCH 29.1 27.0 - 06/24 31.0 [facility] HEMATOLOGY RBC 4.43 4.20 - 06/24 5.40 [facility] HEMATOLOGY WBC 6.6 3.7 - 10.4 06/24 [facility] HEMATOLOGY Platelet 173 133 - 450 06/24 [facility] HEMATOLOGY RDW 13.8 11.5 - 06/24 14.5 [facility] HEMATOLOGY Hct 38.6 36.0 - 06/24 48.0 [facility] HEMATOLOGY MPV 8.4 7.4 - 10.4 06/24 [facility] PARATHYROID Ca Norm WB 1.14 1.05 - 06/24 [place] PROFILE 1. [facility] PARATHYROID Ca Ion WB 1.15 1. - 06/24 [place] PROFILE 1. [facility] CHEM PANEL Phosphorus 3.4 2.5 - 4.5 06/23 [facility] CHEM PANEL Magnesium Lvl 2.0 1.8 - 2.4 06/23 [facility] ELECTROLYTE AGAP 11.6 10.0 - 06/23 [place] S 20.0 [facility] ELECTROLYTE Potassium Lvl 3.6 3.5 - 5.1 06/23 [place] [facility] ELECTROLYTE Sodium Lvl 139 135 - 145 06/23 [place] [facility] ELECTROLYTE CO2 31 24 - 32 06/23 [facility] ELECTROLYTE Chloride Lvl 100 95 - 109 06/23 [place] [facility] ELECTROLYTE Calcium Lvl 8.9 8.5 - 10.5 06/23 [facility] [place] [facility] ELECTROLYTE BUN 11 7 - 22 06/23 [facility] ELECTROLYTE Glucose Lvl 136 70 - 99 06/23 [facility] ELECTROLYTE eGFR 70 06/23 Result [facility] Comment: The Medical eGFR is Center calculated using the CKD-EPI formula. In most young, healthy individuals the eGFR will be >90 mL/min/1.73m2 . The eGFR declines with age. An eGFR of 60-89 may be normal in some populations, particularly the elderly, for whom the CKD-EPI formula has not been extensively validated. Use of the eGFR is not recommended in the following populations:< br/>
Toma viduals with unstable creatinine concentration s, including patients and those with serious co-morbid conditions.<b r/>
Patie nts with extremes in muscle mass or diet.

The data above are obtained from the National Kidney Disease Education Program (NKDEP) which additionally recommends that when the eGFR is used in patients with extremes of body mass index for purposes of drug dosing, the eGFR should be multiplied by the estimated BMI. ELECTROLYTE Creatinine 0.79 0.50 - 06/23 [facility] Lvl 1.40 [facility] HEMATOLOGY Eosinophils # 0.2 0.0 - 0.5 06/23 [facility] HEMATOLOGY Basophils # 0.1 0.0 - 0.2 06/23 [facility] HEMATOLOGY Segs 45.3 45.0 - 06/23 75.0 [facility] HEMATOLOGY Eosinophils 2.8 0.0 - 4.0 06/23 [facility] HEMATOLOGY Lymphocytes 44.1 20.0 - 06/23 40.0 [facility] HEMATOLOGY Monocytes 6.9 2.0 - 12.0 06/23 [facility] HEMATOLOGY Segs-Bands # 2.9 1.5 - 8.1 06/23 [facility] HEMATOLOGY Basophils 0.9 0.0 - 1.0 06/23 [facility] HEMATOLOGY Lymphocytes # 2.9 1.0 - 5.5 06/23 [facility] HEMATOLOGY Monocytes # 0.4 0.0 - 0.8 06/23 [facility] HEMATOLOGY RDW 14.2 11.5 - 06/23 [facility] 14.5 [facility] HEMATOLOGY Platelet 159 133 - 450 06/23 [facility] HEMATOLOGY MPV 7.9 7.4 - 10.4 06/23 [facility] HEMATOLOGY MCHC 33.9 32.0 - 06/23 [facility] 36.0 [facility] HEMATOLOGY MCH 29.1 27.0 - 06/23 [facility] 31.0 [facility] HEMATOLOGY MCV 85.6 80.0 - 06/23 [facility] 98.0 [facility] HEMATOLOGY RBC 4.06 4.20 - 06/23 [facility] 5.40 /2016 [facility] HEMATOLOGY Hgb 11.8 12.0 - 06/23 [place] 16.0 [facility] HEMATOLOGY Hct 34.7 36.0 - 06/23 [facility] 48.0 [facility] HEMATOLOGY WBC 6.5 3.7 - 10.4 06/23 [facility] PARATHYROID Ca Norm WB 1.16 1.05 - 06/23 [place] PROFILE 1. [facility] PARATHYROID Ca Ion WB 1.17 1. - 06/23 [facility] PROFILE 1. [facility] IMMUNOLOGY HIV. Negative Negative 06/22 [facility] *NA* /2016 [facility] (06/22/17 5:09 PM) [place] TOXICOLOGY Valproic Acid 88 50 - 100 06/22 [place] Lvl /2016 [facility] ANEMIA Vitamin B12 422 254 - 1320 06/22 [facility] STUDY Lvl /2016 [facility] ANEMIA Folate Lvl 18.2 >=3.0 06/22 [facility] STUDY ng/mL /2016 [facility] CHEM PANEL VITAMIN B1 116.1 66.5 - 06/22 Result [facility] (THIAMINE) 200.0 Comment: Medical WHOLE BLOOD Performed At: Center [facility] [place]
[address] [place] [address] [phone]<br/ >Addi Watts MD Ph:[phone] CHEM PANEL Ammonia 32.0 <=45.0 06/22 [facility] uMol/L /2016 [facility] IMMUNOLOGY RPR Non Reactive Non 06/22 [facility] (06/22/17 10:21 AM) Reactive /2016 [facility] CHEM PANEL Phosphorus 2.4 2.5 - 4.5 06/22 [facility] /[address] [place] [address] CHEM PANEL Magnesium Lvl 1.8 1.8 - 2.4 06/22 [place] /2016 [facility] ELECTROLYTE AGAP 14.9 10.0 - 06/22 [facility] S 20.0 [facility] ELECTROLYTE eGFR 50 06/22 Result [facility] Comment: The Medical eGFR is Center calculated using the CKD-EPI formula. In most young, healthy individuals the eGFR will be >90 mL/min/1.73m2 . The eGFR declines with age. An eGFR of 60-89 may be normal in some populations, particularly the elderly, for whom the CKD-EPI formula has not been extensively validated. Use of the eGFR is not recommended in the following populations:< br/>
Toma viduals with unstable creatinine concentration s, including patients and those with serious co-morbid conditions.<b r/>
Patie nts with extremes in muscle mass or diet.

The data above are obtained from the National Kidney Disease Education Program (NKDEP) which additionally recommends that when the eGFR is used in patients with extremes of body mass index for purposes of drug dosing, the eGFR should be multiplied by the estimated BMI. ELECTROLYTE Chloride Lvl 102 95 - 109 06/22 [facility] as [facility] ELECTROLYTE Sodium Lvl 140 135 - 145 06/22 [facility] ELECTROLYTE CO2 27 24 - 32 06/22 [facility] [address] ELECTROLYTE Potassium Lvl 3.9 3.5 - 5.1 06/22 [place] [facility] ELECTROLYTE Calcium Lvl 9.0 8.5 - 10.5 06/22 [place] 2016 [facility] ELECTROLYTE BUN 9 7 - 22 06/22 [facility] 2016 [facility] ELECTROLYTE Creatinine 1.05 0.50 - 06/22 [facility] S Lvl 1.40 [facility] ELECTROLYTE Glucose Lvl 193 70 - 99 06/22 [facility] 2016 [facility] HEMATOLOGY MPV 8.1 7.4 - 10.4 06/[address] HEMATOLOGY Platelet 168 133 - 450 06/22 [facility]2016 [facility] HEMATOLOGY RDW 14.3 11.5 - 06/22 [facility] 14. [facility] HEMATOLOGY MCHC 34.0 32.0 - 06/22 [facility] 36.0 [facility] HEMATOLOGY MCH 29.2 27.0 - 06/22 [facility] 31.0 [facility] HEMATOLOGY WBC 8.0 3.7 - 10.4 06/[address] HEMATOLOGY Hct 35.6 36.0 - 06/22 [place] 48.0 [facility] HEMATOLOGY MCV 85.9 80.0 - 06/22 98.0 [facility] HEMATOLOGY Hgb 12.1 12.0 - 06/22 [facility] 16.0 [facility] HEMATOLOGY RBC 4.14 4.20 - 06/22 [place] 5.40 [facility] HEMATOLOGY Basophils # 0.1 0.0 - 0.2 06/22 [facility] HEMATOLOGY Lymphocytes # 2.1 1.0 - 5.5 06/22 [facility] HEMATOLOGY Segs-Bands # 5.3 1.5 - 8.1 06/22 [facility] HEMATOLOGY Eosinophils # 0.1 0.0 - 0.5 06/22 [facility] HEMATOLOGY Monocytes # 0.5 0.0 - 0.8 06/22 [facility] HEMATOLOGY Basophils 0.8 0.0 - 1.0 06/22 [facility] HEMATOLOGY Eosinophils 0.9 0.0 - 4.0 06/22 [facility] HEMATOLOGY Segs 65.6 45.0 - 06/22 [place] 75.0 [facility] HEMATOLOGY Monocytes 6.2 2.0 - 12.0 06/22 [facility] HEMATOLOGY Lymphocytes 26.5 20.0 - 06/22 [place] 40.0 [facility] PARATHYROID Ca Ion WB 1.13 1.05 - 06/22 [place] PROFILE . [facility] PARATHYROID Ca Norm WB 1.15 1.05 - 06/22 [place] PROFILE . [facility] CHEM PANEL Globulin 3.2 2.7 - 4.2 06/21 [facility] CHEM PANEL A/G Ratio 0.7 0.7 - 1.6 06/21 [facility] CHEM PANEL Bili Indirect 0.3 0.0 - 1.0 06/21 [facility] CHEM PANEL ALT 17 0 - 65 06/21 2016 [facility] CHEM PANEL Total Protein 5.5 6.4 - 8.4 06/21 [facility] CHEM PANEL AST 29 0 - 37 06/21 [facility] CHEM PANEL Albumin Lvl 2.3 3.5 - 5.0 06/21 [facility] CHEM PANEL Alk Phos 61 39 - 136 06/21 [facility] CHEM PANEL Bili Total 0.4 0.2 - 1.3 06/21 [facility] CHEM PANEL Bili Direct 0.1 0.0 - 0.3 06/21 [facility] CHEM PANEL AST 31 0 - 37 06/21 [facility] CHEM PANEL ALT 19 0 - 65 06/21 [facility] CHEM PANEL Bili Total 0.5 0.2 - 1.3 06/21 [facility] CHEM PANEL Alk Phos 64 39 - 136 06/21 [facility] CHEM PANEL Albumin Lvl 2.7 3.5 - 5.0 06/21 [facility] CHEM PANEL Bili Direct 0.1 0.0 - 0.3 06/21 [facility] CHEM PANEL Total Protein 6.2 6.4 - 8.4 06/21 [facility] CHEM PANEL A/G Ratio 0.8 0.7 - 1.6 06/21 [facility] CHEM PANEL Globulin 3.5 2.7 - 4.2 06/21 [facility] CHEM PANEL Bili Indirect 0.4 0.0 - 1.0 06/21 [facility] CHEM PANEL Procalcitonin <0.05 0.00 - 06/21 [facility] s Lvl 0.10 [facility] HEMATOLOGY INR 1.09 0.85 - 06/21 1.17 [facility] HEMATOLOGY PTT 26.3 22.9 - 06/21 [facility] 35.8 [facility] HEMATOLOGY PT 14.3 12.0 - 06/21 [facility] 14.7 [facility] LIPIDS CHD Risk 2.65 3.90 - 06/20 [facility] 5.80 [facility] LIPIDS VLDL 20 06/20 [facility] LIPIDS LDL 41 <=99 mg/dL 06/20 [facility] (Calculated) [facility] LIPIDS HDL 37 >=61 mg/dL 06/20 [facility] LIPIDS Trig 98 <=149 06/20 [facility] mg/dL [facility] LIPIDS Chol 98 <=199 06/20 [facility] mg/dL [facility] CHEM PANEL Osmolality 286 280 - 300 06/20 [facility] SPECIAL Hgb A1C 7.9 <=5.6 % 06/20 [facility] CHEMISTRY [facility] BACTERIAL - MRSA by PCR Negative 06[place] (06/20/17 2:17 AM) [facility] CHEM PANEL Bili Indirect 0.4 0.0 - 1.0 06/20 [facility] CHEM PANEL Bili Total 0.5 0.2 - 1.3 06/20 [facility] CHEM PANEL Bili Direct 0.1 0.0 - 0.3 06/20 s [facility] CHEM PANEL Albumin Lvl 2.9 3.5 - 5.0 06/20 [facility] CHEM PANEL A/G Ratio 0.8 0.7 - 1.6 06/20 [facility] CHEM PANEL ALT 24 0 - 65 06/20 [facility] CHEM PANEL Alk Phos 78 39 - 136 06/20 [facility] CHEM PANEL AST 24 0 - 37 06/20 [facility] CHEM PANEL Globulin 3.8 2.7 - 4.2 06/20 [facility] CHEM PANEL Total Protein 6.7 6.4 - 8.4 06/20 [place] [facility] DRUG SCREEN U Phencyc Scr Negative Negative 06/20 [place] *NA* Medical (06/20/17 2:17 AM) Center DRUG SCREEN U Opiate Scr Negative Negative 06/20 [place] *NA* Medical (06/20/17 2:17 AM) Center DRUG SCREEN U Cannab Scr Negative Negative 06/20 [place] *[place]* Medical (06/20/17 2:17 AM) Center DRUG SCREEN UDS Note See Note 06/20 [facility] (06/20/17 2:17 AM) Medica l Center DRUG SCREEN U Amph [place]r Negative Negative 06/[place] *[place] Medical (06/20/17 2:17 AM) Center DRUG SCREEN U Nancy Scr Negative Negative 06/[place] *[place] Medical (06/20/17 2:17 AM) Center DRUG SCREEN U Cocaine Scr Negative Negative 06/20 [place] *NA* /2016 Medical (06/20/17 2:17 AM) Center DRUG SCREEN U Benzodia Positive Negative 06/20 [place] *ABN* /2016 [facility] (06/20/17 2:17 AM) [place] URINE AND UA <=1.0 0.1 - 1.0 06/20 [facility] Urobilinogen mg/dL /2016 [facility] URINE AND UA Sq Epi None Seen 06/20 [facility] URINE AND UA Mucus Few /LPF None Seen 06/20 [facility] STOOL /LPF /2016 [facility] URINE AND UA RBC 22 0 - 2 06/20 [facility] URINE AND UA Spec Grav >=1.050 <=1.030 06/20 [facility] *ABN* /2016 [facility] (06/20/17 2:17 AM) [place] URINE AND UA WBC 1 0 - 5 06/20 [facility] URINE AND UA Color Yellow Yellow 06/20 [facility] *NA* /2016 [facility] (06/20/17 2:17 AM) [place] URINE AND UA Turbidity Clear Clear 06/20 [facility] (06/20/17 2:17 AM) [facility] URINE AND UA pH 6.5 5.0 - 8.0 06/20 [facility] /2016 [facility] URINE AND UA Protein 100 mg/dL Negative 06/20 [facility] mg/dL [facility] URINE AND UA Blood Small Negative 06/20 [facility] *ABN* /2016 [facility] (06/20/17 2:17 AM) [place] URINE AND UA Bili Negative Negative 06/20 [facility] *NA* /2016 [facility] (06/20/17 2:17 AM) [place] URINE AND UA Nitrite Negative Negative 06/20 [facility] (06/20/17 2:17 AM) [facility] URINE AND UA Ketones Negative Negative 06/20 [facility] mg/dL mg/dL [facility] URINE AND UA Glucose Negative Negative 06/20 [facility] mg/dL mg/dL [facility] URINE AND UA Leuk Est Negative Negative 06/20 [facility] (06/20/17 2:17 AM) Medica l [place] URINE CHEM U Sodium 72 06/20 [facility] CARDIAC Total CK 100 12 - 191 06/20 [place] ENZYMES /2016 [facility] CARDIAC CK MB 0.7 0.5 - 3.6 06/20 [facility] ENZYMES /2016 [facility] CARDIAC Troponin-I <0.02 0.00 - 06/20 [facility] ENZYMES 0.40 /2016 [facility] CARDIAC CK MB Index 0.7 0.0 - 2.5 06/20 [facility] ENZYMES [facility] HEMATOLOGY PT 12.8 12.0 - 06/20 [place] 14.7 /2016 [facility] HEMATOLOGY INR 0.94 0.85 - 06/20 [place] 1.17 /2016 [facility] HEMATOLOGY PTT 24.3 22.9 - 06/20 [place] 35.8 /2017 [facility] Pathology Reports No Data Provided for This Section Diagnostic Reports Report Value Date Source PICC insert with or PICC line insertion under ul trasound and fluoroscopy guidance: 09/16/2017 [place] without port VR CLINICAL INFORMATION: Vascul ar access for long-term antibiotics. CONSENT: The procedure, ris ks, benefits, and alternatives were discussed and written, informed consent was obtained. DAP: 4712 mgy-cm time: 0.8min PROCEDURE: Sterile barrier technique wa s followed including: Cap and mask, sterile gown, sterile gloves, and large sterile sheet. Hand hygiene, and 2% chlorhexidine for cutaneous antisepsis (or acceptable alternative antiseptics, per current guideline). The patient was placed supin e on the fluoroscopy table and the right arm was prepped and draped in the usual sterile fashion. An ultrasound was performed to localize a suitable vein in the right upper extremity and images of ultrasound were archived . After administering local an esthesia, a micropuncture needle was used to access the basilic vein in the right upper extremity.The right basilic is patent and compressible. Images were sent to PACS for archiving. A guidewire was advanced ce ntrally. A peel-away sheath was placed over the guidewire and guidewire was removed. A 5 Swedish double lumen PICC line was placed through a peel-away sheath with the tip pos itioned at the level of the caval atrial junction. The peel-away sheath was removed and the PICC line was secured to the skin with two simple interrupted sutures. The catheter tip is located at the superior caval-atrial junction. The patient tolerated the pr ocedure well and there were no immediate complications. IMPRESSION: Placement of ri ght upper extremity PICC line under ultrasound and fluoroscopy guidance. ED Abdomen/Pelvis IV ED Abdomen/Pelvis IV contras t only CT 09/16/2017 11:18 AM CDT 09/16/2017 [place] contrast only CT Comparison: 06/20/2017 radiograph Dose: DLP 2810 mGy-cm TECHNIQUE: Helical acquisit ion of the abdomen and pelvis was obtained from the lung bases to the pubic symphysis with intravenous contrast. Axial, sagittal and coronal images MPR were interpreted. This exam was performed accordin g to our department dose optimization protocol, which includes automated exposure control, adjustment of the mA and/or kV according to patient size and/or use of iterative reconstruction technique. FINDINGS: Lung bases: Clear. No pneumoperitoneum. Liver: Within normal limits. Spleen: Borderline increase gland volume measur ing 13 cm AP dimension. Adrenal glands: Left adrena l gland nodule measures 2.5 x 1.8 cm. Unremarkable right adrenal gland. Gallbladder/biliary: Cholec ystectomy. No evidence of intrahepatic biliary dilatation. Pancreas: Pancreatic neck pa rtly calcified hypodense mass is present measuring 3.5 x 2.5 cm axial dimensions, 3.1 cm craniocaudal. Adjacent superior peripancreatic adenopathy is present measuring up to 1.9 cm. Portal caval adenopathy is also present measuring 3.2 x 1.3 cm. The remainder of the pancrea s is mildly atrophic. No pancreatic duct dilatation. [...] loop without eviden ce of incarceration or stran gulation. The hernia sac measures 8.4 cm transverse. Colon appears normal. The appendix appears normal. Lymph nodes: Peripancreatic and portal caval adenopathy as above. Mild aortocaval adenopathy immediately below the left renal vein is also present measuring 1.2 cm. Urinary bladder: Appears normal. Reproductive structures: Within normal limits. Regional skeleton: Osteopor osis. Mid to lower lumbar spine fusion changes are present. Peritoneal: No abdominal free fluid identified. Miscellaneous: None. IMPRESSION: 1. Pancreatic neck hypodense mass suspicious for neoplasm with adenopathy in the peripancreatic, portacaval, and aortocaval regions. No hepatic neoplasm identified. 2. Left periumbilical abdomi nal wall hernia containing small bowel. No small bowel obstruction. 3. Left adrenal gland oval m ass, likely adenoma. Follow-up to show stability is recommended. 4. Atherosclerosis. Chest 1view DX Clinical History : , - Undifferentiated Sep sis 09/13/2017 [place] Exam : Portable AP view of the chest 017 7:23 PM CDT Comparisons : Portable AP view of the chest 06/22/2017 Findings : The patient is in lordoti c position which accentuates the lung apices and slightly limits evaluation of the lung bases. The lungs are clear without focal consolidation or pleural effusion. The heart is normal in size. The mediastinal contours are normal in appearance. There are vascular calcifications along the aort ic arch. The thoracic spine is age appropriate. The shou lders are unremarkable. Limited evaluation of the upper abdomen demonstr ates no gross abnormalities. Impression: No acute cardiopulmonary disease (stable appeari ng chest). Chest 1view DX EXAM: XR CHEST 1 VIEW 06/22/2017 [facility] edical DATE: 06/22/2017 10:[address] INDICATION: - tachycardia, oxygen requirements. FINDINGS: Comparison is made to yesterday. The cardiomediastinal silhou ette is stable. There is platelike atelectasis in the lower lobes. No pleural effusions are identified. A right jugular central veno us catheter remains in place. The Dobbhoff feeding tube has been removed. IMPRESSION: Bilateral lower lobe platelike atele ctasis. Chest 1view DX EXAM: XR CHEST 1 VIEW 06/21/2017 [facility] edical DATE: 06/21/2017 3:00 AM CDT Cent er INDICATION: rule out infiltrate - rule out infil trate TECHNIQUE: AP chest IMPRESSION: Life-support lines stable. Lungs clear. No pleural effusion or pneumothorax. Brain w/wo contrast EXAM: MRI BRAIN WITH AND WITHOUT CONTRAST [facility] MRI DATE: 06/20/2017 Center INDICATION: - s/p new onset seizure, L sided we akness COMPARISON: CT brain 09/19/2017 TECHNIQUE: Multiplanar, mult isequence non-contrast MRI images of the brain. Multiplanar imaging is subsequently obtained following intravenous gadolinium contrast. IV contrast: 20 cc MultiHance FINDINGS: Hyperintensity lesions in th e supratentorial white matter consistent with small vessel disease. Prominence of the cerebral sulci due to volume loss. No mesial temporal sclerosis. No hydrocephalus, midli ne shift or mass effect. No acute hemorrhage or restricted diffusion. Calcified enhancing mass along the right side of the falx cerebellar measuring 14 x 16 mm, presumably a meningioma. No other enhanci ng brain lesions. Pineal reg ion, pituitary gland, cranial cervical junction, orbits and internal auditory canals are unremarkable. No bony lesions. Paranasal sinuses are clear. Major intracranial flow voids are well-maintained. IMPRESSION: No acute intracranial abnormality. No mesial temporal sclerosis. Small vessel disease and volume loss. 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 Chest 1view DX EXAM: XR CHEST 1 VIEW 06/20/2017 [facility] edical DATE: 06/20/2017 5:49 AM T [facility] er INDICATION: central line placement - central joan e placement TECHNIQUE: AP chest IMPRESSION: New right IJ approach centra l venous catheter in place projecting near the brachiocephalic confluence. A feeding tube extends below the inferior border of the exam. Other lines are stable. Lungs and pleura remain clear. Abdomen AP DX EXAM: XR ABDOMEN 1 VIEW 06/20/2017 [facility] DATE: 06/20/2017 4:09 AM T [facility] INDICATION: tube placement - tube placement TECHNIQUE: AP view of the abdomen. FINDINGS: A feeding tube is present. The tube tip is in the right upper quadrant near the pylorus but not postpyloric. The gastric air bubble is minimally prominent. The visualized large and small bowel loops are unremarkable. Fusion hardware is present i n the spine from the L3-S1 levels with spaces at L3-L4 and L4-L5. Right quadrant surgical clips suggest prior cholecystectomy. IMPRESSION: 1. The feeding tube tip is n ear the pylorus but not clearly postpyloric; recommend advancing it into the duodenum. Brain Stroke wo EXAM: CT BRAIN WITHOUT CONTRAST 06/19/2017 [facility] contrast CT DATE: 06/19/2017 9:09 PM T [facility] er INDICATION: Left-sided weakness, seizures COMPARISON: None TECHNIQUE: Routine axial jonathan ges of the brain were obtained. Coronal and sagittal reformatted images were generated. DLP: 1108 mGy-cm FINDINGS: No acute intracranial hemorrhage or extra-axial collection. Shah-white matter interface is maintained. Mild microangiopathic changes. Prominence of the extra-axial spaces along the c erebral convexities. No hydrocephalus, midline shift, or herniation. Calcified 1.6 x 1.1 x 1.4 cm mass along the righ t side of the falx cerebelli. Minimal paranasal sinus muco emilee thickening. The tympanomastoid cavities are clear. Calvarium and skull base are intact. ASPECTS: 10 Laterality: none Caudate: normal Internal capsule: normal Lenticular: normal Insula: normal M1: normal M2: normal M3: normal M4: normal M5: normal M6: normal IMPRESSION: No hemorrhage or acute ischemic yovanny nges. Mild microangiopathic changes. Calcified mass along the right side of falx cere radha, likely a meningioma. Volume loss and prominence of the extra-axial sp aces. Brain/Neck Stroke EXAM: CT ANGIOGRAM OF THE BRAIN 06/19/2017 [facility] CTA EXAM: CT ANGIOGRAM OF THE NECK C enter EXAM: CT PERFUSION DATE: 06/19/2017 9:09 PM CDT INDICATION: Left-sided weakness, seizures COMPARISON: CT brain from the same time TECHNIQUE: -Rapid acquisition spiral im ages of the brain and neck were obtained between the aortic arch and the cranial vertex during intravenous infusion of iodinated contrast for the purposes of CT angiography. 3-D CT angiographic images a re created using maximum intensity projection technique at [...] Calcifications in the aortic arch and at t he origin of the right vertebral and supraaortic arteries. No hemodynamically significa nt stenosis in the common or internal carotid arteries bilaterally. Atherosclerotic calcifications at the carotid bifurcations bilaterally without hemodynamically significant stenosis. Diffuse degenerative changes in the spine. BRAIN CTA: Atherosclerotic calcificatio ns in the internal carotid arteries without hemodynamically significant stenosis. No stenosis in the basilar artery. No proximal branch occlusion or hemodynamically significa nt stenosis. Focal stenosis in the distal left A2 segment. Attenuated signal distally and a left frontal anterior MCA division branch. Stenoses in the P2 segments of the posterior cerebral arteries bila terally. Distal branch ather osclerotic changes. No aneurysm or AV malformation is evident. Major dural venous sinuses are patent. Calcified mass along the rig ht side of the falx cerebelli, most likely a meningioma. CT PERFUSION: Small area of questionable m atched cerebral blood flow and volume defect are noted in the left frontal lobe. RAPID analysis: CBF (less than 30 % volume): 0 mL. Perfusion (Tmax greater than 6 seconds) volume: 6 mL. Mismatch volume: 6 mL. Mismatch ratio: Infinite. IMPRESSION: No hemodynamically significant stenosis in the n ronaldo. No proximal branch intracran ial occlusion or flow-limiting stenosis. Attenuation of signal distally in a left frontal anterior division MCA branch. Focal distal left A2 segment stenosis and bilateral P2 segment stenoses. (All qualitative and quantit ative assessments of carotid bifurcation and proximal internal carotid artery stenosis are made referencing the distal internal carotid artery {NASCET criteria}.) THIS IS A PRELIMINARY REPO RT BY THE ON-CALL RESIDENT. CHANGES TO THIS PRELIMINARY REPORT MAY OCCUR IN AN ADDITIONAL PRELIMINARY OR FINALIZED VERSION. Preliminary report: No major branch occlusion, d issection, or vascular injury. No major perfusion defect identified. Scattered mild intracranial atherosclerotic dise ase. Atherosclerotic calcificatio ns at the carotid bifurcations and carotid siphons. At this callus occasions of the aortic arch and at the origins of the great vessels. 1. A 1.6 cm calcification i s seen at the posterior aspect of the right cerebellum, and may represent a calcified meningioma. [place] SECTION: Neuro Chest 1view DX EXAM: XR CHEST 1 VIEW 06/19/2017 [facility] edical DATE: 06/19/2017 9:09 PM CDT [facility] er INDICATION: - CVA COMPARISON: None. TECHNIQUE: AP chest FINDINGS: Lines, tubes and hardware: E ndotracheal tube tip terminates 5 cm superior to sameera. Lungs and pleura: No pulmona ry or pleural based abnormality is identified. Pulmonary vascularity is normal. Heart and mediastinum: The h eart size is normal for technique. The aorta is tortuous Bones: No acute bony abnormality is identified. IMPRESSION: 1. No acute cardiopulmonary abnormality. 2. Endotracheal tube tip terminates 5 cm superi or to sameera. [place] SECTION: ER Consultation Notes No Data Provided for This Section Discharge Summaries No Data Provided for This Section History and Physicals No Data Provided for This Section Vital Signs Vital Sign Value Date Comments Source Respitory Rate 18 09/17/2017 [place] Heart Rate 69 09/17/2017 [place] Temperature Oral (F) 97.9 F 09/17/2017 [place] Systolic (mm Hg) 136 09/17/2017 [place] Diastolic (mm Hg) 64 09/17/2017 [place] Temperature Oral (F) 97.5 F 09/17/2017 [place] Systolic (mm Hg) 149 09/17/2017 [place] Diastolic (mm Hg) 82 09/17/2017 [place] Heart Rate 66 09/17/2017 [place] Respitory Rate 20 09/17/2017 [place] Heart Rate 65 09/17/2017 [place] Temperature Oral (F) 97.9 F 09/17/2017 [place] Systolic (mm Hg) 156 09/17/2017 [place] Diastolic (mm Hg) 81 09/17/2017 [place] Respitory Rate 20 09/17/2017 [place] Height 165.1 cm 09/14/2017 [place] Weight 140 09/14/2017 [place] BMI Calculated 51.36 09/14/2017 [place] Weight 113.636 09/14/2017 [place] Respitory Rate 18 06/25/2017 [facility] Temperature Oral (F) 97 F 06/24/2017 [facility] Respitory Rate 18 06/24/2017 [facility] Heart Rate 78 06/24/2017 [facility] Systolic (mm Hg) 173 06/24/2017 [facility] Diastolic (mm Hg) 73 06/24/2017 [facility] Respitory Rate 18 06/24/2017 [facility] Heart Rate 76 06/24/2017 [facility] Temperature Oral (F) 97.5 F 06/24/2017 [facility] Systolic (mm Hg) 150 06/24/2017 [facility] Diastolic (mm Hg) 74 06/24/2017 [facility] Systolic (mm Hg) 141 06/24/2017 [facility] Diastolic (mm Hg) 70 06/24/2017 [facility] Temperature Oral (F) 99.2 F 06/24/2017 [facility] Heart Rate 81 06/24/2017 [facility] Height 172.72 cm 06/20/2017 [facility] Height 172.72 cm 06/20/2017 [facility] Height 172.72 cm 06/20/2017 [facility] BMI Calculated 49.88 06/20/2017 [facility] Weight 148.8 06/20/2017 [facility] BMI Calculated 58.71 06/20/2017 [facility] Weight 136.364 06/20/2017 [facility] Encounters Location Location Encounter Encounter Reason Attending ADM LA Stat us Source Details Type Number For Provider Date Date Visit [facility] [id number] Anjail 06/20 06/25 [facility] Maribel [facility]2016 [facility] [id number] [facility] 09/14 [facility] Karla Celis Procedures Procedure Code Date Perfomer Comments Source Abdominal [id number] [facility] hysterectomy [facility], [place] Lumbar spinal [id number] [facility] fusion [facility], [place] Assessment and Plan Assessment and Plan Date Source Extracted from:Title: Clinical Document 09/17/2017 Karla Celis Author: Erin Rehman MD Date: 09/17/17 Infectious Diseases Progress Note Assessment 1. Sepsis secondary to E. coli bacterem ia in 2/2 blood cultures from 09/13. Repeat blood cultures obtained 09/16. 2. Diabetes mellitus type 2, insulin-dependent. 3. History of ovarian cancer in remission. 4. Morbid obesity with a BMI of 51. 5. Pancreatic neck mass Recommendations 1. Source of the bacteremia could be fro m the pancreatic mass and gut bacterial translocation. 2. Patien will be having an EUS outpatie nt for further evaluation per the primary team. 3. Patient will be completing ceftriaxon e 2gm IV Q24h for 14 days from 09/16- 09/30 with weekly cbc with diff, cmp. 4. Picc was placed today. Subjective No fevers, chills, nausea, vomiting, diarrhea, cough, or jimmy h. Medications Ceftriaxone 09/16- Cefepime 09/14-09/15 Cipro 09/13-09/14 Physical Exam Vital Signs (last 24 hrs) Last Charted _ Temp Oral 97.5 DegF (SEP 17:) Heart Rate Peripheral 66 bpm (SEP 17 07:03) Resp Rate 20 BRMIN (SEP 17:) SBP H 149mmHg (SEP 17:) DBP 82 mmHg (SEP 17:) SpO2 95 % (SEP 17:) General: awake, alert and oriented to pe rson, place and time, in no apparent distress HEENT: normocephalic, atraumatic, extrao ccular muscles are intact, no scleral icterus, no conjunctival injection, no oral ulcers or thrush Neck: supple Resp: clear to ausculation bilaterally w ith no wheezes, rales, rubs or rhonchi, non-labored breathing CV: Patient has a II/ systolic ejectio n murmur heard throughout the precordium, no gallops or rubs. No heaves, no lifts. GI: abdomen is soft, nondistended with n o rebound, guarding or rigidity, normoactive bowel sounds, no hepatosplenomegaly, no palpable masses or hernias : no kruger Musculoskeletal: no cyanosis, clubbing o r edema, normal range of motion, no joint effusions Neuro: No facial asymmetry. Patient is able to ambulate with a walker and her speech is normal. Skin: Patient has some bruising on her u pper extremities, some redness on the bilateral cheeks, but otherwise no other rashes are noted. Lines: [facility]RA[facility] 09/17/17 Labs, microbiology and imaging reviewed Extracted from:Title: Neurology Progress Note 06/25/2017 [facility] Author: Janette Ribera MD Date: 06/24/17 INPATIENT NEUROLOGY PROGRESS NOTE Subjective: Patient stating she does not feel well overnight and has headache 07/09. Received tylenol with no relief. Required multiple PRNs for BP control HPI: 81 y.o. female with obesity, hypert ension and DM who presents as code stroke with CYTOPATHOLOGIST, LSFD and shaking of L upper extremity. Onset of symptoms was at 1700 and was witnessed by her son, at that yoly e he had noticed that she was not able t o use her L hand well while she was trying to eat. At that time she was complaining of numbness in her L hand. One and a half hours later she started to have left sided focal defecits, for which the son called EMS. By the time EMS arrived she was displaying LEFT gaze preference as well as intermittent shaking of her L arm. She was loaded with 5mg of versed, 2mg of ativan, 2gm of keppra, fentanyl and r ocuronium and was intubated because of concerns that she couldn't protect her airway. When she arrived to the ED she was very sedated and the neurology team was unable to get an exam. Hospital Course: 06/19: Arrived at [facility] as code stroke, to NSICU. CTH and CTA negative for acute changes 06/20: MRI brain negative for stroke, but identified small meningioma in posterior fossa. EEG negative for seizure but supports R hemispheric dysfunction with mild diffuse encephalopathy. Patient transfe rred to inpatient neurology for workup of seizure. 06/21: Patient continued to have fluctuat ing HR, RR and BPs, likely 2/2 agitation. Managed with PRNs. Transfer orderes placed for patient to go to Neurology floor. 06/22: Patient to [facility] early AM. Still with persistent tachypnea and intermittent tachycardia. During rounds, decided to transition patient to Vimpat. Will add Vimpat for now and eventually taper Depak ote. Will do encehpalitis workup for con tinued AMS. Medicine consulted for BPs, tachypnea and tachycardia. Echo showing EF 65-70%, abnormal LV diastolic filling and trace TR. Therapy recommending SNF. Patient started on home metoprolol overnight. 06/23: Patient with headache in evening a nd fluctuating blood pressures. Increased dose of metoprolol and PRN BP medications. 06/24: Pending insurance acceptance at [facility]. Working to get BP under control and stable Medications: Scheduled Meds (12): 06/22/17 9:00 aspirin 81 mg PO Daily [eMAR Schedule: (06/24/17) 09:00] [Future Dose: 06/25/17 09:00] 06/23/17 17:00 divalproex sodium (divalp roex sodium 250 mg oral enteric coated tablet (Depakote)) 250 mg PO BID [eMAR Schedule: (06/24/17) 09:00, 17:00] 06/20/17 9:00 docusate 100 mg PO Daily [eMAR Schedule: (06/24/17) 09:00] [Future Dose: 06/25/17 09:00] 06/20/17 0:00 heparin 5,000 unit SUB-Q Q8H [eMAR Schedule: (06/24/17) 00:00, 08:00, 16:00] 06/22/17 10:25 lacosamide (Vimpat) 100 mg PO BID [Last Rescheduled Dt/Tm: 06/22/17 10:25:00 CDT] [eMAR Schedule: (06/24/17) 09:00, 17:00] 06/21/17 9:00 lisinopril 20 mg PO Daily [eMAR Schedule: (06/24/17) 09:00] [Future Dose: 06/25/17 09:00] 06/24/17 9:00 metoprolol (metoprolol tartrate) 25 mg PO Q12H [eMAR Schedule: (06/24/17) 09:00] [Future Dose: 06/24/17 21:00] 06/22/17 12:00 multivitamin with minerals 1 tab PO Daily [eMAR Schedule: (06/24/17) 09:00] [Future Dose: 06/25/17 09:00] 06/20/17 6:00 ocular lubricant 1 appl BOTH EYES Q6H [eMAR Schedule: (06/24/17) 00:00, 06:00, 12:00, 18:00] 06/20/17 21:00 pravastatin 20 mg PO Bedtime [Future Dose: 06/24/17 21:00] 06/20/17 9:00 senna 8.6 mg PO BID [eMAR Schedule: (06/24/17) 09:00, 17:00] 06/20/17 9:00 sodium chloride (Saline Flush 0.9%) 10 ml IVP Q12H [eMAR Schedule: (06/24/17) 09:00] [Future Dose: 06/24/17 21:00] Unscheduled Meds (1): 06/19/17 21:18 iodixanol (Visipaque 320mg/ml) 100 mL IVP ONC ALL PRN Meds (14): 06/20/17 1:01 Dextrose 50% in Water IV (Dextrose 50% Syringe ) 12.5 gm IVP PRN 06/20/17 1:01 Dextrose 50% in Water IV (Dextrose 50% Syringe ) 25 gm IVP PRN 06/20/17 12:54 Dextrose 50% in Water IV (Dextrose 50% Syring e) 25 gm IVP PRN 06/20/17 12:54 Dextrose 50% in Water IV (Dextrose 50% Syring e) 12.5 gm IVP PRN 06/20/17 12:54 Dextrose 50% in Water IV (Dextrose 50% Syring e) 6.25 gm IVP PRN 06/20/17 12:54 Insulin regular (insulin regular 100 units/mL human recombinant) 3 unit SUB-Q PRN 06/20/17 12:54 Insulin regular (insulin regular 100 units/mL human recombinant) 5 unit SUB-Q PRN 06/20/17 12:54 Insulin regular (insulin regular 100 units/mL human recombinant) 7 unit SUB-Q PRN 06/21/17 9:36 QUEtiapine (SEROquel) 50 mg PO Bedtime 06/20/17 14:00 albuterol-ipratropium (DuoNeb inhalatio n solution) 3 ml NEB RQ6H 06/20/17 0:54 chlorhexidine topical (chl orhexidine topical 0.12% liquid) 15 mL Swab Mouth PRN 06/20/17 1:01 glucagon 1 mg IM PRN 06/21/17 3:05 hydrALAZINE 10 mg IV Q4H 06/19/17 21:08 sodium chloride (Saline Flush 0.9%) 10 mL IVP PRN One Time Meds (3): 06/24/17 4:26 (Completed) ibuprofen (Motrin) 600 mg PO ONCE 06/23/17 23:08 (Completed) labetalol 10 mg IVP ONCE 06/24/17 4:25 (Completed) metoprolol (metoprolol tartrate) 1 2.5 mg PO ONCE Continuous Infusions (1): 06/22/17 14:24 sodium chloride 0.9% 1000 ml INJ 1,000 mL 1,0 00 mL 50 ml/hr Objective: Vitals: Vitals Tmp(F) Tmp(C) Ttype B P MAP Pulse RR SpO2 FIO2 ETCO2 06/24 03:25 97.9 36.61 oral 172/76 --- 86 20 97 --- --- 06/24 00:59 ---- ---- ---- 1 4172 --- 85 -- --- --- --- 06/24 00:36 ---- ---- ---- - ---- --- --- -- 98 --- --- 06/23 23:10 98.0 36.67 oral ----- --- 97 20 98 --- --- 06/23 22:55 ---- ---- ---- 1 7979 --- 90 -- --- --- --- 24 Hr Tmax: 98.3F (36.83c) at 06/23 16:0 4 Vital Signs are the last 5 in the past 48 hours. 24 Hr Tmin: 97.0F (36.11c) at 06/23 08: 14 Weights are the last 5 in 60 days, plus initial. Date Wt(kg) Wt(lb) Ht(cm) Ht(in) Method BM I BSA 06/20 148.80 327.36 172.72 68.00 Measured 49.9 2.67 06/19 (initial) 136.36 300.00 152.40 60.00 Estimated 58.7 2.40 24 Hr Point of Care Glucoses 06/24 0602 Glucose POC 186 H 06/23 2111 Glucose POC 151 H 06/23 1620 Glucose POC 204 H 06/23 1215 Glucose POC 198 H 06/23 0721 Glucose POC 138 H Most Recent Scores: 06/24/17 Pain Intensity NRS (0-10) 0 06/24/17 Mcconnell Coma Score 15 06/24/17 Avina Chand Fall Score 9 06/23/17 Andrew Score 17 Lines, Tubes, and Drains: 06/20/2017 06:00 Central Lines: Internal jugular, right Non-tunneled (most common) Quad 06/20/2017 04:00 Gastric Tubes: Nasojejunal Nostril, right 0 06/20/2017 04:00 Physical Exam: APPEARANCE - Awake, alert, interactive, NAD, morbidly o bese HEAD - Normocephalic and atraumatic PHARYNX - Mouth pink, mucous membranes moist. LUNGS - Clear to auscultation, no rales or rhonchi CV - 3/6 Holosystolic murmur presen t over pulmonic and aortic spaces. Rate rhythm regular, equal pulses bilaterally. ABDOMEN - Soft, non tender, with normal bowel sounds SKIN: bruising notied on bilateral upper extremities NEUROLOGY: Awake, alert and oriented to person, place and time. Speech: Speech fluent, comprehensio n intact, repetition and naming intact. No noted paraphasic errors. director script: PERRLA and 3>2 mm bilaterally, EOM intact without nystagmus, no ptosis, symmetrical smile, facial sensation intact, hearing intact, no fasciculation or atrophy, tongue with mild deviation to right, palate elevation symmetric Motor: - Tone: Normal - Power: 5/5 in all groups of muscles in all four limbs. - Drift: absent Sensory: Intact light touch and pin prick sensation Cerebellar signs: FTN intact, but s low (pt reports because of weakness). Bilateral tremor L>>R noted at rest and with FTN Romberg: Deferred Gait: Deferred, pt states she is too weak to walk Labs: Labs (Last four charted values) WBC 6.6 (JUN 24) 6.5 (JUN 23) 8.0 (JUN 22) 10.1 (JUN 21) Hgb 12.9 (JUN 24) L 11.8 (JUN 23) 12.1 (JUN 22) L 11.0 (JUN 21) Hct 38.6 (JUN 24) L 34.7 (JUN 23) L 35.6 (JUN 22) L 33.2 (JUN 21) Plt 173 (JUN 24) 159 (JUN 23) 168 (JUN 22) 173 (JUN 21) Na L 132 (JUN 24 ) 139 (JUN 23) 140 (JUN 22) 143 (JUN 21) K 4.1 (JUN 24) 3.6 (JUN 23) 3.9 (JUN 22) 3.8 (JUN 21) CO2 27 (JUN 24) 31 (JUN 23) 27 (JUN 22) 28 (JUN 21) Cl 96 (JUN 24) 100 (JUN 23) 102 (JUN 22) 108 (JUN 21) Cr 0.89 (JUN 24) 0.79 (JUN 23) 1.05 (JUN 22) 1.10 (JUN 21) BUN 13 (JUN 24) 11 (JUN 23) 9 (JUN 22) 10 (JUN 21) Glucose Random H 169 (JUN 24 ) H 136 (JUN 23) H 193 (JUN 22) H 171 (JUN 21) Mg 1.9 (JUN 24) 2.0 (JUN 23) 1.8 (JUN 22) L 1.7 (JUN 21) Phos 2.7 (JUN 24) 3.4 (JUN 23) L 2.4 (JUN 22) 3.4 (JUN 21) Ca 9.1 (JUN 24) 8.9 (JUN 23) 9.0 (JUN 22) L 8.1 (JUN 21) PT 14.3 (JUN 21) 12.8 (JUN 19) INR 1.09 (JUN 21) 0.94 (JUN 19) PTT 26.3 (JUN 21) 24.3 (JUN 19) Troponin <0.02 (JUN 19) CK MB 0.7 (JUN 19) Total CK 100 (JUN 19) Diagnostic Work-up: 06/19 CTH: IMPRESSION: No hemorrhage or acute ischemic changes. Mild microangiopathic changes. Calcified mass along the right side of falx cerebelli, likely a meningioma. Volume loss and prominence of the extra-axial spaces. 06/19 CTA: IMPRESSION: No hemodynamically significant stenosis in the neck. No proximal branch intracranial occlusion or flow-limiting stenosis. Attenuation of signal distally in a left frontal anterior division MCA branch. Focal distal left A 2 segment stenosis and bilateral P2 segment stenoses. 06/20 CXR: IMPRESSION: New right IJ appro ach central venous catheter in place projecting near the brachiocephalic confluence. A feeding tube extends below the inferior border of the exam. Other lines are stable. Lungs and pleura remain clear. 06/20 MRI Brain IMPRESSION: No acute intr acranial abnormality. No mesial temporal sclerosis. Small vessel disease and volume loss. 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 06/20 EEG: INTERICTAL 1. Background slow 2. Continuous slow, right hemisphere. IMPRESSION: While quite limited by artifact, this EEG supports the presence of a right hemispheric dysfunction, in addtion t o a mild diffuse encephalopathy. No epileptiform abnormaliti es were noted. 06/21 EEG: INTERICTAL 1. Background slow. IMPRESSION: This EEG suppors the presence of a mild diffuse encephalopathy. No epileptiform abnormalities were noted. EKG: nsr x2 06/22 Echo: 1) Definity contrast was used to enhance endocardial border definition. 2) This study demonstrates normal left ventricular size and overall systolic function, mild concentric left ventricular hypertrophy, grade I left ventricular d iastolic dysfunction, mitral annular calcification, trace tricuspid regurgitation with normal estimated pulmonary artery systolic pressures, and a negative agitat ed saline contrast study compatible with no significant interatrial shunt communication. 3) No prior study was available for comparison. Therapy: OT - post acute IP services PT - post acute inpatient therapy Assessment:81 y.o. female with pmh of ob esity hypertension and DM who presented with sudden onset CYTOPATHOLOGIST that progressed to LSFD and jerking movement of her L upper extremity with L gaze preference. She wa s intubated in the field, no tpa was giv en as she was outside the window for tpa (there were delays in getting her to CT scanner due to availability of respiratory therapist to escort her), no IAT as no mismatch found on CTA, CTH negative for any acute intracranial abnormalities. MRI negative for acute stroke and patient's presentation consistent with seizure. Transfer order placed for patient to move to inpatient neurology for eval/tx of seizure. Plan: # SEIZURE - Likely R hemispheric origion due to cortical atrophy - MRI negative for acute stroke. Positiv e for small posterior fossa meningioma. Likely cortical brain atrophy was the etiology of the seizure - Was on Valproic Acid 500mg BID, tapere d to 250 BID today, and will discontinue today - Vimpat 100 BID - EEG: Presence of a right hemispheric d ysfunction, in addtion to a mild diffuse encephalopathy. No epileptiform abnormalities were noted. Encephalopathy (resolved) - AMS resolved - TSH, folic acid, VitB12, and ammonia l evels all wnl. HIV negative, RPR nr. Depakote level therapeutic. Still pending Thiamine Agitation (resolved) - Alexandr was DCd due to concerns of agitation - Originally had some fluctuating BP - Still with 24hr E-sitter Hypertention - Goal SBP <150 - High BP overnight, raning from 141-172 SBP - On lisinopril 20 and increased dose of metoprolol to 50mg BID - PRN labetalol 10mg and 2x dose hydrala zine 10mg given for BP control overnight - On ASA 81mg - ECHO: LVH with EF 65-70%. Abnormal LV diastolic filling. T race TR Tachypnea / Tachycardia (resolved) RR 20, P 85-97 - 97-98% O2 sat overnight on RA - Medicine signed off Hyperlipidemia - LDL 41, HDL 37, TG 98 - Restarted on home Pravastatin 20mg for now Acute Respiratory Failure (resolved) - Extubated Type 2 diabetes mellitus w/o complications - HgA1c 7.9 - SSI -goal HgbA1c < 7 GI/ - Cr 0.79 - avoid nephrotoxic agents - UA positive for small blood - Kruger catheter present on arrival ID - No current signs of infx - 06/21 CXR: Lungs clear. No pleural effusion or pneumothorax . - 06/22 CXR: Bilateral lower lobe platelike atelectasis Central Line: In place at R IJ since pat ient with poor IV access. Will remove before discharge Nutrition E66.9 Obesity (Malnutrition) - diet consult - Patient intake improved - ST: reg diet, thin liq Prophylaxis DVT: heparin subq, SCD's TEDs GI: famotidine Bowel: docusate Diet: Diabetic Diet. Code Status: Full Code The General Neurology service is primary, phone #[phone]. Janette Ribera MD Neurology PGY-1 Pager# [phone] Attending Faculty Statement: I persona devoray examined this patient and performed a complete history and neurological exam. I discussed my findings with those of Dr. Ribera. I personally reviewed any an d all tests, laboratory and imaging stud ies that were performed . I discussed the diagnoses and relevant treatment plan and management issues with the patient, their accompanying family members or care givers and Dr. Ribera. I agree with a ll elements and components of the exam and treatment plan in their note. 82 yo woman with HTN, obesity, DM presen carmela on 06/19 with left side numbness and weakness, left gaze deviation followed by left arm jerking concerning for seizure. She was intubated for mental status. He ad CT shows no lesion, CTA shows no paxton r branch occlusions but some intracranial atherosclerosis. Patient is extubated and following comma nds without apparent weakness today. No fevers or leukocytosis to suggest meningitis. We will treat with AED for seizure (Keppra changed to VPA due to agitation). MRI reviewed , posterior fossa meningiom a noted, less likely that was the cause of her seizure, it is possible the cortical brain atrophy was the etiology of the seizure, EEG showed R hemispheric dysfunction and slowing Impression: likely R hemispheric origion due to cortical atr ophy? On gen exam cardiac murmur noted, ECHO pending. Speech/PT/OT, d/c restrain, transfered to [facility]. Exam: drowsy, can wake up with voice. N on focal, moves all extremities, oriented to person,place and month. Had episodes of tachypnea and tachycardia overnight, hypertension, restarted home lisinopril , pending TTE, no agitation last night. Not back to baseline mentation. Likely underlying dementia worsened acutely by seizures and intubation. Plan: -Continue vimpat and wean VPA, check VPA levels- d/c VPA tod ay -Check encephalopathy labs - normal -Confusion has resolved -Headache overnight, improving with Mg, will monitor -Elevated BP overnight to SBP 170's, may have been due to use of wrist cuff, increased BP meds, will monitor with appropriate sized arm cuff -Seroquel PRN -Eating well -more awake and alert today, oriented, no agitation -likely d/c to SNF for rehab before going home Nayely Verduzco MD Asst. Professor Neurology [id number] Extracted from:Title: Consult Note Author: Anand Sim MD Date: 06/22/17 Assessment/Plan Fluctuating BP/HR. per documentation, no ticed agitated at times. Most likely etiology is acute delirium, other possibilities include autonomic dysfunction but is less likely given clinical scenario. For now I recommend to continue with lis inopril and start low dose metoprolol. use IV hydralazine to keep SBP < 180. She recieved benzos, was intubated, had ICU stay, certainly at risk for delirium. Manage delirium, treat pain, use re-orientation, out of bed. Continue seroquel at current dose. Her CXR is unremarkable. no evidence of acute pulmonary proc ess. Has systolic murmur, please check echocardiogram. Her medications need to be reconciled. I asked her daughter to bring the list. Encephalopathy work up in progress. Her ammonia is unremarkable. check TSH Will follow. Extracted from:Title: Stroke admission H and P Author: Manjinder Chirinos MD Date: 06/19/17 Stroke History and Physical Patient Name: Renetta Parmar Chief Complaint: CYTOPATHOLOGIST, LSFD, shaking of L upper extremity History of Present Illness: 81 y.o. female with pmh of obesity, hype rtension and DM who presents as code stroke with CYTOPATHOLOGIST, LSFD and shaking of L upper extremity. Onset of symptoms was at 1700 and was witnessed by her son, at that t layne he had noticed that she was not able to use her L hand well while she was trying to eat. At that time she was complaining of numbness in her L hand. One and a half hours later she started to have LS FD, for which the son called EMS. By the time EMS arrived she was displaying LEFT gaze preference as well as intermittent shaking of her L arm. She was loaded with 5mg of versed, 2mg of ativan, 2gm of k eppra, fentanyl and rocuronium and was i ntubated because of concerns that she couldn't protect her airway. When she arrived to the ED she was very sedated and the neurology team was unable to get an exam. Review of Systems: unable to obtain due to mental status Past Medical History: HTN DM Past Surgical History: tooth extraction this past september Family Medical History: DM HTN Social History: son lives with her no alcohol, tobacco or il licit drugs Medications: aspirin 81mg pravastatin 20mg lisinopril metoprolol no anticoagulation Allergies: penicillins Physical Exam: GENERAL: intubated, sedated HEENT: - Normocephalic and atraumatic, dry mm, no LN++, no T hyromegally LUNGS - crackly CV - S1S2 RRR, no m/r/g, equal pulses bilaterally. ABDOMEN - Soft, nontender, nondistended with normoactive BS NEURO: intubated and sedated comatose, no gaze preference, pupils are 3mm and reactive, no occulocephalic reflex corneal reflex is intact, cough and gag are intact Patient withdraws with R sided extremities flicker of movement in the L lower extremity MRS 2-Slight disability-UNABLE to perform al l activities but does not need assistance NIH Stroke Scale (NIHSS) 3 1a. Level of Consciousness; 0-alert 1-drowsy 2-stupor 3-co ma 2 1b. LOC Questions month and age; 0-both 1-one 2-neithe r 2 1c. LOC Commands open/close eyes, fiber optic assembler /release non-paretic hand; 0-both 1-one 2-neither 0 2. Best Gaze; 0-nl 1-partial 2-forced gaze 3 3. Visual Arellano; 0-No visual loss. 1-Partial hemianop ia 2-Complete 3-Bilateral 0 4. Facial Palsy; 0-none 1-minor 2-partial 3-complete 3 5. Motor - R arm; 0-No drift 1-Drift 2 -Some antigravity 3-No antigravity 4- No movement 3 6. Motor - R leg; 0-No drift 1-Drift 2 -Some antigravity 3-No antigravity 4- No movement 4 7. Motor - L arm; 0-No drift 1-Drift 2 -Some antigravity 3-No antigravity 4- No movement 4 8. Motor - L leg; 0-No drift 1-Drift 2 -Some antigravity 3-No antigravity 4- No movement 0 9. Limb Ataxia; 0 absent 1 - 1limb 2 - 2 limbs 0 10. Sensory; 0-nl 1-partial loss 2-dense loss 3 11. Best Language; 0-nl 1-mild/mod 2-severe 3-mute x 12. Dysarthria; 0-nl 1-mild/mod 2-severe x-unt estable 0 13. Extinction and Inattention (forme rly Neglect); 0-none 1-partial 2-complete 27 Total Labs: 24hr Labs 06/19 2223 WBC 9.8 RBC 4.91 Hgb 14.7 Hct 42.7 MCV 86.9 MCH 29.9 MCHC 34.4 RDW 14.1 Platelet 218 MPV 8.1 Segs 63.9 Monocytes 2.4 Lymphocytes 32.5 Eosinophils 0.4 Basophils 0.8 Segs-Bands # 6.3 Lymphocytes # 3.2 Monocytes # 0.2 Basophils # 0.1 EKG: NSR Imaging: CT Head: no acute intracranial abnormalities CTA H&N: no mismatch MRI: pending Echo: pending Assessment: 81 y.o. female with pmh of obesity hyper tension and DM who presents with sudden onset CYTOPATHOLOGIST that progressed to LSFD and jerking movement of her L upper extremity with L gaze preference. She was intubated in the field, no tpa was given as she wa s outside the window for tpa (there were delays in getting her to CT scanner due to availability of respiratory therapist to escort her), no IAT as no mismatch fo und on CTA, CTH negative for any acute i ntracranial abnormalities. Patient's presentation is more consistent with seizure rather than acute stroke however this still needs to be ruled out. Plan: Acute Ischemic Stroke vs. Seizure Cerebral infarction due to embolism of right middle cerebral artery vs. Cerebral infarction due to embolism of right posterior cereb ral artery Acuity: Acute Current Suspected Etiology: still under investigation possibly large vessel, could also be a seizure Continue Evaluation: -Admit to: ICU -Continue Aspirin/ Statin -Blood pressure control, goal of SYS <220 -MRI/ECHO/A1C/Lipid panel. -Hyperglycemia management per SSI to maintain glucose 140-18 0mg/dL. 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 -SSI -Start oral meds -goal HgbA1c < 7 GI/ -Gentle hydration -avoid nephrotoxic agents ID Possible Aspiration PNA -CXR -NPO -Monitor UTI -Kruger catheter present on arrival -CX pending Nutrition E66.9 Obesity (Malnutrition) -diet consult Prophylaxis DVT: heparin subq, SCD's TEDs GI: famotidine Bowel: docusate Diet: NPO until cleared by speech Code Status: Full Code THE FOLLOWING WERE PRESENT ON ADMISSION: CRIMINAL PROFILER - Hemiparesis or Hemiplegia, seizure Respiratory - Ventilator dependent, Probable Aspiration Pneu monia Cardiovascular - HTN Infectious - none GI - none Renal - none Heme- none Cancer - none Trauma - possible seizure ACUTE STROKE BENCHMARKS: TIME PATIENT LAST SEEN NORMAL prior to 1700 CODE STROKE ACTIVATION (CARE4 COMPUTER TIME) 2054 NEUROLOGY RESIDENT ARRIVAL AT THE BEDSIDE (CARE4 COMPUTER T LAYNE) 2100 IV TPA BOLUS (TIME AND DOSE) none given outside of window IV TPA INFUSION (TIME AND DOSE) none given DELAYS IN THE CODE STROKE PROCESS getting a respiratory therapist to escor t patient to CT scanner as she was intubated, add 20minutes Manjinder Chirinos MD PGY3, Neurology STROKE STAFF I have personally evaluated the patient. I have reviewed 's note detailed above. I agree with the resident's findings, assessment and plan as outlined in the note except as detailed below. In addition, I have reviewed the patient's neuroimaging find ings which reveal: Exam Intubated. Opens eyes to voice. PER RL. EOMI. Follows commans in RLE. Localizes pain througout. Impression/ Plan: 82 yo woman with HTN, obesity, DM presents with left side numbness and weakness followed by left arm jerking concerning for seizure. She was intubated for mental status (after prns giv en for seizure?). Head CT shows no lesio n, CTA shows no major branch occlusions but some intracranial atherosclerosis. MRI shows no stroke. Patient is following commands without apparent weakness today. No fevers or leukocytosis to suggest me ningitis. We will treat with AED for seizure, wean vent per ICU. We discussed with general neurology team and will transfer. Aki López MD MPH Stroke Attending c [phone] Plan of Care No Data Provided for This Section Social History Social History Date Source Social History TypeResponse 06/20/2017 [facility] Substance Abuse Use: None. Employment/School Status: Retired. Alcohol Never Smoking Status Never smoker; Previous treatment: None; Ready to change: No; Concerns about tobacco use in household: No; Exposure to Tobacco Smoke None; Cigarette Smoking Last 365 Days No; Reg Smoking Cessation Counseling No Social History TypeResponse 06/20/2017 [facility] Substance Abuse Use: None. Alcohol Never Smoking Status Never smoker; Previous treatment: None; Ready to change: No; Concerns about tobacco use in household: No; Exposure to Tobacco Smoke None; Cigarette Smoking Last 365 Days No; Reg Smoking Cessation Counseling No Family History No Data Provided for This Section Advance Directives No Data Provided for This Section Functional Status No Data Provided for This Section
--- OUTSIDE RECORDS SUMMARY | 2020-10-17 12:20 | XMS REPORT | Continuity of Care Document ---
:1935 Author Organization [facility] t Address [address] [place] [address] Care Team Providers Name Role Phone UNKNOWN Primary Care Physician Unavailable Leyla CARBAJAL Attending Clinician Unavailable Froy Krause Attending Clinician Fabiola Verduzco Attending Clinician Leyla CARBAJAL Admitting Clinician Unavailable Froy Krause Admitting Clinician Alex López Admitting Clinician Problems Condition Condition Condition Status Onset Resolution Last Treating Co mments Source Name Details Category Date Date Treatment Clinician Date ACUTE UTI, Diagnosis Active [id number] Memoria CLINICAL 0- 22:00:00 l SEPSIS ACUTE 00:00: [place] UTI, 00 CLINICAL SEPSIS Active 09/13/2017 [place] CVA Diagnosis Active 2017-06-19 Mem oria 06-19 21:36:00 l CVA 00:00: [place] 00 Active 06/19/2017 [facility] RESPIRATOR Diagnosis Active 2017-06-30 Memoria Y FAILURE, 06-19 22:32:00 l SEIZURE 00:00: [place] RESPIRATOR 00 Y FAILURE, SEIZURE Active 06/19/2017 [facility] [place] Diagnosis Active 2017-06-22 Memoria BILLING 06-19 16:40:00 l 00:00: [place] 00 BILLING Active 06/19/2017 [facility] Diabetes Problem Resolve 2017-09-20 [place] mor[place] mellitus d 01:21:38 l (disorder) Diabetes He rmann mellitus (disorder) Resolved Problem 09/20/2017 [facility] [place] Hyperlipid Problem Resolve 2017-09-20 Memoria emia d 01:21:38 l (disorder) Kapil n Hyperlipid emia (disorder) Resolved Problem 09/20/2017 [facility] [place] Hypertensi Problem Resolve 2017-09-20 Memoria ve d 01:21:38 l disorder, [place] systemic Hypertensi arterial ve (disorder) disorder, systemic arterial (disorder) Resolved Problem 09/20/2017 [facility] [place] Malignant Problem Resolve 2017-09-20 M emoria neoplasm d 01:21:38 l of uterus [place] (disorder) Malignant neoplasm of uterus (disorder) Resolved Problem 09/20/2017 [place] Malignant Problem Resolve 2017-09-20 M emoria tumor of d 01:21:38 l ovary [place] (disorder) Malignant tumor of ovary (disorder) Resolved Problem 09/20/2017 [facility] [place] Obesity Problem Resolve 2017-09-20 Mem oria (disorder) d 01:21:38 l Obesity [place] (disorder) Resolved Problem 09/20/2017 [facility] [place] RESPIRATOR Diagnosis Active 2017-06-30 Memoria Y FAILURE, 22:32:00 l UNSP, UNSP Kapil n W HYPOXI RESPIRATOR Y FAILURE, UNSP, UNSP W HYPOXI Active [facility] UNSPECIFIE Diagnosis Active 2017-06-30 Memoria D 22:32:00 l CONVULSION Kapil n S UNSPECIFIE D CONVULSION S Active [facility] Allergies, Adverse Reactions, Alerts Allergy Allergy Status Severity Reaction(s) Onset Inactive Treating Comm ents Source Name Type Date Date Clinician penicill penicill Active Memori a ins ins l [place] Social History Social Habit Start Date Stop Date Quantity Comments Source Social History 2017-06-20 2017-06-20 [facility] huan 10:28:28 10:28:28 Medications Ordered Filled Start Stop Current Ordering Indication Dosage Frequency Signature Comments Components Source Medication Medication Date Date Medication? Clinician (SIG) Name Name Famotidine 2016-11 No Notes: Memor ia 20 MG Oral 0-19 (Same as: l Tablet 22:00: Pepcid) [place] [Pepcid] 00 Hydralazine 2016-11 No 10 mg, Agusto umang 0-18 Route: l 18:07: IVP, ONCE, [place] 00 Dosing Weight 140, kg, Priority: NOW, Start date: 09/16/17 13:07:00 CDT, Stop date: 09/16/17 13:07:00 CDT Ceftriaxone 2016-11 No Notes: Agusto umang 0-18 (Same As: l 17:00: Rocephin). Use with 100 mL NS and infuse over 30 min MEDICATION WASTE Product Size: 2000 mg Product Wasted: ___ mg Pravastatin 2016-11 No Notes: Agusto umang 0-17 (Same as: l 02:00: Pravachol) cefepime 2016-11 No Notes: Memoria 0-16 (Same As: l 18:00: Maxipime) [place] 00 MEDICATION WASTE Product Size: 1000 mg Product Wasted: ___ mg 24 HR 2016-11 No Notes: Memoria Metoprolol 0-16 (Same as: l Tartrate 50 14:00: Toprol XL) [place] MG Extended March split Release tab, but Tablet do not [Toprol] crush. Lisinopril 2016-11 No Notes: Memor ia 0-16 (Same as: l 14:00: Prinivil, Zestril) lacosamide 2016-11 No Notes: Memor ia 0-16 Same as: l 14:00: [place]im[place] Aspirin 2016-11 No Notes: Memoria 0-16 Take with l 14:00: food. Humalog Mix 2016-11 No Notes: Agusto umang 75/25 0-16 (Same as: l 12:30: Humalog Mix 75/25) "single patient use only" WASTE: F/P - Black; E - Municipal Trash Bin Roll in palms of hand gently; Do not shake. influenza 2016-11 No 0.5 mL, Memor ia virus 0-16 Route: IM, l vaccine, 04:46: ONCALLKapil n inactivated 43 Start date: 09/13/17 23:46:43 CDT, Stop date: 10/13/17 23:41:43 [employer] Ciprofloxac 2016-11 No Notes: May Memoria in 0-16 interfere l 04:00: w/enteral feedings - Take 1 hr before or 2 hrs after antacids, dairy pdt & minerals. On empty stomach. NovoLIN 2016-11 No 25 unit, Memori a 70/30 0-16 Route: l 04:00: SUB-Q, [place] 00 [id number], Dosing Weight 113.636, kg, Start date: 09/13/17 23:00:00 CDT, Duration: 30 day, Stop date: 10/13/17 11:00:00 [employer] Famotidine 2016-11 No Notes: Memor ia 0-16 (Same as: l 03:26: Pepcid) Can be dilute in 5-10cc NS IVP: Slow IV push over at least 2 minutes. Insulin 2016-11 No Notes: Memoria Lispro 0-16 Roll in l 03:15: palms of [place] 00 hands gently; Do not shake `vigorousl y. (Same as: Humalog ) "Single Patient Use Only " WASTE: F/P - Black; E - Municipal Trash Bin Stable for 28 days at room temperatur e. Expires in days from ____Date Dextrose 2016-11 No 12.5 gm, Memor ia 50% Syringe 0-16 25 mL, l 03:15: Route: [place] 00 IVP, Drug Form: INJ, Dosing Weight 113.636, kg, PRN, PRN Blood Glucose Results, Start date: 09/13/17 22:15:00 CDT, Duration: 30 day, Stop date: 10/13/17 21:14:00 [employer] Glucagon 2016-11 No 1 mg, Memoria 0-16 Route: IM, l 03:15: Drug form: PDR/INJ, PRN, Dosing Weight 113.636, kg, PRN Blood Glucose Results, Start date: 09/13/17 22:15:00 CDT, Duration: 30 day, Stop date: 10/13/17 21:14:00 [employer] Saline 2016-11 No Notes: Memoria Flush 0.9% 0-16 (Same as: l 03:14: BD [place] 00 Posiflush) sodium 2016-11 No 1,000 mL, Memori a chloride 0-16 Rate: 75 l 0.9% 1000 03:14: ml/hr, Kapil n ml INJ 00 Infuse 1,000 mL over: 13.3 hr, Route: IV, Dosing Weight 113.636 kg, Total Volume: 1,000, Start date: 09/13/17 22:14:00 CDT, Duration: 30 day, Stop date: 10/13/17 22:13:00 [employer] Levaquin 2016- No Notes: Memoria 0-16 (Same l 00:39: as:Levaqui [place] 00 n) Sodium 2016-11 No 1,000 mL, Memori a Chloride 0-16 1,000 l 0.9% IV (NS 00:23: ml/hr, Herm inessa (Bolus) IV) 00 Infuse Over: 1 hr, Route: IV, 1,000, Drug form: INJ, ONCE, Priority: STAT, Dosing Weight 148.8 kg, Start date: 09/13/17 19:23:00 CDT, Duration: 1 doses or times, Stop date: 09/13/17 19:23:00 CDT Saline 2016-11 No Notes: Memoria Flush 0.9% 0-16 (Same as: l 00:23: BD [place] 00 Posiflush) metoprolol No 50 mg, 1 Mem oria tartrate 7-27 tab, l 02:00: Route: PO, [place] 00 Drug form: TAB, Q12H, Dosing Weight 148.8, kg, Start date: 06/24/17 21:00:00 CDT, Duration: 30 day, Stop date: 07/24/17 9:00:00 CDT lacosamide Yes 100 mg = 1 M emoria 100 mg oral 7-27 tab, PO, l tablet 00:10: BID, # 60 Kapil n 00 tab, 3 Refill(s) metoprolol Yes 50 mg = 1 Me moria tartrate 50 7-26 tab, PO, l mg oral 21:09: Q12H, 0 [place] tablet 00 Refill(s) lisinopril Yes 40 mg = 1 Me moria 40 mg oral 7-26 tab, PO, l tablet 21:09: Daily, # [place] 00 30 tab, 3 Refill(s) lacosamide No 100 mg = 1 M emoria 100 mg oral 7-26 tab, PO, l tablet 21:09: BID, 0 [place] 00 Refill(s) metoprolol No Notes: Memor ia tartrate 06-24 (Same as: l 14:00: Lopressor) Magnesium No Notes: Memori a Sulfate 06-24 WASTE: F/P l 13:18: - Sink; E - Municipal Trash Bin Motrin No Notes: Memoria 06-24 (Same as: l 09:26: Motrin) "Do Not Crush" Take with food. metoprolol No Notes: Memor ia tartrate 06-24 (Same as: l 09:25: Lopressor) 12.5 mg=1/2 X 25 mg TAB Tylenol No Notes: Do Memor ia 06-24 not exceed l 07:14: 4 gm/day. (Same as: Tylenol) Tylenol No Notes: Do Memor ia 06-24 not exceed l 07:09: 4 gm/day. (Same as: Tylenol) Labetalol No 10 mg, 2 Agusto umang 26 mL, Route: l 04:08: IVP, Drug form: INJ, ONCE, Dosing Weight 148.8, kg, Start date: 06/23/17 23:08:00 CDT, Stop date: 06/23/17 23:08:00 CDT divalproex No 250 mg, 1 Me moria sodium 250 7-25 tab, l mg oral 22:00: Route: PO, Herm inessa enteric Drug form: coated ECTAB, tablet BID, (Depakote) Dosing Weight 148.8, kg, Start date: 06/23/17 17:00:00 CDT, Duration: 30 day, Stop date: 07/23/17 9:00:00 CDT, Delayed Release tablet multivitami No 5 ml, Memor ia n with 7-25 Route: PO, l minerals 14:00: Drug Form: Her tucker 00 LIQ, Dosing Weight 148.8, kg, Daily, Start date: 06/23/17 9:00:00 CDT, Duration: 30 day, Stop date: 07/22/17 9:00:00 CDT lisinopril No 30 mg = 1 Me moria 30 mg oral 7-25 tab, PO, l tablet 03:36: Daily, # [place] 00 30 tab, 0 Refill(s) Aspirin Yes 81 mg, PO, Agusto umang 7-25 Daily, l 03:36: adult low [place] 00 dose aspirin 81 mg, 0 Refill(s) NovoLIN Yes See Memoria 70/30 7-25 Instructio l 03:36: ns, one [place] 00 shot in the morning and one shot in the evening which varies in dose depending upon blood sugar reading. usually 40-70 of 1 ml., 0 Refill(s) metoprolol No See Memoria tartrate 7-25 Instructio l 100 mg oral 03:36: ns, 1 tab H ermann tablet 00 each morning and half tablet each evening., 0 Refill(s) Omeprazole Yes 20 mg, PO, M emoria 7-25 Daily, l 03:36: omeprazole [place] 00 DR 20 mg, 0 Refill(s) metoprolol No Notes: Memor ia tartrate -25 (Same as: l 02:00: Lopressor) [place] 00 12.5 mg=1/2 X 25 mg TAB 24 HR No Notes: Memoria Divalproex 7-24 (Same as: l Sodium 500 22:00: Depakote Her tucker MG Extended 00 Delayed Release Release) Tablet Do not [Depakote] confuse with the extended-r elease tablet. Delayed absorption enteric coated tablet. Do not crush sodium No 1,000 mL, Memori a chloride 06-22 Rate: 50 l 0.9% 1000 19:24: ml/hr, Kapil n ml INJ 00 Infuse 1,000 mL over: 20 hr, Route: IV, Dosing Weight 148.8 kg, Total Volume: 1,000, Start date: 06/22/17 14:24:00 CDT, Duration: 30 day, Stop date: 07/22/17 14:23:00 CDT multivitami No Notes: Agusto umang n with 7-24 (Same l minerals 17:00: as:Thera-M Her tucker 00 , Theragran- M) WASTE: F/P - Black; E - Municipal Trash Bin Give with food. Vimpat No Notes: Memoria 7-24 Same as: l 15:25: Vimpat [place] 00 Aspirin No Notes: Do Memor ia -24 not crush l 14:00: or chew. [place] (Same As: Ecotrin) Potassium No Notes: Memori a Chloride -24 (Same as: l 07:06: KCL) Infuse no faster than 10 mEq/hr if given peripheral ly. Calcium No Notes: Memoria Carbonate 06-22 (Same As: l 500 MG 07:06: Tums) [place] Chewable 00 Calcium Tablet Carbonate 500 mg = 200 mg elemental calcium Dose = mg calcium carbonate ( mg elemental calcium) potassium No Notes: Memori a phosphate-s - (Same as: l odium 07:06: Phos-NaK) phosphate 00 Each 1.5 250 mg-280 gm pkt has mg-160 mg 250mg oral powder phosphorou for s. Mix reconstitut w/2.5oz ion water and stir. potassium No Notes: Memori a phosphate -24 (Same as: l 07:06: K [place] 00 Phosphate. ) 1 mMol phoshate has 1.47 mEq potassium Infuse over 4 hours Calcium No Notes: Memoria Gluconate 06-22 WASTE: F/P l 07:06: - Sink; E - Municipal Trash Bin Magnesium No Notes: Memori a Oxide 06-22 (Same as: l 07:06: Mag-Ox [place] 00 400) Magnesium oxide [id number]=[id number] g elemental magnesium Dose=____m g magnesium oxide (___mg elemental magnesium) Magnesium No Notes: Memori a Sulfate 06-22 WASTE: F/P l 07:06: - Sink; E - Municipal Trash Bin sodium No 30 mmol, Memoria phosphate - 10 mL, l 07:06: Route: IVPB, PRN, Dosing Weight 148.8, kg, PRN Abnormal Lab Result, Start date: 06/22/17 2:06:00 CDT, Duration: 30 day, Stop date: 07/22/17 2:05:00 CDT, FOR ICU USE ONLY Seroquel No Notes: Memoria 7-23 (Same as: l 14:36: SEROquel) [place] Valproic No Notes: Memoria Acid 50 7-23 (Same As: l MG/ML Oral 14:00: Depakene) He rmann Solution Lisinopril No Notes: Memor ia 7-23 (Same as: l 14:00: Prinivil, [place] Zestril) Seroquel No 75 mg, Memoria 7-23 Route: PO, l 08:57: ONCE, [place] 00 Dosing Weight 148.8, kg, Start date: 06/21/17 3:57:00 CDT, Stop date: 06/21/17 3:57:00 CDT Labetalol No 20 mg, 4 Agusto umang 7-23 mL, Route: l 08:05: IVP, Drug form: INJ, Q15Min, Dosing Weight 148.8, kg, PRN Hypertensi on, Start date: 06/21/17 3:05:00 CDT, Duration: 3 doses or times, Stop date: Limited # of times Hydralazine No Notes: Agusto umang 7-23 (Same as: l 08:05: Apresoline ) Push over 5 minutes Keppra No 1,500 mg, Memori a - Route: PO, l 07:00: Drug form: TAB, Q12H, Dosing Weight 148.8, kg, Start date: 06/21/17 2:00:00 CDT, Duration: 30 day, Stop date: 07/20/17 21:00:00 CDT Seroquel No Notes: Memoria 7-23 (Same as: l 02:00: SEROquel) [place] Pravastatin No Notes: Agusto umang 7-23 (Same as: l 02:00: Pravachol) Valproic No Notes: Memoria Acid 100 7-23 Dilute in l MG/ML 01:20: at least [place] Injectable 50ml D5W Solution or NS. Infusion rate = 20 mg/min (Same As: Depacon) NS (Bolus) No 500 mL, Agusto umang IV 7- 500 ml/hr, l 01:15: Infuse Over: 1 hr, Route: IV, ONCE, Priority: STAT, Dosing Weight 148.8 kg, Start date: 06/20/17 20:15:00 CDT, Duration: 1 doses or times, Stop date: 06/20/17 20:15:00 CDT Hydralazine No Notes: Agusto umang 06-20 (Same as: l 23:37: Apresoline ) Push over 5 minutes Labetalol No 10 mg, 2 Agusto umang 7-22 mL, Route: l 23:37: IVP, Drug form: INJ, ONCE, Dosing Weight 148.8, kg, Priority: STAT, Start date: 06/20/17 18:37:00 CDT, Stop date: 06/20/17 18:37:00 CDT Fentanyl No Notes: Memoria 06-20 (Same as: l 22:52: Sublimaze) Preservat kt free. Dexmedetomi No 24 hours M emoria dine 06-20 l 22:22: [place] 00 Haldol No Notes: Memoria 06-20 (Same as: l 21:14: Haldol) Albuterol No Notes: Memori a 0.833 MG/ML 06-20 (Same as: l / 19:00: Duoneb) Ipratropium 00 [place] 0.167 MG/ML Inhalant Solution [DuoNeb] Dextrose No 12.5 gm, Memor ia 50% Syringe 06-20 25 mL, l 17:54: Route: IVP, Drug Form: INJ, Dosing Weight 148.8, kg, PRN, PRN Abnormal Lab Result, Start date: 06/20/17 12:54:00 CDT, Duration: 30 day, Stop date: 07/20/17 12:53:00 CDT Regular No 60 Memoria Insulin, 7-22 units) l Human 100 17:54: WASTE: F/P [place] UNT/ML 00 - Black; E Injectable - Solution Municipal Trash Bin Stable for 28 days at room temperatur e Expires in days from ____Date No Notes: Memoria - Same as l 17:41: Keppra Mix with 100 mL NS, LR or D5W MEDICATION WASTE Product Size: 500 mg Product Wasted: ___ mg sennosides, No Notes: Agusto umang CARE HOME 06-20 (Same as: l 14:00: Senokot) [place] Saline No Notes: Memoria Flush 0.9% 06-20 (Same as: l 14:00: BD [place] 00 Posiflush) pantoprazol No Notes: For Memoria e 06-20 IV push l 14:00: reconstitu te with 10 ml 0.9% sodium chloride and push over 2 minutes. (Same as: Protonix) Streptococc No Notes: Agusto umang us 06-20 Shake well l pneumoniae 14:00: prior to Her tucker serotype 1 00 use (Same capsular as: antigen Prevnar diphtheria 13) [id number] protein conjugate vaccine / Streptococc us pneumoniae serotype 14 capsular antigen diphtheria [id number] protein conjugate vaccine / Streptococc us pneumoniae serotype 18C capsular antigen d chlorhexidi No Notes: Agusto umang ne 06-20 (Same As: l gluconate 14:00: Peridex) Herm inessa 1.2 MG/ML 00 Mouthwash lansoprazol No Notes: Agusto umang e 06-20 Take 1 l 14:00: hour [place] 00 before or 2 hours after meal; Expires in 14 days. Shake well before use. (Same as:Prevaci d) Compound ed Product - formulatio n not commercial ly available* * Docusate No Notes: Memoria 06-20 (Same as: l 14:00: Colace) [place] ocular No Notes: Memoria lubricant 06-20 (Same as: l 11:00: Lacri-Lube [place] 00 , Duratears Naturale, Artificial Tears, and Tears Again ) Aspirin 300 No Notes: Agusto umang MG Rectal 06-20 Refrigerat l Suppository 08:29: e. Kapil n 00 Acyclovir No Notes: Memori a 06-20 Same as: l 08:14: Zovirax [place] 00 MEDICATION WASTE Product Size: 500 mg Product Wasted: 0 mg Vancomycin No 2001 mg: Me moria 06-20 infuse l 08:14: over 2.5 [place] 00 hours MEDICATION WASTE Product Size: 1000 mg Product Wasted: 0 mg cefepime No Notes: Memoria 06-20 (Same as: l 08:14: Maxipime) [place] 00 MEDICATION WASTE Product Size: 2000 mg Product Wasted: 0 mg sodium No 15 mmol, 5 Memor ia phosphate 06-20 mL, Route: l 08:13: IVPB, PRN, [place] 00 Dosing Weight 148.8, kg, PRN Abnormal Lab Result, Start date: 06/20/17 3:13:00 CDT, Duration: 30 day, Stop date: 07/20/17 3:12:00 CDT, FOR ICU USE ONLY Calcium No Notes: Memoria Carbonate 06-20 (Same As: l 500 MG 08:13: Tums) [place] Chewable 00 Calcium Tablet Carbonate 500 mg = 200 mg elemental calcium Dose = mg calcium carbonate ( mg elemental calcium) potassium No Notes: Memori a phosphate-s 06-20 (Same as: l odium 08:13: Phos-NaK) [place] phosphate 00 Each 1.5 250 mg-280 gm pkt has mg-160 mg 250mg oral powder phosphorou for s. Mix reconstitut w/2.5oz ion water and stir. Magnesium No Notes: Memori a Sulfate 06-20 WASTE: F/P l 08:13: - Sink; E - Municipal Trash Bin Magnesium No Notes: Memori a Oxide 06-20 (Same as: l 08:13: Mag-Ox [place] 00 400) Magnesium oxide 939ix=230k g elemental magnesium Dose=____m g magnesium oxide (___mg elemental magnesium) Calcium No Notes: Memoria Gluconate 06-20 WASTE: F/P l 08:13: - Sink; E [place] 00 - Municipal Trash Bin Potassium No Notes: Memori a Chloride 06-20 (Same as: l 08:13: Potassium Chloride) Keppra No Notes: Memoria 06-20 Same as l 06:13: Keppra Mix with 100 mL NS, LR or D5W MEDICATION WASTE Product Size: 500 mg Product Wasted: 0 mg Insulin No 60 Memoria regular 06-20 units) l 06:01: WASTE: F/P [place] - Black; E - Municipal Trash Bin Stable for 28 days at room temperatur e Expires in days from ____Date Dextrose No 12.5 gm, Memor ia 50% Syringe 06-20 25 mL, l 06:01: Route: [place] IVP, Drug Form: INJ, Dosing Weight 136.364, kg, PRN, PRN Blood Glucose Results, Start date: 06/20/17 1:01:00 CDT, Duration: 30 day, Stop date: 07/20/17 1:00:00 CDT Glucagon No 1 mg, Memoria 06-20 Route: IM, l 06:01: Drug form: [place] PDR/INJ, PRN, Dosing Weight 136.364, kg, PRN Blood Glucose Results, Start date: 06/20/17 1:01:00 CDT, Duration: 30 day, Stop date: 07/20/17 1:00:00 CDT chlorhexidi No Notes: Agusto umang ne 06-20 (Same As: l gluconate 05:54: Peridex) Herm inessa 1.2 MG/ML 00 Mouthwash sodium No 1,000 mL, Memori a chloride 06-20 Rate: 75 l 0.9% 1000 05:52: ml/hr, Kapil n ml INJ 00 Infuse 1,000 mL over: 13.3 hr, Route: IV, Dosing Weight 136.364 kg, Total Volume: 1,000, Start date: 06/20/17 0:52:00 CDT, Duration: 30 day, Stop date: 07/20/17 0:51:00 CDT NS (Bolus) No 1,000 mL, Me moria IV 22 1,000 l 05:52: ml/hr, [place] 00 Infuse Over: 1 hr, Route: IV, 1,000, Drug form: INJ, ONCE, Priority: STAT, Dosing Weight 136.364 kg, Start date: 06/20/17 0:52:00 CDT, Duration: 1 doses or times, Stop date: 06/20/17 0:52:00 CDT pravastatin Yes 20 mg = 1 M emoria 20 mg oral -22 tab, PO, l tablet 05:39: Bedtime, # [place] nn 00 30 tab, 0 Refill(s) Aspirin No 81 mg = 1 Memor ia Enteric 06-20 tab, PO, l Coated 81 05:39: Daily, 0 Herm inessa mg oral 00 Refill(s) delayed release tablet metoprolol No BID, 0 Memor ia tartrate 06-20 Refill(s) l 05:39: [place] 00 Lisinopril No 30, PO, Agusto umang -22 Daily, 0 l 05:39: Refill(s) [place] 00 heparin No Notes: Memoria 7-22 porcine l 05:00: heparin [place] atorvastati No Notes: Agusto umang n 06-20 (Same as: l 04:04: Lipitor) [place] Aspirin 325 No Notes: Agusto umang MG Enteric 06-20 Take with l Coated 04:04: food. [place] Tablet 00 Saline No Notes: Memoria Flush 0.9% 06-20 (Same as: l 03:54: BD [place] Posiflush) iodixanol No 100 mL, Memor ia 06-20 Route: l 02:24: IVP, Drug Form: SOLN, Dosing Weight 136.364, kg, ONCALL, STAT, Start date: 06/19/17 21:24:00 CDT, Duration: 1 doses or times, Dose = 2.2ml/kg, Max dose = 100ml -- "To be infused by Radiology Staff ONLY" iodixanol No Notes: Memori a 06-20 (Same as: l 02:18: Visipaque) [place] 00 . WASTE: F/P - Black; E - Municipal Trash Bin propofol No Notes: If Agusto umang INJ 1,000 06-20 Diprivan - l mg 02:15: change [place] 00 bottle & tubing every 12 hr Per state nursing law propofol can only be given by a nurse if patient is intubated or being intubated (unless the nurse is a INSTRUMENTATION INSTRUCTOR). Same as: Diprivan Saline No Notes: Memoria Flush 0.9% 06-20 (Same as: l 02:08: BD [place] 00 Posiflush) Vital Signs Vital Name Observation Time Observation Value Comments Source Respitory Rate 2017-09-17 16:05:00 Memori al [place] Heart Rate 2017-09-17 16:05:00 [facility] [place] Temperature Oral (F) 2017-09-17 16:05:00 97.9 F [facility] [place] Systolic (mm Hg) 2017-09-17 16:05:00 Agusto rial [place] Diastolic (mm Hg) 2017-09-17 16:05:00 Mem orial [place] Temperature Oral (F) 2017-09-17 12:03:00 97.5 F [facility] [place] Systolic (mm Hg) 2017-09-17 12:03:00 Agusto rial [place] Diastolic (mm Hg) 2017-09-17 12:03:00 Mem orial [place] Heart Rate 2017-09-17 12:03:00 [facility] [place] Respitory Rate 2017-09-17 12:03:00 Memori al [place] Heart Rate 2017-09-17 08:58:00 [facility] [place] Temperature Oral (F) 2017-09-17 08:58:00 97.9 F [facility] [place] Systolic (mm Hg) 2017-09-17 08:58:00 Agusto rial [place] Diastolic (mm Hg) 2017-09-17 08:58:00 Mem orial [place] Respitory Rate 2017-09-17 08:58:00 Memori al [place] Height 2017-09-14 04:49:00 165.1 cm [facility] [place] Weight 2017-09-14 04:49:00 [facility] [place] BMI Calculated 2017-09-14 04:49:00 Memori al [place] Weight 2017-09-14 00:24:00 [facility] [place] Respitory Rate 2017-06-25 00:47:00 Memori al [place] Temperature Oral (F) 2017-06-24 20:35:00 97 F [facility] [place] Respitory Rate 2017-06-24 20:35:00 Memori al [place] Heart Rate 2017-06-24 20:35:00 [facility] [place] Systolic (mm Hg) 2017-06-24 20:35:00 Agusto rial [place] Diastolic (mm Hg) 2017-06-24 20:35:00 Mem orial [place] Respitory Rate 2017-06-24 16:20:00 Memori al [place] Heart Rate 2017-06-24 16:20:00 [facility] [place] Temperature Oral (F) 2017-06-24 16:20:00 97.5 F [facility] [place] Systolic (mm Hg) 2017-06-24 16:20:00 Agusto rial [place] Diastolic (mm Hg) 2017-06-24 16:20:00 Mem orial [place] Systolic (mm Hg) 2017-06-24 15:38:00 Agusto rial [place] Diastolic (mm Hg) 2017-06-24 15:38:00 Mem orial [place] Temperature Oral (F) 2017-06-24 12:30:00 99.2 F [facility] [place] Heart Rate 2017-06-24 12:30:00 [facility] [place] Height 2017-06-20 16:20:00 172.72 cm [facility] [place] Height 2017-06-20 12:56:00 172.72 cm [facility] [place] Height 2017-06-20 08:35:00 172.72 cm [facility] [place] BMI Calculated 2017-06-20 06:15:00 Memori al [place] Weight 2017-06-20 06:15:00 [facility] [place] BMI Calculated 2017-06-20 02:05:00 Memori al [place] Weight 2017-06-20 02:05:00 [facility] [place] Procedures Procedure Date / Time Performed Performing Clinician Sourc e Abdominal hysterectomy [facility] [place] Lumbar spinal fusion [facility] rmann Encounters Start End Encounter Admission Attending Care Care Encounter Source Date/Time Date/Time Type Type Clinicians Facility Department ID 2017-12-15 2017-12-15 Outpatient Juan Manuel [facility] [id number] 07:51:00 07:51:00 [facility] 2017-09-13 2017-09-17 Outpatient VONDA Krause S [id number] 19:10:00 14:10:00 [place] 2017-06-19 2017-06-24 Outpatient Luba, [facility] [id number] 21:02:00 19:52:00 Nayely Hicks Results Test Description Test Time Test Comments Results Result [facility] dennys Comments CT GUIDED NEEDLE 2017-12-15 CT GUIDED CORE NEEDLE PLACEMENT SI 13:29:33 BIOPSY OF A A PANCREATIC NECK MASSCLINICAL INDICATION: D37.8: NEOPLASM OF UNCERTAIN BEHAVIOR OF OTHDIGESTIVE ORGANSOPERATORS: Rodriguez Eduardo, MDSEDATION: Under physician supervision, intravenous Versed and fentanylwere administered for moderate sedation. Pulse oximetry, heart rate, andblood pressure were continuously monitored by a dedicated IR trainednurse. The physician spent 60 minutes of continuous [id number] time with the patient.TECHNIQUE: The risks, benefits, [...] were made. All samples weregiven to the in store marketing associate/patholo gist who were present for theprocedure. The needle was removed and pressure held over the puncturesite. A sterile dressing was applied.The patient tolerated the procedure well. The patient was transferred tothe holding area in stable condition with appropriate orders on thechart.COMPLICATIONS: None immediateIMPRESSION: Technically successful CT-guided core needle biopsy of a pancreaticmass.Location: R16 Basic Metabolic Panel 2017-12-15 09:15:00 Test Item Value Reference Range Interpretation Comme nts Sodium (test code = NA) 132 mmol/L 135-145 L Potassium (test code = K) 4.7 mmol/L 3.5-5.1 N Chloride (test code = CL) 92 mmol/L 98-105 L Carbon Dioxide (test code = 31 mmol/L 22-29 H CO2) Glucose (test code = GLU) 171 mg/dL 70-115 H Blood Urea Nitrogen (test 10 mg/dL 8-23 N code = BUN) Creatinine (test code = 0.9 mg/dL 0.5-0.9 N CREAT) Calcium (test code = CA) 9.5 mg/dL 8.3-10.5 N BUN/Creatinine Ratio (test 11.1 code = BCRATIO) Anion Gap (test code = 9 mmol/L 7-16 N AGAP) Estimated GFR (test code = >60 mL/min/1.73m2 eGFR (estimated Glomerular GFR) Filtration Rate ) is an estimated value ,calculated from the patien t's serum creatinine usin g the MDRD equation.It is NOT the patient's actua l GFR. The eGFR provides a more clinicallyusefu l measure of kidney disease than serum creatinine hay e.This calculation rayray es sex and race into accou nt, if the informationis p rovided. If the race is not provided, and the patient isAfrican-Ameri can, multiply by 1.212. If se x is not provided, and t hepatient is female, multipl y by 0.742. Results for pat ients <18 years ofage hav e not been validated by e MDRD study and should be i nterpretedwith caution.eGFR Re sult Interpretation: eGFR > or = 60 is in the Anjana l RangeeGFR < 60 may mean kid alberto diseaseeGFR < 1 5 may mean kidney failure* Ranges recommended by the National Kidney Foundation,http ://nkdep.nih.g ov Prothrombin Inxe2280-66-60 09:09:00 Test Item Value Reference Range Interpretation Comments PT (test code = PT) 11.80 seconds 9.78-13.35 N INR (test code = INR) 1.04 Ratio 0.6-1.2 N CBC with Liogjmxwgfxx2901-33-27 09:09:00 Test Item Value Reference Range Interpretation Comments WBC (test code = WBC) 8.5 K/cumm 4.4-10.5 N RBC (test code = RBC) 5.08 M/cumm 3.75-5.20 N Hemoglobin (test code = HGB) 14.2 gm/dL 12.2-14.8 N Hematocrit (test code = HCT) 40.9 % 36.5-44.4 N MCV (test code = MCV) 80.6 fL 80-100 N MCH (test code = MCH) 28.0 pg 27.0-32.5 N MCHC (test code = MCHC) 34.8 g/dL 32.0-37.5 N RDW (test code = RDW) 13.8 % 11.5-14.5 N Platelet Count (test code = 255 K/cumm 140-440 N PLTCT) MPV (test code = MPV) 9.2 fL Diff Method (test code = DIFFM) Auto Neutrophil (test code = NEUT) 56.8 % 36-70 N Lymphocyte (test code = LYMPH) 36.9 % 12-44 N Monocyte (test code = MONO) 4.2 % 0-11 N Eosinophil (test code = EOS) 1.6 % 0-7 N Basophil (test code = BASO) 0.4 % 0-2 N Neutro Abs (test code = ANEUT) 4.8 K/cumm 1.6-7.4 N Lymph Abs (test code = ALYMPH) 3.1 K/cumm 0.5-4.6 N Trinity Abs (test code = AMONO) 0.4 K/cumm 0.0-1.2 N Eos Abs (test code = AEOS) 0.14 K/cumm 0.00-0.74 N Baso Abs (test code = ABASO) 0.0 K/cumm 0.00-0.21 N CHEM SHABR2780-71-04 09:59:26703Ykqnvqdg HermannCHEM CZUTC0064-28-35 09:59:97886 [facility] HermannCHEM XLLIW7976-14-63 09:59:0016[facility] HermannCHEM PANEL 2017-09-14 09:59:001.19[facility] HermannCHEM KXWNR9360-39-28 09:59:0011.9[facility] HermannCHEM TXAMX7496-28-27 09:59:0096[facility] HermannCHEM FKPMA9736-48-99 09:59:0030[facility] HermannCHEM TOSUP4401-36-94 09:59:008.2[facility] HermannCHEM PDEIO8228-48-25 09:59:004.9[facility] HermannCHEM JCKDN9272-42-18 09:59:0043 [facility] HermannCHEM JASEM1939-03-58 06:06:002.0[facility] HermannCHEM PANEL 2017-09-14 03:25:002.8[facility]annURINE AND BOJAU3599-43-75 00:52:0046 [facility] MDGEW3523-65-63 00:52:00Large *ABN*(09/13/17 7:52 PM) [facility] GTSAV4529-58-70 00:52:00Negative *NA*(09/13/17 7:52 PM)[facility] OWTZB4044-82-09 00:52:0021[facility] GNFKM6229-07-26 00:52:00Negative (09/13/17 7:52 PM)[facility] QUHCN1765-83-62 00:52:00Negative (09/13/17 7:52 PM)[facility] IAGED6762-22-08 00:52:005.0[facility] BHCPK4651-39-37 00:52:00 1.016[facility] JTTKJ8511-68-52 00:52:00Light Yellow *NA*(09/13/17 7:52 PM)[facility] RIQFH1378-12-03 00:52:00Slight *ABN*(09/13/17 7:52 PM)[facility] HermannCARDIAC MEZLAPP4808-41-47 00:47:00<0.7 [facility]annCARDIAC BWEGOWE9280-11-66 00:47:0075[facility]annCARDIAC BPRQOKH8519-08-98 00:47:00<0.5[facility]annCARDIAC EBVTIRQ9416-31-43 00:47:000.03[facility] HermannCHEM KJXKH1663-40-96 00:47:0048[facility] HermannCHEM WHISA1303-06-84 00:47:000.4[facility] HermannCHEM QFAQS3818-19-89 00:47:0027 [facility]annCHEM LHKUS7576-88-79 00:47:0094[facility] HermannCHEM PANEL 2017-09-14 00:47:007.4[facility] HermannCHEM ZRUBP5189-57-95 00:47:0019[facility] HermannCHEM TMOJB1758-13-16 00:47:003.0[facility] HermannCHEM SOOND4837-41-54 00:47:13853Npczarfr HermannCHEM TZLLE3077-76-48 00:47:0031[facility] HermannCHEM FVUNJ1754-33-39 00:47:001.07[facility] HermannCHEM YCMNN3435-40-85 00:47:004.9 [facility] HermannCHEM XZSOH4627-85-11 00:47:65091Nwuwaqoo HermannCHEM PANEL 2017-09-14 00:47:008.5[facility] HermannCHEM ZGAEW2789-87-64 00:47:0013[facility] HermannCHEM OZVPC3226-35-17 00:47:62794Tjjjyedz HermannCHEM YNWBQ1417-14-13 00:47:000.7[facility] HermannCHEM YFPKX9562-35-88 00:47:0013.9[facility] HermannCHEM NJKVT9754-78-84 00:47:004.4[facility] HermannCHEM WELAW8098-74-93 00:47:0012 [facility] HermannCHEM VIRWO3729-54-79 00:47:003.2[facility] HermannCHEM PANEL 2017-09-14 00:47:000.41[facility] YjayhaoHLGTFBGRSQ8649-28-90 00:47:001.0[facility] UgspmyrRKQSYVAHPO7585-35-41 00:47:000.1[facility] LfcyfjgVQAQSUMAPO7296-68-95 00:47:000.0[facility] EjgldmeNFJFOJBCNG4259-90-29 00:47:000.0[facility] DLDEVUWTDF0500-25-98 00:47:000.1[facility] RimapfuETFUANVLHB9272-68-84 00:47:009.3 [facility] TjpqxctSJRKVXDEQJ9227-48-32 00:47:000.0[facility] HermannHEMATOLOGY 2017-09-14 00:47:009.5[facility] IfblkcpHJIBLFEYIL5345-23-00 00:47:0089.9[facility] QspsvahHLELMRITIQ2645-56-69 00:47:000.5[facility] RcnpqqoSMTPQIKYWM3970-79-13 00:47:0032.9[facility] MvbapftAZLFJVWCSP4661-62-02 00:47:0014.1[facility] MBGWDYWBAI6315-18-28 00:47:00 Test Item Value Reference Range Interpretation Comments MCH (test code = MCH) 28.2 pg 27.0-31.0 [facility] RznfqgbXMJTWILNGR2218-11-92 00:47:39524Ppflglue HermannHEMATOLOGY 2017-09-14 00:47:0085.7[facility] FjwxqflTZMJGMEIGA2857-68-00 00:47:0013.8[facility] CeqnfimOKSLXFFAFJ1965-89-63 00:47:0041.9[facility] BimbbbxYMMJMWAAYD3763-55-42 00:47:0010.4[facility] TguzmilNONTLHGIMD3191-19-53 00:47:004.88[facility] RIGNBAJKNN1887-30-67 00:47:008.4[facility] UflntauNPBGSTVAGK6516-16-33 00:47:00 Test Item Value Reference Range Interpretation Comments PT (test code = PT) 13.3 s 12.0-14.7 [facility] PzupwsySGLETCAJVT5586-30-85 00:47:000.99[facility] HermannHEMATOLOGY 2017-09-14 00:47:00 Test Item Value Reference Range Interpretation Comments PTT (test code = PTT) 21.3 s 22.9-35.8 [facility] HermannMOLECULAR QDPYTFWOXN5979-79-20 00:47:00Not Detected (09/13/17 7:47 PM)[facility] HermannMOLECULAR ZCZQMNKDQK1973-49-93 00:47:00Not Detected (09/13/17 7:47 PM)[facility] HermannMOLECULAR JZXCCRDAWP1495-43-34 00:47:00Not Detected (09/13/17 7:47 PM)[facility] HermannMOLECULAR RHICMVECCN0945-54-97 00:47:00Not Detected (09/13/17 7:47 PM)[facility] HermannMOLECULAR DIAGNOSTIC 2017-09-14 00:47:00Not Detected (09/13/17 7:47 PM)[facility] HermannMOLECULAR CGSTLHQKEI4131-67-33 00:47:00Not Detected (09/13/17 7:47 PM)[facility] MOLECULAR XZYBFMGEDC3347-37-43 00:47:00Not Detected (09/13/17 7:47 PM)[facility] HermannMOLECULAR FXBSRLRGHK7316-45-14 00:47:00Not Detected (09/13/17 7:47 PM) [facility]annMOLECULAR KWDETAXZPA7595-81-06 00:47:00Not Detected (09/13/17 7:47 PM)[facility] HermannMOLECULAR KZNDCLPSHT2616-18-32 00:47:00Not Detected (09/13/17 7:47 PM)[facility] HermannMOLECULAR SRZRGHOZUU0836-68-71 00:47:00Not Detected (09/13/17 7:47 PM)[facility] HermannMOLECULAR VBCSIFLWIV2496-94-91 00:47:00Not Detected (09/13/17 7:47 PM)[facility] HermannMOLECULAR DIAGNOSTIC 2017-09-14 00:47:00Detected *ABN*(09/13/17 7:47 PM)[facility] HermannMOLECULAR XUSHHSSEQD5175-31-48 00:47:00Not Detected (09/13/17 7:47 PM)[facility] HermannCHEM NQIIL4266-78-43 10:40:001.9[facility] HermannCHEM FYDLQ2128-73-80 10:40:002.7 [facility] OjwcvabNTOQONVJCDNL0071-86-78 10:40:0013.1[facility] HermannELECTROLYTES 2017-06-24 10:40:0061[facility] DginqyoTTCVGYUJFFQU4705-32-00 10:40:0096[facility] PkliveuHIRWCPGFETZL3199-28-14 10:40:0027[facility] QyqdjpgBSPNMPXWYPYS1984-40-08 10:40:009.1[facility] QdaixjcCQPERZCSUKXA6680-41-68 10:40:004.1[facility] RQGULHPWAULK2031-78-67 10:40:01954Kphgxfjo BmowhguVPSDNZZCCTMO2663-17-28 10:40:000.89[facility] JwthjlcKBXOQLNOHXGX8479-20-44 10:40:0013[facility] XBRJVMVDZAGZ2516-79-12 10:40:35691Piaiwvio RrwhymwVJJWZMSRFC6299-12-88 10:40:00 2.9[facility] AudeykmQAKCJMFWWJ5807-18-47 10:40:000.9[facility] HermannHEMATOLOGY 2017-06-24 10:40:002.4[facility] XywigqdGBGUFYILOE5700-69-68 10:40:000.1[facility] EilvbmuRHWKETQBUV3741-07-74 10:40:002.9[facility] GvqyjewWVLSJZOJQO4136-63-84 10:40:000.5[facility] MovpflfNNNKKVEHFQ5597-23-99 10:40:0044.1[facility] NGROJJOIRZ8445-40-51 10:40:007.9[facility] JjhogenAAWNXTPEBQ2918-95-32 10:40:000.2 [facility] XwhnrnwZCLWUQNQYL0300-56-81 10:40:0044.7[facility] HermannHEMATOLOGY 2017-06-24 10:40:0033.4[facility] SvomxcxRSXWYILTCO4395-31-82 10:40:0087.1[facility] SxdhdgnHPETBIBHTJ8186-91-56 10:40:0012.9[facility] GjicforAGTACJMHRU5085-81-27 10:40:00 Test Item Value Reference Range Interpretation Comments MCH (test code = MCH) 29.1 pg 27.0-31.0 [facility] IlvqkisRDJLWRJPQY7911-84-05 10:40:004.43[facility] HermannHEMATOLOGY 2017-06-24 10:40:006.6[facility] DwiteseWONRQCXYGA6915-14-54 10:40:59085Mjqucrbs BhdptoeDGBLUGGUTW6262-29-42 10:40:0013.8[facility] FommomtRRGTAAWGAL7006-03-27 10:40:0038.6[facility] NfdgekpGQWMRDSETJ4239-77-53 10:40:008.4[facility] PARATHYROID HNBQRRM6153-53-56 10:40:001.14[facility] HermannPARATHYROID PROFILE 2017-06-24 10:40:001.15[facility] HermannCHEM SVUGV6413-75-04 10:18:003.4[facility] HermannCHEM HJXKS4990-93-20 10:18:002.0[facility] KuvanevEKEIQQVTWWJG7542-84-56 10:18:0011.6[facility] OkglomeFAPDKZXDLVHB4427-06-73 10:18:003.6[facility] SJAFJCGCIIRC6960-74-06 10:18:74341Yjqurdxe WjdpawrDEHCAFCAVLJC5105-77-48 10:18:0031[facility] PeojvdiUGURCMAPQGHE9568-86-72 10:18:65407Ioxhhb[place] IOWRGZKEGEXR8753-69-46 10:18:008.9[facility] FikojiuRJUQVQTGLILQ6218-53-02 10:18:0011[facility] NicctqiECIVHYKGWHCO4443-66-09 10:18:17859Vbzbsuic [facility] GUWBQJJVPWJE1533-77-11 10:18:0070[facility] LryzkcnSLHUYYECMFEA2941-35-77 10:18:00 0.79[facility] JhdtzpgALTMNWLJUL2238-56-44 10:18:000.2[facility] HermannHEMATOLOGY 2017-06-23 10:18:000.1[facility] JljauzdNYRIGMZQJK3046-17-35 10:18:0045.3[facility] FpunhbcEFVPJHJICP9149-15-67 10:18:002.8[facility] VfipeatEDWOHTTAAW9093-80-17 10:18:0044.1[facility] UwvguzyXBGPXECPXS9712-55-81 10:18:006.9[facility] KOSQSIKVXF0634-24-74 10:18:002.9[facility] KqdnxmbKUVHNZNWLL0852-66-79 10:18:000.9 [facility] GltakmtVTTGNLHGEX3459-71-81 10:18:002.9[facility] HermannHEMATOLOGY 2017-06-23 10:18:000.4[facility] DatperxKLGQDTABAU2312-56-48 10:18:0014.2[facility] NldphejAXVULKFNVU9635-65-05 10:18:02525Meusoakd KgtjifyAJMLJAWYTU9483-59-91 10:18:007.9[facility] IlhubagUJJZVTDMKT4629-63-78 10:18:0033.9[facility] PTYUQMCKWA7165-96-08 10:18:00 Test Item Value Reference Range Interpretation Comments MCH (test code = MCH) 29.1 pg 27.0-31.0 [facility] GohjjdzQNRINKXIBB6483-99-14 10:18:0085.6[facility] HermannHEMATOLOGY 2017-06-23 10:18:004.06[facility] MzuralxZJVBVLHVUH6078-83-78 10:18:0011.8[facility] AtscsxfTVRMHCBPPL2364-02-62 10:18:0034.7[facility] PfkszwhXBQLODMIFO1480-23-04 10:18:006.5[facility] HermannPARATHYROID FDIUCRD3364-43-17 10:18:001.16[facility] HermannPARATHYROID VCMMCGN6540-14-42 10:18:001.17[facility] HermannIMMUNOLOGY 2017-06-22 22:09:00Negative *NA*(06/22/17 5:09 PM)[facility] HermannTOXICOLOGY 2017-06-22 22:09:0088[facility] HermannANEMIA UVHEI8224-14-64 15:21:49636Lkftrqir HermannANEMIA LGLFZ2568-17-30 15:21:0018.2[facility] HermannCHEM NMFIP7160-46-41 15:21:63047.1[facility] HermannCHEM GNVBX4484-36-67 15:21:0032.0[facility] GIFSEBROGM7351-54-01 15:21:00Non Reactive (06/22/17 10:21 AM)[facility] HermannCHEM ERYPO5766-22-66 05:08:002.4[facility] HermannCHEM OMEZP5845-08-36 05:08:001.8 [facility] SwmqtibTSESTUPWSHHO9213-00-51 05:08:0014.9[facility] HermannELECTROLYTES 2017-06-22 05:08:0050[facility] HodztqgYUKUUQXNIJCA8654-17-16 05:08:62384Aakveuwd PvrdzobKQSIYCSRVKGF6403-57-90 05:08:67155Ljcestgr UcwwspfFKVKVXRHAAHR0645-21-87 05:08:0027[facility] YuumjkyXKQWFHPFASEJ0120-09-66 05:08:003.9[facility] EHRYZPJLCDVM6199-12-93 05:08:009.0[facility] RypkfvgTYVHVPQSMFOH4109-07-40 05:08:009[facility] OyycqkaMOUJIQSWKRAL4064-89-72 05:08:001.05[facility] SKCUVQVWHGAL6938-80-67 05:08:91235Wnjanrij TimvbcfDATZMRBXKT7540-71-06 05:08:00 8.1[facility] MrvzkjiEBKCVMYMPH1319-23-15 05:08:67029Iozueddg HermannHEMATOLOGY 2017-06-22 05:08:0014.3[facility] NjdbzsqBRGSKQUPGC0863-39-82 05:08:0034.0[facility] CfosxfgNMFAPTFOHN1067-33-31 05:08:00 Test Item Value Reference Range Interpretation Comments MCH (test code = MCH) 29.2 pg 27.0-31.0 [facility] RhyuthqTMHRSXAQQM2856-34-55 05:08:008.0[facility] HermannHEMATOLOGY 2017-06-22 05:08:0035.6[facility] YovkxbaYTIORPQRPY5529-74-40 05:08:0085.9[facility] XtzmkugCOIKQGSHCZ1063-07-83 05:08:0012.emorial TabyxgtDAMFUKNOSX2264-16-40 05:08:004.14[facility] NcuypktHCMZFPTWTR4575-98-03 05:08:000.1[facility] AYLYKBUSKL5462-51-21 05:08:002.1[facility] CyonucaSPTXSJKARQ0490-15-73 05:08:005.3 [facility] DqtkivoTLOAFERKZP4056-11-00 05:08:000.1[facility] HermannHEMATOLOGY 2017-06-22 05:08:000.5[facility] EktkcloDHDLUMXHKI1826-04-24 05:08:000.8[facility] TpwlbuzNRECWWFOOD4652-20-00 05:08:000.9[facility] SigidbrYRXXSIGNCI0111-12-43 05:08:0065.6[facility] VdtzdnpNPIYPUEHAH2391-76-32 05:08:006.2[facility] KDAAHLXCNW9047-36-68 05:08:0026.5[facility] HermannPARATHYROID QUFNIMF7160-08-23 05:08:001.13[facility] HermannPARATHYROID YGSXJBB5295-53-46 05:08:001.15[facility] HermannCHEM POTTW3536-57-80 15:52:003.2[facility] HermannCHEM CQNVY5559-96-23 15:52:000.7[facility] HermannCHEM MXADL0207-50-95 15:52:000.3[facility] HermannCHEM PQOEE2225-78-73 15:52:0017[facility] HermannCHEM WDHTT7235-14-02 15:52:005.5 [facility] HermannCHEM VUGVR6308-60-65 15:52:0029[facility] HermannCHEM PANEL 2017-06-21 15:52:002.3[facility] HermannCHEM SLZMZ7866-44-47 15:52:0061[facility] HermannCHEM GCZYY2803-73-98 15:52:000.4[facility] HermannCHEM DKBIN9663-13-06 15:52:000.1[facility] HermannCHEM LLCAB0177-78-21 05:13:0031[facility] HermannCHEM MRCQL3440-81-22 05:13:0019[facility] HermannCHEM JCMYH0138-98-82 05:13:000.5 [facility] HermannCHEM ZFSBY9368-72-61 05:13:0064[facility] HermannCHEM PANEL 2017-06-21 05:13:002.7[facility] HermannCHEM ZCMIV0720-45-62 05:13:000.1[facility] HermannCHEM XHQSN1645-67-79 05:13:006.2[facility] HermannCHEM JBQVO8876-47-49 05:13:000.8[facility] HermannCHEM SAEUI0702-43-99 05:13:003.5[facility] HermannCHEM PSDDW9866-98-55 05:13:000.4[facility] HermannCHEM MZPHM6530-59-50 05:13:00<0.05 [facility] JpbaorlWGVXWVAYZE3015-74-92 05:13:001.09[facility] HermannHEMATOLOGY 2017-06-21 05:13:00 Test Item Value Reference Range Interpretation Comments PTT (test code = PTT) 26.3 s 22.9-35.8 [facility] RqlyrepRRHUYFMMPL6444-91-72 05:13:00 Test Item Value Reference Range Interpretation Comments PT (test code = PT) 14.3 s 12.0-14.7 [facility] VyjegteNDVALF3543-68-17 18:13:002.65[facility] LwoqxviKJJILW6462-72-10 18:13:0020[facility] KkelvnfADXQRU3720-71-18 18:13:0041[facility] HermannLIPIDS 2017-06-20 18:13:0037[facility] YvrleodNHAHPA3743-94-52 18:13:0098[facility] MSOBXN7349-91-98 18:13:0098[facility] HermannCHEM XWEYH7216-97-17 08:10:55189 [facility] HermannSPECIAL UVAQRPNES5145-51-99 08:10:007.9[facility] HermannBACTERIAL - JJTCTGSQ0316-95-92 07:17:00Negative (06/20/17 2:17 AM)[facility] HermannCHEM UOCET8581-04-65 07:17:000.4[facility] HermannCHEM RRDKW5971-27-26 07:17:000.5 [facility] HermannCHEM OAIKB0031-55-74 07:17:000.1[facility] HermannCHEM PANEL 2017-06-20 07:17:002.9[facility] HermannCHEM BWNNP2274-36-24 07:17:000.8[facility] HermannCHEM PWXVJ0889-75-97 07:17:0024[facility] HermannCHEM SYTHR2228-83-99 07:17:0078[facility] HermannCHEM YATVZ2423-96-34 07:17:0024[facility] HermannCHEM ERZPK5744-57-68 07:17:003.8[facility] HermannCHEM WVYGF1625-01-22 07:17:006.7 [facility] HermannDRUG JWATZF1531-39-73 07:17:00Negative *NA*(06/20/17 2:17 AM) [facility] HermannDRUG SNAAQP6066-96-84 07:17:00Negative *NA*(06/20/17 2:17 AM) [facility] HermannDRUG AZOZMX5957-96-51 07:17:00Negative *NA*(06/20/17 2:17 AM) [facility] HermannDRUG SISUQQ8523-56-13 07:17:00See Note (06/20/17 2:17 AM)[facility] HermannDRUG MOBSGN2553-92-61 07:17:00Negative *NA*(06/20/17 2:17 AM)[facility] HermannDRUG OQUXVF7694-14-06 07:17:00Negative *NA*(06/20/17 2:17 AM)[facility] HermannDRUG VXXPHI1515-80-39 07:17:00Negative *NA*(06/20/17 2:17 AM)[facility] HermannDRUG AHDZZK6593-55-42 07:17:00Positive *ABN*(06/20/17 2:17 AM)[facility]annURINE AND DHABQ8631-75-07 07:17:0022[facility]annURINE AND STOOL 2017-06-20 07:17:00>=1.050 *ABN*(06/20/17 2:17 AM)[facility]annURINE AND VALNF9558-97-65 07:17:001[facility]annURINE AND GHJIZ2266-21-99 07:17:00 Yellow *NA*(06/20/17 2:17 AM)[facility]annUR[facility] AND GMTIY1487-22-30 07:17:00 Clear (06/20/17 2:17 AM)[facility]annUR[facility] AND YYUEK3302-30-51 07:17:006.5 [facility]annURINE AND AYGUX5380-74-63 07:17:00Small *ABN*(06/20/17 2:17 AM) [facility]UR[facility] AND JKGID6665-02-04 07:17:00Negative *NA*(06/20/17 2:17 AM) [facility]UR[facility] AND DILPK1917-97-70 07:17:00Negative (06/20/17 2:17 AM) [facility] AND CYZSM4783-17-57 07:17:00Negative (06/20/17 2:17 AM) [facility]annURINE SVOV2988-48-39 07:17:0072[facility] HermannCARDIAC ENZYMES 2017-06-20 03:23:23871Mkjehovn HermannCARDIAC QMLEMAQ2871-56-20 03:23:000.7 [facility] HermannCARDIAC ZZRBKBH4871-17-32 03:23:00<0.02[facility] CARDIAC WFGNRFM3677-76-32 03:23:000.7[facility] NwzxbrxFSSRLNOSXC0800-64-33 03:23:00 Test Item Value Reference Range Interpretation Comments PT (test code = PT) 12.8 s 12.0-14.7 [facility] JrabgmxGANHGXYPPJ1189-95-50 03:23:000.94[facility] HermannHEMATOLOGY 2017-06-20 03:23:00 Test Item Value Reference Range Interpretation Comments PTT (test code = PTT) 24.3 s 22.9-35.8 [facility]
[2020-10-17] MEDS ORDERED: NA CHLORIDE 0.9% 2,000 ML ONE (12:24)
[2020-10-17 12:38] LABS: Absolute Lymphocytes (CBC) 16.7 K/uL (0.7-4.9); Basophils % 0.3 % (0-1.3); Hematocrit 31.8 % (36.0-45.0); Lymphocytes % 48.9 % (15.3-44.8); MPV 7.3 fL (7.6-11.3); RBC Red Blood Cell Count 3.68 M/uL (3.86-4.86)
[2020-10-17 12:46] LABS: Albumin 1.5 g/dL (3.4-5.0); Bilirubin Direct 0.5 mg/dL (0-0.2); Bilirubin Total 0.8 mg/dL (0.2-1.0); Protein, Total 6.4 g/dL (6.4-8.2)
[2020-10-17] MEDS ORDERED: NA CHLORIDE 0.9% 1,000 ML ONE ×3 (12:51→17:06)
[2020-10-17] MEDS ORDERED: NOREPINEPHRINE 4mg/D5W 250mL 4 MG/250 ML BAG IV ONE ×2 (13:03→18:11)
[2020-10-17] MEDS ORDERED: PIPER/TAZO/NS 3.375gm 3.375 GM/100 ML BAG ONE (13:04)
[2020-10-17] MEDS ORDERED: VANCOMYCIN/NS 1 gm 1 GM/250 ML BAG IV ONE (13:30)
[2020-10-17 13:41] LABS: Platelet Estimate ADEQ
[2020-10-17 13:42] LABS: Anisocytosis 1+; Blood Morphology Comment NOTED (NOT SEEN); Burr Cells 1+
[2020-10-17 15:08] LABS: Urine Bacteria <20 /HPF (<20); Urine RBC <5 /HPF (NONE SEEN)
[2020-10-17 15:09] LABS: Urine Amorphous Sediment 1+ /HPF (NONE SEEN)
[2020-10-17 16:21] LABS: Urine Blood NEGATIVE (NEG); Urine Glucose NEGATIVE (NEG); Urine Protein NEGATIVE (NEG)
--- NOTE | 2020-10-17 16:35 | RAD REPORT ---
EXAM DESCRIPTION: CT - Head Brain Wo Cont - 10/17/2020 3:51 pm CLINICAL HISTORY: Alteration of awareness/confusion COMPARISON: 2014 TECHNIQUE: Computed axial tomography of the head was obtained. IV contrast was not requested. All CT scans are performed using dose optimization technique as appropriate and may include automated exposure control or mA/KV adjustment according to patient size. FINDINGS: An intracranial bleed is not seen . The ventricles are normal in caliber. No extra-axial fluid collection is noted. 14 millimeter calcified mass abuts the right aspect of the tentorium. It is unchanged compatible with meningioma. No surrounding edema Mild low-density areas within periventricular, deep and subcortical white matter likely represent isc hemic changes secondary to small vessel disease. Fluid within the sinuses/ mastoids is not seen. IMPRESSION: No acute intracranial abnormality is seen. If patient's symptoms persist MRI of the bra in would be recommended.
--- NOTE | 2020-10-17 16:46 | RAD REPORT ---
EXAM DESCRIPTION: CT - Abdomen Pelvis W Contrast - 10/17/2020 3:51 pm CLINICAL HISTORY: Abdominal pain COMPARISON: none. TECHNIQUE: Computed axial tomography of the abdomen pelvis was obtained. 100 cc Isovue-300 was admin istered intravenously. Oral contrast was not requested which limits evaluation of bowel. All CT scans are performed using dose optimization technique as appropriate and may include automated exposure control or mA/KV adjustment according to patient size. FINDINGS: 4.3 centimeter mass is present within the pancreatic neck. It contains small calcification s and a complex cystic areas. 2.2 centimeter soft tissue structure is present posterior to the splenic vein which may represent a l ymph node. 2.8 centimeter left adrenal mass. The liver, right adrenal gland and kidneys unremarkable. Spleen is enlarged measuring 14 centimeters Rectum is mildly distended with stool. No evidence of diverticulitis. A periumbilical hernia contains small bowel. The neck measures 3.6 centimeters. A Lim catheter present within the bladder. Postsurgical changes involve the spine. Sacral decubitus ulcer is present. 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
--- NOTE | 2020-10-17 17:01 | EDPHYS ---
Physician Documentation [facility] Name: Renetta Parmar Age: 85 yrs Sex: Female : 1935 Arrival Date: 10/17/2020 Time: 12:02 Bed 3 Private MD: ED Physician Be Perez HPI: 10/17 15:53 This 85 yrs old Female presents to ER via EMS with complaints of Altered rn Mental Status. 15:53 The patient presents with decreased responsiveness. Onset: The symptoms/episode rn began/occurred at an unknown time. Possible causes: unknown. Associated signs and symptoms: Pertinent positives: confusion, diarrhea, Pertinent negatives: abdominal pain, chest pain, headache, seizure. Current symptoms: In the emergency department the patient's symptoms are unchanged from the initial presentation. It is unknown whether or not the patient has had similar symptoms in the past. The patient has not recently seen a physician. Per EMS, found laying in feces, covered in it, + large sacral wound, unknown onset. Found to be hypotensive and tachycardic. No IV obtained by EMS, no meds given.. Historical: - Allergies: 13:34 PENICILLINS; jl7 - Home Meds: 13:52 metoprolol tartrate 50 mg oral tab 1 tab once daily [Active]; aspirin 81 mg Oral chew 1 jl7 tab once daily [Active]; metoprolol tartrate 100 mg Oral tab 1 tab once daily [Active]; lisinopril 40 mg Oral tab 1 tab once daily [Active]; Novolin 70/30 [place] Sub-Q [Active]; - PMHx: 13:34 Arthritis; Diabetes - IDDM; Hypertension; ovarian cancer; TIA; jl7 - PSHx: 13:34 Knee surgery; back; jl7 - Immunization history:: Adult Immunizations unknown. - Social history:: Smoking status: unknown. - Family history:: not pertinent. - History obtained from: EMS. - Unable to obtain history due to: altered mental status. ROS: 15:53 Unable to obtain ROS due to altered mental status. rn Exam: 15:53 Constitutional: Overweight female, somnolent Head/Face: Normocephalic, atraumatic. cerner analyst: dry MM Cardiovascular: Tachycardic, regular Respiratory: No increased work of breathing, no retractions or nasal flaring. Abdomen/GI: soft, non-tender Back: + large sacral decubitus wound with feces in it, drainage, and foul smell, difficult to appreciate how deep due to outpouring of feces and fluid. Skin: Warm, dry MS/ Extremity: Pulses equal, no cyanosis. + left distal lateral leg with large ulceration, tendons exposed, no drainage, surrounded by mild erythema. Neuro: Awake, somnolent, mumbles, difficult to understand Vital Signs: 12:23 BP 67 / 56; Pulse 140; Resp 30; Temp 98.5(O); Pulse Ox 99% on R/A; Weight 117.93 kg (R);tw2 13:08 BP 72 / 55; Pulse 119; Resp 30; Pulse Ox 99% on R/A; tw2 13:15 BP 70 / 61; Pulse 108; Resp 22; Pulse Ox 96% on R/A; tw2 13:25 BP 63 / 46; Pulse 101; Resp 22; Pulse Ox 96% on R/A; tw2 13:30 BP 81 / 59; ec1 13:33 BP 93 / 79; Pulse 139; Resp 14; ec1 13:40 BP 99 / 53; Pulse 95; Resp 22; Pulse Ox 98% on R/A; tw2 13:50 BP 93 / 78; Pulse 133; Resp 23; Pulse Ox 97% on R/A; tw2 14:00 BP 64 / 53; Pulse 115; Resp 20; Temp 96.1; Pulse Ox 98% on R/A; tw2 14:10 BP 75 / 29; Pulse 115; Resp 20; Pulse Ox 100% on R/A; tw2 14:20 BP 79 / 68; Pulse 139; Resp 18; Temp 98(C); Pulse Ox 98% on R/A; tw2 14:25 BP 84 / 53; Pulse 129; Resp 22; Pulse Ox 95% on R/A; tw2 14:30 BP 67 / 54; Pulse 131; Resp 20; Pulse Ox 97% on R/A; tw2 14:35 BP 113 / 66; Pulse 136; Resp 19; Temp 97.9(C); Pulse Ox 97% on R/A; tw2 14:40 BP 89 / 50; Pulse 136; Resp 22; Pulse Ox 97% ; tw2 15:12 BP 60 / 55; ec1 15:15 BP 91 / 67; Pulse 135; Resp 24; Temp 97.2(C); Pulse Ox 99% on R/A; ec1 15:20 BP 92 / 62; Pulse 132; Resp 22; Temp 97.2(C); Pulse Ox 100% on R/A; ec1 15:20 BP 101 / 39 LA Sitting (auto/reg); Pulse 102; Resp 24 S; Temp 97.2; Pulse Ox 100% on ec1 R/A; 15:30 BP 108 / 82; Pulse 123; Resp 17; Temp 97.2(C); Pulse Ox 100% on R/A; ec1 15:50 BP 64 / 43; Pulse 120; Resp 22; ec1 15:55 BP 93 / 57; Pulse 125; Resp 22; Temp 97.1; Pulse Ox 97% on R/A; ec1 16:15 BP 98 / 78; Pulse 126; Resp 20 S; ec1 16:25 BP 90 / 42; Pulse 130; ec1 16:55 BP 94 / 48; Pulse 121; Resp 28 S; Temp 97.1(C); Pulse Ox 100% ; ec1 17:05 BP 86 / 55; Pulse 133; Resp 28 S; Temp 97.1(C); Pulse Ox 96% on R/A; ec1 17:15 BP 102 / 45; Pulse 134; Resp 28 S; Temp 97.2(C); ec1 17:25 BP 97 / 52; Pulse 133; Resp 26 S; Temp 97.1(C); Pulse Ox 98% on R/A; ec1 17:54 BP 95 / 77; Pulse 151; Resp 28; Temp 97(C); Pulse Ox 100% on R/A; ec1 18:11 BP 118 / 52; Pulse 151; Resp 28 S; Temp 97(C); Pulse Ox 100% on R/A; ec1 18:30 BP 113 / 97; Pulse 150; Resp 20; Temp 96(C); Pulse Ox 100% on R/A; ec1 18:45 BP 118 / 53; Pulse 156; Resp 28 S; Temp 96.5(C); Pulse Ox 100% on R/A; ec1 19:13 BP 102 / 44; Pulse 149; Resp 27; Temp 97(C); Pulse Ox 100% ; rr5 20:42 BP 98 / 73; Pulse 130; Resp 20; Temp 96.7; Pulse Ox 100% ; ea 10/18 00:00 BP 86 / 57; Pulse 97; Resp 20; Pulse Ox 100% ; rr5 00:00 BP 86 / 57; rr5 00:17 BP 91 / 72; Pulse 89; Resp 19; Pulse Ox 100% ; rr5 00:00 increased norepinephrine to 12 mcg/min rr5 Procedures: 10/17 13:10 Central Line: the site was prepped with Betadine, in sterile fashion, a triple lumen rn catheter was inserted, in the right femoral vein, in 2 attempts. placement was verified, the site was dressed with Tegaderm, using sterile technique, the patient tolerated the procedure, well. MDM: 12:02 Patient medically screened. rn 16:57 Differential Diagnosis: CVA, electrolyte abnormality, sepsis, TIA, UTI, volume rn depletion, infected sacral wound, fistula, cancer, dehydration. Data reviewed: vital signs, nurses notes, lab test result(s), EKG, radiologic studies, CT scan, plain films, and as a result, I will admit patient. Counseling: I had a detailed discussion with the patient and/or guardian regarding: the historical points, exam findings, and any diagnostic results supporting the discharge/admit diagnosis, lab results, radiology results, the need for further work-up and treatment in the hospital. Response to treatment: the patient's symptoms have mildly improved after treatment, and as a result, I will admit patient. Admission orders: after a detailed discussion of the patient's condition and case, the admit orders are written by me. ED course: Admitted to Dr. Urias for sepsis, with hypotension, most likely 2/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 Have had to titrate up the levophed drip due to persistent hypotension. Vanc/zosyn given. fluids x 3L given, now on maintenance. . 10/17 12:05 Order name: Basic Metabolic Panel; Complete Time: 14:56 rn 10/17 12:05 Order name: CBC with Diff rn 10/17 12:05 Order name: Hepatic Function; Complete Time: 14:56 rn 10/17 12:05 Order name: Lipase; Complete Time: 14:56 rn 10/17 12:05 Order name: Urine Culture rn 10/17 12:05 Order name: Urine Microscopic Only; Complete Time: 16:49 rn 10/17 12:05 Order name: Blood Culture Adult (2) rn 10/17 12:05 Order name: Procalcitonin; Complete Time: 14:56 rn 10/17 12:05 Order name: Lactate; Complete Time: 14:56 rn 10/17 12:05 Order name: Stool Culture rn 10/17 12:05 Order name: CDIFF rn 10/17 12:05 Order name: Flu; Complete Time: 14:56 rn 10/17 12:33 Order name: Glucose, Ancillary Testing; Complete Time: 14:56 EDGA 10/17 12:05 Order name: CT Abd/Pelvis - IV Contrast Only; Complete Time: 16:49 rn 10/17 12:05 Order name: CT Head Brain wo Cont; Complete Time: 16:49 rn 10/17 13:11 Order name: CREATININE WHOLE BLOOD; Complete Time: 14:56 EDGA 10/17 13:41 Order name: Manual Differential EDGA 10/17 14:24 Order name: Urine Dipstick--Ancillary (enter results); Complete Time: 16:49 bd 10/17 16:22 Order name: Lactate Sepsis 2 HR Follow-up; Complete Time: 16:49 EDGA 10/17 16:50 Order name: SARS-COV-2 RT PCR; Complete Time: 16:55 EDGA 10/17 18:33 Order name: Glucose, Ancillary Testing; Complete Time: 20:05 EDGA 10/18 01:37 Order name: Glucose, Ancillary Testing EDGA 10/18 01:54 Order name: Lactate EDGA 10/18 05:09 Order name: CBC with Automated Diff EDGA 10/18 05:15 Order name: Lactate EDGA 10/18 05:16 Order name: Basic Metabolic Panel EDGA 10/18 05:16 Order name: Vancomycin Level Trough EDGA 10/18 11:18 Order name: Glucose, Ancillary Testing EDGA 10/18 14:52 Order name: Glucose, Ancillary Testing EDGA 10/17 12:05 Order name: IV Saline Lock; Complete Time: 12:19 rn 10/17 12:05 Order name: Labs collected and sent; Complete Time: 12:19 rn 10/17 12:05 Order name: XRAY Chest (1 view); Complete Time: 17:07 rn 10/17 12:05 Order name: Urine Dipstick-Ancillary (obtain specimen); Complete Time: 15:23 rn 10/17 20:16 Order name: CONS Physician Consult EDMS Administered Medications: 12:10 Drug: NS 0.9% 1000 ml Route: IV; Rate: 1000 ml; Site: left wrist; tw2 13:10 Follow up: Response: No adverse reaction; IV Status: Completed infusion; IV Intake: ec1 1000ml 12:30 Drug: NS 0.9% 1000 ml Route: IV; Rate: 1000 ml; Site: left wrist; ec1 13:30 Follow up: Response: No adverse reaction; IV Status: Completed infusion; IV Intake: ec1 1000ml 13:12 Drug: Norepinephrine (4 mg/250 mL D5W) 5 mcg/min Route: IV; Rate: calculated rate; tw2 Site: right femoral; 14:26 Follow up: Rate change 10 mcg/min ec1 15:17 Follow up: Rate change 15 mcg/min ec1 16:30 Follow up: Rate change 20 mcg/min ec1 18:05 Follow up: Rate change 15 mcg/min ec1 18:47 Follow up: Rate change 10 mcg/min ec1 20:43 Follow up: Response: No adverse reaction; IV Status: Infusion continued upon admission ea 10/18 00:00 Follow up: BP 86 / 57; Pulse 97 bpm; Resp 20 bpm; Pulse Ox 100% ; Rate change 12 mcg/minrr5 10/17 13:23 Drug: Zosyn 3.375 grams Route: IVPB; Infused Over: 60 mins; Site: right femoral; ec1 17:30 Follow up: IV Status: Completed infusion; IV Intake: 100ml ec1 14:24 Drug: NS 0.9% 1000 ml Route: IV; Rate: 1 bolus; Site: right femoral; ec1 15:24 Follow up: Response: No adverse reaction; IV Status: Completed infusion; IV Intake: ec1 1000ml 17:00 Follow up: IV Status: Completed infusion ec1 14:32 Drug: vancoMYCIN 1 grams Route: IVPB; Infused Over: 2 hrs; Site: right femoral; ec1 17:02 Drug: NS 0.9% 1000 ml Route: IV; Rate: 125 ml/hr; Site: right femoral; tw2 17:22 Follow up: IV Status: Order to discontinue infusion tw2 17:23 Drug: D5 -1/4 NS 1000 ml Route: IV; Rate: 100 ml/hr; Site: right femoral; ec1 20:43 Follow up: Response: No adverse reaction; IV Status: Infusion continued upon admission ea Disposition: 16:57 Critical Care:. rn Disposition: 10/17/20 17:00 Hospitalization ordered by Marcelle Urias for Inpatient Admission. Preliminary diagnosis are Severe sepsis with septic shock, Cellulitis, unspecified, Infected sacral decubitus ulcer, Dehydration, Altered mental status, unspecified. - Bed requested for [facility] ER HOLD. - Status is Inpatient Admission. iw - Condition is Serious. - Problem is new. - Symptoms have improved. Critical care time excluding procedures: 16:57 Critical care time: Bedside Care: 35 minutes, Consultation: 5 minutes. Total time: 40 rn minutes Signatures: Dispatcher [employer] EDGA Tenisha Mckinnon RN RN iw Nieto, Roman, MD MD rn Roszak, Josh, PA PA jr8 Deanna Leal RN RN tl1 Argentina Hernandez RN RN tw2 Jw Alexis RN RN jl7 Tyra Loving RN RN ec1 Jessy Tsang RN, ea, Raymond RN rr5 Corrections: (The following items were deleted from the chart) 15:49 12:06 CORONAVIRUS+ ordered. [facility] EDGA 18:31 15:53 Constitutional: Overweight female, somnolent Head/Face: Normocephalic, rn atraumatic. ENT: dry MM Cardiovascular: Tachycardic, regular Respiratory: No increased work of breathing, no retractions or nasal flaring. Abdomen/GI: soft, non-tender Back: + large sacral decubitus wound with feces in it, drainage, and foul smell, difficult to appreciate how deep due to outpouring of feces and fluid. Skin: Warm, dry MS/ Extremity: Pulses equal, no cyanosis. Neuro: Awake, somnolent, mumbles, difficult to understand rn 20:23 17:00 Hospitalization Ordered by Marcelle Urias MD for Inpatient Admission. Preliminary tl1 diagnosis is Severe sepsis with septic shock; Cellulitis, unspecified; Infected sacral decubitus ulcer; Dehydration; Altered mental status, unspecified. Bed requested for Intensive Care Unit. Status is Inpatient Admission. Condition is Serious. Problem is new. Symptoms have improved. rn 10/18 14:55 10/17 20:23 10/17/2020 17:00 Hospitalization Ordered by Marcelle Urias MD for Inpatient iw Admission. Preliminary diagnosis is Severe sepsis with septic shock; Cellulitis, unspecified; Infected sacral decubitus ulcer; Dehydration; Altered mental status, unspecified. Bed requested for [facility] ER HOLD. Status is Inpatient Admission. Condition is Serious. Problem is new. Symptoms have improved. tl1
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
--- NOTE | 2020-10-17 17:03 | RAD REPORT ---
EXAM DESCRIPTION: Mandi Single View10/17/2020 3:12 pm CLINICAL HISTORY: Chest pain COMPARISON: 2014 FINDINGS: The lungs appear clear of acute infiltrate. The heart is normal size IMPRESSION: No acute abnormalities displayed
[2020-10-17] MEDS ORDERED: D5 0.45 NS 1,000 ML IV ONE (17:30)
[2020-10-17] MEDS ORDERED: NOREPINEPHRINE 4 MG in D5W 250 ML IV PRN (17:58)
[2020-10-18] MEDS: NA CHLORIDE 0.9% 1,000 ML IV SCH ×3 (00:51→23:45)
[2020-10-18] MEDS ORDERED: GLUCAGON 1 MG/VIAL IM PRN (00:51)
[2020-10-18] MEDS ORDERED: D50W 25 GM/50 ML SYRINGE IV PRN (00:51)
[2020-10-18] MEDS ORDERED: ONDANSETRON 4 MG/2 ML VIAL IV PRN (00:51)
[2020-10-18] MEDS ORDERED: CEFEPIME 1 GM/VIAL IV SCH (01:00)
[2020-10-18] MEDS ORDERED: VANCOMYCIN 1 GM in NA CHLORIDE 0.9% 500 ML IVPB SCH (01:00)
[2020-10-18] MEDS ORDERED: NA CHLORIDE 0.9% 1,000 ML ONE ×3 (01:11→23:05)
[2020-10-18] MEDS ORDERED: VANCOMYCIN 1 GM/VIAL ONE (01:18)
[2020-10-18] MEDS ORDERED: CEFEPIME 1 GM/100 ML BAG IV ONE (01:19)
[2020-10-18] MEDS ORDERED: NA CHLORIDE 0.9% 250 ML ONE (01:19)
--- NOTE | 2020-10-18 01:29 | P.HP ---
Certification for Inpatient Patient admitted to: Inpatient With expected LOS: >2 Midnights <MaryLópez - Last Filed: 10/18/20 01:24> Patient History Date of Service: 10/18/20 Reason for admission: Septic Shock History of Present Illness: This is a 85-year-old female that presented to the emergency room after EMS was called out to patient's house for altered mentation. ER stated that the son had noticed a left leg wound that he was cleaning today but unknown how long it had been there. Stated that between that and patient becoming more altered today called EMS. ER stated that EMS found patient covered in feces and had a very large sacral wound as well. Patient was hypotensive and tachycardic upon arrival to emergency room. Patient's initial blood pressure was in the 60s systolic with a heart rate of 140. Patient was started on IV fluids per septic protocol and was also started on Levophed and broad-spectrum antibiotics in the emergency room. Patient alert to person and place upon examination but had some confusion as to the time an ongoing current events. Patient also noted to have a history of diabetes, hypertension, past history of ovarian cancer, TIA. Emergency room also stated that there has been some change in her abdominal CT scan significant for possible pancreatic neoplasm. But without acute obstruction at this time. Home medications list reviewed: Yes - Past Medical/Surgical History Diabetic: Yes -: DM -: htn -: Hyperlipidemia -: uterine cancer -: knee sx -: hysterectomy -: jenni -: back surgery - Family History Father -: Heart disease - Social History Smoking Status: Unknown if ever smoked Smoking therapy provided: No Alcohol use: No CD- Drugs: No Caffeine use: Yes Place of Residence: Home <López Hernandez - Last Filed: 10/18/20 01:24> Date of Service: 10/17/20 <Marcelle Urias - Last Filed: 10/22/20 05:51> Allergies Penicillins Allergy (Intermediate, Verified 11/12/15 22:58) Hives Home Medications: Aspirin 81 mg PO DAILY 11/12/15 Insulin 70/30 NPH/Reg Human [Novolin 70/30*] 20 unit SQ BREAKFAST 11/12/15 Lisinopril [Zestril] 30 mg PO DAILY 11/12/15 Metoprolol Tartrate [Lopressor] 100 mg PO DAILY #60 tab 11/13/15 Metoprolol Tartrate [Lopressor*] 50 mg PO BEDTIME 10/18/20 Review of Systems General: Weakness, Malaise Eyes: Unremarkable ENT: Unremarkable Respiratory: Unremarkable Cardiovascular: Unremarkable Gastrointestinal: Diarrhea Musculoskeletal: Atrophy Integumentary: As per HPI Neurological: As per HPI Lymphatics: Unremarkable <López Hernandez - Last Filed: 10/18/20 01:24> Physical Examination - Vital Signs Temperature: 98.5 F Blood Pressure: 90/50 Pulse: 148 Respirations: 28 Pulse Ox (%): 95 - Physical Exam General: Alert, Oriented x2, Cooperative HEENT: PERRLA, Mucous membr. moist/pink, EOMI Neck: Supple, JVD not distended, No Thyromegaly Respiratory: Clear to auscultation bilaterally, Normal air movement Cardiovascular: No edema, Normal pulses, Normal S1 S2, Other (Tachycardia) Capillary refill: <2 Seconds Gastrointestinal: Normal bowel sounds, Soft and benign, Non-distended, No tenderness, No masses, No rebound, No guarding Musculoskeletal: No clubbing, No swelling, No contractures, No erythema, No tenderness, No warmth, Other (Bilateral lower extremities with some mild mottling to the pedal regions) Integumentary: Other (Patient has significant left lateral leg ulceration down to the bone, and tendons above the lateral malleolus that is approximately 7.5 x 5 cm with mild surrounding erythema but no discharge or drainage. Patient also has 7.5 x 7.5 cm stage IV sacral decubitus wound with erythema and other skin breakdown surrounding it. Large amount of foul-smelling purulent discharge noted.) Neurological: Normal speech, Normal strength at 5/5 x4 extr, Normal tone, Sensation intact, Cranial nerves 3-12 intact, Normal affect Lymphatics: No axilla or inguinal lymphadenopathy - Studies Laboratory Data (last 24 hrs) 10/17/20 12:15: WBC 34.1 H*, Hgb 10.4 L, Hct 31.8 L, Plt Count 286 10/17/20 12:15: Sodium 132 L, Potassium 5.0, BUN 74 H, Creatinine 1.15, Glucose 103, Total Bilirubin 0.8, AST 181 H, ALT 130 H, Alkaline Phosphatase 92, Lipase 68 L Microbiology Data (last 24 hrs): 10/17/20 13:16 Nasopharnyx Influenza Type A Antigen Screen - Final 10/17/20 13:16 Nasopharnyx Influenza Type B Antigen Screen - Final <López Hernandez - Last Filed: 10/18/20 01:24> Assessment and Plan - Problems (Diagnosis) (1) Septic shock Current Visit: Yes Status: Acute Plan: Patient currently was septic shock secondary to open wounds of the sacrum and left leg with possible osteomyelitis. Patient was put on broad-spectrum antibiotics and was treated initially in the emergency room with 30 mL/kg fluid bolus. Patient will continue on fluids and Levophed for pressor therapy to titrate blood pressure to a map greater than 65. Patient will be monitored in the ICU at this time. We will continue to monitor labs and vital signs for hemodynamic stability. (2) Sacral decubitus ulcer, stage IV Current Visit: Yes Status: Acute Plan: General Surgery has been consulted for sacral decubitus with purulent drainage. Patient was packed with Dakin's solution wet-to-dry and the plan is to take patient to surgery in the morning for excision and debridement of region. Patient will need significant wound therapy and continued antibiotics for sacral wound. (3) Leg ulcer, left Current Visit: Yes Status: Acute Plan: Patient with a stage IV stasis ulcer noted to the left lateral leg down to the tendon and bone. There is concern for osteomyelitis of this region. General surgery has also been consulted for this. It is possible that patient may need BKA secondary to wound. Will let general surgery decide this. In the meantime patient will remain on broad-spectrum antibiotics and will be further worked up for osteomyelitis. (4) Osteomyelitis Current Visit: Yes Status: Acute Qualifiers: Osteomyelitis type: subacute Osteomyelitis location: ankle Laterality: left Qualified Code(s): M86.272 - Subacute osteomyelitis, left ankle and foot (5) Diabetes mellitus type 2 with complications Current Visit: Yes Status: Chronic Plan: Will monitor patient's blood sugar every 6 hr while she remains NPO. Patient put on mild sliding scale based on previous glucose today. (6) Hypertension Current Visit: Yes Status: Chronic Plan: At this time will continue to monitor her blood pressure but patient came in for hypotensive shock. At this time will not require anti hypertensive medications Qualifiers: Hypertension type: essential hypertension Qualified Code(s): I10 - Essential (primary) hypertension - Plan We had discussed care plan with son of patient. At this time he wants everything done to aid in the patient's health and well-being. The son understands that patient could on the surgery table tomorrow and that prognosis is poor at this point. At this time he still understands this and wants us to do everything in our power to help her. As of now will continue with the treatment plan and surgery for in the morning. Discharge Plan: [facility] Plan to discharge in: Greater than 2 days - Advance Directives Does patient have a Living Will: No Does patient have a Durable POA for Healthcare: No - Code Status/Comfort Care Code Status Assessed: Yes Code Status: Full Code Critical Care: Yes (30 min) Time Spent Managing Pts Care (In Minutes): 80 <López Hernandez - Last Filed: 10/18/20 01:24> - Problems (Diagnosis) (1) Peripheral artery disease Current Visit: Yes Status: Acute (2) Sacral decubitus ulcer, stage IV Current Visit: Yes Status: Acute (3) Diabetes mellitus type 2 with complications Current Visit: Yes Status: Chronic (4) Hypertension Current Visit: Yes Status: Chronic Qualifiers: Hypertension type: essential hypertension Qualified Code(s): I10 - Essential (primary) hypertension (5) Pressure ulcer with necrosis of soft tissues through to underlying muscle, tendon, or bone Current Visit: Yes Status: Acute Qualifiers: Pressure injury location: ankle Laterality: left Qualified Code(s): L89.524 - Pressure ulcer of left ankle, stage 4 <Marcelle Urias - Last Filed: 10/22/20 05:51> Date of Service: 10/18/20 Agree with above findings. Patient clinically is doing poorly. Patient is to be taken to the OR. A long conversation with patient's son he wants everything done. Spoke with general surgeon who will take patient to the OR today. <Marcelle Urias - Last Filed: 10/22/20 05:51>
[2020-10-18] MEDS ORDERED: INSULIN -REGULAR HUMAN 50 UNIT/0.5 ML ML ONE (02:05)
[2020-10-18] MEDS: INSULIN -REGULAR HUMAN 50 UNIT/0.5 ML ML SQ SCH ×5 (02:07→21:00)
--- NOTE | 2020-10-18 02:14 | P.INFCA ---
Sepsis Focused Assessment - Focused Assessment Complete? Sepsis Focused Assessment Completed?: Yes - Sepsis Screen Result Severe Sepsis: Positive Septic Shock: Positive - Evaluation Current stage of sepsis: Septic shock - Vital Signs Reviewed: Yes Temperature: 98.5 F Heart rate: 86 Blood Pressure: 103/50 Respiratory Rate: 28 O2 Sat by Pulse Oximetry: 95 - Examination Date exam was performed: 10/17/20 Time exam was performed: 21:00 Heart: Regular rate/rhythm Lungs: Clear bilaterally Peripheral pulses: 2+ Slightly diminished Peripheral pulse location: Radial Capillary refill: <2 Seconds Skin examination: Normal turgor Comments: Patient is still on pressors and fluids. Overall vitals have improved <López Hernandez - Last Filed: 10/18/20 02:09> Date of Service: 10/18/20 Agree with above findings. Patient remains septic and will remain on broad- spectrum antibiotic coverage. Continue with vasopressors for blood pressure support. Continue with hydration as well. <Marcelle Urias - Last Filed: 10/22/20 05:51>
[2020-10-18 04:57] LABS: Absolute Lymphocytes (CBC) 23.7 K/uL (0.7-4.9); Basophils % 0.3 % (0-1.3); Hematocrit 31.3 % (36.0-45.0); MPV 7.3 fL (7.6-11.3); RBC Red Blood Cell Count 3.59 M/uL (3.86-4.86)
[2020-10-18 05:09] LABS: Lymphocytes % 52.2 % (15.3-44.8)
[2020-10-18 05:15] LABS: Potassium 4.4 mmol/L (3.5-5.1)
[2020-10-18] MEDS: NOREPINEPHRINE 4 MG in D5W 250 ML IV PRN ×3 (07:00→21:55)
[2020-10-18] MEDS ORDERED: ACETAMINOPHEN 650MG/RECT SUPP PR ONE (08:00)
[2020-10-18] MEDS: SODIUM HYPOCHLORITE 0.5% 473 ML TOP SCH ×2 (09:30→21:00)
[2020-10-18] MEDS ORDERED: NOREPINEPHRINE 4mg/D5W 250mL 4 MG/250 ML BAG IV ONE (11:15)
[2020-10-18] MEDS ORDERED: propofoL 200 MG/20 ML VIAL IV ONE (12:24)
[2020-10-18] MEDS ORDERED: FENTANYL CITR 100 MCG/2 ML ONE (12:26)
[2020-10-18] MEDS ORDERED: LIDOCAINE 2% MPF 5 ML VIAL ONE (12:26)
[2020-10-18] MEDS ORDERED: BUPIVACAINE 0.25% PF 30 ML VIAL ONE (12:42)
[2020-10-18] MEDS ORDERED: Phenylephrine HCl 10 MG/ML 1 ML VIAL ONE (13:32)
[2020-10-18 13:59] LABS: C.diff Antigen/Toxin Ag neg : Tox neg (NEG : NEG)
[2020-10-18] MEDS ORDERED: ALBUMIN HUM 5% 250 ML IV ONE (14:09)
--- NOTE | 2020-10-18 14:12 | P.OP ---
Preoperative diagnosis: Necrotizing Soft tissue Infection of Sacrum, LEFT hip, LEFT lower extremity Postoperative diagnosis: Necrotizing Soft tissue Infection of Sacrum, LEFT hip, LEFT lower extremity Primary procedure: Wide Excisional Debridement of Necrotizing Soft tissue Infection of Sacrum Secondary procedure: debridement of LEFT hip, LEFT lower extremity Anesthesia: GETA Estimated blood loss: ~20cc Specimen: Debridement tissue, cultures ~2,000 Sq Cm Findings: sacral wound communicates with Left hip wound Transferred to: Recovery Room Condition: Good
--- NOTE | 2020-10-18 15:43 | CON ---
Date of Consultation: 10/18/2020 Brief History Of Present Illness: The patient is an 85-year-old female, who presents to [facility] emergency room after EMS was called due to altered mental status and worsening wounds. She is atte nded by her son at home and was noted to have worsening decline over the past month and developed sev eral wounds, which have exacerbated significantly over the course of the past month or so. She was b rought to the emergency room and found to have altered mental status. By report, she was in septic s hock requiring pressor support and hydration and antibiotic coverage per protocol. She continued to have pressor requirements throughout the course of the evening. She had her wound packed with saline as Dakin solution was unavailable in the evening and I was not informed of this until this morning. As such, I have seen the patient and determined she is an appropriate patient for operative interven tion as this wound is likely the source of her sepsis and therefore source control is necessary. I grayson rees spoken to her son regarding this too, who gave me more insight into her situation and help fill t he story as described above. Past Medical History: Significant for hypertension, hyperlipidemia, diabetes, uterine cancer. Past Surgical History: Includes knee surgery, hysterectomy, cholecystectomy, back surgery. Family History: Her father had heart disease. Social History: She denies smoking, alcohol, recreational drug use. Allergies: TO PENICILLIN. Home Medications: Include aspirin, insulin, Zestril, omeprazole, pravastatin, metoprolol. Review of Systems: Ten-point review of systems is unable to obtain as the patient appears altered and confused. Physical Examination: Vital Signs: At the time of my examination, she is approximately 260 pounds. Her blood pressure was 101/30, pulse is 98, respiratory rate 14, temperature 98.8, SpO2 99% on room air. General: She is awake, alert, but confused. She answers questions, but again is confused. HEENT: She is otherwise normocephalic. Her sclerae were anicteric. Mucous membranes were moist. O ropharynx clear. Neck: Supple. No JVD. Chest: Normal expansion and excursion. Cardiovascular: Regular rate and rhythm. Pulmonary: Clear to auscultation bilaterally. Abdomen: Soft, nontender. Skin: Focused examination of her back and skin shows a large stage IV infected sacral decubitus ulce r with necrosis. There is no obviously drainable abscess, but there is abscess fluid/murky fluid asya nating from the tissues surrounding. This does not appear to be necrotizing fasciitis grossly; howev er, I will get a more thorough assessment in the operating room as I have concerned about necrotizing fasciitis at this point. Focused examination continued of the skin shows left hip ulcerated area wi th wet gangrene and obvious necrosis, pressure wounds of her left hip area. Her sacral wound appears to be pressure related as well. She additionally has a wound on the left lateral lower extremity ab ove the ankle which is approximately 15 cm x 6 cm. Exposed tendon is evident with necrosis in this a abelardo as well. She has an additional wound. All these appeared to be pressure wounds by their gross a ppearance. Laboratory Data: Her white blood cell count was 45.5, her hemoglobin is 10.1, her hematocrit is 31.3 , platelet count is 288. Neutrophils were 44%. Band neutrophils were 3 on admission. Her sodium is 132, potassium is 4.4, chloride 104, carbon dioxide 21, BUN 72, creatinine 1.07. Her glucose was 25 1. Lactic acid is 1.92 on admission. Total bilirubin 0.8, direct component was 0.5, AST 181, ALT 13 0. Her lipase is 68. Procalcitonin is 0.31. Leukocyte esterase trace in the urine. 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 The rectum is mildly distended with stool. No eviden ce of diverticulitis. She had a chest x-ray performed as well, officially read as no acute abnormali ties displayed. She had a head CT performed as well, which was officially read as no acute intracran ial abnormality seen. Assessment And Plan: This is an 85-year-old female, who comes in with multiple wounds, pressure and infectious wounds of the sacral area, left hip, left lower extremity. 1.Continue medical management. 2.Follow sepsis protocols with IV hydration, antibiotics, and medical management. 3.I have explained the risks, benefits, and alternatives of debridement of the above-stated wounds i ncluding, but not limited to the sacral wound, the left hip wound, and the left lower extremity wound including, but not limited to bleeding, infection, damage to surrounding tissues, need for further o peration and procedures, blood clots, strokes, additional debridement necessary, multiple operations in the future potentially with both the patient and her son as the patient remains confused. They [place] th have agreed to the above stated plan and agreed to proceed as indicated. Thank you for this interesting consult. JUAN JOSE/VOLODYMYR Voice ID: [id number] Report ID: [id number]
--- NOTE | 2020-10-18 16:10 | OP ---
Date of Procedure: 10/18/2020 Surgeon: Sandeep Martinez MD, Preoperative Diagnosis: Necrotizing soft tissue infection of sacrum, left hip, left lower extremity. Postoperative Diagnosis: Necrotizing soft tissue infection of sacrum, left hip, left lower extremity . Procedure Performed: Wide excisional and debridement of necrotizing soft tissue infection of sacrum, left hip, and left lower extremity. Anesthesia: General endotracheal. Estimated Blood Loss: Less than 20 mL. Specimen: Debridement tissue cultures. It was approximately 2000 sq cm. Findings: The sacral wound communicated with the left buttock to the hip area. The tract was large enough to fit a hand through this tract with obvious necrotic tissue and necrotizing soft tissue infe ction throughout the area extending down to the sacral bone as well as to the muscle of the hip area. All this area required debridement. Additional, wound of the left lower lateral aspect was down to muscle and exposed tendons consistent with pressure wound with possible arterial components. Disposition: The patient was transferred to recovery room in stable condition. Procedure In Detail: After informed consent was obtained from both the patient and the patient's son , the patient was brought to the operating room, prepped and draped in the usual sterile fashion. Af ter adequate anesthesia achieved, a circumferential area of the sacrum was incised down through subcu taneous tissues and electrocautery was used to continue the dissection circumferentially around. Obv ious necrotic tissue was appreciated at this point and abscess material was emanating from the wound. I cultured this for both aerobic and anaerobic speciation at this time. Palpating the area, I felt there was communication with the left hip area and as such a wet gangrenous eschar was appreciated o n the left hip area approximately 60 cm away. At this point, I incised this area which was a small e llipse of approximately 7 x 8 cm circumferentially around this area of wet gangrenous skin. Thi s was unroofed to expose necrotizing soft tissue infection with a soup like appearance. This area wa s debrided using a combination of Metzenbaum scissors and electrocautery down to expose the muscle of this area. Continued debridement ultimately led to palpation of the tract that communicated between the sacral wound and the entire area approximately 2000 sq cm was debrided down to the sacral bone, which was exposed as well as the muscle on the hip area and tissues in between. There was no obvious communication to the anal vault, but there was only about 2 cm to 3 cm rim of normal anal tissue bet ween these 2. After this area was completely debrided, electrocautery was used to achieve hemostasis . The pulse lavage was performed of the entire area of a 3 L bag up until the tissues were all clean . Only viable tissue was left behind. Good bleeding tissue was appreciated. This area was fulgurat ed with electrocautery and a sterile dressing was then packed into the wound using Dakin solution 0.5 %, damp into dry Kerlix. Six Kerlix rolls were packed in this wound and combination of Dakin solutio n as well as some Betadine was placed over the top. I then turned my attention to the left lower ext remity. This area was debrided sharply down through the exposed tendons and all necrotic tissue was removed using a combination of sharp and electrocautery dissection. This was also sent off for patho logic examination and the area was pulse lavaged until completely clear. Good bleeding tissue was ap preciated behind as well and this area was fulgurated at this point. A sterile dressing of Betadine- soaked gauze after Xeroform was placed on the exposed tendons was performed at this point and a steri le wrap was placed around. The patient tolerated the procedure well without evidence of complication and transferred to PACU in stable condition. All counts were correct at the end of the case. JUAN JOSE/VOLODYMYR Voice ID: [id number] Report ID: [id number]
[2020-10-18] MEDS ORDERED: ENOXAPARIN 40 MG/0.4 ML SQ ONE (16:48)
[2020-10-18] MEDS: VANCOMYCIN 1.5 GM in NA CHLORIDE 0.9% 500 ML IVPB SCH (17:14)
[2020-10-18] MEDS: ENOXAPARIN 40 MG/0.4 ML SQ SCH (17:15)
[2020-10-18] MEDS: JUVEN PACKET PO SCH (22:06)
[2020-10-19] MEDS: NA CHLORIDE 0.9% 1,000 ML IV SCH ×3 (00:51→17:06)
[2020-10-19] MEDS: CEFEPIME/SWI 1gm 10 ML IV SCH (01:39)
[2020-10-19 05:16] LABS: Absolute Lymphocytes (CBC) 13.8 K/uL (0.7-4.9); Basophils % 0.6 % (0-1.3); Hematocrit 23.2 % (36.0-45.0); Lymphocytes % 55.9 % (15.3-44.8); MPV 6.9 fL (7.6-11.3); RBC Red Blood Cell Count 2.68 M/uL (3.86-4.86)
[2020-10-19 07:15] LABS: Magnesium 2.1 mg/dL (1.8-2.4); Phosphorus 3.8 mg/dL (2.5-4.9)
[2020-10-19] MEDS: INSULIN -REGULAR HUMAN 50 UNIT/0.5 ML ML SQ SCH ×4 (07:30→20:12)
[2020-10-19] MEDS ORDERED: NA CHLORIDE 0.9% 1,000 ML ONE ×2 (08:32→17:16)
[2020-10-19] MEDS: MORPHINE 2 MG/ML SYR IV PRN ×3 (08:42→22:04)
[2020-10-19] MEDS: SODIUM HYPOCHLORITE 0.5% 473 ML TOP SCH ×2 (08:43→20:10)
[2020-10-19] MEDS ORDERED: MORPHINE 2 MG/ML SYR ONE ×3 (08:55→22:16)
[2020-10-19] MEDS: JUVEN PACKET PO SCH ×2 (09:00→20:10)
[2020-10-19] MEDS: NYSTATIN PWDR 100000 UNIT/GM TOP SCH ×2 (10:48→20:10)
[2020-10-19] MEDS: NOREPINEPHRINE 4 MG in D5W 250 ML IV PRN (11:36)
[2020-10-19] MEDS: ENOXAPARIN 40 MG/0.4 ML SQ SCH (17:06)
[2020-10-19] MEDS: VANCOMYCIN 1.5 GM in NA CHLORIDE 0.9% 500 ML IVPB SCH (17:10)
[2020-10-19] MEDS ORDERED: ENOXAPARIN 40 MG/0.4 ML SQ ONE (17:16)
[2020-10-20] MEDS: NOREPINEPHRINE 4 MG in D5W 250 ML IV PRN ×2 (00:40→16:18)
[2020-10-20] MEDS: NA CHLORIDE 0.9% 1,000 ML IV SCH ×3 (00:40→16:32)
[2020-10-20] MEDS ORDERED: NA CHLORIDE 0.9% 1,000 ML ONE ×3 (00:51→16:43)
[2020-10-20] MEDS: CEFEPIME/SWI 1gm 10 ML IV SCH (01:53)
[2020-10-20 05:43] LABS: Basophils % 0.2 % (0-1.3); Hematocrit 22.9 % (36.0-45.0); Lymphocytes % 59.6 % (15.3-44.8); MPV 6.6 fL (7.6-11.3); RBC Red Blood Cell Count 2.63 M/uL (3.86-4.86)
[2020-10-20 06:02] LABS: BUN Blood Urea Nitrogen 54 mg/dL (7-18); Bicarbonate 20 mmol/L (21-32); Glucose Level 148 mg/dL (74-106); Potassium 3.8 mmol/L (3.5-5.1); Sodium Level 139 mmol/L (136-145)
--- NOTE | 2020-10-20 07:12 | P.PN ---
Subjective Date of Service: 10/18/20 Patient being taken to the operating room today. Patient is to get debridement of the left lower extremity wound as well as the sacral wound. Had a long conversation with patient's son regarding code status. He states that she would want everything done for her. He apparently did not realize she had a sacral decubitus ulcer. It is a stage IV and it is significantly draining. There was purulent drainage when I had seen her in the emergency room. Evaluate for possible fistula to the rectum. Check for arterial blood flow of the lower extremities as well. It is a necrotic ulcer which appears to have limited perfusion. Will see how she does after surgery. Close monitoring at this time. Review of Systems Patient is confused Physical Examination - Vital Signs Temperature: 96.8 F Blood Pressure: 98/43 Pulse: 82 Respirations: 18 Pulse Ox (%): 100 - Physical Exam General: Confused Respiratory: Crackles/rales Cardiovascular: Regular rate/rhythm, Normal S1 S2, Other (Tachycardic) Gastrointestinal: Normal bowel sounds, Soft and benign, Non-distended, No tenderness Musculoskeletal: No clubbing, Swelling Neurological: Normal gait, Normal strength at 5/5 x4 extr, Normal tone, Sensation intact, Cranial nerves 3-12 intact - Studies Microbiology Data (last 24 hrs): 10/17/20 14:12 Catheterized Urine [place] Count - Final >100,000 CFU/ML. 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 Continue with IV antibiotic 2. Continue with local wound care 3. Wound care consultation/surgical consultation 4. Gentle IV hydration 5. Monitor CBC 6. Strict blood sugar monitoring 7. Pain control 8. Arterial Dopplers 9. Patient may need social security benefits interviewer to evaluate her living situation 10. Monitor renal function and H&H closely 11. GI and DVT prophylaxis Discharge Plan: Home Plan to discharge in: Greater than 2 days - Advance Directives Does patient have a Living Will: No Does patient have a Durable POA for Healthcare: No - Code Status/Comfort Care Code Status: Full Code Critical Care: No Time Spent Managing PTS Care (In Minutes): 45
--- NOTE | 2020-10-20 07:16 | P.PN ---
Subjective Date of Service: 10/19/20 patient is more awake and alert today. She did well postoperatively. Wound dressing is still a challenge as to the depth of the wounds of the lower back. Arterial Dopplers are still pending. Continue with aggressive management at this time. Family is wanting everything done. Will update the son regarding continued plan of care in long-term long-term facility or senior living placement. Review of Systems is unable to be obtained (Patient is confused) Physical Examination - Vital Signs Temperature: 96.8 F Blood Pressure: 98/43 Pulse: 82 Respirations: 18 Pulse Ox (%): 100 - Physical Exam General: Confused Respiratory: Clear to auscultation bilaterally, Normal air movement Cardiovascular: Regular rate/rhythm, Normal S1 S2 Gastrointestinal: Normal bowel sounds, Soft and benign, Non-distended Musculoskeletal: No clubbing, Erythema, Tenderness Integumentary: Pressure ulcer Neurological: Cranial nerves 3-12 intact, Abnormal gait, Abnormal strength - Studies Microbiology Data (last 24 hrs): 10/17/20 14:12 Catheterized Urine [place] Count - Final >100,000 CFU/ML. 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 Continue with IV antibiotic 2. Continue with local wound care 3. Wound care consultation/surgical consultation appreciated 4. Gentle IV hydration 5. anemic and will transfuse 1 unit of packed red blood cells 6. Strict blood sugar monitoring 7. Pain control 8. Arterial Dopplers pending 9. Patient will need senior living placement or long-term facility placement 10. Close monitoring of renal function and H&H closely 11. GI and DVT prophylaxis Discharge Plan: [facility] Plan to discharge in: Greater than 2 days - Advance Directives Does patient have a Living Will: No Does patient have a Durable POA for Healthcare: No - Code Status/Comfort Care Code Status: Full Code Critical Care: No Time Spent Managing PTS Care (In Minutes): 35
--- NOTE | 2020-10-20 07:18 | P.PN ---
Subjective Date of Service: 10/20/20 Patient's daughter is at bedside. Patient is more awake and alert. She is wanting her dentures placed back into her mouth. She is feeling better. However, the wound care it still a challenge for the patient. She has a lot of pain whenever we are changing both of her wounds. We are slowly weaning her off the Levophed. She also has a lot of antibodies. We are needing to give her 2 units of packed red blood cells. She is hypotensive and hopefully this can get her off the Levophed. We will give her meds to premedicate her and give her the most compatible blood possible. Once we weaned her off the Levophed and she can remain off Levophed for 24 hours then we can downgrade her to general medical floor. Review of Systems 10-point ROS is otherwise unremarkable Physical Examination - Vital Signs Temperature: 96.8 F Blood Pressure: 98/43 Pulse: 82 Respirations: 18 Pulse Ox (%): 100 - Physical Exam General: Alert, In no apparent distress, Oriented x3 Respiratory: Clear to auscultation bilaterally, Normal air movement Cardiovascular: Regular rate/rhythm, Normal S1 S2, No murmurs Gastrointestinal: Normal bowel sounds, Soft and benign, Non-distended, No tenderness Musculoskeletal: No clubbing, Swelling, Erythema, Tenderness Integumentary: Tenderness/swelling, Erythema, Pressure ulcer, Venous stasis ulcer Neurological: Sensation intact, Cranial nerves 3-12 intact, Abnormal strength Lymphatics: No axilla or inguinal lymphadenopathy - Studies Microbiology Data (last 24 hrs): 10/17/20 14:12 Catheterized Urine [place] Count - Final >100,000 CFU/ML. 10/17/20 14:12 Catheterized Urine - Final Medications List Reviewed: Yes Assessment & Plan - Problems (Diagnosis) (1) Pressure ulcer with necrosis of soft tissues through to underlying muscle, tendon, or bone Current Visit: Yes Status: Acute Qualifiers: Pressure injury location: ankle Laterality: left Qualified Code(s): L89.524 - Pressure ulcer of left ankle, stage 4 (2) Sacral decubitus ulcer, stage IV Current Visit: Yes Status: Acute (3) Peripheral artery disease Current Visit: Yes Status: Acute (4) Diabetes mellitus type 2 with complications Current Visit: Yes Status: Chronic (5) Hypertension Current Visit: Yes Status: Chronic Qualifiers: Hypertension type: essential hypertension Qualified Code(s): I10 - Essential (primary) hypertension (6) History of uterine cancer Current Visit: Yes Status: Acute (7) Unsatisfactory living conditions Current Visit: Yes Status: Acute - Plan Continue with plan of care as mentioned below 1. Plan to transfuse her 2 units of packed red blood cells. Will give her the most compatible blood and she has antibodies and they are unable to find a perfect match for her. We will premedicate her prior to the blood transfusion. 2. Continue with IV antibiotic & continue with local wound care 3. Wound care consultation/surgical consultation appreciated 4. Gentle IV hydration 5. spoke with son who the patient lives with and he wanted her to remain full code at this time. 6. Strict blood sugar monitoring 7. Pain control 8. Arterial Dopplers revealed that the left lower extremity has monophasic waveform along the left superficial femoral artery which is suggestive of significant stenosis along either the iliac or the left common femoral or proximal left superficial femoral artery. Cardiology consultation has been obtained. 9. Patient will need prison placement or half-way facility placement 10. Close monitoring of renal function and H&H closely 11. We will need to increase her physical activity and will get a physical therapy consultation when she is more medically stable. Will have them do an evaluation on Thursday 12. GI and DVT prophylaxis Discharge Plan: Home Plan to discharge in: Greater than 2 days - Advance Directives Does patient have a Living Will: No Does patient have a Durable POA for Healthcare: No - Code Status/Comfort Care Code Status: Full Code Critical Care: Yes Time Spent Managing PTS Care (In Minutes): 35
[2020-10-20] MEDS: INSULIN -REGULAR HUMAN 50 UNIT/0.5 ML ML SQ SCH ×4 (07:30→20:45)
[2020-10-20] MEDS: JUVEN PACKET PO SCH ×2 (09:00→20:46)
[2020-10-20] MEDS: SODIUM HYPOCHLORITE 0.5% 473 ML TOP SCH ×2 (09:00→20:45)
[2020-10-20] MEDS: NYSTATIN PWDR 100000 UNIT/GM TOP SCH ×2 (09:00→20:45)
[2020-10-20] MEDS: MORPHINE 2 MG/ML SYR IV PRN ×2 (09:15→15:13)
[2020-10-20] MEDS ORDERED: MORPHINE 2 MG/ML SYR ONE ×2 (09:28→15:26)
--- NOTE | 2020-10-20 10:06 | EKG ---
Test Date: 2020-10-18 Test Time: 07:50:05 Rug Repairer: MARIANA MEASUREMENT RESULTS: Intervals: Rate: 154 DE: 120 QRSD: 76 QT: 288 QTc: 461 Stewart: P: DE: 120 QRS: -13 T: 103 INTERPRETIVE STATEMENTS: Sinus tachycardia with frequent premature ventricular complexes Low voltage QRS T wave abnormality, consider lateral ischemia Abnormal ECG Compared to ECG 10/17/2020 16:43:20 Low QRS voltage now present T-wave abnormality now present Possible ischemia now present Atrial fibrillation no longer present Myocardial infarct finding no longer present Electronically Signed On 10-20-20 10:03:47 [facility] by Estuardo Morgan
[2020-10-20 15:03] LABS: RBC Red Blood Cell Count 2.59 M/uL (3.86-4.86)
[2020-10-20] MEDS: VANCOMYCIN 1.5 GM in NA CHLORIDE 0.9% 500 ML IVPB SCH ×2 (17:17→18:38)
--- NOTE | 2020-10-20 21:00 | RAD REPORT ---
EXAM DESCRIPTION: US - Lower Extremity Arterial Bilat - 10/20/2020 8:09 pm CLINICAL HISTORY: Leg pain COMPARISON: None FINDINGS: The right common femoral, superficial femoral, popliteal and posterior tibial artery demonstrates bip hasic waveforms The left superficial femoral and left posterior tibial arterial waveforms are monophasic Evaluation of the left common femoral, left popliteal and bilateral dorsalis pedis arteries could not be obtained secondary to difficulty with patient positioning IMPRESSION: Mild arterial disease involving the right lower extremity Suboptimal evaluation of the left lower extremity. Monophasic waveform of the left superficial femora l artery suggests a significant stenosis may be present within either the left iliac, left common fem oral or proximal left superficial femoral artery CT angiogram of the lower extremities recommended for further evaluation
[2020-10-20] MEDS ORDERED: ACETAMINOPHEN 325 MG TABLET PO ONE (21:21)
[2020-10-20] MEDS ORDERED: HYDROCORTISONE SUC 100 MG INJ IV ONE (21:22)
[2020-10-20] MEDS ORDERED: HYDROCORTISONE SUC 100 MG INJ ONE (22:04)
[2020-10-20] MEDS ORDERED: ACETAMINOPHEN 325 MG TABLET ONE (22:04)
[2020-10-20] MEDS ORDERED: NA CHLORIDE 0.9% 250 ML ONE (22:11)
[2020-10-21] MEDS: NA CHLORIDE 0.9% 1,000 ML IV SCH ×4 (00:51→17:46)
[2020-10-21] MEDS: NOREPINEPHRINE 4 MG in D5W 250 ML IV PRN (01:37)
[2020-10-21] MEDS: CEFEPIME/SWI 1gm 10 ML IV SCH (01:46)
[2020-10-21] MEDS ORDERED: MORPHINE 2 MG/ML SYR ONE ×2 (02:14→15:40)
[2020-10-21] MEDS: MORPHINE 2 MG/ML SYR IV PRN ×2 (02:15→15:27)
[2020-10-21] MEDS ORDERED: NA CHLORIDE 0.9% 250 ML ONE (04:55)
[2020-10-21 05:49] LABS: ALT/SGPT 43 U/L (12-78); AST/SGOT 34 U/L (15-37); Absolute Lymphocytes (CBC) 10.9 K/uL (0.7-4.9); Albumin 1.3 g/dL (3.4-5.0); Alkaline Phosphatase 67 U/L (45-117); BUN Blood Urea Nitrogen 45 mg/dL (7-18); Basophils % 0.2 % (0-1.3); Bicarbonate 20 mmol/L (21-32); Bilirubin Total 0.4 mg/dL (0.2-1.0); Creatine Phosphokinase 86 U/L (26-192); Glucose Level 196 mg/dL (74-106); Hematocrit 28.2 % (36.0-45.0); Lymphocytes % 58.2 % (15.3-44.8); MPV 6.5 fL (7.6-11.3); Magnesium 1.9 mg/dL (1.8-2.4); NT PRO-BNP 21263 pg/mL (<450); Protein, Total 4.8 g/dL (6.4-8.2); RBC Red Blood Cell Count 3.24 M/uL (3.86-4.86); Sodium Level 139 mmol/L (136-145)
[2020-10-21] MEDS: INSULIN -REGULAR HUMAN 50 UNIT/0.5 ML ML SQ SCH ×4 (07:30→21:00)
[2020-10-21] MEDS: JUVEN PACKET PO SCH ×2 (08:26→21:00)
[2020-10-21] MEDS: NYSTATIN PWDR 100000 UNIT/GM TOP SCH ×2 (08:39→21:16)
[2020-10-21] MEDS ORDERED: NA CHLORIDE 0.9% 1,000 ML ONE ×3 (08:50→19:26)
--- NOTE | 2020-10-21 09:26 | CON ---
Date of Consultation: 10/20/2020 Reason For Consultation: Peripheral arterial disease. History Of Present Illness: Ms. Parmar is an 85-year-old woman, who came in with septic shock. She underwent surgery by Dr. Martinez on necrotizing soft tissue infection of the sacrum, left hip, left lower extremity. She had wide excision or debridement of necrotizing soft tissue infection of the sa taryn. There were some suspicions of peripheral arterial disease and a doppler ultrasound showed mild arterial disease involving the right lower extremity. Suboptimal evaluation of the left lower extre mity suggesting a left iliac, left common femoral or proximal left femoral artery stenosis. Past Medical History: The patient has a past medical history of hypertension, diabetes, ovarian canc er, arthritis, and history of TIA. Allergies: INCLUDE PENICILLIN. Medications: At home include metoprolol, aspirin, and insulin as well as lisinopril. Review of Systems: Negative. Social History: Negative. Family History: Noncontributory. Physical Examination: Vital Signs: The patient's blood pressure is 95/46. She weighed 260 pounds. HEENT: Negative. Neck: Supple with no bruit. Chest: Clear to auscultation and percussion. Cardiac: Normal. Abdomen: Normal. Extremities: Showed no clubbing, cyanosis, or edema, but decreased pulses bilaterally distally. Diagnostic Data: Creatinine 1.60. Her white count 18,000. Her glucose was 198. Procalcitonin was normal. Her BNP was 21,263. Her chest x-ray was normal. EKG showed possible lateral ischemia with PVCs and sinus tachycardia. Impression And Plan: This is a patient with sepsis secondary to sacral soft tissue infection. She w as status post surgery by Dr. Martinez, which was successful. She has hypertension and diabetes. I a m sure she has dyslipidemia. She has a normal kidney function. She is still being treated with aggr essive antibiotics. She has abnormal EKG. She has significant peripheral arterial disease, probably most likely on the left lower extremity. Her right lower extremity seems to have some mild disease only on the right. This has to be dealt with as an outpatient. I certainly do not recommend any int ervention at this point with her elevated white count and continued antibiotics. I would continue he r present regimen, continue her normal medication. She should be on aspirin. She should be on a sta tin. Consider use of Plavix down the road. Once she is discharged, I will make arrangements for her as an outpatient to have an abdominal angiogram with runoff with possible intervention. She should also have an echocardiogram and a Lexiscan sometime down the road before going to be aggressive with her peripheral arterial disease. I will follow her as needed and I will make arrangements for outpat ient workup. I will discuss the case further with Dr. Urias. JULIA/VOLODYMYR Voice ID: [id number] Report ID: [id number]
[2020-10-21] MEDS ORDERED: ALBUMIN HUMAN 25% 100 ML IV ONE (10:00)
[2020-10-21] MEDS ORDERED: ALBUMIN HUMAN 25% 50 ML IV ONE (11:12)
[2020-10-21 12:01] LABS: Hematocrit 28.2 % (36.0-45.0)
[2020-10-21] MEDS: SODIUM HYPOCHLORITE 0.5% 473 ML TOP SCH ×2 (16:20→21:16)
[2020-10-21] MEDS: FENTANYL CITR 100 MCG/2 ML IV PRN (16:38)
[2020-10-21] MEDS: ENOXAPARIN 40 MG/0.4 ML SQ SCH (17:00)
[2020-10-21] MEDS ORDERED: ENOXAPARIN 40 MG/0.4 ML SQ ONE (17:55)
[2020-10-21] MEDS ORDERED: DIGOXIN 0.25 MG/ML AMP IV SCH ×2 (18:00→19:00)
[2020-10-21] MEDS ORDERED: DIGOXIN 0.25 MG/ML AMP ONE (19:03)
[2020-10-21 19:21] LABS: Absolute Lymphocytes (CBC) 9.7 K/uL (0.7-4.9); Basophils % 0.4 % (0-1.3); Hematocrit 31.9 % (36.0-45.0); Lymphocytes % 56.4 % (15.3-44.8); MPV 6.7 fL (7.6-11.3)
[2020-10-21] MEDS ORDERED: AMIODARONE HCL 150 MG/3 ML INJ IV ONE ×2 (19:37→19:47)
[2020-10-21] MEDS ORDERED: AMIODARONE HCL 900 MG in Dextrose 5%-Water 482 ML IV SCH (20:00)
[2020-10-22] MEDS: NA CHLORIDE 0.9% 1,000 ML IV SCH ×3 (00:51→18:42)
[2020-10-22] MEDS: CEFEPIME/SWI 1gm 10 ML IV SCH (01:43)
[2020-10-22] MEDS: FENTANYL CITR 100 MCG/2 ML IV PRN ×2 (01:55→08:43)
[2020-10-22] MEDS ORDERED: FENTANYL CITR 100 MCG/2 ML ONE ×3 (02:07→11:06)
[2020-10-22] MEDS ORDERED: NA CHLORIDE 0.9% 1,000 ML ONE ×3 (03:10→18:45)
[2020-10-22 05:15] LABS: Absolute Lymphocytes (CBC) 9.8 K/uL (0.7-4.9); Basophils % 0.5 % (0-1.3); Hematocrit 30.1 % (36.0-45.0); Lymphocytes % 60.3 % (15.3-44.8); MPV 6.3 fL (7.6-11.3); RBC Red Blood Cell Count 3.51 M/uL (3.86-4.86)
[2020-10-22 05:34] LABS: BUN Blood Urea Nitrogen 42 mg/dL (7-18); Bicarbonate 20 mmol/L (21-32); Glucose Level 147 mg/dL (74-106); Magnesium 1.9 mg/dL (1.8-2.4); Phosphorus 2.4 mg/dL (2.5-4.9); Potassium 3.8 mmol/L (3.5-5.1); Sodium Level 139 mmol/L (136-145)
--- NOTE | 2020-10-22 05:49 | P.PN ---
Subjective Date of Service: 10/21/20 Patient's daughter is at bedside. Patient is more awake and alert. She is wanting her dentures placed back into her mouth. She is feeling better. However, the wound care it still a challenge for the patient. She has a lot of pain whenever we are changing both of her wounds. We are slowly weaning her off the Levophed. She also has a lot of antibodies. We are needing to give her 2 units of packed red blood cells. She is hypotensive and hopefully this can get her off the Levophed. We will give her meds to premedicate her and give her the most compatible blood possible. Once we weaned her off the Levophed and she can remain off Levophed for 24 hours then we can downgrade her to general medical floor. Physical Examination - Vital Signs Temperature: 96.8 F Blood Pressure: 98/43 Pulse: 82 Respirations: 18 Pulse Ox (%): 100 - Studies Medications List Reviewed: Yes Assessment & Plan - Problems (Diagnosis) (1) Pressure ulcer with necrosis of soft tissues through to underlying muscle, tendon, or bone Current Visit: Yes Status: Acute Qualifiers: Pressure injury location: ankle Laterality: left Qualified Code(s): L89.524 - Pressure ulcer of left ankle, stage 4 (2) Sacral decubitus ulcer, stage IV Current Visit: Yes Status: Acute (3) Peripheral artery disease Current Visit: Yes Status: Acute (4) Diabetes mellitus type 2 with complications Current Visit: Yes Status: Chronic (5) Hypertension Current Visit: Yes Status: Chronic Qualifiers: Hypertension type: essential hypertension Qualified Code(s): I10 - Essential (primary) hypertension (6) History of uterine cancer Current Visit: Yes Status: Acute (7) Unsatisfactory living conditions Current Visit: Yes Status: Acute (8) Arterial insufficiency with ischemic ulcer Current Visit: Yes Status: Acute - Plan Continue with plan of care as mentioned below 1. patient tolerated the blood transfusion adequately. 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 We were able to get her weaned off the Levophed around 10:00 a.m.. If she remains off the Levophed throughout today then it is possible we can get her transferred to the general medical floor. 2. Continue with IV antibiotic & continue with local wound care 3. Wound care consultation/surgical consultation appreciated 4. Gentle IV hydration 5. Family is wanting everything done at this time; patient remains full code 6. Strict blood sugar monitoring 7. Pain control 8. Significant PAD of the left lower extremity. Unlikely for the ulcer to heal on the left lower extremity without revascularization. This is planned once patient is more clinically stable. 9. We will need to increase her physical activity and will get a physical therapy consultation when she is more medically stable. Will have them do an evaluation on Thursday 10. GI and DVT prophylaxis Discharge Plan: Custodial Plan to discharge in: Greater than 2 days - Advance Directives Does patient have a Living Will: No Does patient have a Durable POA for Healthcare: No - Code Status/Comfort Care Code Status: Full Code Critical Care: No Time Spent Managing PTS Care (In Minutes): 35
--- NOTE | 2020-10-22 05:57 | P.PN ---
Date of Service: 10/21/20 Patient went into atrial fibrillation with rapid ventricular response around 6:00 p.m.. Patient has already received 2 doses of digoxin. Patient was started on an amiodarone drip. We will also get echocardiogram. Patient already has severe peripheral arterial disease. She is having some bleeding so we are being very conservative on giving anticoagulation. We just had to give her 2 units of packed red blood cells which she completed early this morning. She has a lot of antibodies as well so it makes it very difficult to give her compatible blood. If her hemoglobin remains stable then we could probably start anticoagulation with Lovenox 1st and as long as her hemoglobin continues to remain stable with good probably switched this to a long-acting oral anticoagulant.
[2020-10-22 06:07] LABS: Blood Morphology Comment NOT SEEN (NOT SEEN); Platelet Estimate DECR
[2020-10-22] MEDS: INSULIN -REGULAR HUMAN 50 UNIT/0.5 ML ML SQ SCH ×4 (07:30→21:00)
[2020-10-22] MEDS: SODIUM HYPOCHLORITE 0.5% 473 ML TOP SCH ×2 (08:00→21:53)
[2020-10-22] MEDS ORDERED: Levofloxacin500mg IV 500 MG/100 ML BAG IV SCH (08:00)
--- NOTE | 2020-10-22 08:48 | P.PN ---
Subjective Date of Service: 10/22/20 Primary Care Provider: Dr. Germain Chief Complaint: Septic Shock Subjective: Improving (Patient is alert. Patient off Levophed. Patient converted to normal sinus rhythm on amiodarone.) Physical Examination - Vital Signs Temperature: 96.8 F Blood Pressure: 120/48 Pulse: 74 Respirations: 14 Pulse Ox (%): 100 - Physical Exam General: Alert, In no apparent distress, Cooperative HEENT: Atraumatic Neck: Supple Respiratory: Clear to auscultation bilaterally, Normal air movement Cardiovascular: Normal pulses, Regular rate/rhythm Gastrointestinal: Normal bowel sounds, Soft and benign, Non-distended Integumentary: Other (not able to visualize extensive wound to the sacrum, left hip and left LE which was debrided. ) Neurological: Normal speech, Other (patient appears deconditioned. ) - Studies Medications List Reviewed: Yes Assessment & Plan Discharge Plan: LTAC Plan to discharge in: 48 Hours Physician Review Additional Text: Impression: Septic shock related to necrotizing soft tissue of the sacrum, left hip, and left lower ext. S/P wide excision of the sacrum and debridement of the left hip and left lower ext, wound culture positive for Proteus vulgaris with UTI, no longer in shock Atrial fibrillation with RVR, now NSR DM Type 2 with Hyperglycemia HTN Arterial disease to the LLE with PAD Acute anemia likely from sacral wound requiring transfusion Abnormal CT scan suspect pancreatic cancer Plan: Septic shock related to necrotizing soft tissue of the sacrum, left hip, and left lower ext. S/P wide excision of the sacrum and debridement of the left hip and left lower ext, wound culture positive for Proteus vulgaris with UTI, no longer in shock: Patient no longer in septic shock. Patient off Levophed. Continue IV fluids. Cultures reviewed. Culture shows positive for Proteus vulgaris. IV antibiotics adjusted. C diff culture negative. COVID test negative. Continue electrolyte protocol. Will monitor lab closely. Patient on vancomycin and now on Levaquin. Will consult infectious disease for further evaluation of wound and recommendations on IV antibiotic therapy. Suspect patient will likely require aggressive wound care and long-term IV antibiotic therapy. Will also discuss with surgery to see if further debridement is r equired. Critical care consulted to further evaluate as well. Wound care team to further evaluate and treat. Patient would benefit with long-term acute care facility placement due to her acute on chronic condition. Will discuss with social services aide and family. Nurses report that APS was involved due to her poor living condition. Will discuss with family. Will address advanced directives and advanced care planning with family especially in light of abnormal CT scan. Encourage ambulation with physical therapy. Encourage oral intake. Will continue to monitor closely. Atrial fibrillation with RVR, now NSR: Patient was placed on amiodarone drip. Patient now in in normal sinus rhythm. Cardiology consulted to further evaluate. Echocardiogram also order. Patient to continue anti coagulation therapy. Patient may require long-term anti coagulation therapy. Await further recommendations from cardiology. DM Type 2 with Hyperglycemia: A1c well controlled. Continue Accu-Cheks and sliding scale. Patient previously on insulin 70/30. HTN: Hold blood pressure medications-metoprolol and lisinopril at this time. If blood pressures continue to elevate then will consider restarting metoprolol. Especially in light of atrial fibrillation. 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 Sub optimal evaluation of the left lower extremity noted. This may be suggestive of significant stenosis within the left iliac, left common femoral or proximal left superficial femoral artery. Will discuss with cardiology at this time. Patient may require further evaluation and intervention. Acute anemia likely from sacral wound requiring transfusion: Patient received transfusion during the course of her stay. Will continue to monitor closely. Maintain hemoglobin above 7.5. Abnormal CT scan suspect pancreatic cancer: CT scan showing 4.3 cm pancreatic neck mass consistent of neoplasm with 2.2 cm soft tissue structure posterior to this splenic vein likely lymph node, and 2.8 cm left adrenal mass likely add adenoma versus metastasis. Discuss with patient and family. Will need to Re discuss advanced directives and plan of care for future. This likely holds a poor prognosis. Time Spent Managing Pts Care (In Minutes): 55
[2020-10-22] MEDS: JUVEN PACKET PO SCH ×2 (09:00→21:00)
[2020-10-22] MEDS: NYSTATIN PWDR 100000 UNIT/GM TOP SCH ×2 (09:00→21:53)
[2020-10-22] MEDS ORDERED: VANCOMYCIN 1.5 GM in NA CHLORIDE 0.9% 500 ML IVPB ONE (09:00)
[2020-10-22] MEDS ORDERED: TRAMADOL HCL 50 MG TAB PO PRN (09:12)
[2020-10-22 09:56] LABS: Albumin 1.4 g/dL (3.4-5.0); Bilirubin Direct 0.2 mg/dL (0-0.2); Bilirubin Total 0.5 mg/dL (0.2-1.0); Protein, Total 4.8 g/dL (6.4-8.2)
[2020-10-22] MEDS ORDERED: Levofloxacin500mg IV 500 MG/100 ML BAG IV ONE (10:04)
[2020-10-22] MEDS ORDERED: EPHEDRINE SULF 50 MG/ML VIAL ONE (11:06)
[2020-10-22] MEDS ORDERED: propofoL 200 MG/20 ML VIAL IV ONE (11:06)
[2020-10-22] MEDS ORDERED: NS 0.9% VIAL 0 ML ONE (11:07)
[2020-10-22] MEDS ORDERED: LIDOCAINE 2% MPF 5 ML VIAL ONE (11:07)
[2020-10-22] MEDS ORDERED: ETOMIDATE 20 MG/10 ML VIAL IV ONE (11:08)
[2020-10-22] MEDS ORDERED: BUPIVACA 0.5%/EPI 0.0005%/PF 30 ML VIAL ONE (11:10)
--- NOTE | 2020-10-22 12:03 | P.OP ---
Preoperative diagnosis: Stage IV Sacral decubitus ulcer / wound. LEFT hip wound Postoperative diagnosis: Stage IV Sacral decubitus ulcer / wound. LEFT hip wound Primary procedure: Wide Excisional Debridement of Necrotizing Soft tissue Infection of Sacrum Secondary procedure: debridement of LEFT hip, LEFT lower extremity Anesthesia: GETA + Local Estimated blood loss: <10cc Specimen: debridement tissue Findings: sacral wound communicates with Left hip wound Complications: None Transferred to: Recovery Room Condition: Good
--- NOTE | 2020-10-22 12:45 | OP ---
Date of Procedure: 10/22/2020 Surgeon: Sandeep Martinez MD, Preoperative Diagnosis: Stage IV sacral decubitus ulcer wound of the left hip and left hip wound. T hese in fact are 1 large wound. Postoperative Diagnosis: Stage IV sacral decubitus ulcer wound of the left hip and left hip wound. These in fact are 1 large wound. Procedure Performed: Wide excisional debridement of necrotizing soft tissue infection of the sacrum and left hip area with debridement of left hip tissue. Anesthesia: General endotracheal. Estimated Blood Loss: Less than 10 mL. Specimen: Debridement tissue. Findings: Sacral wound communicates the left hip wound for previous debridement. Complications: None. Disposition: The patient was transferred to recovery room in good condition. Brief History Of Present Illness: The patient is an 85-year-old female, who presented with a necroti zing soft tissue infection last week of the sacrum and left hip area and lower extremity. The wound was debrided on with good improvement down to good bleeding tissue. The patient's wounds we re cared for over the weekend; however, she had some soilage of stool into the wound and some additio nal pressure affects, as such I opted to return the patient to the operating room today for evaluatio n of this wound and further debridement as there was some rim necrosis. Procedure In Detail: After informed was obtained from the patient's son, I circumferentially debride d of the left hip area down through the subcutaneous tissues to remove all necrotic tissue. There wa s only a rim approximately additional 1-1.5 cm circumferentially around and to the deep muscular plan es once again, which required minimal debridement at this point the left hip area. I then turned my attention back to the sacrum. The pressure wound and soilage were cleaned out at this point and I di ssected down to the sacral bone once again and removed additional necrosis of this area circumferenti ally around for approximately another 1 cm circumferentially of the soft tissue, adipose tissue predo minantly, but into the ligamentous attachments over the posterior aspect of the sacrum down until all necrotic tissue was debrided. I then copiously irrigated and scrubbed all wounds and packed them wi th Dakin solution, damp to dry and a sterile dressing was placed on top. The patient tolerated the p rocedure well without any evidence of complication and transferred to PACU in good condition. All co unts were correct at the end of the case. JUAN JOSE/VOLODYMYR Voice ID: [id number] Report ID: [id number]
[2020-10-22] MEDS ORDERED: Meropenem 500 MG VIAL IV SCH (17:00)
[2020-10-22] MEDS: Meropenem 500 MG in NA CHLORIDE 0.9% 100 ML IV SCH (17:22)
[2020-10-22] MEDS: AMIODARONE HCL 900 MG in Dextrose 5%-Water 482 ML IV SCH (18:42)
[2020-10-22] MEDS: ENOXAPARIN 100 MG/ML SYR SQ SCH (21:00)
[2020-10-22] MEDS ORDERED: Meropenem 0 GM/0 ML BAG ONE (21:27)
[2020-10-23] MEDS: Meropenem 500 MG in NA CHLORIDE 0.9% 100 ML IV SCH ×3 (00:22→16:45)
[2020-10-23] MEDS: NA CHLORIDE 0.9% 1,000 ML IV SCH ×4 (02:04→22:14)
[2020-10-23 05:58] LABS: Absolute Lymphocytes (CBC) 10.3 K/uL (0.7-4.9); Basophils % 0.3 % (0-1.3); Hematocrit 33.6 % (36.0-45.0); Lymphocytes % 52.5 % (15.3-44.8); MPV 6.6 fL (7.6-11.3); RBC Red Blood Cell Count 3.91 M/uL (3.86-4.86)
[2020-10-23 06:14] LABS: ALT/SGPT 35 U/L (12-78); AST/SGOT 31 U/L (15-37); Albumin 1.5 g/dL (3.4-5.0); Alkaline Phosphatase 68 U/L (45-117); BUN Blood Urea Nitrogen 33 mg/dL (7-18); Bicarbonate 18 mmol/L (21-32); Bilirubin Total 0.6 mg/dL (0.2-1.0); Glucose Level 133 mg/dL (74-106); Magnesium 1.8 mg/dL (1.8-2.4); Potassium 3.7 mmol/L (3.5-5.1); Sodium Level 140 mmol/L (136-145)
[2020-10-23] MEDS ORDERED: MAGNESIUM SULFATE 1 gm IVPB 1 GM/100 ML BAG IV ONE (06:46)
[2020-10-23] MEDS: INSULIN -REGULAR HUMAN 50 UNIT/0.5 ML ML SQ SCH ×4 (07:30→20:28)
--- NOTE | 2020-10-23 07:41 | ECHO ---
HEIGHT: 5 ft 6 in WEIGHT: 252 lb 0 oz DATE OF STUDY: 10/22/[address]: Marcelle Urias MD 2-DIMENSIONAL: YES M.MODE: YES DOPPLER: YES COLOR FLOW: YES TDS: YES PORTABLE: DEFINITY: BUBBLE STUDY: DIAGNOSIS: ATRIAL FIBRILLATION CARDIAC HISTORY: CATHERIZATION: SURGERY: PROSTHETIC VALVE: PACEMAKER: MEASUREMENTS (cm) DIASTOLIC (NORMALS) SYSTOLIC (NORMALS) IVSd (0.6-1.2) LA Diam (1.9-4.0) LVEF 58% LVIDd (3.5-5.7) LVIDs (2.0-3.5) %FS % LVPWd (0.6-1.2) Ao Diam (2.0-3.7) 2 DIMENSIONAL ASSESSMENT: RIGHT ATRIUM: NORMAL LEFT ATRIUM: NORMAL RIGHT VENTRICLE: NORMAL LEFT VENTRICLE: NORMAL TRICUSPID VALVE: NORMAL MITRAL VALVE: MITRAL ANNULAR CALCIFICATION PULMONIC VALVE: NORMAL AORTIC VALVE: SEVERE AORTIC STENOSIS PERICARDIAL EFFUSION: NONE AORTIC ROOT: NORMAL LEFT VENTRICULAR WALL MOTION: NORMAL DOPPLER/COLOR FLOW: SEVERE AORTIC STENOSIS COMMENTS: NORMAL LEFT VENTRICULAR EJECTION FRACTION 55-60%. HEAVILY CALCIFIED AORTIC VALVE AREA WITH SEVERE AORTIC VALVE STENOSIS. TECHNOLOGIST: HAILEY STRICKLAND
[2020-10-23] MEDS: ENOXAPARIN 100 MG/ML SYR SQ SCH (07:58)
[2020-10-23] MEDS: VANCOMYCIN 1.25 GM in NA CHLORIDE 0.9% 250 ML IVPB SCH (08:06)
[2020-10-23] MEDS ORDERED: Meropenem 500 MG/100 ML BAG ONE (08:07)
[2020-10-23] MEDS ORDERED: POTASSIUM CL SA 10 MEQ TAB PO ONE ×2 (08:07→09:00)
[2020-10-23] MEDS ORDERED: ENOXAPARIN 100 MG/ML SYR SQ ONE (08:07)
[2020-10-23] MEDS ORDERED: NA CHLORIDE 0.9% 1,000 ML ONE ×2 (08:37→17:03)
[2020-10-23] MEDS: JUVEN PACKET PO SCH ×2 (09:00→21:03)
--- NOTE | 2020-10-23 09:59 | P.PN ---
Subjective Date of Service: 10/23/20 Primary Care Provider: Dr. Germain Chief Complaint: Septic Shock Subjective: Other (Patient feels better. Blood pressure stable off Levophed.) Physical Examination - Vital Signs Temperature: 97 F Blood Pressure: 105/51 Pulse: 82 Respirations: 20 Pulse Ox (%): 100 - Physical Exam General: Alert, In no apparent distress, Cooperative HEENT: Atraumatic Neck: Supple Respiratory: Clear to auscultation bilaterally, Normal air movement Cardiovascular: Normal pulses, Regular rate/rhythm Gastrointestinal: No tenderness, No masses, No rebound, No guarding Integumentary: Tenderness/swelling (Edema to the lower extremities improved) Neurological: Normal speech, Normal strength at 5/5 x4 extr, Normal tone, Normal affect - Studies Microbiology Data (last 24 hrs): 10/17/20 12:10 Blood - Blood Aerobic Blood Culture - Final No growth in 5 days. 10/17/20 12:10 Blood - Blood Anaerobic Blood Culture - Final No growth in 5 days. 10/17/20 12:15 Blood - Blood Aerobic Blood Culture - Final No growth in 5 days. 10/17/20 12:15 Blood - Blood Anaerobic Blood Culture - Final No growth in 5 days. Medications List Reviewed: Yes Assessment & Plan Discharge Plan: LTAC Plan to discharge in: 48 Hours Physician Review Additional Text: Impression: Septic shock related to necrotizing soft tissue of the sacrum, left hip, and left lower ext. S/P wide excision of the sacrum and debridement of the left hip and left lower ext, wound culture positive for Proteus vulgaris with UTI, no longer in shock Atrial fibrillation with RVR, now NSR with severe aortic stenosis DM Type 2 with Hyperglycemia HTN Arterial disease to the LLE with PAD Acute anemia likely from sacral wound requiring transfusion Abnormal CT scan suspect pancreatic cancer Plan: Septic shock related to necrotizing soft tissue of the sacrum, left hip, and left lower ext. S/P wide excision of the sacrum and debridement of the left hip and left lower ext, wound culture positive for Proteus vulgaris with UTI, no longer in shock: Patient no longer in septic shock. Patient off Levophed. Continue IV fluids. Continue IV antibiotic therapy meropenem and vancomycin. Case discussed with infectious disease yesterday. Culture shows positive for Proteus vulgaris. C diff culture negative. COVID test negative. Continue electrolyte protocol. Will monitor lab closely. Surgery performed further debridement of wounds yesterday. Patient will require aggressive wound care and long-term IV antibiotic therapy. Surgery also mentioned that the patient will require special VAC device to help with wounds. This will need to be further addressed and treated at a long-term acute care facility. Infectious Disease, surgery recommend transfer to long-term acute care facility. Will discuss with case management. Case discussed with son in detail who agrees with plan of care. Atrial fibrillation with RVR, now NSR with severe aortic stenosis: Patient now in sinus rhythm. Will discuss with cardiology about switching over to oral amiodarone. Continue anti coagulation therapy. Echo reviewed with cardiology yesterday. Patient with severe aortic stenosis. Patient may require further intervention in the future for this. Due to her current medical situation cardiology recommends this to be delayed until significantly better. This will likely be done in the future as an outpatient. DM Type 2 with Hyperglycemia: A1c well controlled. Continue Accu-Cheks and sliding scale. Patient previously on insulin 70/30. HTN: Continue to hold blood pressure medication. If blood pressures continue to elevate then will consider restarting metoprolol. Especially in light of atrial fibrillation. 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 Sub optimal evaluation of the left lower extremity noted. This may be suggestive of significant stenosis within the left iliac, left common femoral or proximal left superficial femoral artery. Cardiology recommends that this be further evaluated in the future. No immediate intervention needed at this time. Acute anemia likely from sacral wound requiring transfusion: Patient received transfusion yesterday. Hemoglobin stable. Will continue to monitor closely. Will continue to monitor closely. Maintain hemoglobin above 7.5. Abnormal CT scan suspect pancreatic cancer: CT scan showing 4.3 cm pancreatic neck mass consistent of neoplasm with 2.2 cm soft tissue structure posterior to this splenic vein likely lymph node, and 2.8 cm left adrenal mass likely add adenoma versus metastasis. Discuss with patient and family. Will need to Re discuss advanced directives and plan of care for future. This likely holds a poor prognosis. Time Spent Managing Pts Care (In Minutes): 55
[2020-10-23] MEDS: NYSTATIN PWDR 100000 UNIT/GM TOP SCH ×2 (10:00→20:29)
[2020-10-23] MEDS: SODIUM HYPOCHLORITE 0.5% 473 ML TOP SCH ×2 (10:00→20:29)
[2020-10-23] MEDS: MORPHINE 2 MG/ML SYR IV PRN (10:57)
[2020-10-23] MEDS ORDERED: MORPHINE 2 MG/ML SYR ONE (11:10)
[2020-10-23] MEDS: AMIODARONE HCL 900 MG in Dextrose 5%-Water 482 ML IV SCH (16:45)
--- NOTE | 2020-10-23 18:37 | CON ---
History Of Present Illness: This is an 85-year-old female, coming in from home with altered mental status. The patient was being taken care by her son at home and noticed that the patient had left leg wound, which was quite necrotic and had a foul odor according to the surgical team. The patient had already gone for 2 debridements to the large sacral wound. The patient was covered with fecal material in the ER. The patient also has significant history of diabetes mellitus, hypertension, hyperlipidemia, uterine cancer, knee surgery, hysterectomy, cholecystectomy, and back surgery. Social History: Nonsmoker, nondrinker. Family History: Noncontributory. Medications: The patient is on meropenem and vancomycin. Allergies: PENICILLIN. Review of Systems: A 10-point review was performed. Physical Examination: General: This is an 85-year-old female, lying in bed, not in any acute cardiopulmonary distress. Vital Signs: Temperature 97.4, pulse 78, respirations 16, blood pressure 111/72. HEENT: Unremarkable. Neck: Supple. Lungs: Basal crackles. Heart: S1, S2. Regular. Abdomen: Soft. Bowel sounds present. Extremities: 3+ edema. Sacral large wound with stage IV wound with necrotic tissue going towards the left buttock, needed 4 Kerlix to pack the wound site with Dakin solution. Laboratory Data: WBC 19,700, hemoglobin 11.4, platelets are 129. Chemistry shows sodium 140, potassium 3.7, chloride 115, bicarb 18, BUN 13, creatinine 0.5, glucose 133. Albumin level is 1.5. Micro data is growing Proteus mirabilis from wound site, sensitive to Bactrim, Augmentin, Levaquin, and tobramycin and meropenem. Urine cultures are also growing more than 100,000 mixed gabriele. Abdominal and pelvis CT showed the patient had 4.3 cm pancreatic neck mass consistent with neoplasm, 2.2 cm soft tissue structure posterior to the splenic vein may represent a lymph node, 2.8 cm left adrenal mass metastatic. Chest x-ray shows no acute infiltrates. On 10/17, head CT showed no acute intracranial abnormalities. Doppler ultrasound study of the extremity shows mild arterial disease involving the right lower extremity. Assessment And Plan: An 85-year-old female with multiple medical problems, coming in with large sacral wound stage IV going towards the left buttock because of negligence at home. The patient is currently on empiric antibiotic with vancomycin and meropenem and full-strength Dakin solution to the wound site. Severe protein-calorie malnourishment with anasarca. We will encourage the patient to increase nutrition and get nutritional consult. The patient is pending transfer to long-term acute care. Also has leukocytosis, anemia, and thrombocytopenia. Prognosis is poor. We will continue current treatment and with aggressive antibiotic and wound care and nutritional care, we will follow the patient closely. Thank you Dr. Cool for consult. NF/MODL Voice ID: [id number] Report ID: [id number] FAY
[2020-10-23] MEDS: ENOXAPARIN 40 MG/0.4 ML SQ SCH (20:28)
[2020-10-23] MEDS ORDERED: ENOXAPARIN 40 MG/0.4 ML SQ ONE (20:37)
[2020-10-24] MEDS: Meropenem 500 MG in NA CHLORIDE 0.9% 100 ML IV SCH ×3 (00:47→17:48)
--- NOTE | 2020-10-24 03:08 | PN ---
Date of Progress Note: 10/23/2020 Ms. Parmar has been admitted for necrotizing fasciitis requiring surgery by Dr. Martinez. Has docume nted peripheral arterial disease. Yesterday, she went into atrial fibrillation requiring IV amiodaro ne therapy. Her AFib was not symptomatic. She was on Lovenox. Her TSH was normal. Echocardiogram which was done yesterday revealed severe aortic stenosis, normal ejection fraction. She is back in s inus rhythm today. Ms. Parmar at this point is not a candidate for any coronary intervention. She is going to go to LTAC. I believe once she is discharged from there, we should consider doing a hear t catheterization, possible TAVR. She will also eventually need an abdominal angiogram with runoff. I would personally send her home on beta-blockers and aspirin and no anticoagulation for now. Case was discussed with Dr. Urias. JULIA/VOLODYMYR Voice ID: [id number] Report ID: [id number]
--- NOTE | 2020-10-24 03:23 | PN ---
Date of Progress Note: 10/22/2020 Ms. Parmar is a patient, who came in with sacral decubitus requiring surgery for necrotizing fasciit is. Has documented peripheral arterial disease in the left lower extremity. Was being treated for h er sacral ulcers and went into rapid atrial fibrillation. IV amiodarone was started. She is at a ra te of a rate of 110. She did not have any hemodynamic compromise. She denied any palpitation or ethan st pain. We will continue her amiodarone IV. She is not really a candidate for anticoagulation with her sacral decubitus. She is on Lovenox. We will see how she does over the next 24 hours. There i s an echocardiogram pending. Her TSH is normal. The case was discussed with Dr. Urias. JULIA/VOLODYMYR Voice ID: [id number] Report ID: [id number]
[2020-10-24] MEDS ORDERED: NA CHLORIDE 0.9% 1,000 ML ONE (05:34)
[2020-10-24 05:50] LABS: Absolute Lymphocytes (CBC) 11.4 K/uL (0.7-4.9); Basophils % 0.5 % (0-1.3); Hematocrit 32.4 % (36.0-45.0); Lymphocytes % 55.3 % (15.3-44.8); MPV 6.6 fL (7.6-11.3)
[2020-10-24 06:08] LABS: ALT/SGPT 30 U/L (12-78); AST/SGOT 30 U/L (15-37); Albumin 1.4 g/dL (3.4-5.0); Alkaline Phosphatase 67 U/L (45-117); BUN Blood Urea Nitrogen 30 mg/dL (7-18); Bicarbonate 19 mmol/L (21-32); Bilirubin Total 0.5 mg/dL (0.2-1.0); Glucose Level 125 mg/dL (74-106); Magnesium 2.1 mg/dL (1.8-2.4); Protein, Total 4.8 g/dL (6.4-8.2); Sodium Level 144 mmol/L (136-145)
--- NOTE | 2020-10-24 07:12 | P.PN ---
Subjective Date of Service: 10/24/20 Primary Care Provider: Dr. Germain Chief Complaint: Septic Shock Subjective: Other (Patient is slowly improving. Patient normal sinus rhythm. No AFib noted. Pain controlled.) Physical Examination - Vital Signs Temperature: 96.9 F Blood Pressure: 111/69 Pulse: 88 Respirations: 16 Pulse Ox (%): 98 - Physical Exam General: Alert, In no apparent distress, Cooperative HEENT: Atraumatic Neck: Supple Respiratory: Clear to auscultation bilaterally, Normal air movement Cardiovascular: Normal pulses, Regular rate/rhythm Gastrointestinal: Normal bowel sounds, No masses, No rebound, Other (Obese) Integumentary: Other (Not able to visualize large wound to the sacrum. Minimal edema to the lower extremities.) Neurological: Normal speech, Normal strength at 5/5 x4 extr, Normal tone, Normal affect - Studies Medications List Reviewed: Yes Assessment & Plan Discharge Plan: LTAC Plan to discharge in: 24 Hours Physician Review Additional Text: Impression: Septic shock related to necrotizing soft tissue of the sacrum, left hip, and left lower ext. 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 S/P wide excision of the sacrum and debridement of the left hip and left lower ext, wound culture positive for Proteus vulgaris, no longer in shock: Patient no longer in septic shock. Patient off Levophed. Will decrease and adjust IV fluids. Case discussed with infectious disease. Continue with IV meropenem and vancomycin. Patient will need at least 4-6 weeks of IV antibiotic therapy. Culture shows positive for Proteus vulgaris. No UTI identified. C diff culture negative. COVID test negative. Continue electrolyte protocol. Surgery performed another debridement of wounds yesterday. Surgery does not plan for further debridement. Patient will need to continue with special wound VAC. From a surgical and infectious disease perspective, both recommend long- term acute care facility placement to continue IV antibiotic therapy and aggressive wound care. This process of treatment will not be sufficient at a s killed facility. Await approval for long-term acute care facility placement. Patient stable at this time will transfer to the telemetry floor. Both From a surgical and Patient will require aggressive wound care and long-term IV antibiotic therapy. Surgery also mentioned that the patient will require special VAC device to help with wounds. This will need to be further addressed and treated at a long-term acute care facility. Infectious Disease, surgery recommend transfer to long-term acute care facility. Will discuss with case management. Case discussed with son in detail who agrees with plan of care. Atrial fibrillation with RVR, now NSR with severe aortic stenosis: Patient remains in normal sinus rhythm. Case discussed in detail with cardiology. No need for IV amiodarone. This was discontinued. Patient remains in normal sinus rhythm. Cardiology does not recommend chronic anti coagulation therapy. Will continue with aspirin only. Patient on DVT prophylaxis-Lovenox. Blood pressure stable. Will consider metoprolol if patient returns packing to AFib. Blood pressure slightly low at this time and so will hold off on restarting metoprolol. Patient with severe aortic stenosis. Patient should consider heart catheterization with possible to have her in the future along with abdominal angiogram with runoff to evaluate lower extremity once her infection has significantly improved. This can be done after long-term acute care facility placement treatment. DM Type 2 with Hyperglycemia: A1c well controlled-5.9. Continue Accu-Cheks and sliding scale. Patient previously on insulin 70/30. No need for basal insulin at this time. HTN: Continue to hold blood pressure medication. If blood pressures continue to elevate then will consider restarting metoprolol. Especially in light of atrial fibrillation. 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 Sub optimal evaluation of the left lower extremity noted. This may be suggestive of significant stenosis within the left iliac, left common femoral or proximal left superficial femoral artery. Cardiology recommends that this be further evaluated in the future. No immediate intervention needed at this time. Acute anemia likely from sacral wound requiring transfusion: Patient has received transfusion. Hemoglobin stable. Will continue to monitor closely. Will continue to monitor closely. Maintain hemoglobin above 7.5. Abnormal CT scan suspect pancreatic cancer: CT scan showing 4.3 cm pancreatic neck mass consistent of neoplasm with 2.2 cm soft tissue structure posterior to this splenic vein likely lymph node, and 2.8 cm left adrenal mass likely add adenoma versus metastasis. This was discussed with family. Will need to Re discuss advanced directives and plan of care for future. This likely holds a poor prognosis. Time Spent Managing Pts Care (In Minutes): 55
[2020-10-24] MEDS: INSULIN -REGULAR HUMAN 50 UNIT/0.5 ML ML SQ SCH ×4 (07:30→21:00)
[2020-10-24 08:19] LABS: Blood Morphology Comment NOT SEEN (NOT SEEN); Platelet Estimate DECR
[2020-10-24] MEDS: ASPIRIN EC 81 MG TAB PO SCH (08:48)
[2020-10-24] MEDS: ENOXAPARIN 40 MG/0.4 ML SQ SCH (08:48)
[2020-10-24] MEDS: NACHLORIDE 0.45% 1,000 ML IV SCH ×2 (08:49→21:20)
[2020-10-24] MEDS: VANCOMYCIN 1.25 GM in NA CHLORIDE 0.9% 250 ML IVPB SCH (08:49)
[2020-10-24] MEDS ORDERED: ASPIRIN EC 81 MG TAB PO ONE (08:52)
[2020-10-24] MEDS ORDERED: ENOXAPARIN 40 MG/0.4 ML SQ ONE (08:52)
[2020-10-24] MEDS: ENSURE HIGH PROTEIN 237 ML CAN PO SCH ×3 (09:00→21:34)
[2020-10-24] MEDS: SODIUM HYPOCHLORITE 0.5% 473 ML TOP SCH ×2 (09:00→21:35)
[2020-10-24] MEDS: NYSTATIN PWDR 100000 UNIT/GM TOP SCH ×2 (09:00→21:35)
[2020-10-24] MEDS ORDERED: NACHLORIDE 0.45% 1,000 ML IV ONE (09:01)
--- NOTE | 2020-10-24 13:38 | PN ---
Subjective: The patient is lying in bed. Continued to have discomfort to the lower back. Denies an y other problems at this time. Objective: Vital Signs: Temperature 97, pulse 87, respirations 16, blood pressure 117/83. Lungs: Basal crackles. Heart: S1, S2. Regular. Abdomen: Soft, nontender. Bowel sounds present. Extremities: Trace 1+ edema. Laboratory Data: WBC 20,600, hemoglobin 11.1, platelets are 132. Chemistry shows sodium 144, potass ium 4, chloride 118, bicarb 19, BUN 30, creatinine 0.6, glucose is 125. Albumin level is 1.4. Micro data shows the patient has Proteus vulgaris in the wound culture. Sacral coccyx stage IV wound with 15 x 15 x 5 and necrotic tissue area with covering almost 100%. Al so, the patient has undermining at 7 o'clock about 3 cm. Assessment And Plan: An 85-year-old female with large sacral coccyx wound with undermining. We will recommend to continue Dakin solution at this time. I agree with wound VAC. Also, consider hyperbar ic treatment for this patient. Continue supportive care and wound care and possible serial debrideme nts to this wound. We will try to get plastic surgeon involved in this case also and follow the tonya ent closely. NF/MODL Voice ID: [id number] Report ID: [id number]
[2020-10-24] MEDS: JUVEN PACKET PO SCH ×2 (14:43→21:34)
[2020-10-25] MEDS: NACHLORIDE 0.45% 1,000 ML IV SCH ×2 (00:29→18:16)
[2020-10-25] MEDS: Meropenem 500 MG in NA CHLORIDE 0.9% 100 ML IV SCH ×3 (00:29→18:16)
[2020-10-25 05:23] LABS: Absolute Lymphocytes (CBC) 9.9 K/uL (0.7-4.9); Basophils % 0.5 % (0-1.3); Lymphocytes % 55.1 % (15.3-44.8); MPV 6.6 fL (7.6-11.3)
[2020-10-25] MEDS: LEVOTHYROXINE SOD 0.025 MG TAB PO SCH (05:32)
[2020-10-25 05:36] LABS: Albumin 1.4 g/dL (3.4-5.0); Bilirubin Total 0.5 mg/dL (0.2-1.0); Potassium 3.8 mmol/L (3.5-5.1); Protein, Total 4.6 g/dL (6.4-8.2)
[2020-10-25 05:51] VITALS: BMI 41.2
[2020-10-25] MEDS: POTASS/SODIUM PHOSPHATE 1 PKT POWD.PACK PO SCH ×3 (06:28→09:58)
[2020-10-25] MEDS: INSULIN -REGULAR HUMAN 50 UNIT/0.5 ML ML SQ SCH ×4 (07:30→21:00)
--- NOTE | 2020-10-25 07:35 | P.PN ---
Subjective Date of Service: 10/25/20 Primary Care Provider: Dr. Germain Chief Complaint: Septic Shock Subjective: Other (Patient stable this time. No complaints noted. Blood pressure stable.) Physical Examination - Vital Signs Temperature: 97.8 F Blood Pressure: 122/57 Pulse: 87 Respirations: 19 Pulse Ox (%): 95 - Physical Exam General: Alert, In no apparent distress, Cooperative HEENT: Atraumatic Neck: Supple Respiratory: Clear to auscultation bilaterally, Normal air movement Cardiovascular: Normal pulses, Regular rate/rhythm Gastrointestinal: Normal bowel sounds, No tenderness, No masses, No rebound, No guarding Integumentary: Other (Not able to visualize wounds yesterday. Pictures reviewed from Infectious Disease.) Neurological: Normal speech, Normal strength at 5/5 x4 extr, Normal tone, Normal affect - Studies Medications List Reviewed: Yes Assessment & Plan Discharge Plan: LTAC Plan to discharge in: 48 Hours Physician Review Additional Text: Impression: Septic shock related to necrotizing soft tissue of the sacrum, left hip, and left lower ext. 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 (15 x 15 x 5 cm and necrotic tissue area with undermining at 7 o'clock about 3 cm) S/P wide excision of the sacrum and debridement of the left hip and left lower ext, wound culture positive for Proteus vulgaris, no longer in shock: Patient was transferred to the floor yesterday. Blood pressure stable at this time. IV fluids adjusted. If taking good oral intake then will discontinue IV fluids. Case discussed in detail with Infectious Disease. Case also discuss with surgery the prior day. No further debridement needed at this time. Both Infectious Disease and surgery highly recommend long-term acute care facility placement to continue long-term IV antibiotic therapy, aggressive wound care and hyperbaric treatment. Patient will eventually need plastic surgery and likely further debridement if required. This will be done in a long-term acute care facility placement setting. Awaiting approval from insurance. This cannot be done at a skilled facility or at home. Best possible care will be at a long- term acute care facility. Patient will continue with special wound VAC. Case discussed with son who agrees with plan of care. Paroxysmally Atrial fibrillation with RVR, now NSR with severe aortic stenosis: Patient remains in normal sinus rhythm. Case discussed in detail with cardiology. Patient stable this time. No need for rate control medication. If blood pressure be cans to increase will consider starting metoprolol low dose. Patient on DVT prophylaxis. Cardiology recommends no chronic anti coagulation therapy due to chronic wounds and risk for bleeding. Patient with severe aortic stenosis. Patient should consider heart catheterization with possible TAVR in the future along with abdominal angiogram with runoff to evaluate heart/lower extremity once her infection has significantly improved. This can be done after long-term acute care facility placement treatment. DM Type 2 with Hyperglycemia: A1c well controlled-5.9. Continue Accu-Cheks and sliding scale. Patient previously on insulin 70/30. No need for basal insulin at this time. Will trial low-dose metformin. HTN: Continue to hold blood pressure medication. If blood pressures continue to elevate then will consider restarting metoprolol. Especially in light of paroxysmally atrial fibrillation. 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 Sub optimal evaluation of the left lower extremity noted. This may be suggestive of significant stenosis within the left iliac, left common femoral or proximal left superficial femoral artery. Cardiology recommends that this be further evaluated in the future. No immediate intervention needed at this time. Acute anemia likely from sacral wound requiring transfusion: Patient has received transfusion during her stay. Hemoglobin stable. Will continue to mo nitor closely. Will continue to monitor closely. Maintain hemoglobin above 7.5. Abnormal CT scan suspect pancreatic cancer: CT scan showing 4.3 cm pancreatic neck mass consistent of neoplasm with 2.2 cm soft tissue structure posterior to this splenic vein likely lymph node, and 2.8 cm left adrenal mass likely add adenoma versus metastasis. This was discussed with family. Will need to Re discuss advanced directives and plan of care for future. This likely holds a poor prognosis. Time Spent Managing Pts Care (In Minutes): 55
[2020-10-25] MEDS: NYSTATIN PWDR 100000 UNIT/GM TOP SCH ×2 (09:00→22:38)
[2020-10-25] MEDS: ASPIRIN EC 81 MG TAB PO SCH (09:58)
[2020-10-25] MEDS: VANCOMYCIN/NS 1 gm 1 GM/250 ML BAG IVPB SCH (09:59)
[2020-10-25] MEDS: ENOXAPARIN 40 MG/0.4 ML SQ SCH (09:59)
[2020-10-25] MEDS: ENSURE HIGH PROTEIN 237 ML CAN PO SCH ×3 (10:00→22:37)
[2020-10-25] MEDS: JUVEN PACKET PO SCH ×2 (10:00→22:37)
[2020-10-25] MEDS: METFORMIN HCL 500 MG TAB PO SCH (10:03)
[2020-10-25] MEDS: SODIUM HYPOCHLORITE 0.5% 473 ML TOP SCH ×2 (10:04→22:38)
[2020-10-25] MEDS ORDERED: POTASS/SODIUM PHOSPHATE 1 PKT POWD.PACK PO ONE (12:00)
[2020-10-26] MEDS: Meropenem 500 MG in NA CHLORIDE 0.9% 100 ML IV SCH ×3 (02:06→16:40)
[2020-10-26] MEDS: LEVOTHYROXINE SOD 0.025 MG TAB PO SCH (05:46)
[2020-10-26 06:12] LABS: Absolute Lymphocytes (CBC) 9.9 K/uL (0.7-4.9); Basophils % 0.5 % (0-1.3); Hematocrit 30.2 % (36.0-45.0); Lymphocytes % 53.7 % (15.3-44.8); RBC Red Blood Cell Count 3.52 M/uL (3.86-4.86)
[2020-10-26 06:31] LABS: BUN Blood Urea Nitrogen 34 mg/dL (7-18); Bicarbonate 20 mmol/L (21-32); Glucose Level 149 mg/dL (74-106); Magnesium 1.8 mg/dL (1.8-2.4); Phosphorus 2.1 mg/dL (2.5-4.9); Sodium Level 142 mmol/L (136-145)
[2020-10-26] MEDS: INSULIN -REGULAR HUMAN 50 UNIT/0.5 ML ML SQ SCH ×4 (07:30→20:30)
[2020-10-26] MEDS: VANCOMYCIN/NS 1 gm 1 GM/250 ML BAG IVPB SCH (08:51)
[2020-10-26] MEDS: ENOXAPARIN 40 MG/0.4 ML SQ SCH (08:52)
[2020-10-26] MEDS: ASPIRIN EC 81 MG TAB PO SCH (08:52)
[2020-10-26] MEDS: METFORMIN HCL 500 MG TAB PO SCH (08:52)
[2020-10-26] MEDS: JUVEN PACKET PO SCH ×2 (08:52→21:00)
[2020-10-26] MEDS: NYSTATIN PWDR 100000 UNIT/GM TOP SCH ×2 (08:53→21:00)
[2020-10-26] MEDS: ENSURE HIGH PROTEIN 237 ML CAN PO SCH ×3 (08:53→21:00)
[2020-10-26] MEDS: SODIUM HYPOCHLORITE 0.5% 473 ML TOP SCH ×2 (08:53→21:00)
[2020-10-26] MEDS: NACHLORIDE 0.45% 1,000 ML IV SCH ×4 (08:56→21:52)
--- NOTE | 2020-10-26 10:34 | P.PN ---
Subjective Date of Service: 10/26/20 Primary Care Provider: Dr. Germain Chief Complaint: Septic Shock Subjective: Other (Patient stable. No complaints noted.) Physical Examination - Vital Signs Temperature: 97.3 F Blood Pressure: 106/49 Pulse: 85 Respirations: 19 Pulse Ox (%): 95 - Physical Exam General: Alert, In no apparent distress, Cooperative HEENT: Atraumatic Neck: Supple Respiratory: Clear to auscultation bilaterally, Normal air movement Cardiovascular: Normal pulses, Regular rate/rhythm Gastrointestinal: Normal bowel sounds, No masses, No rebound, No guarding Integumentary: Other (Wounds could not be visualized today.) Neurological: Other (Patient alert. Weakness to the lower extremities.) - Studies Medications List Reviewed: Yes Assessment & Plan Discharge Plan: LTAC Plan to discharge in: 48 Hours Physician Review Additional Text: Impression: Septic shock related to necrotizing soft tissue of the sacrum, left hip, and left lower ext. 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 (15 x 15 x 5 cm and necrotic tissue area with undermining at 7 o'clock about 3 cm) S/P wide excision of the sacrum and debridement of the left hip and left lower ext, wound culture positive for Proteus vulgaris, no longer in shock: Patient has been stable on the floor. Blood pressure stable. IV fluids adjusted. If taking good oral intake will consider discontinuing IV fluids. Case discussed in detail with infectious disease and surgery this past week. Both in agreement that the patient requires long-term acute care facility placement to continue aggressive wound care, long-term IV antibiotic therapy- vancomycin and meropenem and hyperbaric treatment. Patient also will need a continue with specialized wound VAC for the wounds to heal properly. Patient eventually will need plastic surgery and possible further debridement. Still waiting to hear from insurance on approval for long-term acute care facility placement. A call had been placed 2 days ago to discuss further with insurance but no call back noted. Spoke with social contact worker/case management to readdress with insurance to see if long-term acute care facility can be expedited. I will turn the service over to the hospitalist team tomorrow. I will go plan of care with him. Paroxysmally Atrial fibrillation with RVR, now NSR with severe aortic stenosis: Patient remains in normal sinus rhythm. Case discussed in detail with cardiology. Patient stable this time. No need for rate control medication. If blood pressure increases will consider starting metoprolol low dose. Patient on DVT prophylaxis. Cardiology recommends no chronic anti coagulation therapy due to chronic wounds and risk for bleeding. Patient with severe aortic stenosis. Patient should consider heart catheterization with possible TAVR in the future along with abdominal angiogram with runoff to evaluate heart/lower extremity once her infection has significantly improved. This can be done after long-term acute care facility placement treatment. DM Type 2 with Hyperglycemia: A1c well controlled-5.9. Continue Accu-Cheks and sliding scale. Patient previously on insulin 70/30. No need for basal insulin at this time. Will trial low-dose metformin. HTN: Continue to hold blood pressure medication. If blood pressures continue to elevate then will consider restarting metoprolol. Especially in light of paroxysmally atrial fibrillation. 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 Sub optimal evaluation of the left lower extremity noted. This may be suggestive of significant stenosis within the left iliac, left common femoral or proximal left superficial femoral artery. Cardiology recommends that this be further evaluated in the future. No immediate intervention needed at this time. Acute anemia likely from sacral wound requiring transfusion: Patient has received transfusion during her stay. Hemoglobin stable. Will continue to monitor closely. Will continue to monitor closely. Maintain hemoglobin above 7.5. Abnormal CT scan suspect pancreatic cancer: CT scan showing 4.3 cm pancreatic neck mass consistent of neoplasm with 2.2 cm soft tissue structure posterior to this splenic vein likely lymph node, and 2.8 cm left adrenal mass likely add adenoma versus metastasis. This was discussed with family. Will need to Re discuss advanced directives and plan of care for future. This likely holds a poor prognosis. Time Spent Managing Pts Care (In Minutes): 55
[2020-10-26] MEDS ORDERED: MAGNESIUM SULFATE 1 gm IVPB 1 GM/100 ML BAG IV ONE (12:00)
[2020-10-26] MEDS ORDERED: POTASSIUM PHOS IN 0.9 % NACL 15 MMOL/250 ML BAG IV ONE (12:00)
[2020-10-27] MEDS: Meropenem 500 MG in NA CHLORIDE 0.9% 100 ML IV SCH ×3 (01:14→17:54)
[2020-10-27] MEDS: NACHLORIDE 0.45% 1,000 ML IV SCH ×3 (02:40→22:01)
[2020-10-27] MEDS: LEVOTHYROXINE SOD 0.025 MG TAB PO SCH (05:39)
[2020-10-27 05:49] LABS: Absolute Lymphocytes (CBC) 9.6 K/uL (0.7-4.9); Basophils % 0.7 % (0-1.3); Hematocrit 28.6 % (36.0-45.0); Lymphocytes % 55.6 % (15.3-44.8); MPV 6.8 fL (7.6-11.3); RBC Red Blood Cell Count 3.38 M/uL (3.86-4.86)
[2020-10-27 06:02] LABS: BUN Blood Urea Nitrogen 33 mg/dL (7-18); Bicarbonate 20 mmol/L (21-32); Glucose Level 109 mg/dL (74-106); Phosphorus 2.7 mg/dL (2.5-4.9); Potassium 4.5 mmol/L (3.5-5.1); Sodium Level 143 mmol/L (136-145)
[2020-10-27] MEDS: INSULIN -REGULAR HUMAN 50 UNIT/0.5 ML ML SQ SCH ×4 (07:30→21:00)
[2020-10-27 08:59] LABS: Platelet Estimate DECR; White Blood Cell Scan OK (OK)
[2020-10-27 09:00] LABS: Blood Morphology Comment NOT SEEN (NOT SEEN)
[2020-10-27] MEDS: NYSTATIN PWDR 100000 UNIT/GM TOP SCH ×2 (09:00→22:03)
[2020-10-27] MEDS: ENSURE HIGH PROTEIN 237 ML CAN PO SCH ×3 (09:00→22:02)
[2020-10-27] MEDS: JUVEN PACKET PO SCH ×2 (09:00→22:02)
[2020-10-27] MEDS: METFORMIN HCL 500 MG TAB PO SCH (09:53)
[2020-10-27] MEDS: ASPIRIN EC 81 MG TAB PO SCH (09:53)
[2020-10-27] MEDS: SODIUM HYPOCHLORITE 0.5% 473 ML TOP SCH ×2 (09:57→22:03)
[2020-10-27] MEDS: ENOXAPARIN 40 MG/0.4 ML SQ SCH (09:58)
[2020-10-27] MEDS: VANCOMYCIN/NS 1 gm 1 GM/250 ML BAG IVPB SCH (09:59)
--- NOTE | 2020-10-27 11:00 | P.PN ---
Subjective Date of Service: 10/27/20 Primary Care Provider: Dr. Germain Chief Complaint: Decubitus ulcers No change in patient's condition patient is not eating very much Review of Systems is unable to be obtained Physical Examination - Vital Signs Temperature: 95.7 F Blood Pressure: 105/48 Pulse: 77 Respirations: 18 Pulse Ox (%): 94 - Physical Exam General: Unresponsive Respiratory: Clear to auscultation bilaterally Gastrointestinal: Normal bowel sounds, Soft and benign - Studies Medications List Reviewed: Yes Assessment & Plan - Problems (Diagnosis) (1) Sacral decubitus ulcer, stage IV Current Visit: Yes Status: Acute Plan: Patient's septic shock has resolved tube for tube feeds vital signs stable oxygenation satisfactory white count is declining seen by infectious disease in general surgery continue with IV antibiotics until further orders from Infectious Disease patient is allergic to penicillin oxygenation satisfactory awaiting transfer to an LTAC unit
[2020-10-27] MEDS ORDERED: GLUCERNA 1.5 CAL 1,000 ML BOT FT SCH (13:00)
--- NOTE | 2020-10-27 13:04 | RAD REPORT ---
EXAM DESCRIPTION: RAD - Chest Single View - 10/27/2020 12:55 pm CLINICAL HISTORY: insertion of dobhoff Chest pain. COMPARISON: Chest Single View dated 10/17/2020; CHEST SINGLE VIEW dated 11/12/2015; CHEST PA AND LAT 2 VIEW dated 09/18/2014; CHEST SINGLE VIEW dated 08/02/2014 FINDINGS: Portable technique limits examination quality. The tip of the enteric tube is just entering the stomach.
[2020-10-28] MEDS: Meropenem 500 MG in NA CHLORIDE 0.9% 100 ML IV SCH ×3 (01:37→16:52)
[2020-10-28] MEDS: HYDROCODONE/APAP 7.5/325 MG TAB PO PRN ×2 (01:48→22:15)
[2020-10-28] MEDS: MORPHINE 2 MG/ML SYR IV PRN (04:00)
[2020-10-28 05:40] LABS: Absolute Lymphocytes (CBC) 8.4 K/uL (0.7-4.9); Basophils % 0.5 % (0-1.3); Hematocrit 31.4 % (36.0-45.0); Lymphocytes % 47.1 % (15.3-44.8); MPV 7.6 fL (7.6-11.3); RBC Red Blood Cell Count 3.63 M/uL (3.86-4.86)
[2020-10-28] MEDS: LEVOTHYROXINE SOD 0.025 MG TAB PO SCH (05:51)
[2020-10-28 06:34] LABS: BUN Blood Urea Nitrogen 35 mg/dL (7-18); Bicarbonate 21 mmol/L (21-32); Glucose Level 132 mg/dL (74-106); Potassium 4.5 mmol/L (3.5-5.1); Sodium Level 142 mmol/L (136-145)
[2020-10-28] MEDS: INSULIN -REGULAR HUMAN 50 UNIT/0.5 ML ML SQ SCH ×4 (07:30→21:00)
[2020-10-28] MEDS: SODIUM HYPOCHLORITE 0.5% 473 ML TOP SCH ×3 (09:00→21:00)
[2020-10-28] MEDS: NYSTATIN PWDR 100000 UNIT/GM TOP SCH ×2 (09:00→21:00)
[2020-10-28] MEDS: JUVEN PACKET PO SCH ×2 (09:00→21:00)
[2020-10-28] MEDS: ENSURE HIGH PROTEIN 237 ML CAN PO SCH (09:00)
[2020-10-28] MEDS: ASPIRIN EC 81 MG TAB PO SCH (09:43)
[2020-10-28] MEDS: METFORMIN HCL 500 MG TAB PO SCH (09:43)
[2020-10-28] MEDS: ENOXAPARIN 40 MG/0.4 ML SQ SCH (09:43)
[2020-10-28] MEDS: VANCOMYCIN/NS 1 gm 1 GM/250 ML BAG IVPB SCH (09:44)
--- NOTE | 2020-10-28 10:03 | P.PN ---
Subjective Date of Service: 10/28/20 Primary Care Provider: Dr. Germain Chief Complaint: Decubitus ulcers No change minimally responsive not eating much patient is been fed through dobhoff Review of Systems is unable to be obtained Physical Examination - Vital Signs Temperature: 96.4 F Blood Pressure: 93/47 Pulse: 84 Respirations: 16 Pulse Ox (%): 100 - Physical Exam General: Alert, Unresponsive Cardiovascular: Normal S1 S2, Edema - Studies Medications List Reviewed: Yes Assessment & Plan - Problems (Diagnosis) (1) Sacral decubitus ulcer, stage IV Current Visit: Yes Status: Acute Plan: Patient's condition is stable currently on vancomycin and meropenem white count is declining hemodynamically stable oxygenation satisfactory antibiotic duration as per Infectious Disease labs reviewed awaiting transfer to an LTAC
[2020-10-28] MEDS: GLUCERNA 1.5 CAL 1,000 ML BOT FT SCH ×2 (14:00→21:00)
[2020-10-28] MEDS: NACHLORIDE 0.45% 1,000 ML IV SCH ×2 (15:34→18:01)
[2020-10-29] MEDS: Meropenem 500 MG in NA CHLORIDE 0.9% 100 ML IV SCH ×3 (00:20→16:20)
[2020-10-29] MEDS: NACHLORIDE 0.45% 1,000 ML IV SCH ×2 (04:50→22:17)
[2020-10-29] MEDS: LEVOTHYROXINE SOD 0.025 MG TAB PO SCH (05:36)
[2020-10-29] MEDS: INSULIN -REGULAR HUMAN 50 UNIT/0.5 ML ML SQ SCH ×4 (07:30→21:00)
[2020-10-29] MEDS: VANCOMYCIN/NS 1 gm 1 GM/250 ML BAG IVPB SCH (08:52)
[2020-10-29] MEDS: ENOXAPARIN 40 MG/0.4 ML SQ SCH (08:59)
[2020-10-29] MEDS: METFORMIN HCL 500 MG TAB PO SCH (08:59)
[2020-10-29] MEDS: ASPIRIN EC 81 MG TAB PO SCH (08:59)
[2020-10-29] MEDS: JUVEN PACKET PO SCH ×2 (09:00→21:47)
[2020-10-29] MEDS: GLUCERNA 1.5 CAL 1,000 ML BOT FT SCH ×3 (09:00→21:46)
[2020-10-29] MEDS: NYSTATIN PWDR 100000 UNIT/GM TOP SCH ×2 (09:00→21:00)
[2020-10-29] MEDS: SODIUM HYPOCHLORITE 0.5% 473 ML TOP SCH ×2 (09:02→21:49)
[2020-10-29] MEDS: MORPHINE 2 MG/ML SYR IV PRN (11:00)
--- NOTE | 2020-10-29 14:28 | PN ---
Subjective: The patient is lying in bed. No new acute event. Denies any headache, nausea, vomiting . Objective: Vital Signs: Temperature 96.9, pulse 73, respirations 18, blood pressure 84/44. Lungs: Basal crackles. Heart: S1, S2. Regular. Abdomen: Soft, nontender. Bowel sounds present. Extremities: Trace edema. Laboratory Data: WBC 17.7, hemoglobin 10.1, platelets are 83,000. Chemistry shows sodium 142, potas sium 4.5, chloride 116, bicarb 21, BUN 35, creatinine 0.5, glucose is 132. Wound culture; Proteus vu lgaris. Assessment And Plan: The patient with large sacral coccyx wound. Continue Dakin solution. Continue wound care and supportive care. Prognosis is guarded. We will follow the patient as needed. [facility] long-term acute care. NF/MODL Voice ID: [id number] Report ID: [id number]
[2020-10-30] MEDS: Meropenem 500 MG in NA CHLORIDE 0.9% 100 ML IV SCH ×3 (00:22→16:23)
[2020-10-30] MEDS: LEVOTHYROXINE SOD 0.025 MG TAB PO SCH (05:20)
[2020-10-30] MEDS: INSULIN -REGULAR HUMAN 50 UNIT/0.5 ML ML SQ SCH ×4 (07:30→20:16)
[2020-10-30] MEDS: ASPIRIN EC 81 MG TAB PO SCH (08:19)
[2020-10-30] MEDS: JUVEN PACKET PO SCH ×2 (08:19→20:14)
[2020-10-30] MEDS: ENOXAPARIN 40 MG/0.4 ML SQ SCH (08:19)
[2020-10-30] MEDS: METFORMIN HCL 500 MG TAB PO SCH (08:19)
[2020-10-30] MEDS: GLUCERNA 1.5 CAL 1,000 ML BOT FT SCH ×3 (08:19→20:15)
[2020-10-30] MEDS ORDERED: VANCOMYCIN/NS 1 gm 1 GM/250 ML BAG IVPB SCH (09:00)
[2020-10-30 09:33] LABS: BUN Blood Urea Nitrogen 39 mg/dL (7-18); Bicarbonate 21 mmol/L (21-32); Glucose Level 118 mg/dL (74-106); Phosphorus 3.1 mg/dL (2.5-4.9); Potassium 5.2 mmol/L (3.5-5.1); Sodium Level 143 mmol/L (136-145)
--- NOTE | 2020-10-30 09:54 | P.PN ---
Subjective Date of Service: 10/29/20 Patient is still requiring a large amount of care. She is needing wound care for her sacral decubitus ulcer. She is requiring a Doppler often keeper nutrition level appropriate. She continues to have some diarrhea which is making it more difficult for the wound to heal. Will need to talk with family regarding diverting colostomy. Review of Systems 10-point ROS is otherwise unremarkable Physical Examination - Vital Signs Temperature: 97.3 F Blood Pressure: 122/55 Pulse: 82 Respirations: 16 Pulse Ox (%): 96 - Physical Exam General: Alert, In no apparent distress, Oriented x3 Respiratory: Clear to auscultation bilaterally, Normal air movement Cardiovascular: Regular rate/rhythm, Normal S1 S2, No murmurs Gastrointestinal: Normal bowel sounds, Soft and benign, Non-distended, No tenderness Musculoskeletal: No clubbing, No swelling, No tenderness Neurological: Normal strength at 5/5 x4 extr, Sensation intact, Cranial nerves 3-12 intact Lymphatics: No axilla or inguinal lymphadenopathy - Studies Medications List Reviewed: Yes Assessment & Plan - Problems (Diagnosis) (1) Peripheral artery disease Current Visit: Yes Status: Acute (2) Sacral decubitus ulcer, stage IV Current Visit: Yes Status: Acute (3) Diabetes mellitus type 2 with complications Current Visit: Yes Status: Chronic (4) Hypertension Current Visit: Yes Status: Chronic Qualifiers: Hypertension type: essential hypertension Qualified Code(s): I10 - Essential (primary) hypertension (5) Pressure ulcer with necrosis of soft tissues through to underlying muscle, tendon, or bone Current Visit: Yes Status: Acute Qualifiers: Pressure injury location: ankle Laterality: left Qualified Code(s): L89.524 - Pressure ulcer of left ankle, stage 4 - Plan Plan: 1. Continue with IV antibiotics 2. Continue with Doppler while feedings 3. Arrange for halfway facility placement or snf placement 4. Patient needs to get medical prior of immigration attorney established as well 5. Continue with physical therapy as tolerated were nursing to do range of motion exercising 6. Long-term prognosis is poor. 7. Patient with peripheral arterial disease. Poor circulation to the left leg so patient does not have a great problem bili and is healing appropriately. However, in light of patient's numerous medical issues patient is not a good surgical candidate. Continue trying the strength and patient over the next couple weeks and hopefully we can get this established as an outpatient. Discharge Plan: Home Plan to discharge in: Greater than 2 days - Advance Directives Does patient have a Living Will: No Does patient have a Durable POA for Healthcare: No - Code Status/Comfort Care Code Status: Full Code Critical Care: No Time Spent Managing PTS Care (In Minutes): 35
[2020-10-30] MEDS: NYSTATIN PWDR 100000 UNIT/GM TOP SCH (14:25)
[2020-10-30] MEDS: HYDROCODONE/APAP 7.5/325 MG TAB PO PRN (16:22)
[2020-10-30] MEDS: SODIUM HYPOCHLORITE 0.5% 473 ML TOP SCH ×2 (16:30→20:16)
[2020-10-30] MEDS: NACHLORIDE 0.45% 1,000 ML IV SCH (17:53)
[2020-10-31] MEDS: Meropenem 500 MG in NA CHLORIDE 0.9% 100 ML IV SCH ×3 (00:23→16:39)
[2020-10-31] MEDS: LEVOTHYROXINE SOD 0.025 MG TAB PO SCH (05:34)
[2020-10-31] MEDS: INSULIN -REGULAR HUMAN 50 UNIT/0.5 ML ML SQ SCH ×4 (07:30→21:00)
[2020-10-31] MEDS: NACHLORIDE 0.45% 1,000 ML IV SCH ×3 (08:17→21:57)
[2020-10-31] MEDS: ASPIRIN EC 81 MG TAB PO SCH (08:18)
[2020-10-31] MEDS: JUVEN PACKET PO SCH ×2 (08:18→21:54)
[2020-10-31] MEDS: GLUCERNA 1.5 CAL 1,000 ML BOT FT SCH ×4 (08:18→21:54)
[2020-10-31] MEDS: ENOXAPARIN 40 MG/0.4 ML SQ SCH (08:18)
[2020-10-31] MEDS: METFORMIN HCL 500 MG TAB PO SCH (08:18)
--- NOTE | 2020-10-31 08:38 | P.PN ---
Subjective Date of Service: 10/30/20 No significant changes and patient's condition. Doppler off feedings are in place. She probably would benefit from a colostomy and PEG tube but the family does not want this at this time. Will discuss with them further if her wound is not healing appropriately. Arranging for LTAC placement. Review of Systems 10-point ROS is otherwise unremarkable Physical Examination - Vital Signs Temperature: 97.4 F Blood Pressure: 125/53 Pulse: 80 Respirations: 20 Pulse Ox (%): 96 - Physical Exam General: Alert, In no apparent distress, Oriented x1 Respiratory: Clear to auscultation bilaterally, Normal air movement Cardiovascular: Regular rate/rhythm, Normal S1 S2, No murmurs Gastrointestinal: Normal bowel sounds, Non-distended, No tenderness Musculoskeletal: No clubbing, No swelling, No tenderness Integumentary: Pressure ulcer, Arterial ulcer Neurological: Sensation intact, Cranial nerves 3-12 intact - Studies Medications List Reviewed: Yes Assessment & Plan - Problems (Diagnosis) (1) Sacral decubitus ulcer, stage IV Current Visit: Yes Status: Acute (2) Peripheral artery disease Current Visit: Yes Status: Acute (3) Diabetes mellitus type 2 with complications Current Visit: Yes Status: Chronic (4) Hypertension Current Visit: Yes Status: Chronic Qualifiers: Hypertension type: essential hypertension Qualified Code(s): I10 - Essential (primary) hypertension (5) Pressure ulcer with necrosis of soft tissues through to underlying muscle, tendon, or bone Current Visit: Yes Status: Acute Qualifiers: Pressure injury location: ankle Laterality: left Qualified Code(s): L89.524 - Pressure ulcer of left ankle, stage 4 - Plan Plan: 1. Continue with IV antibiotics 2. Continue with Dobhoff feedings 3. Arrange for custodial facility placement or LTAC 4. Patient needs to get medical prior of defense attorney established as well 5. Continue with physical therapy as tolerated and nursing to do range of motion exercising 6. Long-term prognosis is poor. 7. Patient with peripheral arterial disease. Poor circulation to the left leg so patient does not have a great problability of healing appropriately. However, in light of patient's numerous medical issues patient is not a good surgical candidate. Continue building her strength, and over the next couple weeks hopefully we can get this arranged as an outpatient. - Advance Directives Does patient have a Living Will: No Does patient have a Durable POA for Healthcare: No - Code Status/Comfort Care Code Status: Full Code
--- NOTE | 2020-10-31 11:53 | PN ---
Subjective: The patient lying in bed. No new complaints at this time. Continued to have pain to th e back and the hip region. Has Dobbhoff for her feeding. Objective: Vital Signs: Temperature 97.4, pulse 80, respirations 20, blood pressure 125/53. Lungs: Basal crackles. Heart: S1, S2. Regular. Abdomen: Soft. Bowel sounds present. Extremities: 2+ edema. Laboratory Data: Shows WBC 17.7, hemoglobin 10.1, platelets are 83. Chemistry shows sodium 143, pot assium 4.2, chloride 118, bicarb 21, BUN 39, creatinine 0.6, glucose 118. Assessment And Plan: 1.Sacral coccyx stage IV wound and left hip stage IV wound. Continue cleaning with Dakin and apply Medihoney and pack with gauze. Prognosis guarded. We will recommend the patient to be transferred t o long-term acute care. 2.Leukocytosis, thrombocytopenia. Cultures are growing Proteus vulgaris. The patient is currently on meropenem and vancomycin. We will continue to monitor platelets. Needed to stop vancomycin. NF/MODL Voice ID: [id number] Report ID: [id number]
[2020-10-31] MEDS: HYDROCODONE/APAP 7.5/325 MG TAB PO PRN (13:05)
[2020-10-31] MEDS: SODIUM HYPOCHLORITE 0.5% 473 ML TOP SCH (13:50)
[2020-11-01] MEDS: Meropenem 500 MG in NA CHLORIDE 0.9% 100 ML IV SCH ×3 (00:19→16:41)
[2020-11-01] MEDS: SODIUM HYPOCHLORITE 0.5% 473 ML TOP SCH ×3 (02:30→20:26)
[2020-11-01] MEDS: NACHLORIDE 0.45% 1,000 ML IV SCH ×3 (02:40→16:00)
[2020-11-01] MEDS: LEVOTHYROXINE SOD 0.025 MG TAB PO SCH (05:30)
[2020-11-01] MEDS: INSULIN -REGULAR HUMAN 50 UNIT/0.5 ML ML SQ SCH ×4 (07:30→20:35)
[2020-11-01] MEDS: GLUCERNA 1.5 CAL 1,000 ML BOT FT SCH (09:00)
[2020-11-01] MEDS: JUVEN PACKET PO SCH ×2 (09:00→20:25)
--- NOTE | 2020-11-01 09:29 | P.PN ---
Subjective Date of Service: 10/31/20 Patient continues to remain stable. At this time, we are waiting for LTAC placement. Patient continues to decline. Patient's prognosis is poor. Review of Systems 10-point ROS is otherwise unremarkable Physical Examination - Vital Signs Temperature: 97 F Blood Pressure: 102/49 Pulse: 79 Respirations: 20 Pulse Ox (%): 94 - Physical Exam General: Alert, In no apparent distress, Oriented x3 Respiratory: Clear to auscultation bilaterally, Normal air movement Cardiovascular: Regular rate/rhythm, Normal S1 S2, No murmurs Gastrointestinal: Normal bowel sounds, Soft and benign, Non-distended, No tende rness Musculoskeletal: No clubbing, No swelling, No tenderness Integumentary: Erythema, Warmth, Pressure ulcer Neurological: Normal speech, Sensation intact, Cranial nerves 3-12 intact Lymphatics: No axilla or inguinal lymphadenopathy - Studies Medications List Reviewed: Yes Assessment & Plan - Problems (Diagnosis) (1) Sacral decubitus ulcer, stage IV Current Visit: Yes Status: Acute (2) Peripheral artery disease Current Visit: Yes Status: Acute (3) Diabetes mellitus type 2 with complications Current Visit: Yes Status: Chronic (4) Hypertension Current Visit: Yes Status: Chronic Qualifiers: Hypertension type: essential hypertension Qualified Code(s): I10 - Essential (primary) hypertension (5) Pressure ulcer with necrosis of soft tissues through to underlying muscle, tendon, or bone Current Visit: Yes Status: Acute Qualifiers: Pressure injury location: ankle Laterality: left Qualified Code(s): L89.524 - Pressure ulcer of left ankle, stage 4 - Plan Plan: Continue with plan of care as mentioned below 1. Continue with IV antibiotics 2. Continue with Dobhoff feedings 3. Arrange for LTAC; medical scientist for insurance company states that this should be approved in 24-48 hr. 4. Patient needs to get medical prior of maple sugar maker established as well 5. Continue with physical therapy as tolerated and nursing to do range of motion exercising 6. Long-term prognosis is poor. 7. Patient with peripheral arterial disease. Poor circulation to the left leg so patient does not have a great problability of healing appropriately. However, in light of patient's numerous medical issues patient is not a good surgical candidate. Continue building her strength, and over the next couple weeks hopefully we can get this arranged as an outpatient. Discharge Plan: Home Plan to discharge in: Greater than 2 days - Advance Directives Does patient have a Living Will: No Does patient have a Durable POA for Healthcare: No - Code Status/Comfort Care Code Status: Full Code Critical Care: No Time Spent Managing PTS Care (In Minutes): 35
[2020-11-01] MEDS: ASPIRIN EC 81 MG TAB PO SCH (09:57)
[2020-11-01] MEDS: METFORMIN HCL 500 MG TAB PO SCH (09:57)
[2020-11-01] MEDS: ENOXAPARIN 40 MG/0.4 ML SQ SCH (09:57)
[2020-11-01] MEDS: GLUCERNA 1.2 CAL 1,000 ML BOT FT SCH ×4 (10:15→20:25)
[2020-11-01] MEDS: ACETAMINOPHEN 500 MG TAB PO PRN (14:50)
[2020-11-01 16:39] LABS: BUN Blood Urea Nitrogen 53 mg/dL (7-18); Bicarbonate 22 mmol/L (21-32); Glucose Level 125 mg/dL (74-106); Sodium Level 139 mmol/L (136-145)
--- NOTE | 2020-11-01 16:40 | PN ---
Subjective: No new complaints. The patient is lying in bed. Having some discomfort in her arms. Objective: Vital Signs: Temperature 96.9, pulse 81, respirations 20, blood pressure 114/50. No yovanny nges in examination. Extremities: Swelling in her arms is going down. Laboratory Data: WBC 17.7, hemoglobin 10.1, platelets are 83. No new chemistry available at this ti me. Micro data; Proteus mirabilis. Current Medications: Include meropenem as vancomycin has been stopped after platelets being low. Assessment And Plan: Stage IV sacral coccyx and left hip wound. Continue current treatment. No new recommendation at this time. We will follow the patient closely. We will repeat CBC and chemistry. NF/MODL Voice ID: [id number] Report ID: [id number]
[2020-11-01 16:42] LABS: Potassium 6.1 mmol/L (3.5-5.1)
[2020-11-01 17:32] LABS: Absolute Lymphocytes (CBC) 7.5 K/uL (0.7-4.9); Basophils % 1.8 % (0-1.3); Lymphocytes % 67.5 % (15.3-44.8); MPV 8.4 fL (7.6-11.3); RBC Red Blood Cell Count 3.07 M/uL (3.86-4.86)
[2020-11-01 21:32] LABS: Anisocytosis 2+; Blood Morphology Comment NOTED (NOT SEEN); Platelet Estimate DECR; Poikilocytosis SLIGHT; Smudge Cells MANY
[2020-11-01] MEDS ORDERED: SOD POLYSTYREN SUL 15 GM/60 ML UCUP PO ONE (22:32)
[2020-11-01] MEDS ORDERED: D50W 25 GM/50 ML SYRINGE IV ONE (22:32)
[2020-11-01] MEDS ORDERED: ALBUTEROL 2.5 MG/3 ML NEB SOL NEB ONE (22:32)
[2020-11-01] MEDS ORDERED: INSULIN -REGULAR HUMAN 50 UNIT/0.5 ML ML IV ONE (22:33)
[2020-11-01] MEDS ORDERED: ALBUTEROL 2.5 MG/3 ML NEB SOL ONE (23:12)
[2020-11-02] MEDS: Meropenem 500 MG in NA CHLORIDE 0.9% 100 ML IV SCH ×3 (00:05→17:06)
[2020-11-02] MEDS: NACHLORIDE 0.45% 1,000 ML IV SCH ×2 (05:41→18:25)
[2020-11-02] MEDS: LEVOTHYROXINE SOD 0.025 MG TAB PO SCH (05:42)
[2020-11-02 06:26] LABS: BUN Blood Urea Nitrogen 52 mg/dL (7-18); Bicarbonate 22 mmol/L (21-32); Glucose Level 123 mg/dL (74-106); Sodium Level 141 mmol/L (136-145)
[2020-11-02] MEDS ORDERED: SOD POLYSTYREN SUL 15 GM/60 ML UCUP FT ONE (07:19)
[2020-11-02] MEDS ORDERED: D50W 25 GM/50 ML VIAL IV ONE ×2 (07:19→17:00)
[2020-11-02] MEDS ORDERED: INSULIN -REGULAR HUMAN 50 UNIT/0.5 ML ML IV ONE ×2 (07:20→17:00)
[2020-11-02] MEDS ORDERED: NA CHLORIDE 0.9% 250 ML IV ONE (07:20)
[2020-11-02] MEDS: INSULIN -REGULAR HUMAN 50 UNIT/0.5 ML ML SQ SCH ×4 (07:30→21:00)
[2020-11-02] MEDS: GLUCERNA 1.2 CAL 1,000 ML BOT FT SCH ×5 (08:00→22:23)
[2020-11-02] MEDS: JUVEN PACKET PO SCH ×2 (08:03→22:24)
[2020-11-02] MEDS: ENOXAPARIN 40 MG/0.4 ML SQ SCH (08:32)
[2020-11-02] MEDS: ASPIRIN EC 81 MG TAB PO SCH (08:33)
[2020-11-02] MEDS: METFORMIN HCL 500 MG TAB PO SCH (08:33)
[2020-11-02] MEDS: MEDIHONEY 44 ML TOPICAL TUBE TOP SCH (09:00)
--- NOTE | 2020-11-02 09:59 | P.PN ---
Subjective Date of Service: 11/02/20 Primary Care Provider: Dr. Germain Chief Complaint: Decubitus ulcers Subjective: Worsening (Patient has no new complaints.) Physical Examination - Vital Signs Temperature: 97.3 F Blood Pressure: 91/38 Pulse: 87 Respirations: 20 Pulse Ox (%): 97 - Physical Exam General: Alert, In no apparent distress, Demented Integumentary: Other (sacral wound is heavily soiled with stool) - Studies Medications List Reviewed: Yes Assessment And Plan - Plan 85 year old woman with Stage IV large sacral ulcer \ - patient continues to soil wound to spite attempts to redirect fecal stream with rectal tube, dressings, ect - will discuss laparoscopic possible open loop colostomy with patients son to see if he would be agreeable Physician Review Additional Text: Impression: Septic shock related to necrotizing soft tissue of the sacrum, left hip, and left lower ext. 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 (15 x 15 x 5 cm and necrotic tissue area with undermining at 7 o'clock about 3 cm) S/P wide excision of the sacrum and debridement of the left hip and left lower ext, wound culture positive for Proteus vulgaris, no longer in shock: Patient has been stable on the floor. Blood pressure stable. IV fluids adjusted. If taking good oral intake will consider discontinuing IV fluids. Case discussed in detail with infectious disease and surgery this past week. Both in agreement that the patient requires long-term acute care facility placement to continue aggressive wound care, long-term IV antibiotic therapy- vancomycin and meropenem and hyperbaric treatment. Patient also will need a continue with specialized wound VAC for the wounds to heal properly. Patient eventually will need plastic surgery and possible further debridement. Still waiting to hear from insurance on approval for long-term acute care facility placement. A call had been placed 2 days ago to discuss further with insurance but no call back noted. Spoke with social and political studies professor/case management to readdress with insurance to see if long-term acute care facility can be expedited. I will turn the service over to the hospitalist team tomorrow. I will go plan of care with him. Paroxysmally Atrial fibrillation with RVR, now NSR with severe aortic stenosis: Patient remains in normal sinus rhythm. Case discussed in detail with cardiology. Patient stable this time. No need for rate control medication. If blood pressure increases will consider starting metoprolol low dose. Patient on DVT prophylaxis. Cardiology recommends no chronic anti coagulation therapy due to chronic wounds and risk for bleeding. Patient with severe aortic stenosis. Patient should consider heart catheterization with possible TAVR in the future along with abdominal angiogram with runoff to evaluate heart/lower extremity once her infection has significantly improved. This can be done after long-term acute care facility placement treatment. DM Type 2 with Hyperglycemia: A1c well controlled-5.9. Continue Accu-Cheks and sliding scale. Patient previously on insulin 70/30. No need for basal insulin at this time. Will trial low-dose metformin. HTN: Continue to hold blood pressure medication. If blood pressures continue to elevate then will consider restarting metoprolol. Especially in light of paroxysmally atrial fibrillation. 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 Sub optimal evaluation of the left lower extremity noted. This may be suggestive of significant stenosis within the left iliac, left common femoral or proximal left superficial femoral artery. Cardiology recommends that this be further evaluated in the future. No immediate intervention needed at this time. Acute anemia likely from sacral wound requiring transfusion: Patient has received transfusion during her stay. Hemoglobin stable. Will continue to monitor closely. Will continue to monitor closely. Maintain hemoglobin above 7.5. Abnormal CT scan suspect pancreatic cancer: CT scan showing 4.3 cm pancreatic neck mass consistent of neoplasm with 2.2 cm soft tissue structure posterior to this splenic vein likely lymph node, and 2.8 cm left adrenal mass likely add adenoma versus metastasis. This was discussed with family. Will need to Re discuss advanced directives and plan of care for future. This likely holds a poor prognosis.
--- NOTE | 2020-11-02 10:05 | P.PN ---
Subjective Date of Service: 11/01/20 Patient continues to improve. Patient with no new complaints. Patient tolerating tube feedings. Encouraging oral feedings. Spoke with son regarding plan of care and at this time they are still wanting everything done. At advised him regarding diverting colostomy as patient still having a lot of diarrhea which will make it difficult for the wound to heal. Review of Systems 10-point ROS is otherwise unremarkable Physical Examination - Vital Signs Temperature: 97.3 F Blood Pressure: 91/38 Pulse: 87 Respirations: 20 Pulse Ox (%): 97 - Physical Exam General: Alert, In no apparent distress Respiratory: Clear to auscultation bilaterally, Normal air movement Cardiovascular: Regular rate/rhythm, Normal S1 S2, No murmurs Gastrointestinal: Normal bowel sounds, Soft and benign, Non-distended, No te nderness Musculoskeletal: No clubbing, No swelling, No tenderness Integumentary: Pressure ulcer, Arterial ulcer Neurological: Abnormal strength - Studies Medications List Reviewed: Yes Assessment & Plan - Problems (Diagnosis) (1) Sacral decubitus ulcer, stage IV Current Visit: Yes Status: Acute (2) Peripheral artery disease Current Visit: Yes Status: Acute (3) Diabetes mellitus type 2 with complications Current Visit: Yes Status: Chronic (4) Hypertension Current Visit: Yes Status: Chronic Qualifiers: Hypertension type: essential hypertension Qualified Code(s): I10 - Essential (primary) hypertension (5) Pressure ulcer with necrosis of soft tissues through to underlying muscle, tendon, or bone Current Visit: Yes Status: Acute Qualifiers: Pressure injury location: ankle Laterality: left Qualified Code(s): L89.524 - Pressure ulcer of left ankle, stage 4 - Plan Plan: Continue with plan of care as mentioned below 1. Continue with IV antibiotics 2. Continue with Dobhoff feedings; encouraging oral feedings 3. Arranging for LTAC placement 4. Son is trying get medical prior of civil rights attorney established. Hopefully we can get this arranged 5. Continue with physical therapy as tolerated and nursing to do range of motion exercising 6. Long-term prognosis is poor. 7. Patient will need to get vascular studies arranged once infection is better controlled 8. Considering PEG tube and diverting colostomy as well Discharge Plan: Home Plan to discharge in: Greater than 2 days - Advance Directives Does patient have a Living Will: No Does patient have a Durable POA for Healthcare: No - Code Status/Comfort Care Code Status: Full Code Critical Care: No Time Spent Managing PTS Care (In Minutes): 35
--- NOTE | 2020-11-02 13:38 | EKG ---
Test Date: 2020-11-01 Test Time: 22:48:15 Family Coach: RT-O MEASUREMENT RESULTS: Intervals: Rate: 80 AL: 220 QRSD: 82 QT: 348 QTc: 401 [place]: P: 76 AL: 220 QRS: 18 T: 148 INTERPRETIVE STATEMENTS: Sinus rhythm with 1st degree AV block Abnormal QRS-T angle, consider primary T wave abnormality Abnormal ECG Compared to ECG 10/23/2020 21:40:22 First degree AV block now present T-wave abnormality now present Myocardial infarct finding no longer present Electronically Signed On 11-02-20 13:36:59 [employer]OPPER [employer]EDER by Estuardo Morgan
[2020-11-02] MEDS ORDERED: D50W 25 GM/50 ML VIAL IV PRN (16:47)
[2020-11-02] MEDS: SODIUM HYPOCHLORITE 0.5% 473 ML TOP SCH ×2 (17:05→22:24)
[2020-11-03] MEDS ORDERED: SOD POLYSTYREN SUL 15 GM/60 ML UCUP PO ONE (01:14)
[2020-11-03] MEDS: Meropenem 500 MG in NA CHLORIDE 0.9% 100 ML IV SCH ×3 (01:38→18:00)
[2020-11-03 06:24] LABS: BUN Blood Urea Nitrogen 46 mg/dL (7-18); Bicarbonate 24 mmol/L (21-32); Glucose Level 106 mg/dL (74-106); Potassium 5.6 mmol/L (3.5-5.1); Sodium Level 139 mmol/L (136-145)
[2020-11-03] MEDS: LEVOTHYROXINE SOD 0.025 MG TAB PO SCH (06:30)
[2020-11-03] MEDS: INSULIN -REGULAR HUMAN 50 UNIT/0.5 ML ML SQ SCH ×4 (07:30→21:00)
[2020-11-03] MEDS: ASPIRIN EC 81 MG TAB PO SCH (10:03)
[2020-11-03] MEDS: ENOXAPARIN 40 MG/0.4 ML SQ SCH (10:04)
[2020-11-03] MEDS: GLUCERNA 1.2 CAL 1,000 ML BOT FT SCH ×5 (10:06→21:51)
[2020-11-03] MEDS: SODIUM HYPOCHLORITE 0.5% 473 ML TOP SCH ×2 (10:06→21:00)
[2020-11-03] MEDS: JUVEN PACKET PO SCH ×2 (10:06→21:51)
[2020-11-03] MEDS: MEDIHONEY 44 ML TOPICAL TUBE TOP SCH (10:07)
[2020-11-03] MEDS: COLLAGENASE 30 GM OINTMENT TOP SCH (10:08)
[2020-11-03] MEDS: NACHLORIDE 0.45% 1,000 ML IV SCH ×2 (10:09→21:20)
[2020-11-04] MEDS: Meropenem 500 MG in NA CHLORIDE 0.9% 100 ML IV SCH ×3 (00:41→16:34)
[2020-11-04] MEDS: NACHLORIDE 0.45% 1,000 ML IV SCH ×2 (00:43→16:29)
[2020-11-04] MEDS: LEVOTHYROXINE SOD 0.025 MG TAB PO SCH (05:45)
[2020-11-04] MEDS: INSULIN -REGULAR HUMAN 50 UNIT/0.5 ML ML SQ SCH ×4 (07:30→20:45)
[2020-11-04] MEDS: ASPIRIN EC 81 MG TAB PO SCH (08:41)
[2020-11-04] MEDS: ENOXAPARIN 40 MG/0.4 ML SQ SCH (08:41)
[2020-11-04] MEDS: GLUCERNA 1.2 CAL 1,000 ML BOT FT SCH ×5 (08:42→20:38)
[2020-11-04] MEDS: JUVEN PACKET PO SCH ×2 (08:43→20:38)
--- NOTE | 2020-11-04 12:59 | P.PN ---
Subjective Date of Service: 11/04/20 Primary Care Provider: Dr. Germain Chief Complaint: Decubitus ulcers Subjective: No new changes (Patient has no new complaints) Physical Examination - Vital Signs Temperature: 96.7 F Blood Pressure: 128/44 Pulse: 77 Respirations: 19 Pulse Ox (%): 94 - Physical Exam General: Alert, In no apparent distress, Confused HEENT: Mucous membr. moist/pink Integumentary: Other (Sacral wound, LEFT hip complex wounds are soiled. ) - Studies Medications List Reviewed: Yes Assessment And Plan - Current Problems (Diagnosis) (1) Pressure ulcer with necrosis of soft tissues through to underlying muscle, tendon, or bone Current Visit: Yes Status: Acute Qualifiers: Pressure injury location: ankle Laterality: left Qualified Code(s): L89.524 - Pressure ulcer of left ankle, stage 4 - Plan 85 year old woman with Stage IV large sacral ulcer \ - patient continues to soil wound to spite attempts to redirect fecal stream with rectal tube, dressings, ect - I have discussed the risks, benefits, and alternatives to laparoscopic possible open colostomy creation, and laparoscopic possible open Gastrostomy or intestinal feeding tube placement including but not limited to bleeding, infection, damage to surrounding tissues, need for more surgery, stroke, heart attack, , need for more surgery, colostomy will most likely be permanent. - I have discussed this with patient, who has limited understanding, and patient son Kar who is her acting POA. Physician Review Additional Text: Impression: Septic shock related to necrotizing soft tissue of the sacrum, left hip, and left lower ext. 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 (15 x 15 x 5 cm and necrotic tissue area with undermining at 7 o'clock about 3 cm) S/P wide excision of the sacrum and debridement of the left hip and left lower ext, wound culture positive for Proteus vulgaris, no longer in shock: Patient has been stable on the floor. Blood pressure stable. IV fluids adjusted. If taking good oral intake will consider discontinuing IV fluids. Case discussed in detail with infectious disease and surgery this past week. Both in agreement that the patient requires long-term acute care facility placement to continue aggressive wound care, long-term IV antibiotic therapy-vancomycin and meropenem and hyperbaric treatment. Patient also will need a continue with specialized wound VAC for the wounds to heal properly. Patient eventually will need plastic surgery and possible further debridement. Still waiting to hear from insurance on approval for long-term acute care facility placement. A call had been placed 2 days ago to discuss further with insurance but no call back noted. Spoke with social work coordinator/case management to readdress with insurance to see if long-term acute care facility can be expedited. I will turn the service over to the hospitalist team tomorrow. I will go plan of care with him. Paroxysmally Atrial fibrillation with RVR, now NSR with severe aortic stenosis: Patient remains in normal sinus rhythm. Case discussed in detail with cardiology. Patient stable this time. No need for rate control medication. If blood pressure increases will consider starting metoprolol low dose. Patient on DVT prophylaxis. Cardiology recommends no chronic anti coagulation therapy due to chronic wounds and risk for bleeding. Patient with severe aortic stenosis. Patient should consider heart catheterization with possible TAVR in the future along with abdominal angiogram with runoff to evaluate heart/lower extremity once her infection has significantly improved. This can be done after long-term acute care facility placement treatment. DM Type 2 with Hyperglycemia: A1c well controlled-5.9. Continue Accu-Cheks and sliding scale. Patient previously on insulin 70/30. No need for basal insulin at this time. Will trial low-dose metformin. HTN: Continue to hold blood pressure medication. If blood pressures continue to elevate then will consider restarting metoprolol. Especially in light of paroxysmally atrial fibrillation. 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 Sub optimal evaluation of the left lower extremity noted. This may be suggestive of significant stenosis within the left iliac, left common femoral or proximal left superficial femoral artery. Cardiology recommends that this be further evaluated in the future. No immediate intervention needed at this time. Acute anemia likely from sacral wound requiring transfusion: Patient has received transfusion during her stay. Hemoglobin stable. Will continue to monitor closely. Will continue to monitor closely. Maintain hemoglobin above 7.5. Abnormal CT scan suspect pancreatic cancer: CT scan showing 4.3 cm pancreatic neck mass consistent of neoplasm with 2.2 cm soft tissue structure posterior to this splenic vein likely lymph node, and 2.8 cm left adrenal mass likely add adenoma versus metastasis. This was discussed with family. Will need to Re discuss advanced directives and plan of care for future. This likely holds a poor prognosis.
--- NOTE | 2020-11-04 15:45 | P.PN ---
Subjective Date of Service: 11/02/20 No significant changes. Spoke to family regarding PEG tube and diverting colostomy. They are agreeable. Physical Examination - Vital Signs Temperature: 96.7 F Blood Pressure: 128/44 Pulse: 77 Respirations: 19 Pulse Ox (%): 94 - Studies Medications List Reviewed: Yes Assessment & Plan - Problems (Diagnosis) (1) Sacral decubitus ulcer, stage IV Current Visit: Yes Status: Acute (2) Peripheral artery disease Current Visit: Yes Status: Acute (3) Diabetes mellitus type 2 with complications Current Visit: Yes Status: Chronic (4) Hypertension Current Visit: Yes Status: Chronic Qualifiers: Hypertension type: essential hypertension Qualified Code(s): I10 - Essential (primary) hypertension (5) Pressure ulcer with necrosis of soft tissues through to underlying muscle, tendon, or bone Current Visit: Yes Status: Acute Qualifiers: Pressure injury location: ankle Laterality: left Qualified Code(s): L89.524 - Pressure ulcer of left ankle, stage 4 - Plan Plan: Continue with plan of care as mentioned below 1. Continue with IV antibiotics 2. Continue with Dobhoff feedings; plan for PEG tube and diverting colostomy in the morning 3. Arranging for LTAC placement 4. Son is trying get medical prior of truck dock material mover established. Hopefully we can get this arranged 5. Continue with physical therapy as tolerated and nursing to do range of motion exercising 6. Long-term prognosis is poor. 7. Patient will need to get vascular studies arranged once infection is better controlled 8. Considering PEG tube and diverting colostomy as well - Advance Directives Does patient have a Living Will: No Does patient have a Durable POA for Healthcare: No - Code Status/Comfort Care Code Status: Full Code
--- NOTE | 2020-11-04 15:46 | P.PN ---
Subjective Date of Service: 11/03/20 Patient with no new changes. Patient's clinical condition is stable. Plan to proceed with diverting colostomy and a PEG tube on Thursday. Continue with supportive care Review of Systems 10-point ROS is otherwise unremarkable Physical Examination - Vital Signs Temperature: 96.7 F Blood Pressure: 128/44 Pulse: 77 Respirations: 19 Pulse Ox (%): 94 - Physical Exam General: Alert, In no apparent distress, Confused Respiratory: Clear to auscultation bilaterally, Normal air movement Cardiovascular: Regular rate/rhythm, Normal S1 S2 - Studies Medications List Reviewed: Yes Assessment & Plan - Problems (Diagnosis) (1) Sacral decubitus ulcer, stage IV Current Visit: Yes Status: Acute (2) Peripheral artery disease Current Visit: Yes Status: Resolved (3) Diabetes mellitus type 2 with complications Current Visit: Yes Status: Chronic (4) Hypertension Current Visit: Yes Status: Chronic Qualifiers: Hypertension type: essential hypertension Qualified Code(s): I10 - Essential (primary) hypertension (5) Pressure ulcer with necrosis of soft tissues through to underlying muscle, tendon, or bone Current Visit: Yes Status: Acute Qualifiers: Pressure injury location: ankle Laterality: left Qualified Code(s): L89.524 - Pressure ulcer of left ankle, stage 4 - Plan Plan: Continue with plan of care as mentioned below 1. Continue with IV antibiotics 2. Continue with Dobhoff feedings; plan for PEG tube and diverting colostomy Thursday 3. Awaiting for LTAC placement 4. Son is trying get medical power of assistant district attorney established. Hopefully he can get this arranged 5. Continue with physical therapy as tolerated and nursing to do range of motion exercising 6. Long-term prognosis is poor. 7. Patient will need to get vascular studies arranged once infection is better controlled 8. Considering PEG tube and diverting colostomy as well - Advance Directives Does patient have a Living Will: No Does patient have a Durable POA for Healthcare: No - Code Status/Comfort Care Code Status: Full Code
[2020-11-04] MEDS: ACETAMINOPHEN 500 MG TAB PO PRN (16:27)
[2020-11-04] MEDS ORDERED: NA CHLORIDE 0.9% 250 ML IV PRN (17:00)
[2020-11-04] MEDS ORDERED: NA CHLORIDE 0.9% 1,000 ML IV SCH (17:00)
[2020-11-04] MEDS: SODIUM HYPOCHLORITE 0.5% 473 ML TOP SCH ×2 (17:48→20:45)
[2020-11-04] MEDS: MEDIHONEY 44 ML TOPICAL TUBE TOP SCH (17:48)
[2020-11-04] MEDS: COLLAGENASE 30 GM OINTMENT TOP SCH (17:48)
[2020-11-04 21:29] LABS: Absolute Lymphocytes (CBC) 5.3 K/uL (0.7-4.9); Basophils % 0.4 % (0-1.3); Hematocrit 23.6 % (36.0-45.0); MPV 8.1 fL (7.6-11.3); RBC Red Blood Cell Count 2.68 M/uL (3.86-4.86)
[2020-11-04 21:37] LABS: Lymphocytes % 75.9 % (15.3-44.8)
[2020-11-04 21:40] LABS: Protime INR 1.1
[2020-11-04 21:55] LABS: ALT/SGPT 14 U/L (12-78); AST/SGOT 31 U/L (15-37); Alkaline Phosphatase 78 U/L (45-117); BUN Blood Urea Nitrogen 43 mg/dL (7-18); Bicarbonate 24 mmol/L (21-32); Bilirubin Total 0.2 mg/dL (0.2-1.0); Glucose Level 144 mg/dL (74-106); Potassium 5.5 mmol/L (3.5-5.1); Protein, Total 4.5 g/dL (6.4-8.2); Sodium Level 141 mmol/L (136-145)
[2020-11-04] MEDS ORDERED: D50W 25 GM/50 ML SYRINGE IV ONE (23:18)
[2020-11-04] MEDS ORDERED: D50W 25 GM/50 ML SYRINGE IV PRN (23:19)
[2020-11-04] MEDS ORDERED: INSULIN -REGULAR HUMAN 50 UNIT/0.5 ML ML IV ONE (23:20)
[2020-11-04] MEDS: D5 0.9 NS 1,000 ML IV SCH (23:45)
[2020-11-04] MEDS ORDERED: FUROSEMIDE 20 MG/ 2ML VIAL IV SCH (23:45)
--- NOTE | 2020-11-04 23:49 | P.PN ---
Subjective Date of Service: 11/04/20 Patient with no new changes. Patient's clinical condition is stable. Plan to proceed with diverting colostomy and a PEG tube on Thursday. spoke to patient's son regarding plan of care. He is agreeable. Monitor patient's labs closely as well. Hopefully we can get this tomorrow and we can increase the probability of the wound healing. Long-term prognosis remains very poor. However, patient's family does want everything pursued to try to get patient better. Review of Systems is unable to be obtained Physical Examination - Vital Signs Temperature: 96 F Blood Pressure: 134/40 Pulse: 73 Respirations: 22 Pulse Ox (%): 99 - Physical Exam General: Alert, Confused, Other ( Patient does answer questions but she is confused to more detailed questions) Respiratory: Crackles/rales, Expiratory wheezes Cardiovascular: Regular rate/rhythm, Normal S1 S2, No murmurs Gastrointestinal: Normal bowel sounds, Soft and benign, No tenderness, No rebound, No guarding, Distended Musculoskeletal: No clubbing, Swelling Integumentary: Pressure ulcer, Arterial ulcer Neurological: Normal speech, Cranial nerves 3-12 intact, Abnormal gait, Abnormal strength, Abnormal tone - Studies Medications List Reviewed: Yes Assessment & Plan - Problems (Diagnosis) (1) Sacral decubitus ulcer, stage IV Current Visit: Yes Status: Acute (2) Peripheral artery disease Current Visit: Yes Status: Resolved (3) Diabetes mellitus type 2 with complications Current Visit: Yes Status: Chronic (4) Hypertension Current Visit: Yes Status: Chronic Qualifiers: Hypertension type: essential hypertension Qualified Code(s): I10 - Essential (primary) hypertension (5) Pressure ulcer with necrosis of soft tissues through to underlying muscle, tendon, or bone Current Visit: Yes Status: Acute Qualifiers: Pressure injury location: ankle Laterality: left Qualified Code(s): L89.524 - Pressure ulcer of left ankle, stage 4 (6) Anemia Current Visit: Yes Status: Acute Qualifiers: Iron deficiency anemia type: chronic blood loss (7) Thrombocytopenia Current Visit: Yes Status: Acute (8) Hypoalbuminemia Current Visit: Yes Status: Acute (9) Hyperkalemia Current Visit: Yes Status: Acute (10) Acute renal insufficiency Current Visit: Yes Status: Acute - Plan Plan: Continue with plan of care as mentioned below 1. Continue with IV antibiotics; because of patient's thrombocytopenia have changed to Levaquin; Proteus vulgaris is sensitive to the Levaquin 2. Continue with Dobhoff feedings; plan for PEG tube and diverting colostomy Thursday morning 3. Awaiting for LTAC placement 4. Son is trying get medical power of disability attorney established. Hopefully he can get this arranged 5. Continue with physical therapy as tolerated and nursing to do range of motion exercising 6. Long-term prognosis is poor. 7. Patient will need to get vascular studies arranged once infection is better controlled 8. continue wound care of sacral decubitus ulcer 9. Increase protein supplementation for hypoalbuminemia 10. hold off on anti-platelet therapy and DVT prophylaxis for now Discharge Plan: Home Plan to discharge in: Greater than 2 days - Advance Directives Does patient have a Living Will: No Does patient have a Durable POA for Healthcare: No - Code Status/Comfort Care Code Status: Full Code Critical Care: No Time Spent Managing PTS Care (In Minutes): 35
[2020-11-05 05:37] LABS: Protime INR 1.06
[2020-11-05 05:41] LABS: BUN Blood Urea Nitrogen 41 mg/dL (7-18); Bicarbonate 25 mmol/L (21-32); Glucose Level 111 mg/dL (74-106); Potassium 5.4 mmol/L (3.5-5.1); Sodium Level 142 mmol/L (136-145)
[2020-11-05 05:45] LABS: Absolute Lymphocytes (CBC) 6.3 K/uL (0.7-4.9); Basophils % 0.6 % (0-1.3); Hematocrit 23.7 % (36.0-45.0); Lymphocytes % 77.9 % (15.3-44.8)
[2020-11-05] MEDS ORDERED: ALBUMIN HUMAN 25% 100 ML IV ONE (06:10)
[2020-11-05] MEDS ORDERED: LEVOTHYROXINE SOD 0.1 MG TAB PO SCH (06:30)
[2020-11-05] MEDS ORDERED: HYDROCORTISONE SUC 100 MG INJ IV SCH (06:30)
[2020-11-05] MEDS ORDERED: CALCIUM GLUC 10% INJ 4.65 MEQ in NA CHLORIDE 0.9% 100 ML IV ONE (06:55)
[2020-11-05] MEDS: INSULIN -REGULAR HUMAN 50 UNIT/0.5 ML ML SQ SCH ×4 (07:30→21:00)
[2020-11-05] MEDS ORDERED: SODIUM BICARB 50 MEQ/50ML VIAL IV ONE (08:00)
[2020-11-05] MEDS: GLUCERNA 1.2 CAL 1,000 ML BOT FT SCH ×2 (08:00→11:36)
[2020-11-05 08:16] LABS: Blood Morphology Comment NOTED (NOT SEEN); Platelet Estimate DECR
[2020-11-05] MEDS: SODIUM HYPOCHLORITE 0.5% 473 ML TOP SCH ×2 (08:29→21:17)
[2020-11-05] MEDS: JUVEN PACKET PO SCH ×2 (08:30→21:18)
[2020-11-05] MEDS: MEDIHONEY 44 ML TOPICAL TUBE TOP SCH (08:30)
[2020-11-05] MEDS: COLLAGENASE 30 GM OINTMENT TOP SCH (08:31)
[2020-11-05] MEDS ORDERED: Levofloxacin500mg IV 500 MG/100 ML BAG IV SCH (09:00)
[2020-11-05 09:54] VITALS: O2SAT 96
[2020-11-05] MEDS ORDERED: NA CHLORIDE 0.9% 1,000 ML ONE (10:07)
--- NOTE | 2020-11-05 11:22 | P.DS ---
Admission Date: 10/17/20 Discharge Date: 11/05/20 Primary Care Provider: Dr. Germain Dis[facility] Discharge Condition: FAIR Reason for Admission: Decubitus ulcers Consultations: Surgery-Dr. Martinez Infectious disease-Dr. Call Cardiology-Dr. Morgan Procedures: CT Scan: COMPARISON: none. TECHNIQUE: Computed axial tomography of the abdomen pelvis was obtained. 100 cc Isovue-300 was administered intravenously. Oral contrast was not requested which limits evaluation of bowel. All CT scans are performed using dose optimization technique as appropriate and may include automated exposure control or mA/KV adjustment according to patient size. FINDINGS: 4.3 centimeter mass is present within the pancreatic neck. It conta ins small calcifications and a complex cystic areas. 2.2 centimeter soft tissue structure is present posterior to the splenic vein which may represent a lymph node. 2.8 centimeter left adrenal mass. The liver, right adrenal gland and kidneys unremarkable. Spleen is enlarged measuring 14 centimeters Rectum is mildly distended with stool. No evidence of diverticulitis. A periumbilical hernia contains small bowel. The neck measures 3.6 centimeters. A Lim catheter present within the bladder. Postsurgical changes involve the spine. Sacral decubitus ulcer is present. 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 2.2 centimeter soft tissue structure posterior to the splenic vein may represent a lymph node 2.8 centimeter left adrenal mass may represent an adenoma or metastasis Surgery #1: Procedure date 10/18/2020 Primary procedure: Wide excision debridement of necrotizing soft tissue infection of sacrum Secondary procedure: Debridement of left hip, left lower extremity Findings: Sacral wound communicates with left hip wound Surgery #2: Procedure date 10/22/2020 Primary procedure: Wide excision debridement of necrotizing soft tissue infection of the sacrum and left hip area with debridement of left hip tissue Findings: Sacral wound communicates with the left hip wound Medical Problem List: Septic shock related to necrotizing soft tissue of the sacrum, left hip, and left lower ext. 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 ER stated son had noted a left leg wound. He was not sure how long it been. EMS found patient covered in feces. Very large sacral wound was found. Patient was hypotensive and tachycardic in the emergency room. Septic workup was initiated and started. Hospital Course: Patient presented in septic shock related to necrotizing soft tissue infection of the sacrum, left hip and left lower extremity. Patient was seen and evaluated by surgery. Surgical intervention was required. CT scan reviewed. Intervention was done by surgery x2 with wide excision of the sacrum and debridement of the left hip and left lower extremity. Wound culture was positive for Proteus vulgaris. Septic shock resolved. Patient initially on IV vancomycin and meropenem. This was switched to IV Levaquin as recommended by infectious disease and due to her thrombocytopenia. Patient continues with IV antibiotic therapy. Patient will need specialized wound VAC for wounds to heal properly. Patient requires further aggressive wound care and hyperbaric treatment. A advanced care directives address with son who wanted all measures done. Patient continued to have diarrhea. This made wound care difficult. Surgery had planned for laparoscopic possible open colostomy creation and possible open gastrotomy tube due to her nutritional status. This was held as the patient was evaluated for long-term acute care facility. The patient has been accepted. The patient will go to the long-term acute facility continue further IV antibiotic therapy, wound care and treatment. This will include hyperbaric this. Patient will need to be evaluated by surgery therefore possible open colostomy creation till [place] for the wound to heal appropriately. The patient will also likely require open gastrotomy tube placement due to her poor nutritional status. This can be done at the long-term acute care facility. Patient stable for transfer. Patient with paroxysmally atrial fibrillation. Patient had a RVR. Patient has remained stable. Patient was seen by Cardiology. Echocardiogram showed severe aortic stenosis. If the patient significantly improves cardiology recommends heart catheterization with possible tavern in the future with abdominal angiogram with runoff to evaluate her heart and lower extremity. This can be done after her infection has significantly improved. Patient with diabetes mellitus type 2 with hyperglycemia. Patient remains on sliding scale. Patient will continue with oral supplementation. Patient with history of hypertension. Blood pressure medication had been held due to low blood pressure. Blood pressure stable off medication at this time. As mentioned above patient with arterial disease of the left lower extremity with MALATHI. Arterial Doppler shows mild arterial disease of the right lower extremity. Suboptimal examination of the left lower extremity noted. Cardiology recommends to this be further evaluated in the future if her infection significantly improves. Patient had acute anemia likely related to the sacral wound. Patient received transfusions. This can be further monitored and addressed. At discharge hemoglobin 7.9. Patient also had abnormal CT scan. This was suspicious for pancreatic cancer. CT scan showed a 4.3 cm pancreatic neck mass likely consistent of neoplasm with 2.2 cm soft tissue structure posterior to the splenic artery likely lymph node. A 2.8 cm left adrenal mass is likely an adenoma versus metastasis. This can be further addressed as an outpatient. Patient had thrombocytopenia. This is likely from medication and her significant infection. This appears stable at this time. Platelet count 74 at discharge. Patient had some hyperkalemia over the last several days. Patient given medication. This may be related to her nutrition. Will recommend dietary to adjust nutrition due to hyperkalemia. Fecal management system in place. Patient still with diarrhea. Case discussed in detail with surgery. Patient is medically stable for transfer to long-term acute care facility. Surgery has discussed care with son who agrees with plan of care. Patient with poor prognosis. If her condition does not improve will recommend hospice. This can be further addressed with son. Advanced care planning-30 min. Vital Signs/Physical Exam: Temp Pulse Resp BP Pulse Ox 96 F L 73 22 H 110/50 L 99 11/05/20 08:09 11/05/20 08:09 11/05/20 08:09 11/05/20 08:42 11/05/20 08:09 General: Alert, Cooperative, Demented HEENT: Atraumatic Neck: Supple Respiratory: Clear to auscultation bilaterally, Normal air movement Cardiovascular: Normal pulses, Regular rate/rhythm Gastrointestinal: No masses, No rebound, No guarding Integumentary: Other (Some edema to the lower extremity. Wound to the buttocks region could not be evaluated.) Neurological: Normal speech, Normal strength at 5/5 x4 extr External genitalia: Other Rectal: Other (Patient with fecal management system in place ) Laboratory Data at Discharge: WBC 8.1 K/uL (4.3-10.9) D 11/05/20 05:00 Hgb 7.9 g/dL (12.0-15.0) L* 11/05/20 05:00 Hct 23.7 % (36.0-45.0) L 11/05/20 05:00 Plt Count 74 K/uL (152-406) L D 11/05/20 05:00 PT 12.5 SECONDS (9.5-12.5) 11/05/20 05:00 INR 1.06 11/05/20 05:00 APTT 37.1 SECONDS (24.3-36.9) H 11/04/20 21:05 Sodium 142 mmol/L (136-145) 11/05/20 05:00 Potassium 5.6 mmol/L (3.5-5.1) H* 11/05/20 09:30 BUN 41 mg/dL (7-18) H 11/05/20 05:00 Creatinine 0.56 mg/dL (0.55-1.3) 11/05/20 05:00 Glucose 111 mg/dL (74-106) H 11/05/20 05:00 Phosphorus 3.1 mg/dL (2.5-4.9) 10/30/20 08:47 Magnesium 2.0 mg/dL (1.8-2.4) 10/30/20 08:47 Total Bilirubin 0.2 mg/dL (0.2-1.0) 11/04/20 21:05 AST 31 U/L (15-37) 11/04/20 21:05 ALT 14 U/L (12-78) 11/04/20 21:05 Alkaline Phosphatase 78 U/L (45-117) 11/04/20 21:05 Lipase 86 U/L (73-393) 10/22/20 05:50 Home Medications: Aspirin 81 mg PO DAILY 11/12/15 Patient Discharge Instructions: Patient be transferred to long-term acute care facility. Patient presented in septic shock related to necrotizing soft tissue infection of the sacrum, left hip and left lower extremity. Patient was seen and evaluated by surgery. Surgical intervention was required. CT scan reviewed. Intervention was done by surgery x2 with wide excision of the sacrum and debridement of the left hip and left lower extremity. Wound culture was positive for Proteus vulgaris. Septic shock resolved. Patient initially on IV vancomycin and meropenem. This was switched to IV Levaquin as recommended by infectious disease and due to her thrombocytopenia. Patient continues with IV antibiotic therapy. Patient will need specialized wound VAC for wounds to heal properly. Patient requires further aggressive wound care and hyperbaric treatment. A advanced care directives address with son who wanted all measures done. Patient continued to have diarrhea. This made wound care difficult. Surgery had planned for laparoscopic possible open colostomy creation and possible open gastrotomy tube due to her nutritional status. This was held as the patient was evaluated for long-term acute care facility. The patient has been accepted. The patient will go to the long-term acute facility continue further IV antibiotic therapy, wound care and treatment. This will include hyperbaric this. Patient will need to be evaluated by surgery therefore possible open colostomy creation till [place] for the wound to heal appropriately. The patient will also likely require open gastrotomy tube placement due to her poor nutritional status. This can be done at the long-term acute care facility. Patient stable for transfer. Patient with paroxysmally atrial fibrillation. Patient had a RVR. Patient has remained stable. Patient was seen by Cardiology. Echocardiogram showed severe aortic stenosis. If the patient significantly improves cardiology recommends heart catheterization with possible tavern in the future with abdominal angiogram with runoff to evaluate her heart and lower extremity. This can be done after her infection has significantly improved. Patient with diabetes mellitus type 2 with hyperglycemia. Patient remains on sliding scale. Patient will continue with oral supplementation. Patient with history of hypertension. Blood pressure medication had been held due to low blood pressure. Blood pressure stable off medication at this time. As mentioned above patient with arterial disease of the left lower extremity with MALATHI. Arterial Doppler shows mild arterial disease of the right lower extremity. Suboptimal examination of the left lower extremity noted. Cardiology recommends to this be further evaluated in the future if her infection significantly improves. Patient had acute anemia likely related to the sacral wound. Patient received transfusions. This can be further monitored and addressed. At discharge hemoglobin 7.9. Patient also had abnormal CT scan. This was suspicious for pancreatic cancer. CT scan showed a 4.3 cm pancreatic neck mass likely consistent of neoplasm with 2.2 cm soft tissue structure posterior to the splenic artery likely lymph node. A 2.8 cm left adrenal mass is likely an adenoma versus metastasis. This can be further addressed as an outpatient. Patient had thrombocytopenia. This is likely from medication and her significant infection. This appears stable at this time. Platelet count 74 at discharge. Patient had some hyperkalemia over the last several days. Patien t given medication. This may be related to her nutrition. Will recommend dietary to adjust nutrition due to hyperkalemia. Fecal management system in place. Patient still with diarrhea. Case discussed in detail with surgery. Patient is medically stable for transfer to long-term acute care facility. Surgery has discussed care with son who agrees with plan of care. Patient with poor prognosis. If her condition does not improve will recommend hospice. This can be further addressed with son. Advanced care planning-30 min. Diet: ADA Activity: Bedrest Followup: NONE,NONE [Primary Care Provider] - Time spent managing pt's care (in minutes): 55
[2020-11-05] MEDS: NEPRO 1,000 ML BOT FT SCH ×2 (17:00→21:00)
[2020-11-05 17:43] VITALS: BP 104/58; TEMP 95.8
--- NOTE | 2020-11-05 18:44 | PN ---
Subjective: The patient is lying in bed. No new complaints. Continued to have Dobbhoff, Lim, and rectal tube. Objective: Vital Signs: Temperature 97, pulse 73, respirations 22, blood pressure 110/50. Lungs: Basal crackles. Heart: S1, S2. Regular. Abdomen: Soft, nontender. Bowel sounds present. Extremities: Trace edema. Laboratory Data: WBC 8.1, hemoglobin 7.9, platelets are 74. Chemistry shows sodium 142, potassium 5 .4, chloride 113, bicarb 25, BUN 41, creatinine 0.46, glucose 111. Micro data shows cultures from , Proteus vulgaris. Assessment And Plan: Sacral stage IV wound. Prognosis is guarded. Continue supportive care. Await ing long-term acute care. NF/MODL Voice ID: [id number] Report ID: [id number]
[2020-11-05] MEDS: D5 0.9 NS 1,000 ML IV SCH (19:45)
== END 2020-11-05 22:15 | DRG 853 ==
LOC: ER 12:00 → ERHOLD 20:13 → 2ND 10-24 11:40
PROVIDERS: ADMIT Hospitalist; ATTEND Family Medicine
PROC: 0KBP0ZZ Excision of Left Hip Muscle, Open Approach (ICD-10-PCS; 2020-10-18)
PROC: 0LBP0ZZ Excision of Left Lower Leg Tendon, Open Approach (ICD-10-PCS; 2020-10-18)
PROC: 0QB10ZZ Excision of Sacrum, Open Approach (ICD-10-PCS; principal; 2020-10-18 12:00)
PROC: 30233N1 Transfusion of Nonautologous Red Blood Cells into Peripheral Vein, Percutaneous Approach (ICD-10-PCS; 2020-10-20)
PROC: 0QB10ZZ Excision of Sacrum, Open Approach (ICD-10-PCS; 2020-10-22)
PROC: 0KBP0ZZ Excision of Left Hip Muscle, Open Approach (ICD-10-PCS; 2020-10-22)
DX: A41.9 Sepsis, unspecified organism (principal); L89.524 Pressure ulcer of left ankle, stage 4; L89.154 Pressure ulcer of sacral region, stage 4; G93.41 Metabolic encephalopathy; R65.21 Severe sepsis with septic shock; E43 Unspecified severe protein-calorie malnutrition; M86.272 Subacute osteomyelitis, left ankle and foot; E11.52 Type 2 diabetes mellitus with diabetic peripheral angiopathy with gangrene; I96 Gangrene, not elsewhere classified; N39.0 Urinary tract infection, site not specified; C25.7 Malignant neoplasm of other parts of pancreas; Z68.41 Body mass index [BMI] 40.0-44.9, adult; D53.9 Nutritional anemia, unspecified; D63.8 Anemia in other chronic diseases classified elsewhere; E78.5 Hyperlipidemia, unspecified; I10 Essential (primary) hypertension; Z88.0 Allergy status to penicillin; Z79.82 Long term (current) use of aspirin; Z79.4 Long term (current) use of insulin; Z79.899 Other long term (current) drug therapy; Z86.73 Personal history of transient ischemic attack (TIA), and cerebral infarction without residual deficits; Z85.43 Personal history of malignant neoplasm of ovary; Z90.710 Acquired absence of both cervix and uterus; Z90.49 Acquired absence of other specified parts of digestive tract; E11.69 Type 2 diabetes mellitus with other specified complication; E11.51 Type 2 diabetes mellitus with diabetic peripheral angiopathy without gangrene; I77.1 Stricture of artery; I99.8 Other disorder of circulatory system; B96.89 Other specified bacterial agents as the cause of diseases classified elsewhere; E11.65 Type 2 diabetes mellitus with hyperglycemia; I35.0 Nonrheumatic aortic (valve) stenosis; D69.6 Thrombocytopenia, unspecified; E03.9 Hypothyroidism, unspecified; F03.90 Unspecified dementia, unspecified severity, without behavioral disturbance, psychotic disturbance, mood disturbance, and anxiety; E88.09 Other disorders of plasma-protein metabolism, not elsewhere classified; E87.5 Hyperkalemia; N28.9 Disorder of kidney and ureter, unspecified; I48.0 Paroxysmal atrial fibrillation; Z20.828 Contact with and (suspected) exposure to other viral communicable diseases
CPT/HCPCS: 36415; 36430; 70450; 71045; 74177; 80048; 80053; 80076; 80202; 81003; 81015; 82533; 82550; 82565; 82947; 83036; 83605; 83615; 83690; 83735; 83880; 84100; 84132; 84145; 84439; 84443; 85014; 85018; 85025; 85044; 85610; 85730; 86850; 86870; 86900; 86901; 86922; 87040; 87045; 87046; 87070; 87075; 87077; 87086; 87088; 87186; 87205; 87324; 87449; 87804; 88304; 88305; 93005; 93306; 93925; 94760; 96361; 96365; 96366; 96375; 97110; 97161; 99291; 99292; J0282; J0610; J0692; J1160; J1650; J1720; J2185; J2270; J2370; J2543; J2704; J3010; J3370; J3475; J3590; J7030; J7040; J7042; J7050; J7060; J7799; P9016; P9035; P9045; P9047; Q9967; U0003